=== PATIENT | male | born 1945 | race African-American/Black ===

== ENCOUNTER 2018-12-03 11:16 | Emergency (ER) | payer MEDICARE ==
[2018-12-03 12:19] LABS: Hemoglobin 8.2 g/dL (14.0-18.0); INR-International Normal Ratio 1.3; Mean Corpuscular Hemoglobin 35.3 pg (27.0-31.0); Mean Platelet Volume 13.7 fL (7.4-10.4); PTT 35.9 SEC (22.9-36.1); Platelet Count 20 thou/uL (130-400); Prothrombin Time 16.2 SEC (12.0-14.7); RBC Distribution Width 22.2 % (11.5-14.5); Red Blood Cell (RBC) Count 2.33 mill/uL (4.70-6.10); White Blood Cell (WBC) Count 23.3 thou/uL (4.8-10.8)
[2018-12-03 12:33] LABS: Anisocytosis MODERATE=16-30 cells (100X) (0-5/hpf); Band 2 % (5-11); Blast 65 % (0-0); Lymphocytes 15 % (21-51); MDiff Complete? YES; Macrocytosis SLIGHT = 6-15 cells (100X) (0-5/hpf); Metamyelocyte 1 % (0-0); Myelocyte 1 % (0-0); Neutrophil 16 % (42-75); Platelet Morphology Comment Appears Decreased; Poikilocytosis SLIGHT = 6-15 cells (100X) (0-5/hpf); Polychromasia SLIGHT = 2-3 cells (100X) (0-2/hpf); Schistocytes SLIGHT = 2-5 cells (100X) (0-1/hpf); Spherocytes SLIGHT = 1-5 cells (100X) (None Seen); Target Cells SLIGHT = 2-5 cells (100X) (0-1/hpf); Tear Drops SLIGHT = 2-5 cells (100X) (0-1/hpf)
[2018-12-03 12:34] LABS: ALT (SGPT) 10 U/L (8-55); AST (SGOT) 25 U/L (5-34); Albumin 4.2 g/dL (3.4-4.8); Alkaline Phosphatase 51 U/L (40-150); Anion Gap 12 mmol/L (10-20); BUN (Urea Nitrogen) 14 mg/dL (8.4-25.7); Bilirubin, Total 1.1 mg/dL (0.2-1.2); Calc. Creatinine Clearance 0 mL/min (70-130); Carbon Dioxide 23 mmol/L (23-31); Chloride 107 mmol/L (98-107); Estimated GFR-MDRD Greater than 90; Globulin 2.7 g/dL (2.4-3.5); Glucose 94 mg/dL (83-110); Potassium 3.8 mmol/L (3.5-5.1); Protein, Total 6.9 g/dL (5.8-8.1); Sodium 138 mmol/L (136-145)
== END 2018-12-03 17:58 | disposition short-term general hospital (02) ==
LOC: ERS 11:16
DX: C95.00 Acute leukemia of unspecified cell type not having achieved remission (principal); I10 Essential (primary) hypertension; Z79.899 Other long term (current) drug therapy
CPT/HCPCS: 36415; 80053; 85025; 85610; 85730; 99284

== ENCOUNTER 2019-01-05 11:51 | Day surgery (SDC) | payer MEDICARE ==
[2019-01-05] MEDS ORDERED: diphenhydrAMINE 25 MG CAP PO SCH (12:15)
[2019-01-05] MEDS ORDERED: Acetaminophen 500 MG TAB PO SCH (12:15)
[2019-01-05 17:00] VITALS: BP 98/54; TEMP 98.5
[2019-01-05 17:17] LABS: Hemoglobin 7.6 g/dL (14.0-18.0); Platelet Count 41 thou/uL (130-400)
== END 2019-01-05 17:02 | disposition home or self-care (01) ==
LOC: ONC/OP 11:51
PROVIDERS: ATTEND Internal Medicine Hematology & Oncology
PROC: 30233R1 Transfusion of Nonautologous Platelets into Peripheral Vein, Percutaneous Approach (ICD-10-PCS; principal; 2019-01-05)
PROC: 30233N1 Transfusion of Nonautologous Red Blood Cells into Peripheral Vein, Percutaneous Approach (ICD-10-PCS; 2019-01-05)
DX: D64.9 Anemia, unspecified (principal); D69.6 Thrombocytopenia, unspecified
CPT/HCPCS: 36430; 80053; 82248; 83615; 84100; 84550; 85014; 85018; 85049; 85384; 86850; 86900; 86901; P9016; P9035; Q0163

== ENCOUNTER 2019-01-07 11:32 | Day surgery (SDC) | payer MEDICARE ==
[2019-01-06 12:03] VITALS: BMI 22.9
[2019-01-07] MEDS ORDERED: Sodium Chloride 0.9% 10 ML ONE (12:08)
--- NOTE | 2019-01-07 12:38 | RAD ---
EXAM: Single view of the chest HISTORY: Status post central line placement COMPARISON: None FINDINGS: Single view of the chest shows a normal sized cardiomediastinal silhouette. A right upper extremity PICC line is seen with its tip in the superior vena cava. There is no evidence of consolidation, mass, or pleural effusion. The bones are unremarkable. IMPRESSION: No evidence of acute cardiopulmonary disease
[2019-01-07 12:39] LABS: Hemoglobin 8.6 g/dL (14.0-18.0); Mean Corpuscular HGB CONC 33.7 g/dL (32.0-36.0); Mean Corpuscular Hemoglobin 31.7 pg (27.0-31.0); Mean Corpuscular Volume 94.1 fL (78.0-98.0); RBC Distribution Width 20.1 % (11.5-14.5); Red Blood Cell (RBC) Count 2.72 mill/uL (4.70-6.10); White Blood Cell (WBC) Count 1.9 thou/uL (4.8-10.8)
[2019-01-07] MEDS ORDERED: Lidocaine 1% PF 5 ML VIAL ONE (12:53)
[2019-01-07] MEDS ORDERED: PHENYLEPHRINE-NS 100 MCG/ML 10 ML SYRINGE ONE (12:53)
[2019-01-07] MEDS ORDERED: ePHEDrine 50 MG/ML VIAL ONE (12:53)
[2019-01-07] MEDS ORDERED: PROPOFOL 200 MG/20 ML VIAL ONE (12:53)
[2019-01-07] MEDS ORDERED: Ondansetron PF 4 MG/2 ML Vial ONE (12:53)
[2019-01-07 12:56] LABS: #Lymphocytes 0.5 thou/uL (1.20-3.40); #Neutrophils 1.4 thou/uL (1.40-6.50); %Basophils 0.7 % (0.0-1.0); %Eosinophils 0.2 % (0.0-10.0); %Lymphocytes 23.8 % (21.0-51.0); %Monocytes 0.8 % (0.0-10.0); %Neutrophils 74.4 % (42.0-75.0); Anisocytosis SLIGHT = 6-15 cells (100X) (0-5/hpf); MDiff Complete? YES; Mean Platelet Volume 14.3 fL (7.4-10.4); Platelet Count 22 thou/uL (130-400); Platelet Morphology Comment Appears Decreased
[2019-01-07 13:05] LABS: Anion Gap 14 mmol/L (10-20); BUN (Urea Nitrogen) 18 mg/dL (8.4-25.7); Calc. Creatinine Clearance 77 mL/min (70-130); Calcium 8.6 mg/dL (7.8-10.44); Carbon Dioxide 24 mmol/L (23-31); Chloride 104 mmol/L (98-107); Estimated GFR-MDRD Greater than 90; Glucose 89 mg/dL (83-110); Sodium 138 mmol/L (136-145)
[2019-01-07] MEDS ORDERED: Fentanyl 100 MCG/2 ML VIAL ONE (13:40)
[2019-01-07] MEDS ORDERED: Ketorolac Tromethamine 30 MG/ML VIAL ONE (13:43)
[2019-01-07] MEDS ORDERED: Lidocaine 1% (PF) 30 ML VIAL ONE (14:58)
[2019-01-07] MEDS ORDERED: Bupivacaine/Epinephrine 0.25% 30 ML VIAL ONE (14:58)
--- NOTE | 2019-01-07 16:31 | RAD ---
EXAM: Single view of the chest HISTORY: Mediport placement COMPARISON: 01/07/2019 FINDINGS: Single view of the chest shows a normal sized cardiomediastinal silhouette. A left subclav reshma Mediport is seen with its tip in the superior vena cava. A PICC line is also seen. No pneumothorax is seen. There is no evidence of consolidation, mass, or pleural effusion. The bones ar e unremarkable. IMPRESSION: Status post Mediport placement without evidence of complication.
--- NOTE | 2019-01-09 21:11 | OP ---
DATE OF PROCEDURE: 01/07/2019 PREOPERATIVE DIAGNOSIS: Acute myeloid leukemia. POSTOPERATIVE DIAGNOSIS: Acute myeloid leukemia. OPERATION PERFORMED: Placement of left subclavian low-profile power compatible MediPort (attempted placement on the right, which was unsuccessful). ANESTHESIA: Total intravenous anesthesia with local using 0.25% Marcaine with epinephrine. INDICATIONS: The patient is a 73-year-old black male. He was recently diagnosed with AML. He has already undergone some chemotherapy and treatment of this. He presents today for MediPort placement for further chemotherapy. He has an indwelling right arm PICC line that is utilized for his IV access currently. When he presented, his platelet count was only 22,000. He was therefore transfused with a six pack of platelets as he was being taken back to the operating room. DESCRIPTION OF OPERATION: Informed consent was obtained. Patient was taken to the operating room, where total intravenous anesthesia obtained with patient in supine position. Bilateral chest was prepped with ChloraPrep and draped in a sterile fashion. Attention was turned first to the right chest. Local anesthetic was infiltrated and large gauge needle was advanced towards the clavicle. For anatomic reasons, I could not pass the needle between the clavicle and the first rib. I attempted this in multiple positions and never entered a vein. I could not find an appropriate anatomic access to the right subclavian vein. After attempting several times, I turned my attention to the left chest. On the initial pass, the needle was passed under the clavicle in the left subclavian vein. Guidewire was passed through the needle and fluoroscopically confirmed to enter the superior vena cava. Additional local anesthetic was infiltrated. An incision was created based on needle insertion site. Subcutaneous pocket was dissected extending inferiorly. Introducer dilator was passed over the wire. Wire was removed. Catheter was passed through the introducer which was then removed in the usual peel apart fashion. The catheter tip was positioned at the atrial caval junction using fluoroscopic guidance. The catheter was trimmed to appropriate length and secured to the locking hub of the MediPort. The port was then secured to the pectoral fascia with 2 interrupted sutures of 3-0 Prolene. The port was aspirated blood freely, was flushed with heparinized saline. X-ray showed that it was in good anatomic location. The wound was closed in layers with 3-0 and 4-0 Monocryl and Dermabond was placed externally. There were no complications. The patient did have a small hematoma on the right chest at the site of the initial placement attempt. Job ID: [id number]
--- NOTE | 2019-01-11 10:30 | EKG ---
Test Reason : PREOP Blood Pressure : / mmHG Vent. Rate : 088 BPM Atrial Rate : 088 BPM P-R Int : 130 ms QRS Dur : 082 ms QT Int : 336 ms P-R-T Axes : 052 011 020 degrees QTc Int : 406 ms Sinus rhythm with Premature supraventricular complexes ST abnormality, possible digitalis effect Abnormal ECG Confirmed by AMAN BRAGG MD ([id number]) on 01/11/2019 10:30:25 AM Referred By: ROBERTA Confirmed By:AMAN BRAGG MD
== END 2019-01-07 19:00 | disposition home or self-care (01) ==
LOC: SDC 11:32
PROVIDERS: ATTEND Specialist
PROC: 0JH63WZ Insertion of Totally Implantable Vascular Access Device into Chest Subcutaneous Tissue and Fascia, Percutaneous Approach (ICD-10-PCS; principal; 2019-01-07)
DX: C92.00 Acute myeloblastic leukemia, not having achieved remission (principal); I10 Essential (primary) hypertension; M19.90 Unspecified osteoarthritis, unspecified site; D68.9 Coagulation defect, unspecified; Z79.899 Other long term (current) drug therapy
CPT/HCPCS: 36430; 36561; 71045; 76000; 80048; 85025; 86850; 86900; 86901; 93005; C1788; P9035; 93010; J0131; J0690; J1642; J1885; J2001; J2405; J2704; J3010; J3490

== ENCOUNTER 2019-01-10 13:43 | Emergency (ER) | payer MEDICARE ==
[2019-01-10 14:54] LABS: Hemoglobin 6.6 g/dL (14.0-18.0); Mean Corpuscular HGB CONC 34.1 g/dL (32.0-36.0); Mean Corpuscular Hemoglobin 32.8 pg (27.0-31.0); Mean Corpuscular Volume 96.1 fL (78.0-98.0); Mean Platelet Volume 13.6 fL (7.4-10.4); Platelet Count 13 thou/uL (130-400); RBC Distribution Width 20.5 % (11.5-14.5); Red Blood Cell (RBC) Count 2.01 mill/uL (4.70-6.10); White Blood Cell (WBC) Count 1.1 thou/uL (4.8-10.8)
[2019-01-10 15:12] LABS: ALT (SGPT) 15 U/L (8-55); AST (SGOT) 9 U/L (5-34); Albumin 3.4 g/dL (3.4-4.8); Alkaline Phosphatase 52 U/L (40-110); Anion Gap 9 mmol/L (10-20); BUN (Urea Nitrogen) 16 mg/dL (8.4-25.7); Bilirubin, Total 0.6 mg/dL (0.2-1.2); Calc. Creatinine Clearance 0 mL/min (70-130); Carbon Dioxide 22 mmol/L (23-31); Chloride 110 mmol/L (98-107); Estimated GFR-MDRD Greater than 90; Globulin 2.6 g/dL (2.4-3.5); Glucose 184 mg/dL (83-110); Potassium 4.1 mmol/L (3.5-5.1); Sodium 137 mmol/L (136-145)
[2019-01-10 15:15] LABS: Band 7 % (5-11); Lymphocytes 10 % (21-51); MDiff Complete? YES; Neutrophil 82 % (42-75); Ovalocytes SLIGHT = 2-5 cells (100X) (0-1/hpf); Platelet Morphology Comment Appears Decreased; Polychromasia SLIGHT = 2-3 cells (100X) (0-2/hpf); Reactive Lymphocytes 1 % (0-10); Schistocytes SLIGHT = 2-5 cells (100X) (0-1/hpf); Target Cells SLIGHT = 2-5 cells (100X) (0-1/hpf); Tear Drops SLIGHT = 2-5 cells (100X) (0-1/hpf)
== END 2019-01-10 18:45 | disposition home or self-care (01) ==
LOC: ERS 13:43
DX: D64.9 Anemia, unspecified (principal); I10 Essential (primary) hypertension; Z79.899 Other long term (current) drug therapy
CPT/HCPCS: 36430; 80053 ×2; 82248; 83615; 84100; 84550; 85025; 86850; 86900; 86901; 86920; P9016; P9035; 36415; 99284

== ENCOUNTER 2019-01-19 14:12 | Inpatient (IN) | payer MEDICARE ==
--- NOTE | 2019-01-19 14:44 | RAD ---
Exam: Chest one view HISTORY:Cough. Fever. Cancer patient. Low platelets Comparison: 01/07/2019 FINDINGS: Cardiac silhouette:Upper normal cardiac silhouette Lines and tubes: Stable left-sided Port-A-Cath Aorta: Unremarkable Pulmonary vessels: Normal Costophrenic angles: Clear LUNGS: Stable aeration of the lung parenchyma. Increased lucency in the left upper lobe is unchanged. Pneumothorax: None Osseous abnormalities: None IMPRESSION: No significant interval change.
[2019-01-19 14:45] LABS: Hemoglobin 7.8 g/dL (14.0-18.0); Mean Corpuscular HGB CONC 33.9 g/dL (32.0-36.0); Mean Corpuscular Hemoglobin 32.1 pg (27.0-31.0); Mean Corpuscular Volume 94.7 fL (78.0-98.0); Mean Platelet Volume 10.3 fL (7.4-10.4); Platelet Count 33 thou/uL (130-400); RBC Distribution Width 19.6 % (11.5-14.5); Red Blood Cell (RBC) Count 2.43 mill/uL (4.70-6.10); White Blood Cell (WBC) Count 1.8 thou/uL (4.8-10.8)
[2019-01-19 14:57] LABS: ALT (SGPT) 14 U/L (8-55); AST (SGOT) 13 U/L (5-34); Albumin 3.8 g/dL (3.4-4.8); Alkaline Phosphatase 50 U/L (40-110); Anion Gap 14 mmol/L (10-20); BUN (Urea Nitrogen) 16 mg/dL (8.4-25.7); Bilirubin, Total 1.4 mg/dL (0.2-1.2); Calc. Creatinine Clearance 0 mL/min (70-130); Carbon Dioxide 22 mmol/L (23-31); Chloride 105 mmol/L (98-107); Estimated GFR-MDRD Greater than 90; Globulin 2.4 g/dL (2.4-3.5); Glucose 117 mg/dL (83-110); Potassium 3.6 mmol/L (3.5-5.1); Protein, Total 6.2 g/dL (5.8-8.1); Sodium 137 mmol/L (136-145)
[2019-01-19 15:29] LABS: Band 18 % (5-11); Lymphocytes 28 % (21-51); MDiff Complete? YES; Metamyelocyte 1 % (0-0); Monocytes 1 % (0-10); Myelocyte 1 % (0-0); Neutrophil 50 % (42-75); Platelet Morphology Comment Appears Decreased; Polychromasia SLIGHT = 2-3 cells (100X) (0-2/hpf); Reactive Lymphocytes 1 % (0-10); Tear Drops SLIGHT = 2-5 cells (100X) (0-1/hpf)
[2019-01-19 15:30] LABS: Bacteria/HPF 4+ HPF (None Seen); Bilirubin Negative (Negative); Blood, Urine 2+ (Negative); Clarity Turbid (Clear); Glucose, Urine (Dipstick) Normal (Negative); Leukocyte 25 Leu/uL (Negative); Nitrite Negative (Negative); Protein, Urine (Dipstick) 30 mg/dL (Neg-Trace); RBC/HPF Greater than 50 HPF (0-3); Squamous Epithelial None Seen HPF (0-3); Urobilinogen Normal mg/dL (Less than 2)
[2019-01-19] MEDS ORDERED: Piperacillin/Tazobactam 4.5 GM VIAL ONE (15:58)
[2019-01-19] MEDS ORDERED: Acetaminophen 500 MG TAB ONE (15:58)
[2019-01-19] MEDS ORDERED: Ondansetron ODT 4 MG TAB PO PRN (16:46)
[2019-01-19] MEDS ORDERED: Senokot S 8.6-50 MG TAB PO PRN (16:46)
[2019-01-19] MEDS ORDERED: Ondansetron PF 4 MG/2 ML Vial IVP PRN (16:46)
[2019-01-19] MEDS ORDERED: Ibuprofen 800 MG TAB ONE (17:19)
--- NOTE | 2019-01-19 17:35 | HP ---
CHIEF COMPLAINT: Generalized weakness. HISTORY OF PRESENT ILLNESS: This patient is a 73-year-old male, who has been generally healthy, whose only real medical history has been hypertension. However, in November, the patient was diagnosed with acute myelogenous leukemia and is being treated by Dr. Mckee. The patient had a port placed by Dr. Hickman and was following up with Dr. Hickman today. He was generally weaker than usual and trying to get to that appointment, he had to go to the Oncology Clinic apparently for some fluids and while there became profoundly weak and was noted to have a fever and subsequently brought here to the emergency department. Currently, the patient continues to feel generalized weakness, but he denies any other specific symptoms or complaints. REVIEW OF SYSTEMS: The patient apparently reported some cough, but presently does not report a significant cough. He denies headaches, sore throat, chest congestion, shortness of breath, chest pain, diarrhea, constipation, skin rashes or lesions or mouth symptoms. All other systems reviewed. All pertinent positives and negatives were noted in HPI if not listed here. PAST MEDICAL HISTORY: Notable for hypertension and AML. PAST SURGICAL HISTORY: Right cataractectomy and left chest port placement in the subclavian area. FAMILY HISTORY: Mother had some heart disease. Father's medical history is unknown. Has a brother with cancer and another brother with some heart disease. SOCIAL HISTORY: The patient is a nonsmoker, nondrinker, and nondrug user. He lives with his daughter. He is full code and she is his surrogate decision maker. ALLERGIES: NONE. CURRENT MEDICATIONS: 1. Diclofenac sodium 75 mg b.i.d. p.r.n. 2. Lisinopril 20 mg b.i.d. 3. Folic acid 1 mg daily. 4. Dexamethasone 4 mg daily. 5. Acyclovir 400 mg b.i.d. 6. Amlodipine 5 mg daily. 7. Lasix 20 mg daily. 8. Famotidine 20 mg daily. 9. Zofran p.r.n. 10. Compazine p.r.n. PHYSICAL EXAMINATION: VITAL SIGNS: Initially, BP 118/55, pulse 116, respirations 22, temperature 102.2, O2 saturations 98% on room air. Subsequently, BP is up to 146/69, pulse 101, respirations 16. GENERAL APPEARANCE: Age-appropriate male. He is awake and alert; however, he appears to be profoundly weak. He appears to barely be able to muster enough energy to barely shake his head when answering questions and occasionally answer or speak with a very hypophonic voice. HEENT: PERRL. No OP lesions. Cannot fully open his mouth at the moment. NECK: Supple and symmetric with no lymphadenopathy, JVD, or carotid bruits. HEART: Regular rate and rhythm with a 2/6 murmur heard best at the right upper sternal border. LUNGS: Clear to auscultation bilaterally with good chest wall expansion and air exchange. ABDOMEN: Soft, nontender, and nondistended. Positive bowel sounds. No masses. No organomegaly. EXTREMITIES: He has 1 to 2+ pitting edema to the mid calf bilaterally. He has some minimal ecchymoses here scattered in various places, nothing significant. PSYCH: Again very flat affect at the moment secondary to weakness. NEURO: Appears to be able to move his extremities and his cranial nerves normal other than the generalized weakness. IMAGING STUDIES: EKG shows sinus tachycardia at 117 beats per minute nothing specific or anything suggestive of ischemia. Chest x-ray is normal. LABORATORY DATA: White count is 1.8, hemoglobin 7.8, platelets 33, 50% neutrophils, 18% bands, 28% lymphocytes, 1% reactive lymphocytes, monocytes, metamyelocytes and myelocytes. There is polychromasia and teardrop cells. Chemistries normal except CO2 is 22, glucose 117, lactic acid 3, total bilirubin is 1.4. Urinalysis shows 2+ blood, greater than 50 red cells, 7 to 10 white cells, 1+ crystals and 4+ bacteria. Flu screen negative. IMPRESSION AND PLAN: 1. Febrile illness in a patient who is rapidly approaching neutropenia. He appears to be septic based on his fever and tachycardia. He is incapable of mounting a significant white count, although white count is technically low. There is no specific source of infection identified. He has received vancomycin and Zosyn in the emergency department. I will continue those along with his p.o. acyclovir. We will continue some fluids. Recheck his lactic acid level. 2. Acute myeloid leukemia, on chemotherapy. We will consult Oncology. 3. Hypertension. We will continue with his usual home medication regimen. Job ID: [id number]
[2019-01-19 17:36] LABS: Lactic Acid 1.6 mmol/L (0.5-2.2)
[2019-01-19] MEDS ORDERED: Piperacillin/Tazobactam 3.375 GM in Sodium Chloride 0.9% 100 ML IVPB SCH (18:00)
[2019-01-19] MEDS ORDERED: Vancomycin HCl 1 GM in Premix Bag 1 BAG IVPB SCH (21:00)
[2019-01-19] MEDS: Piperacillin/Tazobactam 3.375 GM in Sodium Chloride 0.9% 100 ML IVPB SCH (22:23)
[2019-01-19] MEDS: Lisinopril 20 MG TAB PO SCH (22:23)
[2019-01-19] MEDS: Famotidine 20 MG TAB PO SCH (22:24)
[2019-01-19] MEDS: Acyclovir 400 mg Tablet PO SCH (22:24)
[2019-01-20] MEDS: Piperacillin/Tazobactam 3.375 GM in Sodium Chloride 0.9% 100 ML IVPB SCH ×4 (03:33→21:17)
[2019-01-20] MEDS: Acetaminophen 325 MG TAB PO PRN ×4 (05:33→20:07)
[2019-01-20 05:38] LABS: Hemoglobin 7.2 g/dL (14.0-18.0); Mean Corpuscular HGB CONC 32.9 g/dL (32.0-36.0); Mean Corpuscular Hemoglobin 31.6 pg (27.0-31.0); Mean Corpuscular Volume 96.1 fL (78.0-98.0); Platelet Count 24 thou/uL (130-400); RBC Distribution Width 19.6 % (11.5-14.5); Red Blood Cell (RBC) Count 2.27 mill/uL (4.70-6.10); White Blood Cell (WBC) Count 1.2 thou/uL (4.8-10.8)
[2019-01-20 05:47] LABS: Band 8 % (5-11); Hypochromia SLIGHT = 6-15 cells (100X) (0-5/hpf); Lymphocytes 20 % (21-51); MDiff Complete? YES; Monocytes 4 % (0-10); Neutrophil 68 % (42-75); Platelet Morphology Comment Appears Decreased
[2019-01-20 05:58] LABS: ALT (SGPT) 15 U/L (8-55); AST (SGOT) 27 U/L (5-34); Albumin 3.3 g/dL (3.4-4.8); Alkaline Phosphatase 43 U/L (40-110); Anion Gap 14 mmol/L (10-20); BUN (Urea Nitrogen) 14 mg/dL (8.4-25.7); Bilirubin, Total 1.6 mg/dL (0.2-1.2); Calc. Creatinine Clearance 84 mL/min (70-130); Calcium 7.8 mg/dL (7.8-10.44); Carbon Dioxide 21 mmol/L (23-31); Chloride 109 mmol/L (98-107); Estimated GFR-MDRD Greater than 90; Globulin 2.3 g/dL (2.4-3.5); Glucose 80 mg/dL (83-110); Potassium 3.8 mmol/L (3.5-5.1); Protein, Total 5.6 g/dL (5.8-8.1); Sodium 140 mmol/L (136-145)
[2019-01-20] MEDS ORDERED: FLU VACC TS2019-20(65YR UP)/PF 180 MCG/0.5 ML SYRINGE IM ONE (09:00)
[2019-01-20] MEDS: Lisinopril 20 MG TAB PO SCH ×2 (09:00→20:07)
[2019-01-20] MEDS: Acyclovir 400 mg Tablet PO SCH ×2 (09:01→20:08)
[2019-01-20] MEDS: Famotidine 20 MG TAB PO SCH ×2 (09:17→20:07)
--- NOTE | 2019-01-20 09:27 | PDOC.HOSPP ---
- Subjective Encounter Date: 01/20/19 Encounter Time: 09:25 Subjective: Feels a little better than last night. No specific complaints. - Objective Vital Signs & Weight: Vital Signs (12 hours) Temp Pulse Resp BP BP BP Pulse Ox 01/20/19 09:00 117/65 01/20/19 07:59 99.6 F 87 16 117/65 99 01/20/19 04:00 100.1 F H 91 18 119/68 97 01/20/19 00:00 98.8 F 82 18 118/67 98 01/19/19 22:23 111/63 99 Weight Weight 151 lb 9.6 oz I&O: 01/19/19 01/20/19 01/21/19 06:59 06:59 06:59 Intake Total 500 Balance 500 Result Diagrams: 01/20/19 05:23 01/20/19 05:23 Hospitalist ROS - Medication Medications: Active Medications Generic Name Dose Route Start Last Admin Trade Name Freq PRN Reason Stop Dose Admin Acetaminophen 650 mg 01/19/19 16:46 01/20/19 05:33 Tylenol PO 650 mg Q4H PRN Administration Headache/Fever/Mild Pain (1-3) Acyclovir 400 mg 01/19/19 21:00 01/20/19 09:01 Zovirax PO 400 mg BID CHRISTIANO Administration Famotidine 20 mg 01/19/19 21:00 01/20/19 09:17 Pepcid PO Not Given BID CHRISTIANO Piperacillin Sod/Tazobactam 100 mls @ 200 mls/hr 01/19/19 22:00 01/20/19 09: 02 Sod 3.375 gm/ Sodium Chloride IVPB 100 mls 0400,1000,1600,2200 CHRISTIANO Administration Lisinopril 20 mg 01/19/19 21:00 01/20/19 09:00 Zestril PO 20 mg BID CHRISTIANO Administration - Exam General Appearance: NAD, awake alert Eye: PERRL, anicteric sclera Heart: RRR, no gallops, no rubs, II/IV Respiratory: CTAB, no wheezes, no rales, no ronchi, normal chest expansion, no tachypnea, normal percussion Gastrointestinal: soft, non-tender, non-distended, normal bowel sounds, no palpable masses, no hepatomegaly, no splenomegaly, no bruit Skin: normal turgor Neurological: cranial nerve grossly intact, normal sensation to touch, no weakness, no focal deficits, no new deficit Musculoskeletal: generalized weakness Psychiatric: flat affect Hosp A/P (1) Neutropenic sepsis Code(s): A41.9 - SEPSIS, UNSPECIFIED ORGANISM; D70.9 - NEUTROPENIA, UNSPECIFIED Status: Acute (2) UTI (urinary tract infection) Status: Acute (3) AML (acute myeloblastic leukemia) Code(s): C92.00 - ACUTE MYELOBLASTIC LEUKEMIA, NOT HAVING ACHIEVED REMISSION Status: Acute (4) HTN (hypertension) Code(s): I10 - ESSENTIAL (PRIMARY) HYPERTENSION Status: Acute (5) Pancytopenia Code(s): D61.818 - OTHER PANCYTOPENIA Status: Acute - Plan Doing a little better. Continue Vanc and Zosyn. Follow counts. Oncology following. UCx grown GNR. Possible source. Echo for previously undiagnosed murmur in the setting of fever. Suspect it may be a flow murmur from the anemia.
[2019-01-20] MEDS: Sodium Chloride 0.9% 1,000 ML IV SCH (15:29)
[2019-01-20] MEDS ORDERED: Vancomycin HCl 1.25 GM in Sodium Chloride 0.9% 250 ML 250 ML IVPB SCH (16:00)
--- NOTE | 2019-01-20 16:59 | CON ---
DATE OF CONSULTATION: REASON FOR CONSULTATION: AML. HISTORY OF PRESENT ILLNESS: A 73-year-old male with AML, currently on chemotherapy, presenting to the hospital with fatigue, generalized weakness, and fever. The patient was seen in followup by Dr. Hickman and had complained of weakness, so was sent over to Cancer Clinic for evaluation. Upon arrival to Cancer Clinic, he was noted to be febrile with a temperature of 100 and received 1 L of IV fluids. After IV fluids, he felt even worse and his CBC showed a white blood cell count of 1.6 and neutrophil count of 1.1, so he was sent over to the ER for evaluation. The patient denied any other specific symptoms or complaints. His urinalysis and urine culture showed a UTI, and he continues to be febrile. He has been started on antibiotics with vancomycin and Zosyn and is also on acyclovir. REVIEW OF SYSTEMS: Ten-point review of systems negative except as per HPI. PAST MEDICAL HISTORY: AML and hypertension. PAST SURGICAL HISTORY: MediPort and cataract surgery. FAMILY HISTORY: Colon and lung cancer in his brother, blood clot in his sister. SOCIAL HISTORY: Nonsmoker and nondrinker. Lives with his daughter. ALLERGIES: NONE. CURRENT MEDICATIONS: Reviewed. PHYSICAL EXAMINATION: VITAL SIGNS: Temperature 102.2, pulse 89, respirations 16, saturating 98% on room air with a blood pressure 117/69. GENERAL APPEARANCE: The patient is lying down in bed, in no acute distress. Appears weak. HEENT: Normocephalic and atraumatic. NECK: Supple. CARDIAC: S1 and S2. Regular rate and rhythm with a 2/6 systolic ejection murmur. LUNGS: Clear to auscultation. ABDOMEN: Soft, nondistended, and nontender. There is no suprapubic tenderness. EXTREMITIES: Show pitting edema. PSYCHIATRIC: Flat affect. NEUROLOGIC: Cranial nerves 2 through 12 are grossly intact. He moves all extremities. LABORATORY DATA: White blood cells 1.2, hemoglobin 7.2, platelets 24, neutrophils 912. Sodium 140, potassium 3.8, BUN 14, creatinine 0.75, glucose 80. Total bilirubin 1.6, AST 27, ALT 15, alkaline phosphatase 43, and albumin 3.3. Urinalysis shows 7 to 10 white blood cells, 4+ bacteria, and urine culture shows gram-negative rods greater than 100,000 CFUs. Blood cultures are negative to date. IMAGING DATA: Chest x-ray is normal. ASSESSMENT AND PLAN: A 73-year-old male with acute myelogenous leukemia, presenting with febrile neutropenia and found to have urinary tract infection. The patient is currently on vancomycin and Zosyn along with acyclovir and is still spiking fevers. Blood cultures are negative to date, and we will follow these up. Recommend continue IV fluids and antibiotics at this time. If his absolute neutrophil count drops below 500, we would recommend adding antifungal therapy with voriconazole. We would also hold venetoclax at this time due to neutropenia and infection. We transfuse packed red blood cells for a hemoglobin less than 7 and transfuse platelets if less than 20 given ongoing fevers, however, could be less than 10 if he becomes afebrile. We will follow along with you. Job ID: [id number]
[2019-01-21] MEDS: Acetaminophen 325 MG TAB PO PRN ×4 (02:22→20:20)
[2019-01-21] MEDS: Piperacillin/Tazobactam 3.375 GM in Sodium Chloride 0.9% 100 ML IVPB SCH ×4 (03:30→21:51)
[2019-01-21] MEDS: Sodium Chloride 0.9% 1,000 ML IV SCH ×2 (06:24→15:25)
[2019-01-21 06:50] LABS: Hemoglobin 6.5 g/dL (14.0-18.0); Mean Corpuscular HGB CONC 32.8 g/dL (32.0-36.0); Mean Corpuscular Hemoglobin 31.7 pg (27.0-31.0); Mean Corpuscular Volume 96.4 fL (78.0-98.0); Mean Platelet Volume 11.9 fL (7.4-10.4); Platelet Count 13 thou/uL (130-400); RBC Distribution Width 19.9 % (11.5-14.5); Red Blood Cell (RBC) Count 2.05 mill/uL (4.70-6.10); White Blood Cell (WBC) Count 0.6 thou/uL (4.8-10.8)
[2019-01-21 06:55] LABS: Band 8 % (5-11); Lymphocytes 64 % (21-51); MDiff Complete? YES; Neutrophil 28 % (42-75); Platelet Morphology Comment Appears Decreased
[2019-01-21] MEDS: Voriconazole 50 MG TAB PO SCH ×2 (08:49→20:19)
[2019-01-21] MEDS: Lisinopril 20 MG TAB PO SCH ×2 (08:49→20:20)
[2019-01-21] MEDS: Acyclovir 400 mg Tablet PO SCH ×2 (08:50→20:19)
[2019-01-21] MEDS: Famotidine 20 MG TAB PO SCH ×2 (08:50→20:20)
--- NOTE | 2019-01-21 10:10 | PDOC.HOSPP ---
- Subjective Encounter Date: 01/21/19 Encounter Time: 10:09 Subjective: Doing a little better. Has cough productive of clear sputum. - Objective Vital Signs & Weight: Vital Signs (12 hours) Temp Pulse Resp BP BP BP Pulse Ox 01/21/19 08:49 119/65 01/21/19 07:40 100.8 F H 88 16 136/75 95 01/21/19 03:34 100.7 F H 99 16 121/74 97 01/21/19 00:00 98.7 F 89 18 115/68 98 Weight Admit Weight 151 lb 9.6 oz Weight 151 lb 9.6 oz I&O: 01/20/19 01/21/19 01/22/19 06:59 06:59 06:59 Intake Total 500 1025 Balance 500 1025 Result Diagrams: 01/21/19 05:58 01/20/19 05:23 Hospitalist ROS - Medication Medications: Active Medications Generic Name Dose Route Start Last Admin Trade Name Freq PRN Reason Stop Dose Admin Acetaminophen 650 mg 01/19/19 16:46 01/21/19 08:49 Tylenol PO 650 mg Q4H PRN Administration Headache/Fever/Mild Pain (1-3) Acyclovir 400 mg 01/19/19 21:00 01/21/19 08:50 Zovirax PO 400 mg BID CHRISTIANO Administration Famotidine 20 mg 01/19/19 21:00 01/21/19 08:50 Pepcid PO Not Given BID CHRISTIANO Vancomycin HCl 1.25 gm/ Sodium 250 mls @ 166.667 mls/hr 01/20/19 16:00 15:33 Chloride IVPB 250 mls 1600 CHRISTIANO Administration Piperacillin Sod/Tazobactam 100 mls @ 200 mls/hr 01/19/19 22:00 01/21/19 09: 21 Sod 3.375 gm/ Sodium Chloride IVPB 100 mls 0400,1000,1600,2200 CHRISTIANO Administration Sodium Chloride 1,000 mls @ 75 mls/hr 01/20/19 15:15 01/21/19 06:24 Normal Saline 0.9% IV Not Given .[id number] CHRISTIANO Lisinopril 20 mg 01/19/19 21:00 01/21/19 08:49 Zestril PO 20 mg BID CHRISTIANO Administration Voriconazole 50 mg 01/21/19 09:00 01/21/19 08:49 Vfend PO 50 mg Q12HR CHRISTIANO Administration - Exam General Appearance: NAD, awake alert Heart: RRR, no gallops, no rubs, II/IV Respiratory: CTAB, no wheezes, no rales, no ronchi, normal chest expansion, no tachypnea, normal percussion Gastrointestinal: soft, non-tender, non-distended Extremities: no edema Skin: normal turgor Musculoskeletal: generalized weakness Psychiatric: normal behavior, flat affect Hosp A/P (1) Neutropenic sepsis Code(s): A41.9 - SEPSIS, UNSPECIFIED ORGANISM; D70.9 - NEUTROPENIA, UNSPECIFIED Status: Acute (2) UTI (urinary tract infection) Status: Acute (3) AML (acute myeloblastic leukemia) Code(s): C92.00 - ACUTE MYELOBLASTIC LEUKEMIA, NOT HAVING ACHIEVED REMISSION Status: Acute (4) HTN (hypertension) Code(s): I10 - ESSENTIAL (PRIMARY) HYPERTENSION Status: Acute (5) Pancytopenia Code(s): D61.818 - OTHER PANCYTOPENIA Status: Acute (6) Cough Code(s): R05 - COUGH Status: Acute - Plan Doing a little better. Continue Vanc and Zosyn. Po Acyclovir and Voriconazole. Follow counts. Oncology following. UCx grown Klebsiella. Possible source. Echo with mod AR, TR. Suspect it may be a flow murmur from the anemia. Transfuse RBC, Platelets. 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
[2019-01-21] MEDS ORDERED: Acetaminophen 325 MG TAB PO SCH (11:00)
--- NOTE | 2019-01-21 13:04 | PDOC.MOPN ---
Interval History: Eating lunch, denies complaints. - Vital Signs Vital Signs: Vital Signs (12 hours) Temp Pulse Resp BP BP Pulse Ox 01/21/19 11:39 100.3 F H 96 16 117/75 96 01/21/19 11:15 100.8 F H 01/21/19 10:50 102.4 F H 01/21/19 08:49 119/65 01/21/19 07:40 100.8 F H 88 16 136/75 95 01/21/19 03:34 100.7 F H 99 16 121/74 97 Weight Admit Weight 151 lb 9.6 oz Weight 151 lb 9.6 oz - Physical Exam General: Alert, Oriented x3, No acute distress HEENT: Atraumatic, PERRLA, EOMI, Mucous membr. moist/pink Lungs: Clear to auscultation, Normal air movement Cardiovascular: Regular rate, Normal S1, Normal S2, No murmurs, Gallops, Rubs Abdomen: Normal bowel sounds, Soft, No tenderness, No hepatospenomegaly, No masses Extremities: No clubbing, No cyanosis, No edema, Normal pulses, No tenderness/ swelling Neurological: Normal speech Psych/Mental Status: Mental status NL, Mood NL - Labs Result Diagrams: 01/21/19 05:58 01/20/19 05:23 Lab results: Laboratory Results - last 24 hr 01/21/19 08:18: Blood Type O POSITIVE, Antibody Screen NEGATIVE, Crossmatch See Detail 01/21/19 05:58: WBC 0.6 L*, RBC 2.05 L, Hgb 6.5 L, Hct 19.8 L, MCV 96.4, MCH 31.7 H, MCHC 32.8, RDW 19.9 H, Plt Count 13 L*, MPV 11.9 H, Neutrophils % ( Manual) 28 L, Band Neuts % (Manual) 8, Lymphocytes % (Manual) 64 H, Plt Morphology Comment Appears Decreased L Status: lab reviewed by me A/P - Problem (1) AML (acute myeloblastic leukemia) Current Visit: Yes Code(s): C92.00 - ACUTE MYELOBLASTIC LEUKEMIA, NOT HAVING ACHIEVED REMISSION Status: Acute (2) Neutropenic sepsis Current Visit: Yes Code(s): A41.9 - SEPSIS, UNSPECIFIED ORGANISM; D70.9 - NEUTROPENIA, UNSPECIFIED Status: Acute (3) Pancytopenia Current Visit: Yes Code(s): D61.818 - OTHER PANCYTOPENIA Status: Acute - Plan Plan: Continue abx, antiviral, antifungal IVF Transfuse PRBC and platelets today neutropenic precautions CBC daily.
[2019-01-21] MEDS: Vancomycin HCl 1.25 GM in Sodium Chloride 0.9% 250 ML 250 ML IVPB SCH (17:29)
[2019-01-22] MEDS: Acetaminophen 325 MG TAB PO PRN ×4 (00:28→17:09)
[2019-01-22] MEDS: Piperacillin/Tazobactam 3.375 GM in Sodium Chloride 0.9% 100 ML IVPB SCH ×4 (04:38→21:00)
[2019-01-22] MEDS: Vancomycin HCl 1.25 GM in Sodium Chloride 0.9% 250 ML 250 ML IVPB SCH ×2 (04:41→17:06)
[2019-01-22 05:15] LABS: Platelet Count 20 thou/uL (130-400); White Blood Cell (WBC) Count 0.3 thou/uL (4.8-10.8)
[2019-01-22 06:11] LABS: Anisocytosis SLIGHT = 6-15 cells (100X) (0-5/hpf); Burr Cells SLIGHT = 2-5 cells (100X) (0-1/hpf); MDiff Complete? YES; Mean Corpuscular HGB CONC 34.4 g/dL (32.0-36.0); Mean Corpuscular Hemoglobin 32.4 pg (27.0-31.0); Platelet Morphology Comment Appears Decreased; RBC Distribution Width 18.7 % (11.5-14.5); Red Blood Cell (RBC) Count 2.15 mill/uL (4.70-6.10)
[2019-01-22] MEDS: Sodium Chloride 0.9% 1,000 ML IV SCH (06:37)
[2019-01-22] MEDS: Voriconazole 50 MG TAB PO SCH ×2 (08:49→22:50)
[2019-01-22] MEDS: Famotidine 20 MG TAB PO SCH ×2 (08:49→20:59)
[2019-01-22] MEDS: Lisinopril 20 MG TAB PO SCH ×2 (08:49→20:59)
[2019-01-22] MEDS: Acyclovir 400 mg Tablet PO SCH ×2 (08:49→20:59)
--- NOTE | 2019-01-22 10:00 | PDOC.MOPN ---
Interval History: Pt feeling better today. He c/o mild SOB. Eating more. Still spiking fevers, but fever curve improving. - Vital Signs Vital Signs: Vital Signs (12 hours) Temp Pulse Resp BP BP Pulse Ox 01/22/19 07:37 100.4 F H 95 16 134/73 95 01/22/19 04:00 98.8 F 88 20 132/73 97 01/21/19 23:45 101.6 F H 105 H 20 123/70 94 L Weight Admit Weight 151 lb 9.6 oz Weight 151 lb 9.6 oz - Physical Exam General: Alert, Oriented x3, Cooperative HEENT: Atraumatic Lungs: Clear to auscultation, Normal air movement Cardiovascular: Regular rate, Normal S1, Normal S2, Other (3/6 systolic murmur) Abdomen: Soft, No tenderness Neurological: Cranial nerves 3-12 NL Psych/Mental Status: Other (flat affect) - Labs Result Diagrams: 01/22/19 04:30 01/20/19 05:23 Lab results: Laboratory Results - last 24 hr 01/22/19 04:30: WBC 0.3 L*, RBC 2.15 L, Hgb 7.0 L, Hct 20.2 L, MCV 94.0, MCH 32.4 H, MCHC 34.4, RDW 18.7 H, Plt Count 20 L*, MPV 11.0 H, Neutrophils % ( Manual) Not Reportable, Plt Morphology Comment Appears Decreased L, Anisocytosis SLIGHT = 6-15 cells, Mariam Cells SLIGHT = 2-5 cells 01/21/19 15:09: Vancomycin Trough 4.0 01/21/19 08:18: Blood Type O POSITIVE, Antibody Screen NEGATIVE, Crossmatch See Detail A/P - Problem (1) AML (acute myeloblastic leukemia) Current Visit: Yes Code(s): C92.00 - ACUTE MYELOBLASTIC LEUKEMIA, NOT HAVING ACHIEVED REMISSION Status: Acute (2) Pancytopenia Current Visit: Yes Code(s): D61.818 - OTHER PANCYTOPENIA Status: Acute (3) UTI (urinary tract infection) Current Visit: Yes Status: Acute - Plan Plan: cont antibiotics, antifungal, antivirals await count recovery - no neupogen at this time given AML Transfuse for platelets < 10 or Hb < 7.0: transfuse 1 unit PRBC today Hold venetoclax PT consult
--- NOTE | 2019-01-22 19:10 | PDOC.HOSPP ---
- Subjective Encounter Date: 01/22/19 Encounter Time: 18:20 Subjective: f/u for neutropenic fever, sepsis and UTI with Klebsiella spp on Zosyn/ Vancomycin. Continues to have fever spikes. More alert per daughter this pm. - Objective Vital Signs & Weight: Vital Signs (12 hours) Temp Pulse Pulse Resp BP BP BP 01/22/19 19:02 99.1 F 100 20 142/76 H 01/22/19 17:07 100.9 F H 01/22/19 15:48 102.5 F H 101 H 18 127/65 01/22/19 15:20 101.2 F H 99 16 137/71 01/22/19 13:15 97.9 F 101 H 16 125/71 01/22/19 13:00 101.8 F H 98 14 136/71 01/22/19 11:55 102.8 F H 101 H 18 151/72 H 01/22/19 08:50 01/22/19 07:37 100.4 F H 95 16 134/73 Pulse Ox 01/22/19 19:02 97 01/22/19 17:07 01/22/19 15:48 99 01/22/19 15:20 97 01/22/19 13:15 95 01/22/19 13:00 94 L 01/22/19 11:55 95 01/22/19 08:50 95 01/22/19 07:37 95 Weight Admit Weight 151 lb 9.6 oz Weight 151 lb 9.6 oz I&O: 01/21/19 01/22/19 01/23/19 06:59 06:59 06:59 Intake Total 1025 4100 2130 Output Total 5 Balance 1025 4095 2130 Result Diagrams: 01/22/19 04:30 01/20/19 05:23 Additional Labs: Microbiology 01/19/19 15:24 Nasal swab Influenza Types A,B Direct EIA - Final 01/19/19 14:54 Urine Straight Catheter Urine Culture - Final Klebsiella pneumoniae ssp pneu 01/20/19 11:51 Venous blood - Right Hand Blood Culture - Preliminary NO GROWTH AT 48 HOURS 01/20/19 11:45 Venous blood - Left Arm Blood Culture - Preliminary NO GROWTH AT 48 HOURS 01/19/19 14:29 Venous blood - Right Arm Blood Culture - Preliminary NO GROWTH AT 48 HOURS 01/19/19 14:29 [place] Vena Cava Blood Culture - Preliminary NO GROWTH AT 48 HOURS Laboratory Tests 01/19/19 01/20/19 01/21/19 14:29 05:23 05:58 WBC 1.8 L 1.2 L 0.6 L* Hgb 7.8 L 7.2 L 6.5 L Plt Count 33 L 24 L* 13 L* Band Neuts % (Manual) 18 H 8 8 Radiology Reviewed by me: Yes (Echo - EF 50%, diast dysfxn, mod TR, mod AR) Hospitalist ROS - Medication Medications: Active Medications Generic Name Dose Route Start Last Admin Trade Name Freq PRN Reason Stop Dose Admin Acetaminophen 650 mg 01/19/19 16:46 01/22/19 17:09 Tylenol PO 650 mg Q4H PRN Administration Headache/Fever/Mild Pain (1-3) Acyclovir 400 mg 01/19/19 21:00 01/22/19 08:49 Zovirax PO 400 mg BID CHRISTIANO Administration Famotidine 20 mg 01/19/19 21:00 01/22/19 08:49 Pepcid PO Not Given BID CHRISTIANO Piperacillin Sod/Tazobactam 100 mls @ 200 mls/hr 01/19/19 22:00 01/22/19 15: 28 Sod 3.375 gm/ Sodium Chloride IVPB 100 mls 0400,1000,1600,2200 CHRISTIANO Administration Sodium Chloride 1,000 mls @ 75 mls/hr 01/20/19 15:15 01/22/19 06:37 Normal Saline 0.9% IV Not Given .[id number] CHRISTIANO Vancomycin HCl 1.25 gm/ Sodium 250 mls @ 166.667 mls/hr 01/21/19 16:00 17:06 Chloride IVPB 250 mls 0400,1600 CHRISTIANO Administration Lisinopril 20 mg 01/19/19 21:00 01/22/19 08:49 Zestril PO 20 mg BID CHRISTIANO Administration Voriconazole 50 mg 01/21/19 09:00 01/22/19 08:49 Vfend PO 50 mg Q12HR CHRISTIANO Administration - Exam General Appearance: awake alert, ill appearing Eye: PERRL, anicteric sclera ENT: normocephalic atraumatic, no oropharyngeal lesions Neck: supple, symmetric, no JVD, no thyromegaly Heart: murmur present, III/IV Heart - other findings: tachycardic Respiratory: CTAB, no wheezes, no rales, no ronchi Gastrointestinal: soft, non-tender, non-distended, normal bowel sounds Extremities - other findings: warm, clammy extremities Skin: normal turgor, no lesions Neurological: cranial nerve grossly intact, no new deficit Musculoskeletal: generalized weakness Psychiatric: flat affect, somnolent Hosp A/P (1) Neutropenic sepsis Code(s): A41.9 - SEPSIS, UNSPECIFIED ORGANISM; D70.9 - NEUTROPENIA, UNSPECIFIED Status: Acute Plan: Continue Vancomycin/Zosyn and add Cefepime given persistent fever, blood cx negative to date (2) Pancytopenia Code(s): D61.818 - OTHER PANCYTOPENIA Status: Acute Plan: Secondary to chemotherapy, continue serial monitoring, appreciate Oncology assistance (3) AML (acute myeloblastic leukemia) Code(s): C92.00 - ACUTE MYELOBLASTIC LEUKEMIA, NOT HAVING ACHIEVED REMISSION Status: Acute Plan: Receiving chemotherapy prior to admit with current chemo on hold due sepsis (4) UTI (urinary tract infection) Status: Acute Plan: Klebsiella spp on Ucx, continue Zosyn, add Cefepime - Plan plan discussed w/ family, continue antibiotics, PT/OT, social sciences instructor, out of bed/ambulate, DVT proph w/SCDs Continue supportive mgmt Continue Vanc/Zosyn Add Cefepime IV OOB with PT Continue antifungals/antivirals Continue IVF's AM lab: CBC CM for SNF options
[2019-01-22] MEDS: Cefepime 2 GM in Sodium Chloride 0.9% 100 ML IVPB SCH (21:00)
[2019-01-23] MEDS: Acetaminophen 325 MG TAB PO PRN ×5 (01:22→21:00)
[2019-01-23 03:38] LABS: Vancomycin, Trough 10.8 ug/mL
[2019-01-23] MEDS: Piperacillin/Tazobactam 3.375 GM in Sodium Chloride 0.9% 100 ML IVPB SCH ×4 (05:31→21:01)
[2019-01-23] MEDS: Sodium Chloride 0.9% 1,000 ML IV SCH ×2 (05:31→08:12)
[2019-01-23] MEDS: Vancomycin HCl 1.25 GM in Sodium Chloride 0.9% 250 ML 250 ML IVPB SCH (05:31)
[2019-01-23] MEDS: Cefepime 2 GM in Sodium Chloride 0.9% 100 ML IVPB SCH ×2 (08:12→20:59)
[2019-01-23] MEDS: Acyclovir 400 mg Tablet PO SCH ×2 (08:12→21:00)
[2019-01-23] MEDS: Lisinopril 20 MG TAB PO SCH ×2 (08:12→21:00)
[2019-01-23] MEDS: Famotidine 20 MG TAB PO SCH ×2 (08:12→21:00)
[2019-01-23 08:58] LABS: Hemoglobin 7.3 g/dL (14.0-18.0); Mean Corpuscular HGB CONC 33.3 g/dL (32.0-36.0); Mean Corpuscular Hemoglobin 31.5 pg (27.0-31.0); Mean Corpuscular Volume 94.7 fL (78.0-98.0); Mean Platelet Volume 14.8 fL (7.4-10.4); Platelet Count 7 thou/uL (130-400); RBC Distribution Width 17.5 % (11.5-14.5); Red Blood Cell (RBC) Count 2.32 mill/uL (4.70-6.10); White Blood Cell (WBC) Count 0.3 thou/uL (4.8-10.8)
[2019-01-23] MEDS: Voriconazole 50 MG TAB PO SCH ×2 (09:01→21:00)
--- NOTE | 2019-01-23 11:01 | PDOC.MOPN ---
Interval History: Pt feeling about the same. Still c/o mild SOB and cough. Still spiking fevers on broad spec antibiotics that cover his Klebsiella, and on antifungal and antiviral. - Vital Signs Vital Signs: Vital Signs (12 hours) Temp Pulse Pulse Resp BP BP BP 01/23/19 10:38 102.1 F H 106 H 16 152/81 H 01/23/19 07:31 101.6 F H 98 20 155/82 H 01/23/19 04:00 99.4 F 95 20 146/76 H 01/23/19 00:00 101.4 F H 99 20 161/82 H Pulse Ox 01/23/19 10:38 96 01/23/19 07:31 96 01/23/19 04:00 96 01/23/19 00:00 96 Weight Admit Weight 151 lb 9.6 oz Weight 151 lb 9.6 oz - Physical Exam General: Alert, Cooperative HEENT: Atraumatic Lungs: Clear to auscultation Cardiovascular: Regular rate Abdomen: Soft, No tenderness Neurological: Cranial nerves 3-12 NL Psych/Mental Status: Other (flat affect) - Labs Result Diagrams: 01/23/19 06:15 01/20/19 05:23 Lab results: Laboratory Results - last 24 hr 01/23/19 06:15: WBC 0.3 L*, RBC 2.32 L, Hgb 7.3 L, Hct 22.0 L, MCV 94.7, MCH 31.5 H, MCHC 33.3, RDW 17.5 H, Plt Count 7 L*, MPV 14.8 H, Neutrophils % (Manual ) Not Reportable 01/23/19 02:50: Vancomycin Trough 10.8 01/21/19 08:18: Blood Type O POSITIVE, Antibody Screen NEGATIVE, Crossmatch See Detail A/P - Problem (1) AML (acute myeloblastic leukemia) Current Visit: Yes Code(s): C92.00 - ACUTE MYELOBLASTIC LEUKEMIA, NOT HAVING ACHIEVED REMISSION Status: Acute (2) Pancytopenia Current Visit: Yes Code(s): D61.818 - OTHER PANCYTOPENIA Status: Acute (3) UTI (urinary tract infection) Current Visit: Yes Status: Acute - Plan Plan: cont abx, antifungals, antiviral transfuse 2 units platelets today check Fungitell and fungal antibodies due to ongoing fever
[2019-01-23] MEDS: Vancomycin HCl 1 GM in Premix Bag 1 BAG IVPB SCH ×2 (13:41→20:59)
[2019-01-23] MEDS ORDERED: Sodium Chloride 0.9% 1,000 ML IV SCH (16:15)
[2019-01-24] MEDS: Piperacillin/Tazobactam 3.375 GM in Sodium Chloride 0.9% 100 ML IVPB SCH (04:13)
[2019-01-24] MEDS: Vancomycin HCl 1 GM in Premix Bag 1 BAG IVPB SCH ×3 (04:14→20:49)
[2019-01-24] MEDS: Acetaminophen 325 MG TAB PO PRN ×4 (04:15→23:56)
[2019-01-24 06:54] LABS: ALT (SGPT) 49 U/L (8-55); AST (SGOT) 46 U/L (5-34); Albumin 2.9 g/dL (3.4-4.8); Alkaline Phosphatase 62 U/L (40-110); Anion Gap 10 mmol/L (10-20); BUN (Urea Nitrogen) 11 mg/dL (8.4-25.7); Calc. Creatinine Clearance 86 mL/min (70-130); Calcium 7.6 mg/dL (7.8-10.44); Carbon Dioxide 21 mmol/L (23-31); Chloride 107 mmol/L (98-107); Estimated GFR-MDRD Greater than 90; Globulin 2.5 g/dL (2.4-3.5); Glucose 111 mg/dL (83-110); Magnesium 1.9 mg/dL (1.6-2.6); Potassium 3.2 mmol/L (3.5-5.1); Protein, Total 5.4 g/dL (5.8-8.1); Sodium 135 mmol/L (136-145)
[2019-01-24 07:14] LABS: Hemoglobin 6.2 g/dL (14.0-18.0); Mean Corpuscular HGB CONC 34.1 g/dL (32.0-36.0); Mean Corpuscular Hemoglobin 31.7 pg (27.0-31.0); Mean Corpuscular Volume 93.1 fL (78.0-98.0); Mean Platelet Volume 10.3 fL (7.4-10.4); Platelet Count 28 thou/uL (130-400); RBC Distribution Width 17.7 % (11.5-14.5); Red Blood Cell (RBC) Count 1.95 mill/uL (4.70-6.10); White Blood Cell (WBC) Count 0.2 thou/uL (4.8-10.8)
[2019-01-24 07:15] LABS: Anisocytosis MODERATE=16-30 cells (100X) (0-5/hpf); MDiff Complete? YES; Platelet Morphology Comment Appears Decreased
--- NOTE | 2019-01-24 08:30 | PDOC.HOSPP ---
- Subjective Encounter Date: 01/23/19 Encounter Time: 12:00 Subjective: Patient seen and examined for Neutropenic fever. Feels gen weak. No CP or SOB. No new complaints. No overnight events - Objective Vital Signs & Weight: Vital Signs (12 hours) Temp Pulse Resp BP BP Pulse Ox 01/24/19 08:05 99.7 F H 86 20 123/66 94 L 01/24/19 04:00 101.9 F H 104 H 20 144/81 H 95 01/23/19 23:56 98.9 F 102 H 20 159/88 H 93 L Weight Admit Weight 151 lb 9.6 oz Weight 151 lb 9.6 oz I&O: 01/23/19 01/24/19 01/25/19 06:59 06:59 06:59 Intake Total 3750 3995 Balance 3750 3995 Result Diagrams: 01/24/19 06:24 01/24/19 06:24 Hospitalist ROS - Review of Systems Respiratory: denies: cough, dry, shortness of breath, hemoptysis, SOB with excertion, pleuritic pain, sputum, wheezing, other Cardiovascular: denies: chest pain, palpitations, orthopnea, paroxysmal noc. dyspnea, edema, light headedness, other Gastrointestinal: denies: nausea, vomiting, abdominal pain, diarrhea, constipation, melena, hematochezia, other - Medication Medications: Active Medications Generic Name Dose Route Start Last Admin Trade Name Freq PRN Reason Stop Dose Admin Acetaminophen 650 mg 01/19/19 16:46 01/24/19 04:15 Tylenol PO 650 mg Q4H PRN Administration Headache/Fever/Mild Pain (1-3) Acyclovir 400 mg 01/19/19 21:00 01/23/19 21:00 Zovirax PO 400 mg BID CHRISTIANO Administration Famotidine 20 mg 01/19/19 21:00 01/23/19 21:00 Pepcid PO Not Given BID CHRISTIANO Cefepime HCl 2 gm/ Sodium 100 mls @ 200 mls/hr 01/22/19 21:00 01/23/19 20:59 Chloride IVPB 100 mls Q12HR CHRISTIANO Administration Vancomycin HCl 1 gm/ Device 200 mls @ 200 mls/hr 01/23/19 12:00 01/24/19 04: 14 IVPB 200 mls 0400,1200,2000 CHRISTIANO Administration Sodium Chloride 1,000 mls @ 50 mls/hr 01/23/19 16:15 01/23/19 16:09 Normal Saline 0.9% IV Not Given .Q20H CHRISTIANO Lisinopril 20 mg 01/19/19 21:00 01/23/19 21:00 Zestril PO 20 mg BID CHRISTIANO Administration Voriconazole 50 mg 01/21/19 09:00 01/23/19 21:00 Vfend PO 50 mg Q12HR CHRISTIANO Administration - Exam General Appearance: ill appearing Neck: supple, no JVD Heart: RRR, no gallops Respiratory: CTAB, no rales Gastrointestinal: soft, non-tender, normal bowel sounds Extremities: no edema Hosp A/P - Plan DVT proph w/SCDs Severe Sepsis/Neutropenic fever UTI due to Klebsiella Pancytopenia due to Chemo Lactic acidosis AML on chemo HTN Physical deconditioning PLAN: Transfuse Platelets Cont Van/Cefepime DC Zosyn Antipyretics PRN AM labs d/w Dr Mckee ID consult in AM
[2019-01-24] MEDS: Cefepime 2 GM in Sodium Chloride 0.9% 100 ML IVPB SCH (09:15)
[2019-01-24] MEDS: Lisinopril 20 MG TAB PO SCH ×2 (09:16→22:10)
[2019-01-24] MEDS: Acyclovir 400 mg Tablet PO SCH ×3 (09:16→22:10)
[2019-01-24] MEDS: Famotidine 20 MG TAB PO SCH ×2 (09:17→22:11)
[2019-01-24] MEDS ORDERED: Potassium Chloride 10 MEQ TAB PO SCH (12:15)
[2019-01-24] MEDS: NS 0.9% w/ 40 MEQ KCL 1,000 ML IV SCH (12:31)
[2019-01-24] MEDS: Voriconazole 50 MG TAB PO SCH (12:32)
--- NOTE | 2019-01-24 15:06 | PDOC.MOPN ---
Interval History: Patient denies any complaints. - Vital Signs Vital Signs: Vital Signs (12 hours) Temp Pulse Resp BP BP BP Pulse Ox 01/24/19 13:35 103.1 F H 109 H 20 163/81 H 94 L 01/24/19 09:16 123/66 01/24/19 08:05 99.7 F H 86 20 123/66 94 L 01/24/19 08:00 94 L 01/24/19 04:00 101.9 F H 104 H 20 144/81 H 95 Weight Admit Weight 151 lb 9.6 oz Weight 151 lb 9.6 oz - Physical Exam General: Alert, Oriented x3, No acute distress HEENT: Atraumatic, PERRLA, EOMI, Mucous membr. moist/pink Lungs: Clear to auscultation, Normal air movement Cardiovascular: Regular rate, Normal S1, Normal S2, No murmurs, Gallops, Rubs Abdomen: Normal bowel sounds, Soft, No tenderness, No hepatospenomegaly, No masses Extremities: No clubbing, No cyanosis, No edema, Normal pulses, No tenderness/ swelling Skin: No rashes, No breakdown, No significant lesion Neurological: Normal gait, Normal speech, Strength at 5/5 X4 ext, Normal tone, Sensation intact, Cranial nerves 3-12 NL, Reflexes 2+ Psych/Mental Status: Mental status NL, Mood NL - Labs Result Diagrams: 01/24/19 06:24 01/24/19 06:24 Lab results: Laboratory Results - last 24 hr 01/24/19 06:24: WBC 0.2 L*, RBC 1.95 L, Hgb 6.2 L, Hct 18.2 L, MCV 93.1, MCH 31.7 H, MCHC 34.1, RDW 17.7 H, Plt Count 28 L*, MPV 10.3, Neutrophils % (Manual ) Not Reportable, Plt Morphology Comment Appears Decreased L, Anisocytosis MODERATE=16-30 cells H 01/24/19 06:24: Sodium 135 L, Potassium 3.2 L, Chloride 107, Carbon Dioxide 21 L , Anion Gap 10, BUN 11, Creatinine 0.73, Estimated GFR (MDRD) Greater than 90, Glucose 111 H, Calcium 7.6 L, Magnesium 1.9, Total Bilirubin 1.0, AST 46 H, ALT 49, Alkaline Phosphatase 62, Serum Total Protein 5.4 L, Albumin 2.9 L, Globulin 2.5, Albumin/Globulin Ratio 1.2 Status: lab reviewed by me A/P - Problem (1) AML (acute myeloblastic leukemia) Current Visit: Yes Code(s): C92.00 - ACUTE MYELOBLASTIC LEUKEMIA, NOT HAVING ACHIEVED REMISSION Status: Acute (2) Neutropenic sepsis Current Visit: Yes Code(s): A41.9 - SEPSIS, UNSPECIFIED ORGANISM; D70.9 - NEUTROPENIA, UNSPECIFIED Status: Acute (3) Pancytopenia Current Visit: Yes Code(s): D61.818 - OTHER PANCYTOPENIA Status: Acute - Plan Plan: Transfuse 2 units PRBC's today Daily CBC Neutropenic precautions.
[2019-01-24] MEDS: Potassium Chloride 10 MEQ TAB PO SCH (17:57)
--- NOTE | 2019-01-24 18:02 | CON ---
DATE OF CONSULTATION: 01/24/2019 REASON FOR CONSULTATION: Neutropenic fever. HISTORY OF PRESENT ILLNESS: A 73-year-old gentleman, who has a history of hypertension, who was recently diagnosed with AML, the subtype is not available in the record, but he has been started on venetoclax and has developed neutropenic fever. Venetoclax is a programmed cell inhibitor blocking agent, which has been recently approved for management of AML and the patients are not eligible for the usual cytotoxic chemotherapy, probably that is the reason why he is on the drug. He developed general malaise, weakness, fever, and neutropenia, and he is admitted for management. He has been here in the hospital now for about 5 days and continues to have fever. We were asked to evaluate the patient. He is awake. He does establish eye contact, but he is weak and has a hard time in speaking. He does understand my questions. He does follow simple commands, but he is unable to answer most questions, probably from weakness. It was hard to obtain a review of systems, but in general, he denied pain. He does not have a Rivas catheter. He is not short of breath. Does not appear to be having diarrhea either. PAST MEDICAL HISTORY: Hypertension and recently diagnosed AML. PAST SURGICAL HISTORY: Recently placed MediPort in the left subclavian position and cataract operations. FAMILY HISTORY: Lung cancer and DVT in a sister. SOCIAL HISTORY: Never smoker. Had been living with daughter. ALLERGIES: NONE. CURRENT MEDICATIONS: 1. Tylenol. 2. Zovirax. 3. Cefepime 2 g q.12. 4. Pepcid. 5. Zestril. 6. Zofran. 7. Vancomycin. 8. He is also on voriconazole oral for the past 3 days or so. PHYSICAL EXAMINATION: VITAL SIGNS: He continues to have temperature elevation since admission up to 103 recently, blood pressure 160/81, pulse 109, respirations 20, and O2 saturation 94. GENERAL: Appears acutely ill, but does not appear in distress at this moment. SKIN: Shows an area of bruising in the right subclavian location. He does not have a Rivas catheter. There is an access port in the left subclavian location. No lymphadenopathy. HEENT: Ocular movements are conjugate. Oral cavity with numerous [place] teeth in fairly decent shape. No thrush. No other lesions. NECK: Supple. No jugular venous distention or carotid bruits. LUNGS: Symmetric clear breath sounds. HEART: S1 and S2. Regular rate. ABDOMEN: Soft, not distended or tender. No ascites. No bladder distention. EXTREMITIES: No joint inflammatory activity. He has a hard time moving extremities and his plantar responses are indifferent. Pulses are 1+ in dorsalis pedis. NEUROLOGIC: He establishes eye contact intermittently, will follow some simple commands with difficulty, unable to speak very well, probably from his acute illness. LABORATORY DATA: Sodium is 135, creatinine 0.73, magnesium 1.9, AST 46, ALT 49, bilirubin is down to 1.0, and albumin 2.9. Urinalysis with 7 to 10 wbc's. Vancomycin trough was 10.8. Microbiology with Klebsiella pneumoniae in one set of urine culture sample. Blood cultures x4 samples, no growth. Influenza A and B were negative. ASSESSMENT: 1. Hypertension. 2. Acute myelogenous leukemia on venetoclax. 3. Neutropenic fever, which has not responded to current therapy. DISCUSSION: Patients with AML frequently have neutropenic fever associated with treatment and sometimes fever can occur secondary to the disease itself. He is not eligible for the typical cytotoxic chemotherapy and is receiving the recently approved venetoclax, which is a drug that blocks the antiapoptotic B-cell lymphoma protein leading to programmed cell of the malignant cells. He has developed a common complication of the drug and had not yet responded to treatment thus far. I do not have any focal area of infection to blame this current event except for the urinary culture results, which are not necessarily causing the syndrome. A multiplicity of pathogens can be associated with infections in this situation and about 70% to 75% cases of fever in this cases is due to infection. Fungal pathogens are a major concern as in the usual bacterial pathogens as well. We will switch the patient to meropenem from cefepime. Continue vancomycin and increase dose of voriconazole to 4 mg/kg q.12 hours or transition to micafungin, probably we will transition the patient to micafungin. Job ID: [id number] [facility]
[2019-01-24] MEDS: Micafungin 100 MG in Sodium Chloride 0.9% 100 ML IVPB SCH (18:32)
--- NOTE | 2019-01-24 18:46 | PDOC.HOSPP ---
- Subjective Encounter Date: 01/24/19 Encounter Time: 13:00 Subjective: Patient seen and examined for Sepsis/Neutropenic fever. Feels gen weak. No cough /SOB/fever. No new complaints. No overnight events - Objective Vital Signs & Weight: Vital Signs (12 hours) Temp Pulse Resp BP BP Pulse Ox 01/24/19 16:00 98.8 F 01/24/19 13:35 103.1 F H 109 H 20 163/81 H 94 L 01/24/19 09:16 123/66 01/24/19 08:05 99.7 F H 86 20 123/66 94 L 01/24/19 08:00 94 L Weight Admit Weight 151 lb 9.6 oz Weight 151 lb 9.6 oz I&O: 01/23/19 01/24/19 01/25/19 06:59 06:59 06:59 Intake Total 3750 3995 300 Balance 3750 3995 300 Result Diagrams: 01/24/19 06:24 01/24/19 06:24 Hospitalist ROS - Review of Systems Respiratory: denies: cough, dry, shortness of breath, hemoptysis, SOB with excertion, pleuritic pain, sputum, wheezing, other Cardiovascular: denies: chest pain, palpitations, orthopnea, paroxysmal noc. dyspnea, edema, light headedness, other - Medication Medications: Active Medications Generic Name Dose Route Start Last Admin Trade Name Freq PRN Reason Stop Dose Admin Acetaminophen 650 mg 01/19/19 16:46 01/24/19 17:57 Tylenol PO 650 mg Q4H PRN Administration Headache/Fever/Mild Pain (1-3) Acyclovir 400 mg 01/19/19 21:00 01/24/19 09:16 Zovirax PO 400 mg BID CHRISTIANO Administration Famotidine 20 mg 01/19/19 21:00 01/24/19 09:17 Pepcid PO Not Given BID CHRISTIANO Vancomycin HCl 1 gm/ Device 200 mls @ 200 mls/hr 01/23/19 12:00 01/24/19 12: 31 IVPB 200 mls 0400,1200,2000 CHRISTIANO Administration Potassium Chloride/Sodium Chloride 1,000 mls @ 50 mls/hr 01/24/19 12:15 01/24 12:31 Ns 0.9% W/ 40 Meq Kcl IV 1,000 mls .Q20H CHRISTIANO Administration Micafungin Sodium 100 mg/ 100 mls @ 100 mls/hr 01/24/19 17:00 01/24/19 18:32 Sodium Chloride IVPB 100 mls 1700 CHRISTIANO Administration Lisinopril 20 mg 01/19/19 21:00 01/24/19 09:16 Zestril PO 20 mg BID CHRISTIANO Administration Potassium Chloride 10 meq 01/24/19 17:00 01/24/19 17:57 Klor-Con 10 PO 10 meq BID-WM CHRISTIANO Administration - Exam General Appearance: NAD, ill appearing Heart: RRR, no gallops Respiratory: CTAB, no rales Gastrointestinal: soft, non-distended Extremities: no cyanosis Hosp A/P - Plan DVT proph w/SCDs Severe Sepsis/Neutropenic fever ?source UTI due to Klebsiella Pancytopenia due to Chemo Lactic acidosis Hypokalemia AML on chemo HTN Physical deconditioning PLAN: Transfuse PRBC Cont Atbx - Van/Cefepime Cont other meds AM labs Await ID input Portable CXR in AM Replace Potassium
[2019-01-24] MEDS ORDERED: MEROPENEM 1 GM/50 ML 1 GM in Premix Bag 1 BAG IVPB SCH (22:00)
[2019-01-24] MEDS: Meropenem 1 GM in Sodium Chloride 0.9% 100 ML IVPB SCH (22:14)
[2019-01-25] MEDS: Vancomycin HCl 1 GM in Premix Bag 1 BAG IVPB SCH ×3 (04:04→20:12)
[2019-01-25] MEDS ORDERED: Meropenem 1 GM in Sodium Chloride 0.9% 100 ML IVPB SCH (06:00)
[2019-01-25] MEDS ORDERED: MEROPENEM 1 GM/50 ML 1 GM in Premix Bag 1 BAG IVPB SCH (06:00)
[2019-01-25] MEDS: Meropenem 1 GM in Sodium Chloride 0.9% 100 ML IVPB SCH (06:56)
[2019-01-25] MEDS: MEROPENEM 1 GM/50 ML 1 GM in Premix Bag 1 BAG IVPB SCH ×3 (07:27→23:48)
[2019-01-25 07:29] LABS: Phosphorus 2.4 mg/dL (2.3-4.7)
[2019-01-25 07:31] LABS: Anion Gap 12 mmol/L (10-20); BUN (Urea Nitrogen) 10 mg/dL (8.4-25.7); Calc. Creatinine Clearance 93 mL/min (70-130); Calcium 8.1 mg/dL (7.8-10.44); Carbon Dioxide 21 mmol/L (23-31); Chloride 107 mmol/L (98-107); Estimated GFR-MDRD Greater than 90; Glucose 106 mg/dL (83-110); Potassium 3.8 mmol/L (3.5-5.1); Sodium 136 mmol/L (136-145)
[2019-01-25 07:43] LABS: Hemoglobin 8.6 g/dL (14.0-18.0); Mean Corpuscular HGB CONC 34.5 g/dL (32.0-36.0); Mean Corpuscular Hemoglobin 31.3 pg (27.0-31.0); Mean Corpuscular Volume 90.9 fL (78.0-98.0); Mean Platelet Volume 14.3 fL (7.4-10.4); Platelet Count 11 thou/uL (130-400); RBC Distribution Width 16.5 % (11.5-14.5); Red Blood Cell (RBC) Count 2.75 mill/uL (4.70-6.10); White Blood Cell (WBC) Count 0.1 thou/uL (4.8-10.8)
--- NOTE | 2019-01-25 07:57 | RAD ---
EXAM: Single view of the chest HISTORY: Shortness of breath and neutropenia with fever COMPARISON: 01/19/2019 FINDINGS: Single view of the chest shows a normal sized cardiomediastinal silhouette. The Mediport i s unchanged in position. There is consolidation involving the majority of the right lung and an area of opacity involving the inferior aspect of the left thorax. The bones are unremarkable. IMPRESSION: Multifocal infiltrates.
[2019-01-25] MEDS: Lisinopril 20 MG TAB PO SCH ×2 (08:06→21:00)
[2019-01-25] MEDS: Folic Acid 1 MG TAB PO SCH (08:06)
[2019-01-25] MEDS: Potassium Chloride 10 MEQ TAB PO SCH ×2 (08:07→16:56)
[2019-01-25] MEDS: Acyclovir 400 mg Tablet PO SCH (08:08)
[2019-01-25] MEDS: NS 0.9% w/ 40 MEQ KCL 1,000 ML IV SCH (08:13)
[2019-01-25] MEDS: Famotidine 20 MG TAB PO SCH ×2 (10:03→20:28)
[2019-01-25] MEDS ORDERED: Furosemide 20 MG/2 ML VIAL SLOW IVP SCH (10:30)
[2019-01-25 11:46] LABS: Vancomycin, Trough 17.6 ug/mL
--- NOTE | 2019-01-25 14:00 | CT ---
Exam: HEAD CT WITHOUT CONTRAST: HISTORY: Left hemiplegia. COMPARISON: None. FINDINGS: Hemorrhage: No intraparenchymal hemorrhage or extra-axial hematoma. Brain parenchyma: There appears to be an intra-axial mass in the right frontal lobe. There is associa ernestina vasogenic edema of the right frontal lobe as well as the corpus callosum. There is1.7 mm of right to left anterior subfalcine herniation. Ventricular system: Mass effect upon the frontal horn of the left and right ventricle Calvarium: Intact. Sinuses and mastoid air cells: Adequate aeration. 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 Associated vasogenic edema, mass effect and right to left subfalcine herniation. Better interrogation with brain MRI and neurosurgical consultation is recommended. Results of study conveyed to Dr. Rm 01/25/2019 at 2:00 PM Code CR Transcribed Date/Time: 01/25/2019 2:06 PM
--- NOTE | 2019-01-25 14:18 | PRG ---
DATE OF SERVICE: 01/25/2019 SUBJECTIVE: Mr. Crooks showed worsening tachypnea since this morning with O2 sats dropping a little bit. The patient had a chest x-ray, which showed multifocal infiltrates with excellent consolidation involving majority of the right lung as well. This is a marked deterioration compared with the appearance on admission. The patient is somewhat obtunded. He establishes eye contact briefly. Tachypneic at rest. OBJECTIVE: VITAL SIGNS: Continues to have temperature elevation up to 102 to 104. LUNGS: With breath sounds. Chest, symmetric, but diminished at the bases. HEART: S1 and S2 regular rate. ABDOMEN: Soft, not distended. Does not communicate Urology as he seems to be fatigued and I could not get him to move his extremities. LABORATORY DATA: White cell count is 0.1, hemoglobin 8.6 with 11,000 platelets. Creatinine 0.68. Cultures are thus far negative except for urine culture from 01/19. He is currently on meropenem, micafungin, and vancomycin. ASSESSMENT: Acute myelogenous leukemia with now evidence of diffuse pneumonitis. The patient has been transferred to the ICU, and Dr. Rm is consulted, and the patient is probably going to require intubation. Overall prognosis is poor and survival is unlikely in this case. I believe Palliative Care has been consulted. Continue current regimen. Job ID: [id number]
[2019-01-25] MEDS ORDERED: Acetaminophen 1,000 MG in Premix Bag 1 BAG IVPB PRN (15:29)
--- NOTE | 2019-01-25 15:40 | PDOC.MOPN ---
Interval History: Patient had left sided weakness, CT done. - Vital Signs Vital Signs: Vital Signs (12 hours) Temp Pulse Resp BP BP Pulse Ox 01/25/19 14:23 92 27 H 100 01/25/19 14:00 102.3 F H 01/25/19 12:35 102.2 F H 100 24 H 160/81 H 100 01/25/19 11:05 96 22 H 95 01/25/19 10:02 28 H 01/25/19 08:06 151/81 H 01/25/19 03:49 98.6 F 96 20 160/93 H 95 Weight Admit Weight 151 lb 9.6 oz Weight 151 lb 9.6 oz Most Recent Monitor Data Heart Rate from ECG 98 NIBP 167/103 NIBP BP-Mean 124 Respiration from ECG 28 SpO2 100 - Physical Exam General: Alert, No acute distress Lungs: Clear to auscultation Cardiovascular: Regular rate Abdomen: Normal bowel sounds Neurological: Other - Labs Result Diagrams: 01/25/19 06:40 01/25/19 06:40 Lab results: Laboratory Results - last 24 hr 01/25/19 11:15: Vancomycin Trough 17.6 01/25/19 06:40: B-Natriuretic Peptide 173.7 H 01/25/19 06:40: Phosphorus 2.4 01/25/19 06:40: Sodium 136, Potassium 3.8, Chloride 107, Carbon Dioxide 21 L, Anion Gap 12, BUN 10, Creatinine 0.68 L, Estimated GFR (MDRD) Greater than 90, Glucose 106, Calcium 8.1 01/25/19 06:40: WBC 0.1 L*, RBC 2.75 L, Hgb 8.6 L, Hct 25.0 L, MCV 90.9, MCH 31.3 H, MCHC 34.5, RDW 16.5 H, Plt Count 11 L*, MPV 14.3 H, Neutrophils % ( Manual) Not Reportable 01/24/19 15:43: Blood Type O POSITIVE, Antibody Screen NEGATIVE, Crossmatch See Detail 01/23/19 11:51: Fungus Special Info <31 Status: lab reviewed by me A/P - Problem (1) AML (acute myeloblastic leukemia) Current Visit: Yes Code(s): C92.00 - ACUTE MYELOBLASTIC LEUKEMIA, NOT HAVING ACHIEVED REMISSION Status: Acute (2) Neutropenic sepsis Current Visit: Yes Code(s): A41.9 - SEPSIS, UNSPECIFIED ORGANISM; D70.9 - NEUTROPENIA, UNSPECIFIED Status: Acute (3) Pancytopenia Current Visit: Yes Code(s): D61.818 - OTHER PANCYTOPENIA Status: Acute - Plan Plan: Patient has history of menngioma will mass effect. Has been on steroids since November. Saw Neurosurgery in [place]. Notes now on chart. Will resume steroids as he has not been taking it this admission. Continue monitoring of CBC Recommend DNAR. Discussed with Dr. Mckee, Dr. Rm, and daughter.
[2019-01-25] MEDS: Dexamethasone 4 mg/ml Vial SLOW IVP SCH (16:31)
[2019-01-25] MEDS: Dextrose 5 % And 0.9 % NaCl 1,000 ML IV SCH (16:34)
[2019-01-25] MEDS: Acetaminophen 650 MG Suppository PR PRN (16:34)
[2019-01-25] MEDS: Micafungin 100 MG in Sodium Chloride 0.9% 100 ML IVPB SCH (16:50)
--- NOTE | 2019-01-25 19:51 | CON ---
DATE OF CONSULTATION: 01/25/2019 HISTORY OF PRESENT ILLNESS: Mr. Crooks is a 73-year-old male, who I was consulted to see today. He has past medical history for acute leukemia (myelogenous). History is obtained from records and through the nurse at the bedside. Apparently, he was admitted with fever. I was consulted because of tachypnea presumably. I was notified by my special education secretary that I had a consult, so I did not get to him until around the lunch hour. I found him to be nonverbal, unable to give a history, and left hemiplegic. He was tachypneic. He was not diaphoretic. He would make eye contact. He would follow commands on his right side. PAST MEDICAL HISTORY: Remarkable for [employer] and cataract surgery. FAMILY HISTORY: Positive for cancer. SOCIAL HISTORY: He is nonsmoker and nondrinker. ALLERGIES: HE HAS NO DRUG ALLERGIES. MEDICATIONS: Have been reviewed. REVIEW OF SYSTEMS: Not obtainable. PHYSICAL EXAMINATION: VITAL SIGNS: Temperature is a 102.2, heart rate was 100, respiratory rate was in the mid 20s to low 30s, oximetry is 100%, blood pressure 160/81. HEENT: He would not make eye contract. His extraocular movements appeared full. Sclerae are anicteric. NECK: Without lymphadenopathy. He is hemiplegic on the left. LUNGS: Remarkable for mild rhonchi bilaterally. HEART: Regular rhythm. S1 and S2 are normal. I did not hear murmur. ABDOMEN: Soft and nontender without guarding or masses. EXTREMITIES: Without clubbing, cyanosis, or edema. IMAGING STUDIES: Chest radiograph shows diffuse alveolar infiltrate involving the right lung and patchy alveolar infiltrates involving the lower left lung. IMPRESSION: Pneumonia in an immunocompromised host. I recommended a transfer to the Critical Care unit for intubation, bronchoscopy with lavage. I recommended a stat head CT without contrast, given his hemiplegia. I found no documentation of any central nervous system defects, quickly reviewing the records that are available. He was admitted on January 19. I reviewed the CAT scans since he arrived in the Critical Care Unit. 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 I reviewed this with the radiologist. White count today is 100, hemoglobin 8.6, platelets 11,000. Electrolytes were essentially unremarkable today. Impression; 1. Pneumonia in immunocompromised host. 2. Large extra-axial brain tumor. I contacted the daughter to discuss her understanding of the situation and care issues. She explained to me that he had had a large meningioma diagnosed with Neurosurgery at [facility] in [place]. They had given him steroids and his neurological status had improved. I have explained that he probably has an insurmountable combination of problems. He needs life support/mechanical ventilation for the pneumonia he has developed. He needs a bronchoscopy with lavage to see if we could obtain a pathogen in this immunocompromised host and he will obviously need a Neurosurgical evaluation of his meningioma. I am not sure he could survive all of these issues, especially given the severity of his leukemic situation at this point in time and his pancytopenia. Late this afternoon, the daughter arrived from [place] and met with Palliative Care and they made a decision to proceed forward with comfort care. I would support this decision sadly for him, but I do think it is the appropriate decision. Critical care time including initial evaluation, subsequent evaluations in the ICU, consultations with family, consultations with the Oncology Service, total of 90 minutes. Job ID: [id number] MTDD
--- NOTE | 2019-01-25 21:34 | PDOC.HOSPP ---
- Subjective Encounter Date: 01/25/19 Encounter Time: 10:30 Subjective: Patient seen and examined for Sepsis. Somnolent. No new complaints. No overnight events - Objective Vital Signs & Weight: Vital Signs (12 hours) Temp Pulse Resp BP Pulse Ox 01/25/19 19:38 98.8 F 100 18 154/82 H 93 L 01/25/19 18:45 88 22 H 100 01/25/19 15:28 100 01/25/19 14:23 92 27 H 100 01/25/19 14:00 102.3 F H 01/25/19 12:35 102.2 F H 100 24 H 160/81 H 100 01/25/19 11:05 96 22 H 95 01/25/19 10:02 28 H Weight Admit Weight 151 lb 9.6 oz Weight 151 lb 9.6 oz Most Recent Monitor Data Heart Rate from ECG 93 NIBP 167/103 NIBP BP-Mean 124 Respiration from ECG 29 SpO2 100 I&O: 01/24/19 01/25/19 01/26/19 06:59 06:59 06:59 Intake Total 3995 1250 1880 Output Total 400 Balance 3995 1250 1480 Result Diagrams: 01/25/19 06:40 01/25/19 06:40 Radiology Reviewed by me: Yes (CXR - new infiltrates - multifocal) Hospitalist ROS - Review of Systems ROS unobtainable: due to mental status - Medication Medications: Active Medications Generic Name Dose Route Start Last Admin Trade Name Freq PRN Reason Stop Dose Admin Acetaminophen 650 mg 01/19/19 16:46 01/24/19 23:56 Tylenol PO 650 mg Q4H PRN Administration Headache/Fever/Mild Pain (1-3) Acetaminophen 650 mg 01/25/19 15:29 01/25/19 16:34 Tylenol [place] 650 mg Q4H PRN Administration Headache/Fever or Pain Acyclovir 400 mg 01/19/19 21:00 01/25/19 08:08 Zovirax PO 400 mg BID CHRISTIANO Administration Albuterol/Ipratropium 3 ml 01/25/19 10:30 01/25/19 18:45 Duoneb NEB 3 ml [id number] CHRISTIANO Administration Dexamethasone 4 mg 01/25/19 18:00 01/25/19 16:31 Decadron SLOW IVP 4 mg Q6HR CHRISTIANO Administration Famotidine 20 mg 01/19/19 21:00 01/25/19 20:28 Pepcid PO Not Given BID CHRISTIANO Folic Acid 1 mg 01/25/19 09:00 01/25/19 08:06 Folvite PO 1 mg DAILY CHRISTIANO Administration Vancomycin HCl 1 gm/ Device 200 mls @ 200 mls/hr 01/23/19 12:00 01/25/19 20: 12 IVPB 200 mls 0400,1200,2000 CHRISTIANO Administration Micafungin Sodium 100 mg/ 100 mls @ 100 mls/hr 01/24/19 17:00 01/25/19 16:50 Sodium Chloride IVPB 100 mls 1700 CHRISTIANO Administration Meropenem 1 gm/ Device 50 mls @ 400 mls/hr 01/25/19 06:00 01/25/19 15:18 IVPB 50 mls Q8HR CHRISTIANO Administration Dextrose/Sodium Chloride 1,000 mls @ 30 mls/hr 01/25/19 16:30 01/25/19 16:34 D5 0.9% Ns IV 1,000 mls .Q24H CHRISTIANO Administration Lisinopril 20 mg 01/19/19 21:00 01/25/19 08:06 Zestril PO 20 mg BID CHRISTIANO Administration Potassium Chloride 10 meq 01/24/19 17:00 01/25/19 16:56 Klor-Con 10 PO Not Given BID-WM CHRISTIANO - Exam General Appearance: ill appearing (shallow resp) Heart: RRR, no gallops Respiratory: rales, rhonchi Gastrointestinal: soft, non-tender, normal bowel sounds Extremities: no cyanosis Psychiatric: somnolent Hosp A/P - Plan plan discussed w/ family, PT/OT, DVT proph w/SCDs Severe Sepsis/Neutropenic fever due to multifocal pneumonia ?fungal UTI due to Klebsiella Pancytopenia due to Chemo Lactic acidosis Hypokalemia AML on chemo HTN Physical deconditioning PLAN: Transfuse 2 units Platelets - I d/w Dr Mckee Cont Van/Cefepime/Micafungin Consult Dr Rm Cont other meds AM labs
[2019-01-26] MEDS: Dexamethasone 4 mg/ml Vial SLOW IVP SCH ×4 (01:35→17:49)
[2019-01-26] MEDS: Vancomycin HCl 1 GM in Premix Bag 1 BAG IVPB SCH ×3 (03:51→19:32)
[2019-01-26 04:58] LABS: Hemoglobin 7.6 g/dL (14.0-18.0); Mean Corpuscular HGB CONC 33.6 g/dL (32.0-36.0); Mean Corpuscular Hemoglobin 30.7 pg (27.0-31.0); Mean Corpuscular Volume 91.3 fL (78.0-98.0); Mean Platelet Volume 15.7 fL (7.4-10.4); Platelet Count 4 thou/uL (130-400); RBC Distribution Width 16.3 % (11.5-14.5); Red Blood Cell (RBC) Count 2.46 mill/uL (4.70-6.10); White Blood Cell (WBC) Count 0.2 thou/uL (4.8-10.8)
[2019-01-26 05:11] LABS: Anisocytosis MODERATE=16-30 cells (100X) (0-5/hpf); MDiff Complete? YES; Platelet Morphology Comment Appears Decreased
[2019-01-26] MEDS: MEROPENEM 1 GM/50 ML 1 GM in Premix Bag 1 BAG IVPB SCH ×3 (06:14→21:47)
[2019-01-26] MEDS: Acyclovir 400 mg Tablet PO SCH ×2 (08:55→21:45)
[2019-01-26] MEDS: Famotidine 20 MG TAB PO SCH ×2 (08:56→21:45)
[2019-01-26] MEDS: Folic Acid 1 MG TAB PO SCH (08:56)
[2019-01-26] MEDS: Lisinopril 20 MG TAB PO SCH ×2 (08:56→21:46)
--- NOTE | 2019-01-26 09:00 | RAD ---
FRONTAL VIEW CHEST: Date: 01/26/19 Comparison with previous day. CLINICAL INDICATION: Respiratory distress. FINDINGS: Diffuse opacification of the lungs bilaterally with relative sparing at the left upper lung zone alfa ins, and there is mild pleural based density at the inferior right chest. Chest is otherwise similar. IMPRESSION: Persistent diffuse opacification of the lungs bilaterally with relative sparing at the left upper marely g zone. Continue follow-up is recommended. POS: C
[2019-01-26] MEDS: Potassium Chloride 10 MEQ TAB PO SCH ×2 (09:03→16:48)
[2019-01-26] MEDS: Dextrose 5 % And 0.9 % NaCl 1,000 ML IV SCH (16:43)
[2019-01-26] MEDS: Micafungin 100 MG in Sodium Chloride 0.9% 100 ML IVPB SCH (16:44)
--- NOTE | 2019-01-26 19:18 | PDOC.HOSPP ---
- Subjective Encounter Date: 01/26/19 Encounter Time: 14:00 Subjective: Patient seen and examined for Sepsis. Mentation improving. Appetite better. No new complaints. No overnight events - Objective Vital Signs & Weight: Vital Signs (12 hours) Temp Pulse Pulse Resp BP BP BP 01/26/19 15:00 97.9 F 96 16 138/75 01/26/19 14:43 80 16 01/26/19 12:09 98.3 F 105 H 18 152/79 H 01/26/19 11:29 82 16 01/26/19 11:26 97.5 F L 80 18 135/77 01/26/19 11:10 97.5 F L 82 18 140/77 01/26/19 10:57 97.4 F L 87 18 153/84 H 01/26/19 10:13 97.4 F L 81 18 150/82 H 01/26/19 09:58 97.8 F 80 18 149/80 H 01/26/19 08:56 136/76 01/26/19 08:00 Pulse Ox 01/26/19 15:00 96 01/26/19 14:43 01/26/19 12:09 95 01/26/19 11:29 01/26/19 11:26 99 01/26/19 11:10 97 01/26/19 10:57 100 01/26/19 10:13 100 01/26/19 09:58 100 01/26/19 08:56 01/26/19 08:00 97 Weight Admit Weight 151 lb 9.6 oz Weight 151 lb 9.6 oz Most Recent Monitor Data Heart Rate from ECG 93 NIBP 167/103 NIBP BP-Mean 124 Respiration from ECG 29 SpO2 100 I&O: 01/25/19 01/26/19 01/27/19 06:59 06:59 06:59 Intake Total 1250 1880 1280 Output Total 400 650 Balance 1250 1480 630 Result Diagrams: 01/26/19 03:55 01/25/19 06:40 Radiology Reviewed by me: Yes (CXR - same) Hospitalist ROS - Review of Systems Respiratory: denies: cough, dry, shortness of breath, hemoptysis, SOB with excertion, pleuritic pain, sputum, wheezing, other Cardiovascular: denies: chest pain, palpitations, orthopnea, paroxysmal noc. dyspnea, edema, light headedness, other - Medication Medications: Active Medications Generic Name Dose Route Start Last Admin Trade Name Freq PRN Reason Stop Dose Admin Acetaminophen 650 mg 01/19/19 16:46 01/24/19 23:56 Tylenol PO 650 mg Q4H PRN Administration Headache/Fever/Mild Pain (1-3) Acetaminophen 650 mg 01/25/19 15:29 01/25/19 16:34 Tylenol [place] 650 mg Q4H PRN Administration Headache/Fever or Pain Acyclovir 400 mg 01/19/19 21:00 01/26/19 08:55 Zovirax PO 400 mg BID CHRISTIANO Administration Albuterol/Ipratropium 3 ml 01/25/19 10:30 01/26/19 14:43 Duoneb NEB 3 ml [id number] CHRISTIANO Administration Dexamethasone 4 mg 01/25/19 18:00 01/26/19 17:49 Decadron SLOW IVP 4 mg Q6HR CHRISTIANO Administration Famotidine 20 mg 01/19/19 21:00 01/26/19 08:56 Pepcid PO Not Given BID CHRISTIANO Folic Acid 1 mg 01/25/19 09:00 01/26/19 08:56 Folvite PO 1 mg DAILY CHRISTIANO Administration Vancomycin HCl 1 gm/ Device 200 mls @ 200 mls/hr 01/23/19 12:00 01/26/19 12: 10 IVPB 200 mls 0400,1200,2000 CHRISTIANO Administration Micafungin Sodium 100 mg/ 100 mls @ 100 mls/hr 01/24/19 17:00 01/26/19 16:44 Sodium Chloride IVPB 100 mls 1700 CHRISTIANO Administration Meropenem 1 gm/ Device 50 mls @ 400 mls/hr 01/25/19 06:00 01/26/19 14:31 IVPB 50 mls Q8HR CHRISTIANO Administration Dextrose/Sodium Chloride 1,000 mls @ 30 mls/hr 01/25/19 16:30 01/26/19 16:43 D5 0.9% Ns IV 1,000 mls .Q24H CHRISTIANO Administration Lisinopril 20 mg 01/19/19 21:00 01/26/19 08:56 Zestril PO 20 mg BID CHRISTIANO Administration Sodium Chloride 10 ml 01/23/19 09:31 01/26/19 06:12 Flush - Normal Saline IVF 10 ml PRN PRN Administration Saline Flush - Exam General Appearance: NAD Neck: supple, no JVD Heart: RRR, no gallops Respiratory: no wheezes, rales, rhonchi Gastrointestinal: soft, non-distended, normal bowel sounds Extremities: no cyanosis Hosp A/P - Plan plan discussed w/ family, PT/OT, DVT proph w/SCDs, GI proph Consults: Palliative Care Severe Sepsis/Neutropenic fever due to multifocal pneumonia ?fungal UTI due to Klebsiella Pancytopenia due to Chemo Lactic acidosis Hypokalemia AML on chemo HTN Meniogioma with vasogenic edema - on IV Decadron Physical deconditioning PLAN: Extensive discussion with family in presence of Dr Mckee and Palliative care team - Patient requested to continue medical mngt. Agrees with DNR Transfuse 2 units Platelets Cont Van/Cefepime/Micafungin - I confirmed with Dr Colón Cont other meds AM labs
[2019-01-27] MEDS: Dexamethasone 4 mg/ml Vial SLOW IVP SCH ×2 (00:05→05:25)
[2019-01-27] MEDS: Vancomycin HCl 1 GM in Premix Bag 1 BAG IVPB SCH ×3 (03:48→20:27)
[2019-01-27] MEDS: MEROPENEM 1 GM/50 ML 1 GM in Premix Bag 1 BAG IVPB SCH ×3 (05:26→22:27)
[2019-01-27 06:26] LABS: Hemoglobin 7.2 g/dL (14.0-18.0); Mean Corpuscular Hemoglobin 31.3 pg (27.0-31.0); Mean Corpuscular Volume 92.1 fL (78.0-98.0); Mean Platelet Volume 9.4 fL (7.4-10.4); Platelet Count 41 thou/uL (130-400); RBC Distribution Width 15.9 % (11.5-14.5); Red Blood Cell (RBC) Count 2.31 mill/uL (4.70-6.10); White Blood Cell (WBC) Count 0.1 thou/uL (4.8-10.8)
[2019-01-27 06:31] LABS: Platelet Morphology Comment Appears Decreased
[2019-01-27 06:34] LABS: ALT (SGPT) 77 U/L (8-55); AST (SGOT) 43 U/L (5-34); Albumin 3.1 g/dL (3.4-4.8); Alkaline Phosphatase 80 U/L (40-110); Anion Gap 13 mmol/L (10-20); BUN (Urea Nitrogen) 14 mg/dL (8.4-25.7); Bilirubin, Total 0.4 mg/dL (0.2-1.2); Calc. Creatinine Clearance 94 mL/min (70-130); Calcium 8.2 mg/dL (7.8-10.44); Carbon Dioxide 22 mmol/L (23-31); Chloride 107 mmol/L (98-107); Estimated GFR-MDRD Greater than 90; Globulin 2.6 g/dL (2.4-3.5); Glucose 234 mg/dL (83-110); Potassium 3.8 mmol/L (3.5-5.1); Protein, Total 5.7 g/dL (5.8-8.1); Sodium 138 mmol/L (136-145)
--- NOTE | 2019-01-27 09:06 | PDOC.MOPN ---
Interval History: alert, answers questions slowly. Daughter at bedside. - Vital Signs Vital Signs: Vital Signs (12 hours) Temp Pulse Resp BP Pulse Ox 01/27/19 08:55 95 01/27/19 08:54 80 16 95 01/27/19 04:00 98.4 F 86 16 96 01/27/19 02:26 79 16 01/27/19 00:05 98.1 F 88 16 94 L 01/26/19 22:25 82 16 95 01/26/19 21:46 146/78 H Weight Admit Weight 151 lb 9.6 oz Weight 151 lb 9.6 oz Most Recent Monitor Data Heart Rate from ECG 93 NIBP 167/103 NIBP BP-Mean 124 Respiration from ECG 29 SpO2 100 - Physical Exam General: Alert, Cooperative HEENT: PERRLA Lungs: Other (crackles) Cardiovascular: Regular rate Abdomen: Normal bowel sounds Extremities: No clubbing, No cyanosis, No edema, Normal pulses, No tenderness/ swelling Skin: No rashes, No breakdown, No significant lesion Neurological: Other (weakness bilat, l>r) - Labs Result Diagrams: 01/27/19 05:25 01/27/19 05:25 Lab results: Laboratory Results - last 24 hr 01/27/19 05:25: Sodium 138, Potassium 3.8, Chloride 107, Carbon Dioxide 22 L, Anion Gap 13, BUN 14, Creatinine 0.67 L, Estimated GFR (MDRD) Greater than 90, Glucose 234 H, Calcium 8.2, Total Bilirubin 0.4, AST 43 H, ALT 77 H, Alkaline Phosphatase 80, Serum Total Protein 5.7 L, Albumin 3.1 L, Globulin 2.6, Albumin/ Globulin Ratio 1.2 01/27/19 05:25: WBC 0.1 L*, RBC 2.31 L, Hgb 7.2 L, Hct 21.3 L, MCV 92.1, MCH 31.3 H, MCHC 34.0, RDW 15.9 H, Plt Count 41 L, MPV 9.4, Neutrophils % (Manual) Not Reportable, Plt Morphology Comment Appears Decreased L 01/24/19 15:43: Blood Type O POSITIVE, Antibody Screen NEGATIVE, Crossmatch See Detail Status: lab reviewed by me A/P - Problem (1) AML (acute myeloblastic leukemia) Current Visit: Yes Code(s): C92.00 - ACUTE MYELOBLASTIC LEUKEMIA, NOT HAVING ACHIEVED REMISSION Status: Acute (2) Neutropenic sepsis Current Visit: Yes Code(s): A41.9 - SEPSIS, UNSPECIFIED ORGANISM; D70.9 - NEUTROPENIA, UNSPECIFIED Status: Acute (3) Pancytopenia Current Visit: Yes Code(s): D61.818 - OTHER PANCYTOPENIA Status: Acute - Plan Plan: mental status improved with steroids, reduce dose today continue neutropenic precautions no transfusion today, CBC daily continue abx, antifungal, antiviral supportive care.
[2019-01-27] MEDS: Folic Acid 1 MG TAB PO SCH (09:15)
[2019-01-27] MEDS: Famotidine 20 MG TAB PO SCH ×2 (09:15→20:42)
[2019-01-27] MEDS: Lisinopril 20 MG TAB PO SCH ×2 (09:15→20:47)
[2019-01-27] MEDS: Acyclovir 400 mg Tablet PO SCH ×2 (09:16→20:47)
[2019-01-27] MEDS: Dexamethasone 4 MG TAB PO SCH ×2 (14:06→22:27)
--- NOTE | 2019-01-27 16:04 | PRG ---
DATE OF SERVICE: 01/27/2019 SUBJECTIVE: Mr. Crooks has made a quite remarkable turnaround. He is wide awake. He is eating and is feeling better, not coughing much. No abdominal pain. No diarrhea. He is voiding in the diaper. OBJECTIVE: VITAL SIGNS: His temperature curve has normalized and he has been afebrile for the past 2 days. His blood pressure is 150/70, pulse 80, respirations 16, and O2 saturation 96% with 0.5 nasal cannula O2. GENERAL: Awake, alert, appears much better than when I last saw him. He is able to have very strong replies and follows commands and all that. HEENT: Ocular movements are conjugate. Pale conjunctivae. Oral cavity is normal. LUNGS: With faint crackles on the right side at the base. HEART: S1 and S2 regular rate. ABDOMEN: Soft, not distended or tender. No bladder distention. No joint inflammatory activity. EXTREMITIES: He is able to move all extremities. Trace edema in the lower extremities. Plantar responses are flexor. NEUROLOGIC: He is oriented and follows commands. LABORATORY DATA: White cell count is still low at 0.1, hemoglobin 7.2, platelets are up to 41,000. Creatinine 0.67. AST 43, ALT 77, alkaline phosphatase 80, albumin 3.1. Fungitell less than 31 and blood cultures are negative. He is currently on acyclovir, meropenem, micafungin, and vancomycin. The x-ray shows bilateral infiltrates. ASSESSMENT AND DISCUSSION: Acute myelogenous leukemia, on venetoclax with persistent neutropenia and fever, which now has improved. If neutropenia persists, though marked improvement in his overall status, though continue meropenem, micafungin, and vancomycin. Evidently, his prognosis at least in the medium term has improved with the resolution of neutropenia and the response to the chemotherapy still lacking at this point in time. Job ID: [id number]
[2019-01-27] MEDS: Micafungin 100 MG in Sodium Chloride 0.9% 100 ML IVPB SCH (17:25)
[2019-01-27 19:09] LABS: A. flavus Negative (Neg:<1:1); A. fumigatus Negative (Neg:<1:1); A. niger Negative (Neg:<1:1); Blastomyces AB Negative (Neg:<1:1)
[2019-01-27] MEDS: Dextrose 5 % And 0.9 % NaCl 1,000 ML IV SCH (20:26)
--- NOTE | 2019-01-27 20:41 | PDOC.HOSPP ---
- Subjective Encounter Date: 01/27/19 Encounter Time: 11:30 Subjective: Patient seen and examined for Sepsis. No fever or chills. Mentation improving. No new complaints. No overnight events - Objective Vital Signs & Weight: Vital Signs (12 hours) Temp Pulse Resp BP BP Pulse Ox 01/27/19 19:23 92 L 01/27/19 19:22 96 01/27/19 17:35 98.1 F 88 18 171/88 H 97 01/27/19 14:56 80 16 96 01/27/19 12:00 97.8 F 88 16 158/78 H 97 01/27/19 10:33 78 16 01/27/19 09:15 146/78 H 01/27/19 08:55 95 01/27/19 08:54 80 16 95 Weight Admit Weight 151 lb 9.6 oz Weight 159 lb 14.4 oz Most Recent Monitor Data Heart Rate from ECG 93 NIBP 167/103 NIBP BP-Mean 124 Respiration from ECG 29 SpO2 100 I&O: 01/26/19 01/27/19 01/28/19 06:59 06:59 06:59 Intake Total 1880 2330 830 Output Total 400 1050 650 Balance 1480 1280 180 Result Diagrams: 01/27/19 05:25 01/27/19 05:25 Hospitalist ROS - Review of Systems Respiratory: denies: cough, dry, shortness of breath, hemoptysis, SOB with excertion, pleuritic pain, sputum, wheezing, other Gastrointestinal: denies: nausea, vomiting, abdominal pain, diarrhea, constipation, melena, hematochezia, other - Medication Medications: Active Medications Generic Name Dose Route Start Last Admin Trade Name Freq PRN Reason Stop Dose Admin Acetaminophen 650 mg 01/19/19 16:46 01/24/19 23:56 Tylenol PO 650 mg Q4H PRN Administration Headache/Fever/Mild Pain (1-3) Acetaminophen 650 mg 01/25/19 15:29 01/25/19 16:34 Tylenol [place] 650 mg Q4H PRN Administration Headache/Fever or Pain Acyclovir 400 mg 01/19/19 21:00 01/27/19 09:16 Zovirax PO 400 mg BID CHRISTIANO Administration Albuterol/Ipratropium 3 ml 01/25/19 10:30 01/27/19 19:22 Duoneb NEB 3 ml [id number] CHRISTIANO Administration Dexamethasone 4 mg 01/27/19 14:00 01/27/19 14:06 Decadron PO 4 mg Q8HR CHRISTIANO Administration Famotidine 20 mg 01/19/19 21:00 01/27/19 09:15 Pepcid PO 20 mg BID CHRISTIANO Administration Folic Acid 1 mg 01/25/19 09:00 01/27/19 09:15 Folvite PO 1 mg DAILY CHRISTIANO Administration Vancomycin HCl 1 gm/ Device 200 mls @ 200 mls/hr 01/23/19 12:00 01/27/19 20: 27 IVPB 200 mls 0400,1200,2000 CHRISTIANO Administration Micafungin Sodium 100 mg/ 100 mls @ 100 mls/hr 01/24/19 17:00 01/27/19 17:25 Sodium Chloride IVPB 100 mls 1700 CHRISTIANO Administration Meropenem 1 gm/ Device 50 mls @ 400 mls/hr 01/25/19 06:00 01/27/19 14:10 IVPB 50 mls Q8HR CHRISTIANO Administration Dextrose/Sodium Chloride 1,000 mls @ 30 mls/hr 01/25/19 16:30 01/27/19 20:26 D5 0.9% Ns IV 1,000 mls .Q24H CHRISTIANO Administration Lisinopril 20 mg 01/19/19 21:00 01/27/19 09:15 Zestril PO 20 mg BID CHRISTIANO Administration Sodium Chloride 10 ml 01/23/19 09:31 01/27/19 05:25 Flush - Normal Saline IVF 10 ml PRN PRN Administration Saline Flush - Exam General Appearance: NAD Heart: RRR, no gallops Respiratory: CTAB, no wheezes, rales, rhonchi Gastrointestinal: soft, non-tender, non-distended Extremities: no clubbing Hosp A/P - Plan DVT proph w/SCDs Severe Sepsis/Neutropenic fever due to multifocal pneumonia ?gram negatives UTI due to Klebsiella Pancytopenia due to Chemo Lactic acidosis Hypokalemia AML on chemo HTN Meniogioma with vasogenic edema - on IV Decadron Physical deconditioning PLAN: Cont Van/Cefepime/Micafungin Monitor Vancomycin level CBC in AM Cont other meds SCDs for DVT prophylaxis
[2019-01-28] MEDS: Vancomycin HCl 1 GM in Premix Bag 1 BAG IVPB SCH ×2 (04:11→11:58)
[2019-01-28] MEDS: MEROPENEM 1 GM/50 ML 1 GM in Premix Bag 1 BAG IVPB SCH ×3 (06:06→21:57)
[2019-01-28] MEDS: Dexamethasone 4 MG TAB PO SCH ×3 (06:07→21:57)
[2019-01-28 06:20] LABS: Hemoglobin 7.1 g/dL (14.0-18.0); Mean Corpuscular Hemoglobin 31.3 pg (27.0-31.0); Mean Platelet Volume 10.3 fL (7.4-10.4); Platelet Count 28 thou/uL (130-400); RBC Distribution Width 15.8 % (11.5-14.5); Red Blood Cell (RBC) Count 2.27 mill/uL (4.70-6.10); White Blood Cell (WBC) Count 0.1 thou/uL (4.8-10.8)
[2019-01-28 07:24] LABS: MDiff Complete? YES; Platelet Morphology Comment Appears Decreased; Polychromasia SLIGHT = 2-3 cells (100X) (0-2/hpf); Schistocytes SLIGHT = 2-5 cells (100X) (0-1/hpf)
[2019-01-28] MEDS: Lisinopril 20 MG TAB PO SCH ×2 (08:05→20:12)
[2019-01-28] MEDS: Acyclovir 400 mg Tablet PO SCH ×2 (08:05→20:11)
[2019-01-28] MEDS: Famotidine 20 MG TAB PO SCH ×2 (08:05→20:12)
[2019-01-28] MEDS: Folic Acid 1 MG TAB PO SCH (08:05)
[2019-01-28] MEDS: Vancomycin HCl 750 MG in Sodium Chloride 0.9% 250 ML 250 ML IVPB SCH ×2 (12:26→20:12)
[2019-01-28] MEDS: Micafungin 100 MG in Sodium Chloride 0.9% 100 ML IVPB SCH (17:14)
--- NOTE | 2019-01-28 17:33 | PDOC.HOSPP ---
- Subjective Encounter Date: 01/28/19 Encounter Time: 07:15 Subjective: Patient seen and examined for Sepsis/Neutropenic fever. Feels better. No N/V/D. No new complaints. No overnight events - Objective Vital Signs & Weight: Vital Signs (12 hours) Temp Pulse Resp BP BP Pulse Ox 01/28/19 16:42 97.5 F L 74 18 177/86 H 96 01/28/19 14:03 79 18 98 01/28/19 12:00 97.6 F 84 18 165/84 H 95 01/28/19 09:52 76 16 97 01/28/19 08:05 170/79 H 01/28/19 07:46 67 16 96 01/28/19 07:33 99 01/28/19 07:28 97.9 F 70 18 170/90 H 99 Weight Admit Weight 151 lb 9.6 oz Weight 163 lb 12.8 oz Most Recent Monitor Data Heart Rate from ECG 93 NIBP 167/103 NIBP BP-Mean 124 Respiration from ECG 29 SpO2 100 I&O: 01/27/19 01/28/19 01/29/19 06:59 06:59 06:59 Intake Total 2330 930 Output Total 1050 650 Balance 1280 280 Result Diagrams: 01/28/19 06:00 01/27/19 05:25 Hospitalist ROS - Review of Systems Respiratory: denies: cough, dry, shortness of breath, hemoptysis, SOB with excertion, pleuritic pain, sputum, wheezing, other Cardiovascular: denies: chest pain, palpitations, orthopnea, paroxysmal noc. dyspnea, edema, light headedness, other - Medication Medications: Active Medications Generic Name Dose Route Start Last Admin Trade Name Freq PRN Reason Stop Dose Admin Acetaminophen 650 mg 01/19/19 16:46 01/24/19 23:56 Tylenol PO 650 mg Q4H PRN Administration Headache/Fever/Mild Pain (1-3) Acetaminophen 650 mg 01/25/19 15:29 01/25/19 16:34 Tylenol [place] 650 mg Q4H PRN Administration Headache/Fever or Pain Acyclovir 400 mg 01/19/19 21:00 01/28/19 08:05 Zovirax PO 400 mg BID CHRISTIANO Administration Albuterol/Ipratropium 3 ml 01/25/19 10:30 01/28/19 14:03 Duoneb NEB 3 ml [id number] CHRISTIANO Administration Dexamethasone 4 mg 01/27/19 14:00 01/28/19 13:52 Decadron PO 4 mg Q8HR CHRISTIANO Administration Famotidine 20 mg 01/19/19 21:00 01/28/19 08:05 Pepcid PO Not Given BID CHRISTIANO Folic Acid 1 mg 01/25/19 09:00 01/28/19 08:05 Folvite PO 1 mg DAILY CHRISTIANO Administration Micafungin Sodium 100 mg/ 100 mls @ 100 mls/hr 01/24/19 17:00 01/28/19 17:14 Sodium Chloride IVPB 100 mls 1700 CHRISTIANO Administration Meropenem 1 gm/ Device 50 mls @ 400 mls/hr 01/25/19 06:00 01/28/19 13:44 IVPB 50 mls Q8HR CHRISTIANO Administration Dextrose/Sodium Chloride 1,000 mls @ 30 mls/hr 01/25/19 16:30 01/27/19 20:26 D5 0.9% Ns IV 1,000 mls .Q24H CHRISTIANO Administration Vancomycin HCl 750 mg/ Sodium 250 mls @ 250 mls/hr 01/28/19 12:00 01/28/19 12 :26 Chloride IVPB 250 mls 0400,1200,2000 CHRISTIANO Administration Lisinopril 20 mg 01/19/19 21:00 01/28/19 08:05 Zestril PO 20 mg BID CHRISTIANO Administration Sodium Chloride 10 ml 01/23/19 09:31 01/27/19 22:27 Flush - Normal Saline IVF 10 ml PRN PRN Administration Saline Flush - Exam General Appearance: NAD Heart: RRR, no gallops Respiratory: no wheezes, rhonchi Gastrointestinal: soft, non-tender, non-distended Extremities: no cyanosis Hosp A/P - Plan DVT proph w/SCDs Severe Sepsis/Neutropenic fever due to multifocal pneumonia ?gram negatives UTI due to Klebsiella Pancytopenia due to Chemo Lactic acidosis Hypokalemia AML on chemo HTN Meniogioma with vasogenic edema Physical deconditioning PLAN: Cont Van/Cefepime/Micafungin Vancomycin level monitoring Cont Dexamethasone Cont other meds SCDs for DVT prophylaxis AM labs PT/OT
[2019-01-28] MEDS: Dextrose 5 % And 0.9 % NaCl 1,000 ML IV SCH (20:12)
[2019-01-29] MEDS: Vancomycin HCl 750 MG in Sodium Chloride 0.9% 250 ML 250 ML IVPB SCH ×3 (04:52→19:30)
[2019-01-29] MEDS: MEROPENEM 1 GM/50 ML 1 GM in Premix Bag 1 BAG IVPB SCH ×3 (06:13→21:40)
[2019-01-29] MEDS: Dexamethasone 4 MG TAB PO SCH ×3 (06:13→21:30)
[2019-01-29 06:39] LABS: Hemoglobin 7.2 g/dL (14.0-18.0); Mean Corpuscular HGB CONC 33.9 g/dL (32.0-36.0); Mean Corpuscular Hemoglobin 31.1 pg (27.0-31.0); Mean Corpuscular Volume 91.7 fL (78.0-98.0); Mean Platelet Volume 11.7 fL (7.4-10.4); Platelet Count 13 thou/uL (130-400); RBC Distribution Width 15.7 % (11.5-14.5); White Blood Cell (WBC) Count 0.1 thou/uL (4.8-10.8)
[2019-01-29 06:52] LABS: Hypochromia SLIGHT = 6-15 cells (100X) (0-5/hpf); MDiff Complete? YES; Platelet Morphology Comment Appears Decreased
[2019-01-29] MEDS: Lisinopril 20 MG TAB PO SCH ×2 (08:52→21:30)
[2019-01-29] MEDS: Folic Acid 1 MG TAB PO SCH (08:53)
[2019-01-29] MEDS: Acyclovir 400 mg Tablet PO SCH ×2 (08:53→21:30)
[2019-01-29] MEDS: Famotidine 20 MG TAB PO SCH ×2 (08:53→21:21)
[2019-01-29 11:14] LABS: Vancomycin, Trough 16.6 ug/mL
[2019-01-29] MEDS: Dextrose 5 % And 0.9 % NaCl 1,000 ML IV SCH (15:08)
[2019-01-29] MEDS: Micafungin 100 MG in Sodium Chloride 0.9% 100 ML IVPB SCH (18:14)
[2019-01-30] MEDS: Vancomycin HCl 750 MG in Sodium Chloride 0.9% 250 ML 250 ML IVPB SCH ×3 (03:48→19:30)
[2019-01-30] MEDS: MEROPENEM 1 GM/50 ML 1 GM in Premix Bag 1 BAG IVPB SCH ×3 (05:45→22:06)
[2019-01-30] MEDS: Dexamethasone 4 MG TAB PO SCH ×3 (06:34→21:05)
[2019-01-30 07:19] LABS: Hemoglobin 6.9 g/dL (14.0-18.0); Mean Corpuscular HGB CONC 33.7 g/dL (32.0-36.0); Mean Corpuscular Hemoglobin 31.2 pg (27.0-31.0); Mean Corpuscular Volume 92.7 fL (78.0-98.0); Platelet Count 6 thou/uL (130-400); RBC Distribution Width 15.1 % (11.5-14.5); Red Blood Cell (RBC) Count 2.22 mill/uL (4.70-6.10); White Blood Cell (WBC) Count 0.1 thou/uL (4.8-10.8)
[2019-01-30] MEDS: Famotidine 20 MG TAB PO SCH ×2 (08:35→22:13)
[2019-01-30] MEDS: Folic Acid 1 MG TAB PO SCH (08:35)
[2019-01-30] MEDS: Acyclovir 400 mg Tablet PO SCH ×2 (08:35→21:45)
[2019-01-30] MEDS: Lisinopril 20 MG TAB PO SCH ×2 (08:54→21:55)
--- NOTE | 2019-01-30 10:35 | PRG ---
DATE OF SERVICE: 01/30/2019 SUBJECTIVE: The patient is seen and examined at the bedside. He does not have much complaints to offer. His appetite is fair. The family member is present in the room during my visit. I believe this is the patient's daughter, who is informed about the current situation. OBJECTIVE: VITAL SIGNS: Blood pressure is 137/69, it was 180/91 in the morning; pulse is 69, respirations 16, O2 saturation is 97% on room air. His temperature is 98.1. HEENT: His sclerae are nonicteric. Conjunctivae are palish. Oral mucosa is moist. NECK: Supple. LUNGS: Bilateral rales present. Occasional wheezes. HEART: S1 and S2 normal. No S3. No S4. ABDOMEN: Soft and nontender. Bowel sounds present. EXTREMITIES: No clubbing, cyanosis, or edema. NEUROLOGIC: He follows my commands. He knows that he is in the hospital, but he does not know the time or date, although he knows what year we are in. There are no any motor deficits. LABORATORY DATA: Showed white count of 0.1, hemoglobin of 6.9, hematocrit 20.6, platelet count is 6000. IMPRESSION: 1. Sepsis and neutropenic fever due to multifocal pneumonia. 2. Klebsiella urinary tract infection. 3. Pancytopenia secondary to chemo. 4. Acute myelogenous leukemia. 5. Hypertension. 6. Meningioma with vasogenic edema. 7. Physical deconditioning. PLAN: We are going to transfuse him with 1 unit of platelets. We are going to continue current regimen with vancomycin, micafungin, meropenem, and acyclovir. We will continue PT and OT and continue serial labs. Job ID: [id number]
[2019-01-30 11:11] LABS: Vancomycin, Trough 16.5 ug/mL
--- NOTE | 2019-01-30 16:15 | EKG ---
Test Reason : ROUTINE Blood Pressure : / mmHG Vent. Rate : 088 BPM Atrial Rate : 088 BPM P-R Int : 128 ms QRS Dur : 084 ms QT Int : 370 ms P-R-T Axes : 045 010 001 degrees QTc Int : 447 ms Sinus rhythm with Premature atrial complexes Possible Left atrial enlargement Borderline ECG When compared with ECG of 19-JAN-2019 14:24, (Unconfirmed) Premature atrial complexes are now Present ST no longer depressed in Lateral leads Confirmed by DR. Desmond MISTRY ([id number]) on 01/30/2019 4:15:27 PM Referred By: PANCHITO CARRINGTON Confirmed By:DR. Desmond MISTRY
[2019-01-30] MEDS: Micafungin 100 MG in Sodium Chloride 0.9% 100 ML IVPB SCH (17:30)
[2019-01-30] MEDS: Dextrose 5 % And 0.9 % NaCl 1,000 ML IV SCH (22:13)
[2019-01-31] MEDS: Vancomycin HCl 750 MG in Sodium Chloride 0.9% 250 ML 250 ML IVPB SCH ×3 (03:30→20:16)
[2019-01-31] MEDS: MEROPENEM 1 GM/50 ML 1 GM in Premix Bag 1 BAG IVPB SCH ×3 (06:38→22:56)
[2019-01-31 07:07] LABS: Mean Corpuscular HGB CONC 34.3 g/dL (32.0-36.0); Mean Corpuscular Hemoglobin 30.8 pg (27.0-31.0); Mean Corpuscular Volume 89.9 fL (78.0-98.0); Mean Platelet Volume 11.7 fL (7.4-10.4); Platelet Count 21 thou/uL (130-400); RBC Distribution Width 15.1 % (11.5-14.5); Red Blood Cell (RBC) Count 2.59 mill/uL (4.70-6.10); White Blood Cell (WBC) Count 0.1 thou/uL (4.8-10.8)
[2019-01-31 08:13] LABS: Bite Cells SLIGHT = 2-5 cells (100X) (0-1/hpf); MDiff Complete? YES; Ovalocytes SLIGHT = 2-5 cells (100X) (0-1/hpf); Platelet Morphology Comment Appears Decreased; Polychromasia SLIGHT = 2-3 cells (100X) (0-2/hpf); Tear Drops SLIGHT = 2-5 cells (100X) (0-1/hpf)
--- NOTE | 2019-01-31 08:20 | PRG ---
DATE OF SERVICE: 01/29/2019 SUBJECTIVE: The patient is seen and examined at the bedside. He is sitting in the bed and his family member, I believe the lady is the patient's sister is in the room. Apparently, she helped him with the meal and he ate quite a bit. He had a PT session today and he was able to sit in the chair for more than 2 hours. OBJECTIVE: VITAL SIGNS: Blood pressure is 168/84, pulse is 84, temperature is 97.7, respiratory rate is 18, and O2 saturation 97%. HEENT: His head is atraumatic and normocephalic. Sclerae are nonicteric. Oral mucosa is moist. LUNGS: Bilateral rales and few wheezes present. HEART: S1 and S2, somewhat distant. No S3. No S4. ABDOMEN: Soft and nontender. EXTREMITIES: No clubbing, cyanosis, or edema. NEUROLOGIC: He follows my commands. He moves his all 4 extremities. There is no any motor deficits. LABORATORY DATA: Labs showed white count of 0.1, hemoglobin of 7.2, hematocrit 21.1, and platelet count is 13,000. Vancomycin trough is 6.6. Microbiology, blood cultures x2 no growth. IMPRESSION: 1. Severe sepsis/neutropenic fever due to multifocal pneumonia. 2. Urinary tract infection due to Klebsiella. 3. Pancytopenia due to chemo. 4. 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 5. Hypertension. 6. Meningioma with vasogenic edema, improved on steroids. 7. Physical deconditioning. PLAN: Plan is to continue his regimen with vancomycin, cefepime, and micafungin. Continue dexamethasone. Continue PT and OT. We will get morning labs and we are pleased with physical improvement of this patient. Job ID: [id number]
[2019-01-31] MEDS: Acyclovir 400 mg Tablet PO SCH ×2 (08:48→20:17)
[2019-01-31] MEDS: Dexamethasone 4 MG TAB PO SCH ×2 (08:48→20:17)
[2019-01-31] MEDS: Famotidine 20 MG TAB PO SCH ×2 (08:49→20:17)
[2019-01-31] MEDS: Lisinopril 20 MG TAB PO SCH ×2 (08:49→20:17)
[2019-01-31] MEDS: Folic Acid 1 MG TAB PO SCH (08:49)
--- NOTE | 2019-01-31 12:46 | PDOC.MOPN ---
Interval History: Pt has no complaints. Minimal verbalizing. - Vital Signs Vital Signs: Vital Signs (12 hours) Temp Pulse Resp BP BP Pulse Ox 01/31/19 11:59 98.2 F 86 16 161/83 H 95 01/31/19 11:15 90 16 95 01/31/19 08:49 159/82 H 01/31/19 08:00 99.0 F 83 16 159/82 H 95 01/31/19 06:29 86 16 96 01/31/19 03:45 97.8 F 86 18 142/72 H 96 01/31/19 02:46 81 12 96 Weight Admit Weight 151 lb 9.6 oz Weight 166 lb 6.4 oz Most Recent Monitor Data Heart Rate from ECG 93 NIBP 167/103 NIBP BP-Mean 124 Respiration from ECG 29 SpO2 100 - Physical Exam General: Alert, Cooperative HEENT: Atraumatic Lungs: Normal air movement Cardiovascular: Regular rate Neurological: Cranial nerves 3-12 NL Psych/Mental Status: Other (flat affect) - Labs Result Diagrams: 01/31/19 06:50 01/27/19 05:25 Lab results: Laboratory Results - last 24 hr 01/31/19 06:50: WBC 0.1 L*, RBC 2.59 L, Hgb 8.0 L, Hct 23.3 L, MCV 89.9, MCH 30.8, MCHC 34.3, RDW 15.1 H, Plt Count 21 L*, MPV 11.7 H, Neutrophils % (Manual ) Not Reportable, Neutrophils # Not Reportable, Lymphocytes # Not Reportable, Plt Morphology Comment Appears Decreased L, Polychromasia SLIGHT = 2-3 cells, Tear Drop Cells SLIGHT = 2-5 cells, Ovalocytes SLIGHT = 2-5 cells, Bite Cells SLIGHT = 2-5 cells A/P - Problem (1) AML (acute myeloblastic leukemia) Current Visit: Yes Code(s): C92.00 - ACUTE MYELOBLASTIC LEUKEMIA, NOT HAVING ACHIEVED REMISSION Status: Acute (2) Pancytopenia Current Visit: Yes Code(s): D61.818 - OTHER PANCYTOPENIA Status: Acute (3) UTI (urinary tract infection) Current Visit: Yes Status: Acute - Plan Plan: cont abx as per Dr. Colón monitor CBC, prn transfusions for Hb < 7 or Plts < 10 continue PT: consider discharge to rehab if patient stops requiring transfusions
[2019-01-31] MEDS: Micafungin 100 MG in Sodium Chloride 0.9% 100 ML IVPB SCH (16:41)
[2019-01-31] MEDS: Dextrose 5 % And 0.9 % NaCl 1,000 ML IV SCH (16:41)
--- NOTE | 2019-01-31 17:59 | PRG ---
DATE OF SERVICE: 01/31/2019 SUBJECTIVE: The patient seen at bedside, follows oral command by saying yes and no. Denies any complaints. Not in any distress. As per nursing staff, the patient is being sleepy and weak from last 2 days. Needs help with feeding and needs help with changing position. OBJECTIVE: VITAL SIGNS: Temperature 98.6, pulse 82, respirations 16, oxygen saturation 97%, and blood pressure 153/80. GENERAL: The patient lying in bed, comfortably in no distress. HEENT: Conjunctivae normal. Oral mucosa moist. NECK: Supple. No JVD. No lymphadenopathy. CHEST: Normal vesicular breathing. HEART: Sound normal. ABDOMEN: Soft. Negative edema of feet. LABORATORY DATA: CBC unremarkable except white blood cells 0.1, platelets 21, and hemoglobin 8.0. IMPRESSION: 1. Sepsis with neutropenic fever due to multifocal pneumonia and possible Klebsiella urinary tract infection. Continue antibiotics per Dr. Colón. 2. Pancytopenia secondary to possible chemotherapy. Continue monitoring labs. Hematology and Oncology on board. 3. Acute myelogenous leukemia. Followup Oncology recommendation. 4. Hypertension. Continue monitoring blood pressure. 5. History of meningioma with vasogenic edema. Family opted to continue conservative management. The patient is a known case of meningioma in the past. Neurosurgery evaluation appreciated. 6. Physical deconditioning. Continue physical therapy. 7. Deep venous thrombosis and gastrointestinal prophylaxis. PLAN: Discussed with the nursing staff at bedside. Job ID: [id number]
[2019-02-01] MEDS: MEROPENEM 1 GM/50 ML 1 GM in Premix Bag 1 BAG IVPB SCH ×3 (05:50→22:40)
[2019-02-01] MEDS: Vancomycin HCl 750 MG in Sodium Chloride 0.9% 250 ML 250 ML IVPB SCH ×3 (05:50→20:39)
[2019-02-01 06:13] LABS: Hemoglobin 6.8 g/dL (14.0-18.0); Mean Corpuscular HGB CONC 33.8 g/dL (32.0-36.0); Mean Corpuscular Hemoglobin 30.5 pg (27.0-31.0); Mean Corpuscular Volume 90.2 fL (78.0-98.0); Mean Platelet Volume 14.7 fL (7.4-10.4); Platelet Count 11 thou/uL (130-400); Red Blood Cell (RBC) Count 2.23 mill/uL (4.70-6.10); White Blood Cell (WBC) Count 0.1 thou/uL (4.8-10.8)
[2019-02-01 06:30] LABS: Anion Gap 10 mmol/L (10-20); BUN (Urea Nitrogen) 18 mg/dL (8.4-25.7); Calc. Creatinine Clearance 108 mL/min (70-130); Calcium 8.2 mg/dL (7.8-10.44); Carbon Dioxide 25 mmol/L (23-31); Chloride 106 mmol/L (98-107); Estimated GFR-MDRD Greater than 90; Glucose 142 mg/dL (83-110); Potassium 4.2 mmol/L (3.5-5.1); Sodium 137 mmol/L (136-145)
[2019-02-01 06:34] LABS: MDiff Complete? YES; Ovalocytes SLIGHT = 2-5 cells (100X) (0-1/hpf); Platelet Morphology Comment Appears Decreased
[2019-02-01] MEDS: Famotidine 20 MG TAB PO SCH ×2 (08:48→20:40)
[2019-02-01] MEDS: Acyclovir 400 mg Tablet PO SCH ×2 (08:48→20:40)
[2019-02-01] MEDS: Folic Acid 1 MG TAB PO SCH (08:48)
[2019-02-01] MEDS: Dexamethasone 4 MG TAB PO SCH ×2 (08:48→20:40)
[2019-02-01] MEDS: Lisinopril 20 MG TAB PO SCH ×2 (11:57→20:40)
[2019-02-01] MEDS ORDERED: Lidocaine 1% w/Epinephrine 1:100K 20 ML VIAL ONE (13:09)
--- NOTE | 2019-02-01 14:28 | PRG ---
DATE OF SERVICE: 02/01/2019 SUBJECTIVE: The patient is seen at bedside, having lunch. Family member also in the room. The patient is sitting in chair, overall feels better. Denies any fever, shortness of breath, chest pain. OBJECTIVE: VITAL SIGNS: Temperature 99.5, pulse 100, respirations 18, oxygen saturation 94% on room air, blood pressure 134/82. GENERAL: The patient is lying in bed comfortably, not in distress. HEENT: Conjunctivae normal. Oral mucosa moist. NECK: Supple. No JVD. No lymphadenopathy. CHEST: Normal vesicular breathing. HEART: Sounds normal. ABDOMEN: Soft. Negative edema of feet. LABORATORY DATA: White blood cell 0.1, hemoglobin 6.8, platelets 11. BMP unremarkable. IMPRESSION: 1. Sepsis with neutropenic fever due to multifocal pneumonia and Klebsiella pneumoniae urinary tract infection. Continue antibiotics; meropenem, micafungin, vancomycin, and acyclovir as per Dr. Colón. 2. Pancytopenia secondary to possible chemotherapy-induced. Continue steroids. Hematology/Oncology on board. Platelet 11. Followup Oncology if the patient need any platelet transfusion. Hemoglobin 6.8, white blood cells 0.1. 3. Hypertension. Continue monitoring blood pressure. 4. History of meningioma with vasogenic edema. Family opted to continue conservative management. The patient has a history of meningioma in the past and Neurosurgery surgery evaluation appreciated. Recommended no further intervention. 5. Physical deconditioning. Continue PT evaluation. 6. DVT/GI prophylaxis. PLAN: Discussed with daughter on phone, updated the patient's labs. Job ID: [id number]
--- NOTE | 2019-02-01 14:57 | PDOC.MOPN ---
Interval History: Patient sitting in chair, denies complaints. No bleeding. - Vital Signs Vital Signs: Vital Signs (12 hours) Temp Pulse Pulse Pulse Resp BP BP 02/01/19 11:57 134/82 02/01/19 11:31 99.5 F 101 H 16 02/01/19 11:21 93 16 02/01/19 08:50 83 113 H 142/82 H 02/01/19 07:59 89 14 02/01/19 07:17 98.7 F 84 16 BP BP Pulse Ox 02/01/19 11:57 02/01/19 11:31 134/76 94 L 02/01/19 11:21 96 02/01/19 08:50 133/75 02/01/19 07:59 97 02/01/19 07:17 142/82 H 95 Weight Admit Weight 151 lb 9.6 oz Weight 166 lb 6.4 oz Most Recent Monitor Data Heart Rate from ECG 93 NIBP 167/103 NIBP BP-Mean 124 Respiration from ECG 29 SpO2 100 - Physical Exam General: Alert HEENT: Atraumatic Lungs: Other (wheezing) Cardiovascular: Regular rate Abdomen: Normal bowel sounds Skin: No rashes, No breakdown, No significant lesion Neurological: Normal speech - Labs Result Diagrams: 02/01/19 05:53 02/01/19 03:30 Lab results: Laboratory Results - last 24 hr 02/01/19 05:53: WBC 0.1 L*, RBC 2.23 L, Hgb 6.8 L, Hct 20.1 L, MCV 90.2, MCH 30.5, MCHC 33.8, RDW 15.0 H, Plt Count 11 L*, MPV 14.7 H, Neutrophils % (Manual ) Not Reportable, Neutrophils # Not Reportable, Lymphocytes # Not Reportable, Plt Morphology Comment Appears Decreased L, Ovalocytes SLIGHT = 2-5 cells 02/01/19 03:30: Sodium 137, Potassium 4.2, Chloride 106, Carbon Dioxide 25, Anion Gap 10, BUN 18, Creatinine 0.64 L, Estimated GFR (MDRD) Greater than 90, Glucose 142 H, Calcium 8.2 Status: lab reviewed by me A/P - Problem (1) AML (acute myeloblastic leukemia) Current Visit: Yes Code(s): C92.00 - ACUTE MYELOBLASTIC LEUKEMIA, NOT HAVING ACHIEVED REMISSION Status: Acute (2) Neutropenic sepsis Current Visit: Yes Code(s): A41.9 - SEPSIS, UNSPECIFIED ORGANISM; D70.9 - NEUTROPENIA, UNSPECIFIED Status: Acute (3) Pancytopenia Current Visit: Yes Code(s): D61.818 - OTHER PANCYTOPENIA Status: Acute - Plan Plan: Continue Supportive care daily CBC, transfuse prn.
[2019-02-01 16:09] VITALS: BMI 25.2
--- NOTE | 2019-02-01 16:57 | RAD ---
Chest one view HISTORY: Pneumonia. Follow-up. COMPARISON: 01/26/2019. FINDINGS: Cardiac silhouette is magnified by projection. Pulmonary vasculature improved. Mediastinum is midline with a left subclavian Mediport. Infiltrate within the left lower lobe and throughout the right lung is much less pronounced than on t he prior exam. Mild residual scarring and atelectasis. No evidence of pneumothorax. IMPRESSION: Near complete resolution of bilateral multifocal infiltrate. No new abnormalities are kevyn dent.
[2019-02-01] MEDS: Dextrose 5 % And 0.9 % NaCl 1,000 ML IV SCH (17:07)
[2019-02-01] MEDS: Micafungin 100 MG in Sodium Chloride 0.9% 100 ML IVPB SCH (17:08)
[2019-02-02 04:24] LABS: Hemoglobin 6.6 g/dL (14.0-18.0); Mean Corpuscular HGB CONC 34.2 g/dL (32.0-36.0); Mean Corpuscular Hemoglobin 30.9 pg (27.0-31.0); Mean Corpuscular Volume 90.3 fL (78.0-98.0); Platelet Count 6 thou/uL (130-400); RBC Distribution Width 14.8 % (11.5-14.5); Red Blood Cell (RBC) Count 2.14 mill/uL (4.70-6.10); White Blood Cell (WBC) Count 0.1 thou/uL (4.8-10.8)
[2019-02-02] MEDS: Vancomycin HCl 750 MG in Sodium Chloride 0.9% 250 ML 250 ML IVPB SCH ×3 (04:32→20:22)
[2019-02-02 04:37] LABS: Anion Gap 13 mmol/L (10-20); BUN (Urea Nitrogen) 18 mg/dL (8.4-25.7); Calc. Creatinine Clearance 108 mL/min (70-130); Calcium 8.2 mg/dL (7.8-10.44); Carbon Dioxide 22 mmol/L (23-31); Chloride 106 mmol/L (98-107); Estimated GFR-MDRD Greater than 90; Glucose 132 mg/dL (83-110); Potassium 4.1 mmol/L (3.5-5.1); Sodium 137 mmol/L (136-145)
[2019-02-02 04:51] LABS: Hypochromia SLIGHT = 6-15 cells (100X) (0-5/hpf); MDiff Complete? YES; Platelet Morphology Comment Appears Decreased
[2019-02-02] MEDS: MEROPENEM 1 GM/50 ML 1 GM in Premix Bag 1 BAG IVPB SCH ×3 (06:30→22:13)
--- NOTE | 2019-02-02 07:42 | PDOC.HOSPP ---
- Subjective Encounter Date: 02/02/19 Encounter Time: 07:40 Subjective: Chief complaint: Weakness Patient in bed, sleeping but rousable. Denies chest pain or shortness of breath. Chart reviewed, all problems new to me. - Objective Vital Signs & Weight: Vital Signs (12 hours) Temp Pulse Resp BP BP Pulse Ox 02/02/19 07:04 80 16 94 L 02/02/19 04:00 99.2 F 84 16 153/74 H 95 02/02/19 02:14 80 14 02/01/19 23:14 99.4 F 89 16 138/74 96 02/01/19 22:21 84 16 02/01/19 20:40 151/80 H 02/01/19 19:59 98 02/01/19 19:49 99.3 F 91 18 151/80 H 96 02/01/19 19:42 88 16 97 Weight Admit Weight 151 lb 9.6 oz Weight 166 lb 6.4 oz Most Recent Monitor Data Heart Rate from ECG 93 NIBP 167/103 NIBP BP-Mean 124 Respiration from ECG 29 SpO2 100 I&O: 02/01/19 02/02/19 02/03/19 06:59 06:59 06:59 Intake Total 840 700 Output Total 150 650 Balance 690 50 Result Diagrams: 02/02/19 03:57 02/02/19 03:57 Hospitalist ROS - Medication Medications: Active Medications Generic Name Dose Route Start Last Admin Trade Name Freq PRN Reason Stop Dose Admin Acetaminophen 650 mg 01/19/19 16:46 01/24/19 23:56 Tylenol PO 650 mg Q4H PRN Administration Headache/Fever/Mild Pain (1-3) Acetaminophen 650 mg 01/25/19 15:29 01/25/19 16:34 Tylenol MI 650 mg Q4H PRN Administration Headache/Fever or Pain Acyclovir 400 mg 01/19/19 21:00 02/01/19 20:40 Zovirax PO 400 mg BID CHRISTIANO Administration Albuterol/Ipratropium 3 ml 01/25/19 10:30 02/02/19 07:04 Duoneb NEB 3 ml [id number] CHRISTIANO Administration Dexamethasone 4 mg 01/30/19 09:00 02/01/19 20:40 Decadron PO 4 mg BID CHRISTIANO Administration Famotidine 20 mg 01/19/19 21:00 02/01/19 20:40 Pepcid PO 20 mg BID CHRISTIANO Administration Folic Acid 1 mg 01/25/19 09:00 02/01/19 08:48 Folvite PO 1 mg DAILY CHRISTIANO Administration Micafungin Sodium 100 mg/ 100 mls @ 100 mls/hr 01/24/19 17:00 02/01/19 17:08 Sodium Chloride IVPB 100 mls 1700 CHRISTIANO Administration Meropenem 1 gm/ Device 50 mls @ 400 mls/hr 01/25/19 06:00 02/02/19 06:30 IVPB 50 mls Q8HR CHRISTIANO Administration Dextrose/Sodium Chloride 1,000 mls @ 30 mls/hr 01/25/19 16:30 02/01/19 17:07 D5 0.9% Ns IV 1,000 mls .Q24H CHRISTIANO Administration Vancomycin HCl 750 mg/ Sodium 250 mls @ 250 mls/hr 01/28/19 12:00 02/02/19 04 :32 Chloride IVPB 250 mls 0400,1200,2000 CHRISTIANO Administration Lisinopril 20 mg 01/19/19 21:00 02/01/19 20:40 Zestril PO 20 mg BID CHRISTIANO Administration Sodium Chloride 10 ml 01/23/19 09:31 02/01/19 08:49 Flush - Normal Saline IVF 10 ml PRN PRN Administration Saline Flush - Exam General Appearance: NAD, awake alert Eye: PERRL, anicteric sclera ENT: normocephalic atraumatic Neck: supple, no JVD Heart: RRR, no murmur, no gallops, no rubs Heart - other findings: Chest wall - port in place, no erythema or edema Respiratory: CTAB, no wheezes, no rales, no ronchi Gastrointestinal: soft, non-tender, non-distended, normal bowel sounds Extremities: no cyanosis, no clubbing, no edema Skin: no lesions, no rashes Neurological: cranial nerve grossly intact, no focal deficits Neurological - other findings: globally weak, no focal deficits Musculoskeletal: generalized weakness Psychiatric: normal affect, A&O x 3 Hosp A/P - Plan 73 year old male being treated for: # sepsis and neutropenic fever secondary to multifocal pneumonia and klebsiella UTI - continue meropenem, micafungin, vancomycin, acyclovir - appreciate oncology assistance - blood cultures from 01/20/19 negative x 2 # pancytopenia - likely secondary to chemotherapy, trend CBC daily, hematology/ oncology following along with us, defer needs for platelet or blood transfusion to oncology, will likely need blood and platelets in near future given current counts - on steroids ordered by oncology # HTN - monitor BP, PRNs ordered for high BPs # history of meningioma with vasogenic edema - continue conservative management , appreciate neurosurgical evaluation, no intervention currently indicated # debility - PT, OT, case management consults # DVT/GI prophylaxis Patient and all problems new to me. PT recommends rehab as of yesterday, case management consult placed. SNF probably more appropriate given medical needs.
--- NOTE | 2019-02-02 07:56 | PRG ---
DATE OF SERVICE: 02/01/2019 SUBJECTIVE: He was able to sit up for 3 hours today. It looks like he got tired from that, but he is awake, alert, follows commands. His voice is a little low today. He denies any pain. No diarrhea. He is voiding with a Wick device. OBJECTIVE: VITAL SIGNS: T-max 99.5, blood pressure 130/70, pulse 101, respirations 16, and O2 saturation 94% to 98%. HEENT: Oral cavity is moist with no lesions. NECK: Supple. LUNGS: Symmetric. Clear breath sounds. HEART: S1 and S2, regular rate. ABDOMEN: Soft. Not distended. MUSCULOSKELETAL: No joint inflammatory activity. LABORATORY DATA: White cell count still at 0.1, platelets are low at 21, and hemoglobin is at 6.8. Creatinine 0.64. ASSESSMENT AND DISCUSSION: Acute myelogenous leukemia, having received Venetoclax with persistent neutropenia and fever. Fever has resolved now or improved at least for the time being. He had diffuse bilateral pneumonitis and we will follow up the chest x-ray to see where it stands, unless obviously there is improvement in the neutrophil count and he will have a poor prognosis, there is a consideration for rehab discharge if he stops requiring transfusions. In a multicenter randomized study controlled patients that continue receiving empiric antimicrobial therapy until the absolute neutrophil count was greater than 0.5, did not have better outcome than the ones where the empiric antimicrobials were discontinued once patient clinically improved and no fever for 72 hours. For example, one could discontinue antimicrobials tomorrow if he is still afebrile. Job ID: [id number] [facility]
[2019-02-02] MEDS: Acyclovir 400 mg Tablet PO SCH ×2 (09:13→20:22)
[2019-02-02] MEDS: Famotidine 20 MG TAB PO SCH ×2 (09:14→20:22)
[2019-02-02] MEDS: Lisinopril 20 MG TAB PO SCH ×2 (09:14→20:22)
[2019-02-02] MEDS: Folic Acid 1 MG TAB PO SCH (09:14)
[2019-02-02] MEDS: Dexamethasone 4 MG TAB PO SCH ×2 (09:14→20:22)
[2019-02-02] MEDS ORDERED: hydrALAZINE 20 MG/ML VIAL SLOW IVP PRN (09:28)
[2019-02-02] MEDS ORDERED: cloNIDine 0.1 MG TAB PO PRN (09:28)
--- NOTE | 2019-02-02 11:46 | PDOC.MOPN ---
Interval History: Alert, smiling. - Vital Signs Vital Signs: Vital Signs (12 hours) Temp Pulse Pulse Pulse Resp BP BP 02/02/19 11:26 81 20 02/02/19 09:48 98.4 F 90 16 02/02/19 09:40 96 16 02/02/19 09:27 96 134/70 02/02/19 09:14 151/80 H 02/02/19 08:00 02/02/19 07:04 80 16 02/02/19 04:00 99.2 F 84 16 02/02/19 02:14 80 14 BP BP Pulse Ox 02/02/19 11:26 96 02/02/19 09:48 134/71 97 02/02/19 09:40 134/70 97 02/02/19 09:27 02/02/19 09:14 02/02/19 08:00 97 02/02/19 07:04 94 L 02/02/19 04:00 153/74 H 95 02/02/19 02:14 Weight Admit Weight 151 lb 9.6 oz Weight 166 lb 6.4 oz Most Recent Monitor Data Heart Rate from ECG 93 NIBP 167/103 NIBP BP-Mean 124 Respiration from ECG 29 SpO2 100 - Physical Exam General: Alert, Oriented x3, No acute distress HEENT: Atraumatic, PERRLA, EOMI, Mucous membr. moist/pink Lungs: Clear to auscultation, Normal air movement Cardiovascular: Regular rate, Normal S1, Normal S2, No murmurs, Gallops, Rubs Abdomen: Normal bowel sounds, Soft, No tenderness, No hepatospenomegaly, No masses Extremities: No clubbing, No cyanosis, No edema, Normal pulses, No tenderness/ swelling Skin: No rashes, No breakdown, No significant lesion Neurological: Normal gait, Normal speech, Strength at 5/5 X4 ext, Normal tone, Sensation intact, Cranial nerves 3-12 NL, Reflexes 2+ Psych/Mental Status: Mental status NL, Mood NL - Labs Result Diagrams: 02/02/19 03:57 02/02/19 03:57 Lab results: Laboratory Results - last 24 hr 02/02/19 03:57: Sodium 137, Potassium 4.1, Chloride 106, Carbon Dioxide 22 L, Anion Gap 13, BUN 18, Creatinine 0.64 L, Estimated GFR (MDRD) Greater than 90, Glucose 132 H, Calcium 8.2 02/02/19 03:57: WBC 0.1 L*, RBC 2.14 L, Hgb 6.6 L, Hct 19.3 L, MCV 90.3, MCH 30.9, MCHC 34.2, RDW 14.8 H, Plt Count 6 L*, MPV 15.0 H, Neutrophils % (Manual) Not Reportable, Neutrophils # Not Reportable, Lymphocytes # Not Reportable, Hypochromia SLIGHT = 6-15 cells, Plt Morphology Comment Appears Decreased L 01/30/19 10:37: Blood Type O POSITIVE, Antibody Screen NEGATIVE, Crossmatch See Detail Status: lab reviewed by me A/P - Problem (1) AML (acute myeloblastic leukemia) Current Visit: Yes Code(s): C92.00 - ACUTE MYELOBLASTIC LEUKEMIA, NOT HAVING ACHIEVED REMISSION Status: Acute (2) Neutropenic sepsis Current Visit: Yes Code(s): A41.9 - SEPSIS, UNSPECIFIED ORGANISM; D70.9 - NEUTROPENIA, UNSPECIFIED Status: Acute (3) Pancytopenia Current Visit: Yes Code(s): D61.818 - OTHER PANCYTOPENIA Status: Acute - Plan Plan: Transfuse PRBC and platelets today CBC daily Neutropenic precautions Refer to [facility]
[2019-02-02 15:02] LABS: Vancomycin, Trough 12.4 ug/mL
[2019-02-02] MEDS: Micafungin 100 MG in Sodium Chloride 0.9% 100 ML IVPB SCH (17:39)
[2019-02-02] MEDS: Dextrose 5 % And 0.9 % NaCl 1,000 ML IV SCH (17:41)
[2019-02-03] MEDS: Vancomycin HCl 750 MG in Sodium Chloride 0.9% 250 ML 250 ML IVPB SCH ×3 (04:34→19:40)
[2019-02-03 05:06] LABS: White Blood Cell (WBC) Count 0.1 thou/uL (4.8-10.8)
[2019-02-03 05:07] LABS: Platelet Count 26 thou/uL (130-400)
[2019-02-03 05:18] LABS: Anion Gap 7 mmol/L (10-20); BUN (Urea Nitrogen) 19 mg/dL (8.4-25.7); Calc. Creatinine Clearance 106 mL/min (70-130); Calcium 8.2 mg/dL (7.8-10.44); Carbon Dioxide 26 mmol/L (23-31); Chloride 106 mmol/L (98-107); Estimated GFR-MDRD Greater than 90; Glucose 145 mg/dL (83-110); Potassium 4.2 mmol/L (3.5-5.1); Sodium 135 mmol/L (136-145)
[2019-02-03 05:31] LABS: Hemoglobin 8.2 g/dL (14.0-18.0); Mean Corpuscular HGB CONC 35.1 g/dL (32.0-36.0); Mean Corpuscular Hemoglobin 31.1 pg (27.0-31.0); Mean Corpuscular Volume 88.8 fL (78.0-98.0); Platelet Morphology Comment Appears Decreased; RBC Distribution Width 13.9 % (11.5-14.5); RBC Morphology Normal; Red Blood Cell (RBC) Count 2.65 mill/uL (4.70-6.10)
[2019-02-03] MEDS: MEROPENEM 1 GM/50 ML 1 GM in Premix Bag 1 BAG IVPB SCH ×3 (06:45→21:10)
--- NOTE | 2019-02-03 09:10 | PDOC.MOPN ---
Interval History: alert, follows commands. nods to questions - Vital Signs Vital Signs: Vital Signs (12 hours) Temp Pulse Resp BP Pulse Ox 02/03/19 08:00 97.7 F 77 16 158/77 H 95 02/03/19 06:58 75 18 95 02/03/19 04:38 98.5 F 76 14 164/79 H 96 02/03/19 01:39 76 16 94 L 02/03/19 00:51 98.7 F 82 14 176/89 H 95 02/02/19 22:05 88 16 92 L Weight Admit Weight 151 lb 9.6 oz Weight 166 lb 6.4 oz Most Recent Monitor Data Heart Rate from ECG 93 NIBP 167/103 NIBP BP-Mean 124 Respiration from ECG 29 SpO2 100 - Physical Exam General: Alert HEENT: Atraumatic, PERRLA, EOMI, Mucous membr. moist/pink Lungs: Clear to auscultation, Normal air movement Cardiovascular: Regular rate, Normal S1, Normal S2, No murmurs, Gallops, Rubs Abdomen: Normal bowel sounds, Soft, No tenderness, No hepatospenomegaly, No masses Extremities: No clubbing, No cyanosis, No edema, Normal pulses, No tenderness/ swelling Skin: No rashes, No breakdown, No significant lesion Neurological: Other - Labs Result Diagrams: 02/03/19 04:49 02/03/19 04:49 Lab results: Laboratory Results - last 24 hr 02/03/19 04:49: Sodium 135 L, Potassium 4.2, Chloride 106, Carbon Dioxide 26, Anion Gap 7 L, BUN 19, Creatinine 0.65 L, Estimated GFR (MDRD) Greater than 90 , Glucose 145 H, Calcium 8.2 02/03/19 04:49: WBC 0.1 L*, RBC 2.65 L, Hgb 8.2 L, Hct 23.5 L, MCV 88.8, MCH 31.1 H, MCHC 35.1, RDW 13.9, Plt Count 26 L*, MPV 10.0, Neutrophils % (Manual) Not Reportable, Neutrophils # Not Reportable, Lymphocytes # Not Reportable, Plt Morphology Comment Appears Decreased L, RBC Morph Comment Normal 02/02/19 14:14: Vancomycin Trough 12.4 01/30/19 10:37: Blood Type O POSITIVE, Antibody Screen NEGATIVE, Crossmatch See Detail Status: lab reviewed by me A/P - Problem (1) AML (acute myeloblastic leukemia) Current Visit: Yes Code(s): C92.00 - ACUTE MYELOBLASTIC LEUKEMIA, NOT HAVING ACHIEVED REMISSION Status: Acute (2) Neutropenic sepsis Current Visit: Yes Code(s): A41.9 - SEPSIS, UNSPECIFIED ORGANISM; D70.9 - NEUTROPENIA, UNSPECIFIED Status: Acute (3) Pancytopenia Current Visit: Yes Code(s): D61.818 - OTHER PANCYTOPENIA Status: Acute - Plan Plan: no transfusion today. daily CBC PT and OOB daily
[2019-02-03] MEDS: Acyclovir 400 mg Tablet PO SCH ×2 (09:19→21:12)
[2019-02-03] MEDS: Dexamethasone 4 MG TAB PO SCH ×2 (09:19→21:12)
[2019-02-03] MEDS: Folic Acid 1 MG TAB PO SCH (09:19)
[2019-02-03] MEDS: Lisinopril 20 MG TAB PO SCH ×2 (09:19→21:12)
[2019-02-03] MEDS: Famotidine 20 MG TAB PO SCH ×2 (09:21→21:11)
[2019-02-03] MEDS: Micafungin 100 MG in Sodium Chloride 0.9% 100 ML IVPB SCH (17:11)
[2019-02-03] MEDS: Dextrose 5 % And 0.9 % NaCl 1,000 ML IV SCH (17:12)
--- NOTE | 2019-02-03 18:29 | PDOC.HOSPP ---
- Subjective Encounter Date: 02/03/19 Encounter Time: 10:00 Subjective: CC: weakness Subjective Patient in chair, walked somewhat with therapy, still weak and requiring assistance to transfer, no shortness of breath or chest pain, no events per nursing. - Objective Vital Signs & Weight: Vital Signs (12 hours) Temp Pulse Pulse Resp BP BP BP 02/03/19 16:00 98.2 F 80 18 150/83 H 02/03/19 15:30 87 16 02/03/19 13:20 97.8 F 82 20 02/03/19 10:47 80 14 02/03/19 09:19 151/80 H 02/03/19 08:45 100 150/75 H 02/03/19 08:00 97.7 F 77 16 158/77 H 02/03/19 06:58 75 18 BP Pulse Ox Pulse Ox 02/03/19 16:00 99 02/03/19 15:30 97 02/03/19 13:20 131/62 98 02/03/19 10:47 97 02/03/19 09:19 02/03/19 08:45 95 02/03/19 08:00 95 02/03/19 06:58 95 Weight Admit Weight 151 lb 9.6 oz Weight 166 lb 6.4 oz Most Recent Monitor Data Heart Rate from ECG 93 NIBP 167/103 NIBP BP-Mean 124 Respiration from ECG 29 SpO2 100 I&O: 02/02/19 02/03/19 02/04/19 06:59 06:59 06:59 Intake Total 700 3260 500 Output Total 650 3400 553 Balance 50 -140 -53 Result Diagrams: 02/03/19 04:49 02/03/19 04:49 Hospitalist ROS - Medication Medications: Active Medications Generic Name Dose Route Start Last Admin Trade Name Freq PRN Reason Stop Dose Admin Acetaminophen 650 mg 01/19/19 16:46 01/24/19 23:56 Tylenol PO 650 mg Q4H PRN Administration Headache/Fever/Mild Pain (1-3) Acetaminophen 650 mg 01/25/19 15:29 01/25/19 16:34 Tylenol ND 650 mg Q4H PRN Administration Headache/Fever or Pain Acyclovir 400 mg 01/19/19 21:00 02/03/19 09:19 Zovirax PO 400 mg BID CHRISTIANO Administration Albuterol/Ipratropium 3 ml 01/25/19 10:30 02/03/19 15:30 Duoneb NEB 3 ml [id number] CHRISTIANO Administration Dexamethasone 4 mg 01/30/19 09:00 02/03/19 09:19 Decadron PO 4 mg BID CHRISTIANO Administration Famotidine 20 mg 01/19/19 21:00 02/03/19 09:21 Pepcid PO Not Given BID CHRISTIANO Folic Acid 1 mg 01/25/19 09:00 02/03/19 09:19 Folvite PO 1 mg DAILY CHRISTIANO Administration Micafungin Sodium 100 mg/ 100 mls @ 100 mls/hr 01/24/19 17:00 02/03/19 17:11 Sodium Chloride IVPB 100 mls 1700 CHRISTIANO Administration Meropenem 1 gm/ Device 50 mls @ 400 mls/hr 01/25/19 06:00 02/03/19 14:59 IVPB 50 mls Q8HR CHRISTIANO Administration Dextrose/Sodium Chloride 1,000 mls @ 30 mls/hr 01/25/19 16:30 02/03/19 17:12 D5 0.9% Ns IV 1,000 mls .Q24H CHRISTIANO Administration Vancomycin HCl 750 mg/ Sodium 250 mls @ 250 mls/hr 01/28/19 12:00 02/03/19 12 :50 Chloride IVPB 250 mls 0400,1200,2000 CHRISTIANO Administration Lisinopril 20 mg 01/19/19 21:00 02/03/19 09:19 Zestril PO 20 mg BID CHRISTIANO Administration Pantoprazole Sodium 40 mg 02/03/19 09:00 02/03/19 09:30 Protonix PO 40 mg DAILY CHRISTIANO Administration Sodium Chloride 10 ml 01/23/19 09:31 02/03/19 09:20 Flush - Normal Saline IVF 10 ml PRN PRN Administration Saline Flush - Exam General Appearance: NAD, awake alert Eye: PERRL, anicteric sclera ENT: normocephalic atraumatic, moist mucosa Neck: supple, symmetric, no JVD Heart: RRR, no murmur, no gallops, no rubs Respiratory: CTAB, no wheezes, no rales, no ronchi Gastrointestinal: soft, non-tender, non-distended, normal bowel sounds Extremities: no cyanosis, no clubbing, no edema Skin: no lesions, no rashes Neurological: cranial nerve grossly intact, normal sensation to touch, no weakness, no focal deficits Musculoskeletal - other findings: globally weak, no focal deficits observed Psychiatric: normal affect, normal behavior Psychiatric - other findings: not talkative Hosp A/P - Plan 73 year old male being treated for: # sepsis and neutropenic fever secondary to multifocal pneumonia and klebsiella UTI - continue meropenem, micafungin, vancomycin, acyclovir - appreciate oncology assistance - blood cultures from 01/20/19 negative x 2 # pancytopenia - likely secondary to chemotherapy, trend CBC daily, hematology/ oncology following along with us, defer needs for platelet or blood transfusion to oncology, will likely need blood and platelets in near future given current counts - on steroids ordered by oncology # HTN - monitor BP, PRNs ordered for high BPs # history of meningioma with vasogenic edema - continue conservative management , appreciate neurosurgical evaluation, no intervention currently indicated # debility - PT, OT, case management consults # DVT/GI prophylaxis Appreciate case management with SNF preparation, not yet ready for discharge, needs to see upswing in counts and clearance from oncology and infectious disease, still on very strong broad spectrum abx with viral and fungal coverage
[2019-02-04] MEDS: Vancomycin HCl 750 MG in Sodium Chloride 0.9% 250 ML 250 ML IVPB SCH ×3 (04:46→20:31)
[2019-02-04 05:26] LABS: Anion Gap 9 mmol/L (10-20); BUN (Urea Nitrogen) 17 mg/dL (8.4-25.7); Calc. Creatinine Clearance 121 mL/min (70-130); Calcium 8.3 mg/dL (7.8-10.44); Carbon Dioxide 24 mmol/L (23-31); Chloride 106 mmol/L (98-107); Estimated GFR-MDRD Greater than 90; Glucose 141 mg/dL (83-110); Potassium 4.2 mmol/L (3.5-5.1); Sodium 135 mmol/L (136-145)
[2019-02-04 05:41] LABS: Mean Corpuscular HGB CONC 34.7 g/dL (32.0-36.0); Mean Corpuscular Hemoglobin 30.9 pg (27.0-31.0); Mean Corpuscular Volume 89.1 fL (78.0-98.0); Platelet Count 15 thou/uL (130-400); RBC Distribution Width 13.8 % (11.5-14.5); Red Blood Cell (RBC) Count 2.59 mill/uL (4.70-6.10); White Blood Cell (WBC) Count 0.1 thou/uL (4.8-10.8)
[2019-02-04 05:42] LABS: Platelet Morphology Comment Appears Decreased
[2019-02-04] MEDS: MEROPENEM 1 GM/50 ML 1 GM in Premix Bag 1 BAG IVPB SCH ×2 (05:59→14:30)
[2019-02-04] MEDS: Lisinopril 20 MG TAB PO SCH ×2 (09:27→20:47)
[2019-02-04] MEDS: Famotidine 20 MG TAB PO SCH ×2 (09:28→20:47)
[2019-02-04] MEDS: Acyclovir 400 mg Tablet PO SCH ×2 (09:33→20:47)
[2019-02-04] MEDS: Dexamethasone 4 MG TAB PO SCH ×2 (09:33→20:48)
[2019-02-04] MEDS: Folic Acid 1 MG TAB PO SCH (09:40)
[2019-02-04 11:41] LABS: Vancomycin, Trough 15.6 ug/mL
--- NOTE | 2019-02-04 14:30 | PDOC.MOPN ---
Interval History: sitting in chair. no complaints. - Vital Signs Vital Signs: Vital Signs (12 hours) Temp Pulse Resp BP BP BP Pulse Ox 02/04/19 12:00 98.2 F 82 16 135/87 97 02/04/19 09:27 158/86 H 02/04/19 08:00 98.2 F 75 18 156/86 H 98 02/04/19 04:00 98.1 F 79 18 128/64 97 02/04/19 03:48 95 Weight Admit Weight 151 lb 9.6 oz Weight 166 lb 6.4 oz Most Recent Monitor Data Heart Rate from ECG 93 NIBP 167/103 NIBP BP-Mean 124 Respiration from ECG 29 SpO2 100 - Physical Exam General: Alert Lungs: Other (wheeze) Cardiovascular: Regular rate Abdomen: Normal bowel sounds Extremities: No clubbing, No cyanosis, No edema, Normal pulses, No tenderness/ swelling Skin: No rashes, No breakdown, No significant lesion - Labs Result Diagrams: 02/04/19 04:51 02/04/19 04:51 Lab results: Laboratory Results - last 24 hr 02/04/19 11:01: Vancomycin Trough 15.6 02/04/19 04:51: WBC 0.1 L*, RBC 2.59 L, Hgb 8.0 L, Hct 23.1 L, MCV 89.1, MCH 30.9, MCHC 34.7, RDW 13.8, Plt Count 15 L*, MPV 12.0 H, Neutrophils % (Manual) Not Reportable, Plt Morphology Comment Appears Decreased L 02/04/19 04:51: Sodium 135 L, Potassium 4.2, Chloride 106, Carbon Dioxide 24, Anion Gap 9 L, BUN 17, Creatinine 0.57 L, Estimated GFR (MDRD) Greater than 90 , Glucose 141 H, Calcium 8.3 A/P - Problem (1) AML (acute myeloblastic leukemia) Current Visit: Yes Code(s): C92.00 - ACUTE MYELOBLASTIC LEUKEMIA, NOT HAVING ACHIEVED REMISSION Status: Acute (2) Neutropenic sepsis Current Visit: Yes Code(s): A41.9 - SEPSIS, UNSPECIFIED ORGANISM; D70.9 - NEUTROPENIA, UNSPECIFIED Status: Acute (3) Pancytopenia Current Visit: Yes Code(s): D61.818 - OTHER PANCYTOPENIA Status: Acute - Plan Plan: continue supportive care no transfusion today, likely tomorrow daily CBC
[2019-02-04] MEDS: Dextrose 5 % And 0.9 % NaCl 1,000 ML IV SCH (16:26)
[2019-02-04] MEDS: Micafungin 100 MG in Sodium Chloride 0.9% 100 ML IVPB SCH (16:26)
--- NOTE | 2019-02-04 17:43 | PDOC.HOSPP ---
- Subjective Encounter Date: 02/04/19 Encounter Time: 17:48 Subjective: Chief complaint: weakness Subjective: patient in bed, family at bedside, interactive and pleasant but poor short term memory. No chest pain or shortness of breath. Requiring multiple people to assist with transfer. - Objective Vital Signs & Weight: Vital Signs (12 hours) Temp Pulse Resp BP BP BP Pulse Ox 02/04/19 12:00 98.2 F 82 16 135/87 97 02/04/19 09:27 158/86 H 02/04/19 08:00 98.2 F 75 18 156/86 H 98 Weight Admit Weight 151 lb 9.6 oz Weight 166 lb 6.4 oz Most Recent Monitor Data Heart Rate from ECG 93 NIBP 167/103 NIBP BP-Mean 124 Respiration from ECG 29 SpO2 100 I&O: 02/03/19 02/04/19 02/05/19 06:59 06:59 06:59 Intake Total 3260 1520 Output Total 3400 2203 Balance -140 -683 Result Diagrams: 02/04/19 04:51 02/04/19 04:51 Hospitalist ROS - Medication Medications: Active Medications Generic Name Dose Route Start Last Admin Trade Name Freq PRN Reason Stop Dose Admin Acetaminophen 650 mg 01/19/19 16:46 01/24/19 23:56 Tylenol PO 650 mg Q4H PRN Administration Headache/Fever/Mild Pain (1-3) Acetaminophen 650 mg 01/25/19 15:29 01/25/19 16:34 Tylenol DE 650 mg Q4H PRN Administration Headache/Fever or Pain Acyclovir 400 mg 01/19/19 21:00 02/04/19 09:33 Zovirax PO 400 mg BID CHRISTIANO Administration Dexamethasone 4 mg 01/30/19 09:00 02/04/19 09:33 Decadron PO 4 mg BID CHRISTIANO Administration Famotidine 20 mg 01/19/19 21:00 02/04/19 09:28 Pepcid PO 20 mg BID CHRISTIANO Administration Folic Acid 1 mg 01/25/19 09:00 02/04/19 09:40 Folvite PO 1 mg DAILY CHRISTIANO Administration Micafungin Sodium 100 mg/ 100 mls @ 100 mls/hr 01/24/19 17:00 02/04/19 16:26 Sodium Chloride IVPB 100 mls 1700 CHRISTIANO Administration Dextrose/Sodium Chloride 1,000 mls @ 30 mls/hr 01/25/19 16:30 02/04/19 16:26 D5 0.9% Ns IV 1,000 mls .Q24H CHRISTIANO Administration Vancomycin HCl 750 mg/ Sodium 250 mls @ 250 mls/hr 01/28/19 12:00 02/04/19 12 :08 Chloride IVPB 250 mls 0400,1200,2000 CHRISTIANO Administration Lisinopril 20 mg 01/19/19 21:00 02/04/19 09:27 Zestril PO 20 mg BID CHRISTIANO Administration Pantoprazole Sodium 40 mg 02/03/19 09:00 02/04/19 09:28 Protonix PO 40 mg DAILY CHRISTIANO Administration Sodium Chloride 10 ml 01/23/19 09:31 02/03/19 09:20 Flush - Normal Saline IVF 10 ml PRN PRN Administration Saline Flush - Exam General Appearance: NAD, awake alert Eye: PERRL, anicteric sclera ENT: normocephalic atraumatic, moist mucosa Neck: supple, symmetric, no JVD Heart: RRR, no murmur, no gallops, no rubs Respiratory: CTAB, no wheezes, no rales, no ronchi Gastrointestinal: soft, non-tender, non-distended, normal bowel sounds Extremities: no cyanosis, no clubbing, no edema Skin: normal turgor, no lesions, no rashes Neurological: cranial nerve grossly intact, normal sensation to touch, no weakness, no focal deficits Musculoskeletal: normal tone, normal strength Psychiatric: normal affect, oriented to person Hosp A/P - Plan 73 year old male being treated for: # sepsis and neutropenic fever secondary to multifocal pneumonia and klebsiella UTI - continue meropenem, micafungin, vancomycin, acyclovir - appreciate oncology assistance - blood cultures from 01/20/19 negative x 2 # pancytopenia - likely secondary to chemotherapy, trend CBC daily, hematology/ oncology following along with us, defer needs for platelet or blood transfusion to oncology, will likely need blood and platelets in near future given current counts - on steroids per oncology # HTN - monitor BP, PRNs ordered for high BPs # history of meningioma with vasogenic edema - continue conservative management , appreciate neurosurgical evaluation, no intervention currently indicated # debility - PT, OT, case management consults # DVT/GI prophylaxis Appreciate case management with SNF preparation, not yet ready for discharge, needs to see upswing in counts and clearance from oncology and infectious disease, still on very strong broad spectrum abx with viral and fungal coverage
[2019-02-05] MEDS: Vancomycin HCl 750 MG in Sodium Chloride 0.9% 250 ML 250 ML IVPB SCH ×3 (04:10→20:30)
[2019-02-05 04:40] LABS: Hemoglobin 7.8 g/dL (14.0-18.0); Mean Corpuscular HGB CONC 35.3 g/dL (32.0-36.0); Mean Corpuscular Hemoglobin 31.5 pg (27.0-31.0); Mean Corpuscular Volume 89.2 fL (78.0-98.0); Mean Platelet Volume 12.7 fL (7.4-10.4); Platelet Count 9 thou/uL (130-400); RBC Distribution Width 13.7 % (11.5-14.5); Red Blood Cell (RBC) Count 2.47 mill/uL (4.70-6.10); White Blood Cell (WBC) Count 0.1 thou/uL (4.8-10.8)
[2019-02-05 04:52] LABS: Anion Gap 10 mmol/L (10-20); BUN (Urea Nitrogen) 18 mg/dL (8.4-25.7); Calc. Creatinine Clearance 117 mL/min (70-130); Calcium 8.3 mg/dL (7.8-10.44); Carbon Dioxide 24 mmol/L (23-31); Chloride 106 mmol/L (98-107); Estimated GFR-MDRD Greater than 90; Glucose 160 mg/dL (83-110); Potassium 4.3 mmol/L (3.5-5.1); Sodium 136 mmol/L (136-145)
[2019-02-05 05:38] LABS: Platelet Morphology Comment Appears Decreased
[2019-02-05] MEDS: Folic Acid 1 MG TAB PO SCH (08:20)
[2019-02-05] MEDS: Famotidine 20 MG TAB PO SCH ×2 (08:20→20:31)
[2019-02-05] MEDS: Dexamethasone 4 MG TAB PO SCH ×2 (08:20→20:31)
[2019-02-05] MEDS: Acyclovir 400 mg Tablet PO SCH ×2 (08:20→20:31)
[2019-02-05] MEDS: Lisinopril 20 MG TAB PO SCH ×2 (08:21→20:31)
--- NOTE | 2019-02-05 08:56 | PDOC.MOPN ---
Interval History: in bed eating, no new complaints, no fevers and no bleeding - Vital Signs Vital Signs: Vital Signs (12 hours) Temp Pulse Resp BP BP Pulse Ox 02/05/19 08:21 153/85 H 02/05/19 08:00 98.5 F 77 16 153/85 H 97 Weight Admit Weight 151 lb 9.6 oz Weight 166 lb 6.4 oz Most Recent Monitor Data Heart Rate from ECG 93 NIBP 167/103 NIBP BP-Mean 124 Respiration from ECG 29 SpO2 100 - Physical Exam General: Alert HEENT: Atraumatic Lungs: Clear to auscultation Cardiovascular: Regular rate Abdomen: Normal bowel sounds, Soft Extremities: No clubbing Skin: No rashes Neurological: Normal speech - Labs Result Diagrams: 02/05/19 04:11 02/05/19 04:11 Lab results: Laboratory Results - last 24 hr 02/05/19 04:11: WBC 0.1 L*, RBC 2.47 L, Hgb 7.8 L, Hct 22.0 L, MCV 89.2, MCH 31.5 H, MCHC 35.3, RDW 13.7, Plt Count 9 L*, MPV 12.7 H, Neutrophils % (Manual) Not Reportable, Neutrophils # Not Reportable, Lymphocytes # Not Reportable, Plt Morphology Comment Appears Decreased L 02/05/19 04:11: Sodium 136, Potassium 4.3, Chloride 106, Carbon Dioxide 24, Anion Gap 10, BUN 18, Creatinine 0.59 L, Estimated GFR (MDRD) Greater than 90, Glucose 160 H, Calcium 8.3 02/04/19 11:01: Vancomycin Trough 15.6 A/P - Problem (1) Muscular deconditioning Current Visit: Yes Code(s): R29.898 - [facility] SYMPTOMS AND SIGNS INVOLVING THE MUSCULOSKELETAL SYSTEM Status: Acute (2) AML (acute myeloblastic leukemia) Current Visit: Yes Code(s): C92.00 - ACUTE MYELOBLASTIC LEUKEMIA, NOT HAVING ACHIEVED REMISSION Status: Acute (3) Neutropenic sepsis Current Visit: Yes Code(s): A41.9 - SEPSIS, UNSPECIFIED ORGANISM; D70.9 - NEUTROPENIA, UNSPECIFIED Status: Acute (4) Pancytopenia Current Visit: Yes Code(s): D61.818 - OTHER PANCYTOPENIA Status: Acute - Plan Plan: 1. transfuse platelets today 2. continue supportive care and abx 3. possibly to swing bed next week, his pcp is Dr. Jeter, he could possibly transfer to [place] 4. daily cbc
[2019-02-05] MEDS: Micafungin 100 MG in Sodium Chloride 0.9% 100 ML IVPB SCH (17:24)
[2019-02-05] MEDS: Dextrose 5 % And 0.9 % NaCl 1,000 ML IV SCH (17:25)
--- NOTE | 2019-02-05 21:14 | PDOC.HOSPP ---
- Subjective Encounter Date: 02/05/19 Encounter Time: 21:12 Subjective: CC: weakness subjective: in bed, denies chest pain/shortness of breath, no chills, requiring assistance to transfer - Objective Vital Signs & Weight: Vital Signs (12 hours) Temp Pulse Pulse Resp BP BP Pulse Ox 02/05/19 18:57 98.9 F 82 12 150/76 H 96 02/05/19 17:19 98.3 F 77 18 149/77 H 98 02/05/19 16:04 97.6 F 77 18 143/82 H 98 Weight Admit Weight 151 lb 9.6 oz Weight 166 lb 6.4 oz Most Recent Monitor Data Heart Rate from ECG 93 NIBP 167/103 NIBP BP-Mean 124 Respiration from ECG 29 SpO2 100 I&O: 02/04/19 02/05/19 02/06/19 06:59 06:59 06:59 Intake Total 1520 1540 1620 Output Total 2203 800 Balance -748 907 7457 Result Diagrams: 02/05/19 04:11 02/05/19 04:11 Hospitalist ROS - Medication Medications: Active Medications Generic Name Dose Route Start Last Admin Trade Name Freq PRN Reason Stop Dose Admin Acetaminophen 650 mg 01/19/19 16:46 01/24/19 23:56 Tylenol PO 650 mg Q4H PRN Administration Headache/Fever/Mild Pain (1-3) Acetaminophen 650 mg 01/25/19 15:29 01/25/19 16:34 Tylenol DE 650 mg Q4H PRN Administration Headache/Fever or Pain Acyclovir 400 mg 01/19/19 21:00 02/05/19 20:31 Zovirax PO 400 mg BID CHRISTIANO Administration Dexamethasone 4 mg 01/30/19 09:00 02/05/19 20:31 Decadron PO 4 mg BID CHRISTIANO Administration Famotidine 20 mg 01/19/19 21:00 02/05/19 20:31 Pepcid PO Not Given BID CHRISTIANO Folic Acid 1 mg 01/25/19 09:00 02/05/19 08:20 Folvite PO 1 mg DAILY CHRISTIANO Administration Micafungin Sodium 100 mg/ 100 mls @ 100 mls/hr 01/24/19 17:00 02/05/19 17:24 Sodium Chloride IVPB 100 mls 1700 CHRISTIANO Administration Dextrose/Sodium Chloride 1,000 mls @ 30 mls/hr 01/25/19 16:30 02/05/19 17:25 D5 0.9% Ns IV 1,000 mls .Q24H CHRISTIANO Administration Vancomycin HCl 750 mg/ Sodium 250 mls @ 250 mls/hr 01/28/19 12:00 02/05/19 20 :30 Chloride IVPB 250 mls 0400,1200,2000 CHRISTIANO Administration Lisinopril 20 mg 01/19/19 21:00 02/05/19 20:31 Zestril PO 20 mg BID CHRISTIANO Administration Pantoprazole Sodium 40 mg 02/03/19 09:00 02/05/19 08:22 Protonix PO 40 mg DAILY CHRISTIANO Administration Sodium Chloride 10 ml 01/23/19 09:31 02/05/19 20:32 Flush - Normal Saline IVF 10 ml PRN PRN Administration Saline Flush - Exam General Appearance: NAD, awake alert Eye: PERRL, anicteric sclera ENT: normocephalic atraumatic, moist mucosa Neck: supple, no JVD Heart: RRR, no murmur, no gallops, no rubs Respiratory: CTAB, no wheezes, no rales, no ronchi Gastrointestinal: soft, non-tender, non-distended, normal bowel sounds Extremities: no cyanosis, no clubbing, no edema Skin: no lesions, no rashes Neurological: cranial nerve grossly intact, normal sensation to touch, no weakness, no focal deficits Musculoskeletal: normal tone, normal strength, no muscle wasting Psychiatric: normal affect, normal behavior Hosp A/P - Plan 73 year old male being treated for: # sepsis and neutropenic fever secondary to multifocal pneumonia and klebsiella UTI - continue meropenem, micafungin, vancomycin, acyclovir - appreciate oncology assistance - blood cultures from 01/20/19 negative x 2 # pancytopenia - likely secondary to chemotherapy, trend CBC daily, hematology/ oncology following along with us, defer needs for platelet or blood transfusion to oncology, will likely need blood and platelets in near future given current counts - on steroids per oncology # HTN - monitor BP, PRNs ordered for high BPs # history of meningioma with vasogenic edema - continue conservative management , appreciate neurosurgical evaluation, no intervention currently indicated # debility - PT, OT, case management consults # DVT/GI prophylaxis Appreciate case management with SNF preparation, not yet ready for discharge, needs to see upswing in counts and clearance from oncology and infectious disease, still on very strong broad spectrum abx with viral and fungal coverage
[2019-02-06] MEDS: Vancomycin HCl 750 MG in Sodium Chloride 0.9% 250 ML 250 ML IVPB SCH ×3 (03:58→19:27)
[2019-02-06 05:05] LABS: White Blood Cell (WBC) Count 0.1 thou/uL (4.8-10.8)
[2019-02-06 05:08] LABS: Hemoglobin 7.2 g/dL (14.0-18.0); Mean Corpuscular HGB CONC 34.6 g/dL (32.0-36.0); Mean Corpuscular Hemoglobin 31.1 pg (27.0-31.0); Mean Corpuscular Volume 89.7 fL (78.0-98.0); Mean Platelet Volume 8.3 fL (7.4-10.4); Platelet Count 54 thou/uL (130-400); RBC Distribution Width 13.4 % (11.5-14.5); Red Blood Cell (RBC) Count 2.33 mill/uL (4.70-6.10)
[2019-02-06] MEDS: Folic Acid 1 MG TAB PO SCH (08:26)
[2019-02-06] MEDS: Lisinopril 20 MG TAB PO SCH ×2 (08:27→19:27)
[2019-02-06] MEDS: Acyclovir 400 mg Tablet PO SCH ×2 (08:27→19:27)
[2019-02-06] MEDS: Famotidine 20 MG TAB PO SCH ×2 (08:27→19:27)
[2019-02-06] MEDS: Dexamethasone 4 MG TAB PO SCH ×2 (08:27→19:27)
--- NOTE | 2019-02-06 16:37 | PDOC.HOSPP ---
- Subjective Subjective: Seen and examined. Sitting up in the chair eating lunch. Breathing well on room air. Denies pain. Family at bedside, all questions answered in detail. Patient may benefit from swing bed placement while blood counts remain neutropenic. - Objective Vital Signs & Weight: Vital Signs (12 hours) Temp Pulse Resp BP Pulse Ox 02/06/19 08:00 95 02/06/19 07:02 99.0 F 78 12 154/77 H 95 Weight Admit Weight 151 lb 9.6 oz Weight 166 lb 6.4 oz Most Recent Monitor Data Heart Rate from ECG 93 NIBP 167/103 NIBP BP-Mean 124 Respiration from ECG 29 SpO2 100 I&O: 02/05/19 02/06/19 02/07/19 06:59 06:59 06:59 Intake Total 1540 2620 Output Total 800 Balance 740 2620 Result Diagrams: 02/06/19 04:10 02/05/19 04:11 Radiology Reviewed by me: Yes Hospitalist ROS - Review of Systems All other systems reviewed; all pertinent +/- noted in HPI/Subj - Medication Medications: Active Medications Generic Name Dose Route Start Last Admin Trade Name Freq PRN Reason Stop Dose Admin Acetaminophen 650 mg 01/19/19 16:46 01/24/19 23:56 Tylenol PO 650 mg Q4H PRN Administration Headache/Fever/Mild Pain (1-3) Acetaminophen 650 mg 01/25/19 15:29 01/25/19 16:34 Tylenol [place] 650 mg Q4H PRN Administration Headache/Fever or Pain Acyclovir 400 mg 01/19/19 21:00 02/06/19 08:27 Zovirax PO 400 mg BID CHRISTIANO Administration Dexamethasone 4 mg 01/30/19 09:00 02/06/19 08:27 Decadron PO 4 mg BID CHRISTIANO Administration Famotidine 20 mg 01/19/19 21:00 02/06/19 08:27 Pepcid PO 20 mg BID CHRISTIANO Administration Folic Acid 1 mg 01/25/19 09:00 02/06/19 08:26 Folvite PO 1 mg DAILY CHRISTIANO Administration Micafungin Sodium 100 mg/ 100 mls @ 100 mls/hr 01/24/19 17:00 02/05/19 17:24 Sodium Chloride IVPB 100 mls 1700 CHRISTIANO Administration Dextrose/Sodium Chloride 1,000 mls @ 30 mls/hr 01/25/19 16:30 02/05/19 17:25 D5 0.9% Ns IV 1,000 mls .Q24H CHRISTIANO Administration Vancomycin HCl 750 mg/ Sodium 250 mls @ 250 mls/hr 01/28/19 12:00 02/06/19 12 :50 Chloride IVPB 250 mls 0400,1200,2000 CHRISTIANO Administration Lisinopril 20 mg 01/19/19 21:00 02/06/19 08:27 Zestril PO 20 mg BID CHRISTIANO Administration Pantoprazole Sodium 40 mg 02/03/19 09:00 02/06/19 08:27 Protonix PO 40 mg DAILY CHRISTIANO Administration Sodium Chloride 10 ml 01/23/19 09:31 02/05/19 20:32 Flush - Normal Saline IVF 10 ml PRN PRN Administration Saline Flush - Exam General Appearance: NAD, awake alert Eye: PERRL, anicteric sclera ENT: normocephalic atraumatic, moist mucosa Neck: supple, symmetric, no lymphadenopathy Heart: no murmur, no gallops, no rubs Respiratory: CTAB, no wheezes, no rales, no ronchi, normal chest expansion Gastrointestinal: soft, non-tender, no guarding, no rigidity Extremities: no edema Skin: no lesions, no rashes Neurological: cranial nerve grossly intact, no focal deficits Musculoskeletal: generalized weakness Psychiatric: normal affect, normal behavior Hosp A/P (1) AML (acute myeloblastic leukemia) Code(s): C92.00 - ACUTE MYELOBLASTIC LEUKEMIA, NOT HAVING ACHIEVED REMISSION Status: Acute (2) Cough Code(s): R05 - COUGH Status: Acute (3) HTN (hypertension) Code(s): I10 - ESSENTIAL (PRIMARY) HYPERTENSION Status: Acute (4) Muscular deconditioning Code(s): R29.898 - OTH SYMPTOMS AND SIGNS INVOLVING THE MUSCULOSKELETAL SYSTEM Status: Acute (5) Neutropenic sepsis Code(s): A41.9 - SEPSIS, UNSPECIFIED ORGANISM; D70.9 - NEUTROPENIA, UNSPECIFIED Status: Acute (6) Pancytopenia Code(s): D61.818 - OTHER PANCYTOPENIA Status: Acute (7) UTI (urinary tract infection) Status: Acute - Plan Plan: oncology unit oncology consultation, recommendations appreciated infectious disease consultation, recommendations appreciated IV antibiotics/antifungals per infectious disease culture and sensitivity noted patient remains neutropenic, neutropenic precautions in place continue home medications as able blood pressure control blood sugar control DVT prophylaxis
[2019-02-06] MEDS: Micafungin 100 MG in Sodium Chloride 0.9% 100 ML IVPB SCH (17:42)
[2019-02-06] MEDS: Dextrose 5 % And 0.9 % NaCl 1,000 ML IV SCH (17:44)
[2019-02-07] MEDS: Vancomycin HCl 750 MG in Sodium Chloride 0.9% 250 ML 250 ML IVPB SCH ×3 (04:34→20:21)
[2019-02-07 05:00] LABS: White Blood Cell (WBC) Count 0.1 thou/uL (4.8-10.8)
[2019-02-07 05:37] LABS: Hemoglobin 7.1 g/dL (14.0-18.0); Mean Corpuscular HGB CONC 35.2 g/dL (32.0-36.0); Mean Corpuscular Volume 88.1 fL (78.0-98.0); Mean Platelet Volume 8.7 fL (7.4-10.4); Platelet Count 35 thou/uL (130-400); Platelet Morphology Comment Appears Decreased; RBC Distribution Width 13.4 % (11.5-14.5); Red Blood Cell (RBC) Count 2.29 mill/uL (4.70-6.10)
[2019-02-07] MEDS: Lisinopril 20 MG TAB PO SCH ×2 (10:36→20:21)
[2019-02-07] MEDS: Famotidine 20 MG TAB PO SCH ×2 (10:37→20:21)
[2019-02-07] MEDS: Folic Acid 1 MG TAB PO SCH (10:37)
[2019-02-07] MEDS: Dexamethasone 4 MG TAB PO SCH ×2 (10:38→20:21)
[2019-02-07] MEDS: Acyclovir 400 mg Tablet PO SCH ×2 (10:44→20:21)
[2019-02-07 11:49] LABS: Vancomycin, Trough 17.4 ug/mL
[2019-02-07] MEDS: Acetaminophen 325 MG TAB PO PRN ×2 (13:15→22:59)
--- NOTE | 2019-02-07 14:17 | PDOC.MOPN ---
Interval History: sleeping today, new fever. - Vital Signs Vital Signs: Vital Signs (12 hours) Temp Pulse Resp BP Pulse Ox 02/07/19 12:00 100.4 F H 165/82 H 02/07/19 08:00 98.5 F 92 18 168/82 H 94 L Weight Admit Weight 151 lb 9.6 oz Weight 166 lb 6.4 oz Most Recent Monitor Data Heart Rate from ECG 93 NIBP 167/103 NIBP BP-Mean 124 Respiration from ECG 29 SpO2 100 - Physical Exam General: No acute distress HEENT: Mucous membr. moist/pink Lungs: Clear to auscultation Cardiovascular: Regular rate Abdomen: Normal bowel sounds Extremities: No clubbing, No cyanosis, No edema, Normal pulses, No tenderness/ swelling Skin: No rashes, No breakdown, No significant lesion Neurological: Other Psych/Mental Status: Other (sleepy) - Labs Result Diagrams: 02/07/19 04:45 02/05/19 04:11 Lab results: Laboratory Results - last 24 hr 02/07/19 10:46: Vancomycin Trough 17.4 02/07/19 04:45: WBC 0.1 L*, RBC 2.29 L, Hgb 7.1 L, Hct 20.2 L, MCV 88.1, MCH 31.0, MCHC 35.2, RDW 13.4, Plt Count 35 L, MPV 8.7, Neutrophils % (Manual) Not Reportable, Neutrophils # Not Reportable, Lymphocytes # Not Reportable, Plt Morphology Comment Appears Decreased L Status: lab reviewed by me A/P - Problem (1) AML (acute myeloblastic leukemia) Current Visit: Yes Code(s): C92.00 - ACUTE MYELOBLASTIC LEUKEMIA, NOT HAVING ACHIEVED REMISSION Status: Acute (2) Neutropenic sepsis Current Visit: Yes Code(s): A41.9 - SEPSIS, UNSPECIFIED ORGANISM; D70.9 - NEUTROPENIA, UNSPECIFIED Status: Acute (3) Pancytopenia Current Visit: Yes Code(s): D61.818 - OTHER PANCYTOPENIA Status: Acute - Plan Plan: tylenol pr continue abx no transfusion today but likely tomorrow follow CBC SNU once afebrile.
--- NOTE | 2019-02-07 16:49 | PDOC.HOSPP ---
- Subjective Encounter Date: 02/07/19 Encounter Time: 16:40 Subjective: f/u for neutropenic sepsis on Vanc/Micafungin/Acyclovir with febrile episode today. - Objective Vital Signs & Weight: Vital Signs (12 hours) Temp Pulse Resp BP BP Pulse Ox 02/07/19 15:29 100.7 F H 88 22 H 117/56 L 94 L 02/07/19 14:15 103.2 F H 94 16 120/84 94 L 02/07/19 12:00 100.4 F H 165/82 H 02/07/19 08:00 98.5 F 92 18 168/82 H 94 L Weight Admit Weight 151 lb 9.6 oz Weight 166 lb 6.4 oz Most Recent Monitor Data Heart Rate from ECG 93 NIBP 167/103 NIBP BP-Mean 124 Respiration from ECG 29 SpO2 100 I&O: 02/06/19 02/07/19 02/08/19 06:59 06:59 06:59 Intake Total 2620 1000 Balance 2620 1000 Result Diagrams: 02/07/19 04:45 02/05/19 04:11 Hospitalist ROS - Medication Medications: Active Medications Generic Name Dose Route Start Last Admin Trade Name Freq PRN Reason Stop Dose Admin Acetaminophen 650 mg 01/19/19 16:46 02/07/19 13:15 Tylenol PO 650 mg Q4H PRN Administration Headache/Fever/Mild Pain (1-3) Acetaminophen 650 mg 01/25/19 15:29 01/25/19 16:34 Tylenol SD 650 mg Q4H PRN Administration Headache/Fever or Pain Acyclovir 400 mg 01/19/19 21:00 02/07/19 10:44 Zovirax PO 400 mg BID CHRISTIANO Administration Dexamethasone 4 mg 01/30/19 09:00 02/07/19 10:38 Decadron PO 4 mg BID CHRISTIANO Administration Famotidine 20 mg 01/19/19 21:00 02/07/19 10:37 Pepcid PO 20 mg BID CHRISTIANO Administration Folic Acid 1 mg 01/25/19 09:00 02/07/19 10:37 Folvite PO 1 mg DAILY CHRISTIANO Administration Micafungin Sodium 100 mg/ 100 mls @ 100 mls/hr 01/24/19 17:00 02/06/19 17:42 Sodium Chloride IVPB 100 mls 1700 CHRISTIANO Administration Dextrose/Sodium Chloride 1,000 mls @ 30 mls/hr 01/25/19 16:30 02/06/19 17:44 D5 0.9% Ns IV 1,000 mls .Q24H CHRISTIANO Administration Vancomycin HCl 750 mg/ Sodium 250 mls @ 250 mls/hr 01/28/19 12:00 02/07/19 12 :30 Chloride IVPB 02/14/19 12:01 250 mls 0400,1200,2000 CHRISTIANO Administration Lisinopril 20 mg 01/19/19 21:00 02/07/19 10:36 Zestril PO 20 mg BID CHRISTIANO Administration Pantoprazole Sodium 40 mg 02/03/19 09:00 02/07/19 10:37 Protonix PO 40 mg DAILY CHRISTIANO Administration Senna/Docusate Sodium 2 tab 01/19/19 16:46 02/07/19 10:37 Senokot S PO 2 tab BIDPRN PRN Administration Constipation Sodium Chloride 10 ml 01/23/19 09:31 02/05/19 20:32 Flush - Normal Saline IVF 10 ml PRN PRN Administration Saline Flush - Exam General Appearance: ill appearing General - other findings: lethargic Eye: PERRL, anicteric sclera ENT: normocephalic atraumatic, no oropharyngeal lesions Neck: supple, symmetric, no JVD, no thyromegaly Heart: RRR, no gallops, no rubs Respiratory: CTAB, no wheezes, no rales, no ronchi Gastrointestinal: soft, non-tender, non-distended, normal bowel sounds Extremities: no cyanosis, no clubbing Skin: normal turgor, no lesions Neurological: cranial nerve grossly intact, no new deficit Psychiatric: somnolent, lethargic Hosp A/P (1) Neutropenic sepsis Code(s): A41.9 - SEPSIS, UNSPECIFIED ORGANISM; D70.9 - NEUTROPENIA, UNSPECIFIED Status: Acute Plan: Persistent, Add Cefepime 2gm IV BID, continue Vancomycin/Micafungin/Zovirax (2) Pancytopenia Code(s): D61.818 - OTHER PANCYTOPENIA Status: Acute Plan: Persistent, continue Dexamethasone, transfuse PRBC's/platelets (3) AML (acute myeloblastic leukemia) Code(s): C92.00 - ACUTE MYELOBLASTIC LEUKEMIA, NOT HAVING ACHIEVED REMISSION Status: Acute Plan: Medical oncology following (4) UTI (urinary tract infection) Status: Acute Plan: Klebsiella spp, consider re-culture given fever spikes - Plan continue antibiotics, PT/OT, adoption social worker, out of bed/ambulate Continue supportive mgmt Continue Vanc/Micafungin/Zovirax Add Cefepime IV OOB with PT Continue antifungals/antivirals Continue IVF's AM lab: [facility] when stabilizing
[2019-02-07] MEDS ORDERED: Cefepime 2 GM in Sodium Chloride 0.9% 100 ML IVPB SCH (17:00)
[2019-02-07] MEDS: Micafungin 100 MG in Sodium Chloride 0.9% 100 ML IVPB SCH (17:24)
[2019-02-07] MEDS: Dextrose 5 % And 0.9 % NaCl 1,000 ML IV SCH (17:27)
[2019-02-07] MEDS: Cefepime 2 GM in Sodium Chloride 0.9% 100 ML IVPB SCH (17:54)
[2019-02-08] MEDS: Vancomycin HCl 750 MG in Sodium Chloride 0.9% 250 ML 250 ML IVPB SCH (04:06)
[2019-02-08] MEDS: Acetaminophen 325 MG TAB PO PRN (04:07)
[2019-02-08 05:10] LABS: Hemoglobin 6.9 g/dL (14.0-18.0); Mean Corpuscular HGB CONC 34.4 g/dL (32.0-36.0); Mean Corpuscular Hemoglobin 30.5 pg (27.0-31.0); Mean Corpuscular Volume 88.5 fL (78.0-98.0); Mean Platelet Volume 10.3 fL (7.4-10.4); Platelet Count 18 thou/uL (130-400); Platelet Morphology Comment Appears Decreased; RBC Distribution Width 13.5 % (11.5-14.5); Red Blood Cell (RBC) Count 2.25 mill/uL (4.70-6.10); White Blood Cell (WBC) Count 0.1 thou/uL (4.8-10.8)
[2019-02-08] MEDS: Cefepime 2 GM in Sodium Chloride 0.9% 100 ML IVPB SCH ×2 (06:12→17:36)
[2019-02-08] MEDS: Lisinopril 20 MG TAB PO SCH ×2 (09:38→19:49)
[2019-02-08] MEDS: Acyclovir 400 mg Tablet PO SCH ×2 (09:38→19:49)
[2019-02-08] MEDS: Famotidine 20 MG TAB PO SCH ×2 (09:39→19:49)
[2019-02-08] MEDS: Folic Acid 1 MG TAB PO SCH (09:39)
[2019-02-08] MEDS: Dexamethasone 4 MG TAB PO SCH (09:39)
[2019-02-08 11:39] LABS: Vancomycin, Trough 14.1 ug/mL
[2019-02-08] MEDS: Vancomycin HCl 1 GM in Premix Bag 1 BAG IVPB SCH ×2 (12:03→19:48)
--- NOTE | 2019-02-08 14:08 | PDOC.MOPN ---
Interval History: continued fever. - Vital Signs Vital Signs: Vital Signs (12 hours) Temp Pulse Resp BP BP Pulse Ox 02/08/19 12:17 97.9 F 02/08/19 09:38 110/55 L 02/08/19 08:14 97.8 F 83 16 110/55 L 97 02/08/19 08:00 97 02/08/19 04:00 99.8 F H Weight Admit Weight 151 lb 9.6 oz Weight 166 lb 6.4 oz Most Recent Monitor Data Heart Rate from ECG 93 NIBP 167/103 NIBP BP-Mean 124 Respiration from ECG 29 SpO2 100 - Physical Exam General: No acute distress HEENT: Atraumatic, PERRLA, EOMI, Mucous membr. moist/pink Lungs: Clear to auscultation, Normal air movement Cardiovascular: Regular rate, Normal S1, Normal S2, No murmurs, Gallops, Rubs Abdomen: Normal bowel sounds, Soft, No tenderness, No hepatospenomegaly, No masses Extremities: No clubbing, No cyanosis, No edema, Normal pulses, No tenderness/ swelling Skin: No rashes, No breakdown, No significant lesion Neurological: Other - Labs Result Diagrams: 02/08/19 04:11 02/05/19 04:11 Lab results: Laboratory Results - last 24 hr 02/08/19 11:15: Vancomycin Trough 14.1 02/08/19 04:11: WBC 0.1 L*, RBC 2.25 L, Hgb 6.9 L, Hct 19.9 L, MCV 88.5, MCH 30.5, MCHC 34.4, RDW 13.5, Plt Count 18 L*, MPV 10.3, Neutrophils % (Manual) Not Reportable, Plt Morphology Comment Appears Decreased L Status: lab reviewed by me A/P - Problem (1) AML (acute myeloblastic leukemia) Current Visit: Yes Code(s): C92.00 - ACUTE MYELOBLASTIC LEUKEMIA, NOT HAVING ACHIEVED REMISSION Status: Acute (2) Neutropenic sepsis Current Visit: Yes Code(s): A41.9 - SEPSIS, UNSPECIFIED ORGANISM; D70.9 - NEUTROPENIA, UNSPECIFIED Status: Acute (3) Pancytopenia Current Visit: Yes Code(s): D61.818 - OTHER PANCYTOPENIA Status: Acute - Plan Plan: ABX for fever. continue steroids for meningioma and AMS transfuse tomorrow. CBC daily.
--- NOTE | 2019-02-08 15:47 | PDOC.HOSPP ---
- Subjective Subjective: Seen and examined. Patient states that he is feeling somewhat better than yesterday. No fevers this a.m. Was having high fevers of 102.2 yesterday. Blood counts remain low, oncology/hematology on the case. Patient's breathing has been improving and is breathing comfortably on room air. Family at bedside, all questions answered in detail. Patient and family are happy with plan of care. He is interested in going to [facility] bed, when afebrile and cleared by hematology/oncology. - Objective Vital Signs & Weight: Vital Signs (12 hours) Temp Pulse Resp BP BP Pulse Ox 02/08/19 12:17 97.9 F 02/08/19 09:38 110/55 L 02/08/19 08:14 97.8 F 83 16 110/55 L 97 02/08/19 08:00 97 02/08/19 04:00 99.8 F H Weight Admit Weight 151 lb 9.6 oz Weight 166 lb 6.4 oz Most Recent Monitor Data Heart Rate from ECG 93 NIBP 167/103 NIBP BP-Mean 124 Respiration from ECG 29 SpO2 100 I&O: 02/07/19 02/08/19 02/09/19 06:59 06:59 06:59 Intake Total 1000 1800 360 Balance 1000 1800 360 Result Diagrams: 02/08/19 04:11 02/05/19 04:11 Radiology Reviewed by me: Yes Hospitalist ROS - Review of Systems All other systems reviewed; all pertinent +/- noted in HPI/Subj - Medication Medications: Active Medications Generic Name Dose Route Start Last Admin Trade Name Freq PRN Reason Stop Dose Admin Acetaminophen 650 mg 01/19/19 16:46 02/08/19 04:07 Tylenol PO 650 mg Q4H PRN Administration Headache/Fever/Mild Pain (1-3) Acetaminophen 650 mg 01/25/19 15:29 01/25/19 16:34 Tylenol [place] 650 mg Q4H PRN Administration Headache/Fever or Pain Acyclovir 400 mg 01/19/19 21:00 02/08/19 09:38 Zovirax PO 400 mg BID CHRISTIANO Administration Famotidine 20 mg 01/19/19 21:00 02/08/19 09:39 Pepcid PO 20 mg BID CHRISTIANO Administration Folic Acid 1 mg 01/25/19 09:00 02/08/19 09:39 Folvite PO 1 mg DAILY CHRISTIANO Administration Micafungin Sodium 100 mg/ 100 mls @ 100 mls/hr 01/24/19 17:00 02/07/19 17:24 Sodium Chloride IVPB 100 mls 1700 CHRISTIANO Administration Dextrose/Sodium Chloride 1,000 mls @ 30 mls/hr 01/25/19 16:30 02/07/19 17:27 D5 0.9% Ns IV 1,000 mls .Q24H CHRISTIANO Administration Cefepime HCl 2 gm/ Sodium 100 mls @ 200 mls/hr 02/07/19 18:00 02/08/19 06:12 Chloride IVPB 100 mls 0600,1800 CHRISTIANO Administration Vancomycin HCl 1 gm/ Device 200 mls @ 200 mls/hr 02/08/19 12:00 02/08/19 12: 03 IVPB 02/14/19 12:01 200 mls 0400,1200,2000 CHRISTIANO Administration Lisinopril 20 mg 01/19/19 21:00 02/08/19 09:38 Zestril PO 20 mg BID CHRISTIANO Administration Pantoprazole Sodium 40 mg 02/03/19 09:00 02/08/19 09:39 Protonix PO 40 mg DAILY CHRISTIANO Administration Senna/Docusate Sodium 2 tab 01/19/19 16:46 02/07/19 10:37 Senokot S PO 2 tab BIDPRN PRN Administration Constipation Sodium Chloride 10 ml 01/23/19 09:31 02/05/19 20:32 Flush - Normal Saline IVF 10 ml PRN PRN Administration Saline Flush - Exam General Appearance: NAD, awake alert Eye: anicteric sclera ENT: normocephalic atraumatic, moist mucosa Neck: supple, symmetric, no lymphadenopathy Heart: no murmur, no gallops, no rubs Respiratory: CTAB, no wheezes, no rales, no ronchi Gastrointestinal: soft, non-tender, non-distended, no guarding, no rigidity Extremities: no edema Skin: no lesions, no rashes Neurological: cranial nerve grossly intact, normal sensation to touch, no focal deficits Musculoskeletal: generalized weakness Psychiatric: normal behavior, A&O x 3 Hosp A/P (1) AML (acute myeloblastic leukemia) Code(s): C92.00 - ACUTE MYELOBLASTIC LEUKEMIA, NOT HAVING ACHIEVED REMISSION Status: Acute (2) Cough Code(s): R05 - COUGH Status: Acute (3) HTN (hypertension) Code(s): I10 - ESSENTIAL (PRIMARY) HYPERTENSION Status: Acute (4) Muscular deconditioning Code(s): R29.898 - OTH SYMPTOMS AND SIGNS INVOLVING THE MUSCULOSKELETAL SYSTEM Status: Acute (5) Neutropenic sepsis Code(s): A41.9 - SEPSIS, UNSPECIFIED ORGANISM; D70.9 - NEUTROPENIA, UNSPECIFIED Status: Acute (6) Pancytopenia Code(s): D61.818 - OTHER PANCYTOPENIA Status: Acute (7) UTI (urinary tract infection) Status: Acute - Plan Plan: oncology unit oncology consultation, recommendations appreciated infectious disease consultation, recommendations appreciated IV antibiotics/antifungals per infectious disease culture and sensitivity noted patient remains neutropenic, neutropenic precautions in place Symptomatic therapy for fever continue home medications as able blood pressure control blood sugar control DVT prophylaxis Disposition: D/c to [facility] in [place] when afebrile and ok with Hematology/ oncology
[2019-02-08] MEDS: Dextrose 5 % And 0.9 % NaCl 1,000 ML IV SCH ×2 (16:30→18:53)
[2019-02-08] MEDS: Micafungin 100 MG in Sodium Chloride 0.9% 100 ML IVPB SCH (17:36)
[2019-02-09] MEDS: Vancomycin HCl 1 GM in Premix Bag 1 BAG IVPB SCH ×3 (04:19→20:12)
[2019-02-09] MEDS: Cefepime 2 GM in Sodium Chloride 0.9% 100 ML IVPB SCH ×2 (06:11→21:48)
[2019-02-09] MEDS: Lisinopril 20 MG TAB PO SCH ×2 (09:33→20:10)
[2019-02-09] MEDS: Acyclovir 400 mg Tablet PO SCH ×2 (09:33→20:10)
[2019-02-09] MEDS: Folic Acid 1 MG TAB PO SCH (09:34)
[2019-02-09] MEDS: Dexamethasone 4 MG TAB PO SCH (09:37)
[2019-02-09] MEDS: Famotidine 20 MG TAB PO SCH ×2 (09:37→18:43)
[2019-02-09] MEDS: Activase 2 MG VIAL CATH SCH (09:38)
[2019-02-09 10:37] LABS: Hemoglobin 7.9 g/dL (14.0-18.0); Mean Corpuscular HGB CONC 34.5 g/dL (32.0-36.0); Mean Corpuscular Hemoglobin 30.9 pg (27.0-31.0); Mean Corpuscular Volume 89.6 fL (78.0-98.0); Mean Platelet Volume 11.1 fL (7.4-10.4); Platelet Count 10 thou/uL (130-400); RBC Distribution Width 13.4 % (11.5-14.5); Red Blood Cell (RBC) Count 2.54 mill/uL (4.70-6.10)
[2019-02-09 10:51] LABS: Vancomycin, Trough 23.9 ug/mL
[2019-02-09 11:00] LABS: Manual Diff?? NO
[2019-02-09 11:01] LABS: White Blood Cell (WBC) Count 0.1 thou/uL (4.8-10.8)
--- NOTE | 2019-02-09 11:10 | PDOC.MOPN ---
Interval History: no change - Vital Signs Vital Signs: Vital Signs (12 hours) Temp Pulse Resp BP BP Pulse Ox 02/09/19 10:38 99.1 F 114 H 16 169/83 H 93 L 02/09/19 08:00 99.1 F 114 H 16 169/83 H 93 L Weight Admit Weight 151 lb 9.6 oz Weight 166 lb 6.4 oz Most Recent Monitor Data Heart Rate from ECG 93 NIBP 167/103 NIBP BP-Mean 124 Respiration from ECG 29 SpO2 100 - Physical Exam General: Alert HEENT: Atraumatic Lungs: Clear to auscultation Cardiovascular: Regular rate Abdomen: Normal bowel sounds Extremities: No clubbing, No cyanosis, No edema, Normal pulses, No tenderness/ swelling Skin: No rashes, No breakdown, No significant lesion Neurological: Other - Labs Result Diagrams: 02/09/19 10:03 02/05/19 04:11 Lab results: Laboratory Results - last 24 hr 02/09/19 10:03: Vancomycin Trough 23.9 02/09/19 10:03: WBC 0.1 L*, RBC 2.54 L, Hgb 7.9 L, Hct 22.8 L, MCV 89.6, MCH 30.9, MCHC 34.5, RDW 13.4, Plt Count 10 L*, MPV 11.1 H, Neutrophils % (Manual) Not Reportable, Neutrophils # Not Reportable, Lymphocytes # Not Reportable 02/08/19 11:15: Vancomycin Trough 14.1 Status: lab reviewed by me A/P - Problem (1) AML (acute myeloblastic leukemia) Current Visit: Yes Code(s): C92.00 - ACUTE MYELOBLASTIC LEUKEMIA, NOT HAVING ACHIEVED REMISSION Status: Acute (2) Neutropenic sepsis Current Visit: Yes Code(s): A41.9 - SEPSIS, UNSPECIFIED ORGANISM; D70.9 - NEUTROPENIA, UNSPECIFIED Status: Acute (3) Pancytopenia Current Visit: Yes Code(s): D61.818 - OTHER PANCYTOPENIA Status: Acute - Plan Plan: Supportive care. HGB improved without transfusion. Platelets 10K. No bleeding. Recheck tomorrow and transfuse prn.
[2019-02-09 12:02] LABS: Anion Gap 11 mmol/L (10-20); BUN (Urea Nitrogen) 12 mg/dL (8.4-25.7); Calc. Creatinine Clearance 110 mL/min (70-130); Calcium 8.1 mg/dL (7.8-10.44); Carbon Dioxide 22 mmol/L (23-31); Chloride 104 mmol/L (98-107); Estimated GFR-MDRD Greater than 90; Glucose 114 mg/dL (83-110); Potassium 3.8 mmol/L (3.5-5.1); Sodium 133 mmol/L (136-145)
[2019-02-09] MEDS: Dextrose 5 % And 0.9 % NaCl 1,000 ML IV SCH (13:11)
--- NOTE | 2019-02-09 15:36 | PDOC.HOSPP ---
- Subjective Subjective: Seen and examined. Patient seems clinically depressed. Will not his had to questions though not making words. Flat affect. Denies pain. Breathing well on room air, though he is starting to get a little bit of a cough today. Patient continues to have fevers. Low platelets, ordering transfusion. - Objective Vital Signs & Weight: Vital Signs (12 hours) Temp Pulse Pulse Resp BP BP BP 02/09/19 15:15 98.5 F 96 16 131/68 02/09/19 14:28 96 19 02/09/19 12:05 99.7 F H 110 H 18 135/62 02/09/19 11:35 108 H 20 02/09/19 11:14 102.7 F H 110 H 20 158/77 H 02/09/19 10:38 99.1 F 114 H 16 169/83 H 02/09/19 08:00 99.1 F 114 H 16 169/83 H Pulse Ox 02/09/19 15:15 95 02/09/19 14:28 02/09/19 12:05 95 02/09/19 11:35 02/09/19 11:14 96 02/09/19 10:38 93 L 02/09/19 08:00 93 L Weight Admit Weight 151 lb 9.6 oz Weight 166 lb 6.4 oz Most Recent Monitor Data Heart Rate from ECG 93 NIBP 167/103 NIBP BP-Mean 124 Respiration from ECG 29 SpO2 100 I&O: 02/08/19 02/09/19 02/10/19 06:59 06:59 06:59 Intake Total 1800 360 180 Balance 1800 360 180 Result Diagrams: 02/09/19 10:03 02/09/19 10:45 Hospitalist ROS - Review of Systems All other systems reviewed; all pertinent +/- noted in HPI/Subj - Medication Medications: Active Medications Generic Name Dose Route Start Last Admin Trade Name Freq PRN Reason Stop Dose Admin Acetaminophen 650 mg 01/19/19 16:46 02/08/19 04:07 Tylenol PO 650 mg Q4H PRN Administration Headache/Fever/Mild Pain (1-3) Acetaminophen 650 mg 01/25/19 15:29 01/25/19 16:34 Tylenol [place] 650 mg Q4H PRN Administration Headache/Fever or Pain Acyclovir 400 mg 01/19/19 21:00 02/09/19 09:33 Zovirax PO 400 mg BID CHRISTIANO Administration Albuterol/Ipratropium 3 ml 02/09/19 11:00 02/09/19 14:28 Duoneb NEB 3 ml [id number] CHRISTIANO Administration Alteplase, Recombinant 2 mg 02/09/19 07:45 02/09/19 09:38 Cathflo CATH 2 mg WILLCALL CHRISTIANO Administration Dexamethasone 4 mg 02/09/19 08:00 02/09/19 09:37 Decadron PO 4 mg QAM-WM CHRISTIANO Administration Famotidine 20 mg 01/19/19 21:00 02/09/19 09:37 Pepcid PO Not Given BID CHRISTIANO Folic Acid 1 mg 01/25/19 09:00 02/09/19 09:34 Folvite PO 1 mg DAILY CHRISTIANO Administration Micafungin Sodium 100 mg/ 100 mls @ 100 mls/hr 01/24/19 17:00 02/08/19 17:36 Sodium Chloride IVPB 100 mls 1700 CHRISTIANO Administration Cefepime HCl 2 gm/ Sodium 100 mls @ 200 mls/hr 02/07/19 18:00 02/09/19 06:11 Chloride IVPB 100 mls 0600,1800 CHRISTIANO Administration Vancomycin HCl 1 gm/ Device 200 mls @ 200 mls/hr 02/08/19 12:00 02/09/19 13: 07 IVPB 02/14/19 12:01 200 mls 0400,1200,2000 CHRISTIANO Administration Dextrose/Sodium Chloride 1,000 mls @ 50 mls/hr 02/09/19 10:53 02/09/19 13:11 D5 0.9% Ns IV 1,000 mls .Q20H CHRISTIANO Administration Lisinopril 20 mg 01/19/19 21:00 02/09/19 09:33 Zestril PO 20 mg BID CHRISTIANO Administration Pantoprazole Sodium 40 mg 02/03/19 09:00 02/09/19 09:33 Protonix PO 40 mg DAILY CHRISTIANO Administration Senna/Docusate Sodium 2 tab 01/19/19 16:46 02/07/19 10:37 Senokot S PO 2 tab BIDPRN PRN Administration Constipation Sodium Chloride 10 ml 01/23/19 09:31 02/05/19 20:32 Flush - Normal Saline IVF 10 ml PRN PRN Administration Saline Flush - Exam General Appearance: NAD, awake alert Eye: PERRL ENT: normocephalic atraumatic, moist mucosa Neck: supple, symmetric, no lymphadenopathy Heart: RRR, no murmur, no gallops Respiratory: CTAB, no rales, no ronchi, wheezes (very faint wheezing) Gastrointestinal: soft, non-tender, no guarding, no rigidity Extremities: no edema Skin: no lesions, no rashes Neurological: cranial nerve grossly intact, normal sensation to touch, no focal deficits Musculoskeletal: generalized weakness Psychiatric: flat affect Hosp A/P (1) AML (acute myeloblastic leukemia) Code(s): C92.00 - ACUTE MYELOBLASTIC LEUKEMIA, NOT HAVING ACHIEVED REMISSION Status: Acute (2) Cough Code(s): R05 - COUGH Status: Acute (3) HTN (hypertension) Code(s): I10 - ESSENTIAL (PRIMARY) HYPERTENSION Status: Acute (4) Muscular deconditioning Code(s): R29.898 - OTH SYMPTOMS AND SIGNS INVOLVING THE MUSCULOSKELETAL SYSTEM Status: Acute (5) Neutropenic sepsis Code(s): A41.9 - SEPSIS, UNSPECIFIED ORGANISM; D70.9 - NEUTROPENIA, UNSPECIFIED Status: Acute (6) Pancytopenia Code(s): D61.818 - OTHER PANCYTOPENIA Status: Acute (7) UTI (urinary tract infection) Status: Acute - Plan Plan: oncology unit oncology consultation, recommendations appreciated infectious disease consultation, recommendations appreciated IV antibiotics/antifungals per infectious disease culture and sensitivity noted patient remains neutropenic, neutropenic precautions in place Symptomatic therapy for fever Transfuse PRBC and platelets per Hem/ onc No signs of bleeding Duo neb scheduled and PRN Add Zoloft for depressed mood continue home medications as able blood pressure control blood sugar control DVT prophylaxis Disposition: D/c to Swing bed in [place] when afebrile and ok with Hematology/ oncology
[2019-02-09] MEDS: Micafungin 100 MG in Sodium Chloride 0.9% 100 ML IVPB SCH (21:51)
[2019-02-10] MEDS: Vancomycin HCl 1 GM in Premix Bag 1 BAG IVPB SCH ×3 (05:01→20:06)
[2019-02-10] MEDS: Cefepime 2 GM in Sodium Chloride 0.9% 100 ML IVPB SCH ×2 (05:03→17:53)
[2019-02-10 07:06] LABS: White Blood Cell (WBC) Count 0.2 thou/uL (4.8-10.8)
[2019-02-10] MEDS: Dexamethasone 4 MG TAB PO SCH (08:15)
[2019-02-10] MEDS: Famotidine 20 MG TAB PO SCH ×2 (08:15→20:10)
[2019-02-10] MEDS: Folic Acid 1 MG TAB PO SCH (08:15)
[2019-02-10] MEDS: Lisinopril 20 MG TAB PO SCH ×2 (08:15→20:10)
[2019-02-10] MEDS: Acyclovir 400 mg Tablet PO SCH ×2 (08:15→20:15)
[2019-02-10 08:34] LABS: Hemoglobin 6.5 g/dL (14.0-18.0); Mean Corpuscular HGB CONC 35.2 g/dL (32.0-36.0); Mean Corpuscular Hemoglobin 31.2 pg (27.0-31.0); Mean Corpuscular Volume 88.7 fL (78.0-98.0); Mean Platelet Volume 7.8 fL (7.4-10.4); Platelet Count 65 thou/uL (130-400); Platelet Morphology Comment Appears Decreased; RBC Distribution Width 13.6 % (11.5-14.5); Red Blood Cell (RBC) Count 2.07 mill/uL (4.70-6.10)
--- NOTE | 2019-02-10 09:55 | RAD ---
Chest AP view INDICATION: Cough COMPARISON: February 01, 2019 FINDINGS: Lungs:Worsening bibasilar interstitial and airspace opacities. Cardiac silhouette:Stable mild cardiomegaly and left chest wall port Pulmonary vasculature:Normal Pleural spaces:No pleural effusion or pneumothorax is demonstrated. Upper abdomen:No abnormality seen. Osseous structures: No acute osseous abnormality. Additional findings:None. IMPRESSION: 1. Worsening bibasilar airspace opacities suspicious for worsening pneumonia. 2. Stable mild cardiomegaly
--- NOTE | 2019-02-10 10:50 | PDOC.MOPN ---
Interval History: Pt feeling ok, ate all his breakfast. No complaints, nods and shakes his head but doesn't speak. - Vital Signs Vital Signs: Vital Signs (12 hours) Temp Pulse Resp BP Pulse Ox 02/10/19 08:00 99.2 F 109 H 18 156/81 H 93 L 02/10/19 06:05 80 20 Weight Admit Weight 151 lb 9.6 oz Weight 166 lb 6.4 oz Most Recent Monitor Data Heart Rate from ECG 93 NIBP 167/103 NIBP BP-Mean 124 Respiration from ECG 29 SpO2 100 - Physical Exam General: Alert, Cooperative HEENT: Atraumatic, EOMI Lungs: Normal air movement Cardiovascular: Regular rate Psych/Mental Status: Other (flat affect) - Labs Result Diagrams: 02/10/19 06:30 02/09/19 10:45 Lab results: Laboratory Results - last 24 hr 02/10/19 06:30: WBC 0.2 L*, RBC 2.07 L, Hgb 6.5 L, Hct 18.3 L, MCV 88.7, MCH 31.2 H, MCHC 35.2, RDW 13.6, Plt Count 65 L, MPV 7.8, Neutrophils % (Manual) Not Reportable, Neutrophils # Not Reportable, Lymphocytes # Not Reportable, Plt Morphology Comment Appears Decreased L 02/09/19 11:11: Blood Type O POSITIVE, Antibody Screen NEGATIVE, Crossmatch See Detail 02/09/19 10:45: Sodium 133 L, Potassium 3.8, Chloride 104, Carbon Dioxide 22 L, Anion Gap 11, BUN 12, Creatinine 0.63 L, Estimated GFR (MDRD) Greater than 90, Glucose 114 H, Calcium 8.1 02/09/19 10:03: Vancomycin Trough 23.9 02/09/19 10:03: WBC 0.1 L*, Neutrophils % (Manual) Not Reportable, Neutrophils # Not Reportable, Lymphocytes # Not Reportable A/P - Problem (1) AML (acute myeloblastic leukemia) Current Visit: Yes Code(s): C92.00 - ACUTE MYELOBLASTIC LEUKEMIA, NOT HAVING ACHIEVED REMISSION Status: Acute (2) Pancytopenia Current Visit: Yes Code(s): D61.818 - OTHER PANCYTOPENIA Status: Acute (3) UTI (urinary tract infection) Current Visit: Yes Status: Acute - Plan Plan: transfuse 1 unit PRBC today cont antibiotics, antiviral, antifungal until afebrile and ANC 1.0 cont PT ok to transfer to swing bed once afebrile x 48 hrs
--- NOTE | 2019-02-10 12:55 | PDOC.HOSPP ---
- Subjective Subjective: Seen and examined. Patient back to himself with daughter at bedside the same. Nodding had appropriately to questions. Patient had coughing yesterday that has improved. Chest x-ray demonstrating worsening infiltrates, this is likely lagging behind the clinical picture of improvement in his pulmonary symptoms over the past several days. Patient has a week cough and not bringing up much sputum. Will add Mucinex to aid in cough and expectoration. - Objective Vital Signs & Weight: Vital Signs (12 hours) Temp Pulse Resp BP Pulse Ox 02/10/19 11:39 98.5 F 102 H 18 128/69 93 L 02/10/19 11:08 80 16 02/10/19 08:00 99.2 F 109 H 18 156/81 H 93 L 02/10/19 06:05 80 20 Weight Admit Weight 151 lb 9.6 oz Weight 166 lb 6.4 oz Most Recent Monitor Data Heart Rate from ECG 93 NIBP 167/103 NIBP BP-Mean 124 Respiration from ECG 29 SpO2 100 I&O: 02/09/19 02/10/19 02/11/19 06:59 06:59 06:59 Intake Total 360 1850 Balance 360 1850 Result Diagrams: 02/10/19 06:30 02/09/19 10:45 Radiology Reviewed by me: Yes Hospitalist ROS - Review of Systems All other systems reviewed; all pertinent +/- noted in HPI/Subj - Medication Medications: Active Medications Generic Name Dose Route Start Last Admin Trade Name Freq PRN Reason Stop Dose Admin Acetaminophen 650 mg 01/19/19 16:46 02/08/19 04:07 Tylenol PO 650 mg Q4H PRN Administration Headache/Fever/Mild Pain (1-3) Acetaminophen 650 mg 01/25/19 15:29 01/25/19 16:34 Tylenol RI 650 mg Q4H PRN Administration Headache/Fever or Pain Acyclovir 400 mg 01/19/19 21:00 02/10/19 08:15 Zovirax PO 400 mg BID CHRISTIANO Administration Albuterol/Ipratropium 3 ml 02/09/19 11:00 02/10/19 11:08 Duoneb NEB 3 ml [id number] CHRISTIANO Administration Alteplase, Recombinant 2 mg 02/09/19 07:45 02/09/19 09:38 Cathflo CATH 2 mg WILLCALL CHRISTIANO Administration Dexamethasone 4 mg 02/09/19 08:00 02/10/19 08:15 Decadron PO 4 mg QAM-WM CHRISTIANO Administration Famotidine 20 mg 01/19/19 21:00 02/10/19 08:15 Pepcid PO 20 mg BID CHRISTIANO Administration Folic Acid 1 mg 01/25/19 09:00 02/10/19 08:15 Folvite PO 1 mg DAILY CHRISTIANO Administration Micafungin Sodium 100 mg/ 100 mls @ 100 mls/hr 01/24/19 17:00 02/09/19 21:51 Sodium Chloride IVPB 100 mls 1700 CHRISTIANO Administration Cefepime HCl 2 gm/ Sodium 100 mls @ 200 mls/hr 02/07/19 18:00 02/10/19 05:03 Chloride IVPB 100 mls 0600,1800 CHRISTIANO Administration Vancomycin HCl 1 gm/ Device 200 mls @ 200 mls/hr 02/08/19 12:00 02/10/19 11: 37 IVPB 02/14/19 12:01 200 mls 0400,1200,2000 CHRISTIANO Administration Dextrose/Sodium Chloride 1,000 mls @ 50 mls/hr 02/09/19 10:53 02/09/19 13:11 D5 0.9% Ns IV 1,000 mls .Q20H CHRISTIANO Administration Lisinopril 20 mg 01/19/19 21:00 02/10/19 08:15 Zestril PO 20 mg BID CHRISTIANO Administration Ondansetron HCl 4 mg 01/19/19 16:46 02/09/19 20:12 Zofran IVP 4 mg Q6H PRN Administration Nausea/Vomiting Pantoprazole Sodium 40 mg 02/03/19 09:00 02/10/19 08:15 Protonix PO 40 mg DAILY CHRISTIANO Administration Senna/Docusate Sodium 2 tab 01/19/19 16:46 02/07/19 10:37 Senokot S PO 2 tab BIDPRN PRN Administration Constipation Sertraline HCl 25 mg 02/10/19 09:00 02/10/19 08:15 Zoloft PO 25 mg DAILY CHRISTIANO Administration Sodium Chloride 10 ml 01/23/19 09:31 02/05/19 20:32 Flush - Normal Saline IVF 10 ml PRN PRN Administration Saline Flush - Exam General Appearance: NAD, awake alert Eye: PERRL, anicteric sclera ENT: normocephalic atraumatic, moist mucosa Neck: supple, symmetric, no lymphadenopathy Heart: RRR, no murmur, no gallops, no rubs Respiratory: no rales, no ronchi, normal chest expansion, wheezes (Faint wheezing improved) Gastrointestinal: soft, non-tender, non-distended, normal bowel sounds, no guarding, no rigidity Extremities: no edema Skin: no lesions, no rashes Neurological: cranial nerve grossly intact, normal sensation to touch, no new deficit Musculoskeletal: generalized weakness Psychiatric: normal behavior, flat affect Hosp A/P (1) AML (acute myeloblastic leukemia) Code(s): C92.00 - ACUTE MYELOBLASTIC LEUKEMIA, NOT HAVING ACHIEVED REMISSION Status: Acute (2) Cough Code(s): R05 - COUGH Status: Acute (3) HTN (hypertension) Code(s): I10 - ESSENTIAL (PRIMARY) HYPERTENSION Status: Acute (4) Muscular deconditioning Code(s): R29.898 - OTH SYMPTOMS AND SIGNS INVOLVING THE MUSCULOSKELETAL SYSTEM Status: Acute (5) Neutropenic sepsis Code(s): A41.9 - SEPSIS, UNSPECIFIED ORGANISM; D70.9 - NEUTROPENIA, UNSPECIFIED Status: Acute (6) Pancytopenia Code(s): D61.818 - OTHER PANCYTOPENIA Status: Acute (7) UTI (urinary tract infection) Status: Acute - Plan Plan: oncology unit oncology consultation, recommendations appreciated infectious disease consultation, recommendations appreciated Plan for transfer to Swing bed once afebrile for 48 hours CXR with worsening infiltrates, likely lagging behind his clinical improvement Weak cough, not bringing up much sputum - add Mucinex 1200mg BID for 3 days to loosen secretions IV antibiotics/antifungals/ antivirals per infectious disease culture and sensitivity noted patient remains neutropenic, neutropenic precautions in place Symptomatic therapy for fever Transfuse PRBC and platelets per Hem/ onc No signs of bleeding Duo neb scheduled and PRN Zoloft for depressed mood continue home medications as able blood pressure control blood sugar control DVT prophylaxis Disposition: D/c to Swing bed in [place] when afebrile and ok with Hematology/ oncology
[2019-02-10] MEDS: Micafungin 100 MG in Sodium Chloride 0.9% 100 ML IVPB SCH (16:30)
[2019-02-10] MEDS: Dextrose 5 % And 0.9 % NaCl 1,000 ML IV SCH (16:31)
--- NOTE | 2019-02-10 16:46 | PRG ---
DATE OF SERVICE: 02/10/2019 SUBJECTIVE: Mr. Crooks is feeling better, oriented. Some cough, which has improved. He had recrudescence of fever. The antimicrobials were restarted. Now, he has defervesced again. OBJECTIVE: VITAL SIGNS: With temperature 99.2, now 98.4; pulse 102; respirations 18; O2 saturation 94%; BP 130/80. GENERAL: He is awake and oriented. LUNGS: Symmetric breath sounds. Faint wheezing. No crackles. ABDOMEN: Soft. Not distended or tender. LABORATORY DATA: White cell count is up to 0.2, platelets are up 65. Chemistry was not remarkable. Microbiology with no new findings. Chest x-ray from February 10, with bibasilar airspace opacities. ASSESSMENT AND DISCUSSION: Acute myelogenous leukemia, status post venetoclax with persistent neutropenia. Temperature had resolved, and then he had recrudescence. He has bilateral pneumonia, and now with resumption of antimicrobial therapy, temperature curve has improved again. Again, the prognosis will depend on the reversal of the neutropenia. Finally, we have some increase in the neutrophil count, still too soon to call it an improvement that will persist. Looks like he is going to have to continue on antimicrobial therapy for a longer period than the usual. He also will need to continue antifungals. I think in this case, we will have to be a bit more strict with the improvement in the neutrophil count before we discontinue antimicrobials. Job ID: [id number]
[2019-02-10] MEDS: guaiFENesin ER 600 MG TAB PO SCH (20:10)
[2019-02-11] MEDS: Vancomycin HCl 1 GM in Premix Bag 1 BAG IVPB SCH ×2 (04:54→12:02)
[2019-02-11] MEDS: Dextrose 5 % And 0.9 % NaCl 1,000 ML IV SCH (05:10)
[2019-02-11 05:32] LABS: Hemoglobin 6.7 g/dL (14.0-18.0); Mean Corpuscular HGB CONC 34.2 g/dL (32.0-36.0); Mean Corpuscular Hemoglobin 30.3 pg (27.0-31.0); Mean Corpuscular Volume 88.5 fL (78.0-98.0); Mean Platelet Volume 7.9 fL (7.4-10.4); Platelet Count 40 thou/uL (130-400); RBC Distribution Width 13.1 % (11.5-14.5); Red Blood Cell (RBC) Count 2.22 mill/uL (4.70-6.10); White Blood Cell (WBC) Count 0.2 thou/uL (4.8-10.8)
[2019-02-11 05:53] LABS: Hypochromia SLIGHT = 6-15 cells (100X) (0-5/hpf); MDiff Complete? YES; Platelet Morphology Comment Appears Decreased
[2019-02-11] MEDS: Cefepime 2 GM in Sodium Chloride 0.9% 100 ML IVPB SCH ×2 (06:31→19:11)
[2019-02-11] MEDS: Acyclovir 400 mg Tablet PO SCH ×2 (08:35→20:04)
[2019-02-11] MEDS: Lisinopril 20 MG TAB PO SCH ×2 (08:35→20:04)
[2019-02-11] MEDS: Dexamethasone 4 MG TAB PO SCH (08:35)
[2019-02-11] MEDS: guaiFENesin ER 600 MG TAB PO SCH ×2 (08:38→20:04)
[2019-02-11] MEDS: Famotidine 20 MG TAB PO SCH ×2 (08:38→19:52)
[2019-02-11] MEDS: Folic Acid 1 MG TAB PO SCH (08:38)
--- NOTE | 2019-02-11 11:49 | PDOC.HOSPP ---
- Subjective Subjective: Patient's daughter states that this tremor is worsened and she is attributing this to starting of Zoloft. I will discontinue Zoloft to see if tremor does improve. Labs noted. Transfuse per hematology/oncology as needed. - Objective Vital Signs & Weight: Vital Signs (12 hours) Temp Pulse Resp BP BP BP Pulse Ox 02/11/19 11:36 99.2 F 92 16 136/65 95 02/11/19 11:05 88 18 97 02/11/19 08:35 136/68 02/11/19 08:00 98.4 F 100 16 136/68 96 02/11/19 07:31 87 20 98 Weight Admit Weight 151 lb 9.6 oz Weight 166 lb 6.4 oz Most Recent Monitor Data Heart Rate from ECG 93 NIBP 167/103 NIBP BP-Mean 124 Respiration from ECG 29 SpO2 100 I&O: 02/10/19 02/11/19 02/12/19 06:59 06:59 06:59 Intake Total 1850 3290 Balance 1850 3290 Result Diagrams: 02/11/19 05:07 02/09/19 10:45 Radiology Reviewed by me: Yes Hospitalist ROS - Review of Systems All other systems reviewed; all pertinent +/- noted in HPI/Subj - Medication Medications: Active Medications Generic Name Dose Route Start Last Admin Trade Name Freq PRN Reason Stop Dose Admin Acetaminophen 650 mg 01/19/19 16:46 02/08/19 04:07 Tylenol PO 650 mg Q4H PRN Administration Headache/Fever/Mild Pain (1-3) Acetaminophen 650 mg 01/25/19 15:29 01/25/19 16:34 Tylenol [place] 650 mg Q4H PRN Administration Headache/Fever or Pain Acyclovir 400 mg 01/19/19 21:00 02/11/19 08:35 Zovirax PO 400 mg BID CHRISTIANO Administration Albuterol/Ipratropium 3 ml 02/09/19 11:00 02/11/19 11:05 Duoneb NEB 3 ml [id number] CHRISTIANO Administration Alteplase, Recombinant 2 mg 02/09/19 07:45 02/09/19 09:38 Cathflo CATH 2 mg WILLCALL CHRISTIANO Administration Dexamethasone 4 mg 02/09/19 08:00 02/11/19 08:35 Decadron PO 4 mg QAM-WM CHRISTIANO Administration Famotidine 20 mg 01/19/19 21:00 02/11/19 08:38 Pepcid PO 20 mg BID CHRISTIANO Administration Folic Acid 1 mg 01/25/19 09:00 02/11/19 08:38 Folvite PO 1 mg DAILY CHRISTIANO Administration Guaifenesin 1,200 mg 02/10/19 21:00 02/11/19 08:38 Mucinex PO 02/13/19 21:01 1,200 mg Q12HR CHRISTIANO Administration Micafungin Sodium 100 mg/ 100 mls @ 100 mls/hr 01/24/19 17:00 02/10/19 16:30 Sodium Chloride IVPB 100 mls 1700 CHRISTIANO Administration Cefepime HCl 2 gm/ Sodium 100 mls @ 200 mls/hr 02/07/19 18:00 02/11/19 06:31 Chloride IVPB 100 mls 0600,1800 CHRISTIANO Administration Vancomycin HCl 1 gm/ Device 200 mls @ 200 mls/hr 02/08/19 12:00 02/11/19 04: 54 IVPB 02/14/19 12:01 200 mls 0400,1200,2000 CHRISTIANO Administration Lisinopril 20 mg 01/19/19 21:00 02/11/19 08:35 Zestril PO 20 mg BID CHRISTIANO Administration Ondansetron HCl 4 mg 01/19/19 16:46 02/09/19 20:12 Zofran IVP 4 mg Q6H PRN Administration Nausea/Vomiting Pantoprazole Sodium 40 mg 02/03/19 09:00 02/11/19 08:38 Protonix PO 40 mg DAILY CHRISTIANO Administration Senna/Docusate Sodium 2 tab 01/19/19 16:46 02/07/19 10:37 Senokot S PO 2 tab BIDPRN PRN Administration Constipation Sodium Chloride 10 ml 01/23/19 09:31 02/05/19 20:32 Flush - Normal Saline IVF 10 ml PRN PRN Administration Saline Flush - Exam General Appearance: NAD, awake alert Eye: PERRL ENT: normocephalic atraumatic, moist mucosa Neck: supple, symmetric, no lymphadenopathy Heart: no murmur, no gallops, no rubs Respiratory: CTAB, no wheezes, no rales, no tachypnea Gastrointestinal: soft, non-tender, non-distended, no guarding, no rigidity Extremities: no edema Skin: no lesions, no rashes Neurological: cranial nerve grossly intact, no weakness Musculoskeletal: generalized weakness Psychiatric: oriented to person, oriented to place Hosp A/P (1) AML (acute myeloblastic leukemia) Code(s): C92.00 - ACUTE MYELOBLASTIC LEUKEMIA, NOT HAVING ACHIEVED REMISSION Status: Acute (2) Cough Code(s): R05 - COUGH Status: Acute (3) HTN (hypertension) Code(s): I10 - ESSENTIAL (PRIMARY) HYPERTENSION Status: Acute (4) Muscular deconditioning Code(s): R29.898 - OTH SYMPTOMS AND SIGNS INVOLVING THE MUSCULOSKELETAL SYSTEM Status: Acute (5) Neutropenic sepsis Code(s): A41.9 - SEPSIS, UNSPECIFIED ORGANISM; D70.9 - NEUTROPENIA, UNSPECIFIED Status: Acute (6) Pancytopenia Code(s): D61.818 - OTHER PANCYTOPENIA Status: Acute (7) UTI (urinary tract infection) Status: Acute - Plan Plan: oncology unit oncology consultation, recommendations appreciated infectious disease consultation, recommendations appreciated Plan for transfer to Swing bed once afebrile for 48 hours and cleared by Hem/ onc CXR with worsening infiltrates, likely lagging behind his clinical improvement Weak cough, not bringing up much sputum - add Mucinex 1200mg BID for 3 days to loosen secretions IV antibiotics/antifungals/ antivirals per infectious disease culture and sensitivity noted patient remains neutropenic, neutropenic precautions in place Symptomatic therapy for fever Transfuse PRBC and platelets per Hem/ onc No signs of bleeding Duo neb scheduled and PRN D/c Zoloft, family concerned this may worsen his baseline tremor continue home medications as able blood pressure control blood sugar control DVT prophylaxis Disposition: D/c to Swing bed in [place] when afebrile and ok with Hematology/ oncology
[2019-02-11 11:53] LABS: Vancomycin, Trough 23.6 ug/mL
[2019-02-11] MEDS: Vancomycin HCl 750 MG in Sodium Chloride 0.9% 250 ML 250 ML IVPB SCH ×2 (12:33→20:32)
--- NOTE | 2019-02-11 14:31 | PDOC.MOPN ---
Interval History: Pt feeling ok today, sitting up in a chair, with good oral intake. Afebrile. - Vital Signs Vital Signs: Vital Signs (12 hours) Temp Pulse Resp BP BP BP Pulse Ox 02/11/19 11:36 99.2 F 92 16 136/65 95 02/11/19 11:05 88 18 97 02/11/19 08:35 136/68 02/11/19 08:00 98.4 F 100 16 136/68 96 02/11/19 07:31 87 20 98 Weight Admit Weight 151 lb 9.6 oz Weight 166 lb 6.4 oz Most Recent Monitor Data Heart Rate from ECG 93 NIBP 167/103 NIBP BP-Mean 124 Respiration from ECG 29 SpO2 100 - Physical Exam General: Alert, Cooperative HEENT: Atraumatic Lungs: Normal air movement Cardiovascular: Regular rate Extremities: No edema Psych/Mental Status: Other (flat affect) - Labs Result Diagrams: 02/11/19 05:07 02/09/19 10:45 Lab results: Laboratory Results - last 24 hr 02/11/19 11:24: Vancomycin Trough 23.6 02/11/19 05:07: WBC 0.2 L*, RBC 2.22 L, Hgb 6.7 L, Hct 19.6 L, MCV 88.5, MCH 30.3, MCHC 34.2, RDW 13.1, Plt Count 40 L, MPV 7.9, Neutrophils % (Manual) Not Reportable, Neutrophils # Not Reportable, Lymphocytes # Not Reportable, Hypochromia SLIGHT = 6-15 cells, Plt Morphology Comment Appears Decreased L 02/09/19 11:11: Blood Type O POSITIVE, Antibody Screen NEGATIVE, Crossmatch See Detail A/P - Problem (1) AML (acute myeloblastic leukemia) Current Visit: Yes Code(s): C92.00 - ACUTE MYELOBLASTIC LEUKEMIA, NOT HAVING ACHIEVED REMISSION Status: Acute (2) Pancytopenia Current Visit: Yes Code(s): D61.818 - OTHER PANCYTOPENIA Status: Acute (3) UTI (urinary tract infection) Current Visit: Yes Status: Acute - Plan Plan: transfuse 1 unit PRBC today: goal Hb > 7.0 cont antibiotics, antiviral, antifungal until afebrile and ANC 1.0 cont PT ok to transfer to swing bed Thursday if still afebrile: last fever 02/09/2019
[2019-02-11] MEDS: Micafungin 100 MG in Sodium Chloride 0.9% 100 ML IVPB SCH (18:12)
[2019-02-12] MEDS: Vancomycin HCl 750 MG in Sodium Chloride 0.9% 250 ML 250 ML IVPB SCH ×3 (03:45→19:59)
[2019-02-12] MEDS: Cefepime 2 GM in Sodium Chloride 0.9% 100 ML IVPB SCH ×2 (05:23→17:52)
[2019-02-12] MEDS: Famotidine 20 MG TAB PO SCH ×2 (08:21→20:28)
[2019-02-12] MEDS: Acyclovir 400 mg Tablet PO SCH ×2 (08:22→20:27)
[2019-02-12] MEDS: guaiFENesin ER 600 MG TAB PO SCH ×2 (08:23→20:27)
[2019-02-12] MEDS: Dexamethasone 4 MG TAB PO SCH (08:24)
[2019-02-12] MEDS: Folic Acid 1 MG TAB PO SCH (08:24)
[2019-02-12 08:44] LABS: Mean Corpuscular HGB CONC 34.7 g/dL (32.0-36.0); Mean Corpuscular Hemoglobin 30.6 pg (27.0-31.0); Mean Corpuscular Volume 88.4 fL (78.0-98.0); Mean Platelet Volume 9.5 fL (7.4-10.4); Platelet Count 27 thou/uL (130-400); Red Blood Cell (RBC) Count 2.61 mill/uL (4.70-6.10); White Blood Cell (WBC) Count 0.1 thou/uL (4.8-10.8)
[2019-02-12] MEDS: Lisinopril 20 MG TAB PO SCH ×2 (09:47→20:28)
--- NOTE | 2019-02-12 11:04 | PDOC.HOSPP ---
- Subjective Subjective: Seen and examined. Patient doing well this a.m. Breathing well on room air. Eating his breakfast with daughter at bedside. Patient still with mild coughing though he is not bringing up any significant mucus or phlegm. Planning for swing bed on Thursday a.m. if can remain afebrile and continue to improve. Still with tremor off Zoloft. - Objective Vital Signs & Weight: Vital Signs (12 hours) Temp Pulse Resp BP BP BP Pulse Ox 02/12/19 09:47 154/78 H 02/12/19 08:00 99.0 F 92 16 148/72 H 93 L 02/12/19 07:56 88 16 02/12/19 00:00 98.2 F 96 12 158/84 H 93 L Weight Admit Weight 151 lb 9.6 oz Weight 166 lb 6.4 oz Most Recent Monitor Data Heart Rate from ECG 93 NIBP 167/103 NIBP BP-Mean 124 Respiration from ECG 29 SpO2 100 I&O: 02/11/19 02/12/19 02/13/19 06:59 06:59 06:59 Intake Total 3290 1580 Balance 3290 1580 Result Diagrams: 02/12/19 08:25 02/09/19 10:45 Radiology Reviewed by me: Yes Hospitalist ROS - Review of Systems All other systems reviewed; all pertinent +/- noted in HPI/Subj - Medication Medications: Active Medications Generic Name Dose Route Start Last Admin Trade Name Freq PRN Reason Stop Dose Admin Acetaminophen 650 mg 01/19/19 16:46 02/08/19 04:07 Tylenol PO 650 mg Q4H PRN Administration Headache/Fever/Mild Pain (1-3) Acetaminophen 650 mg 01/25/19 15:29 01/25/19 16:34 Tylenol [place] 650 mg Q4H PRN Administration Headache/Fever or Pain Acyclovir 400 mg 01/19/19 21:00 02/12/19 08:22 Zovirax PO 400 mg BID CHRISTIANO Administration Albuterol/Ipratropium 3 ml 02/09/19 11:00 02/12/19 07:56 Duoneb NEB 3 ml [id number] CHRISTIANO Administration Alteplase, Recombinant 2 mg 02/09/19 07:45 02/09/19 09:38 Cathflo CATH 2 mg WILLCALL CHRISTIANO Administration Dexamethasone 4 mg 02/09/19 08:00 02/12/19 08:24 Decadron PO 4 mg QAM-WM CHRISTIANO Administration Famotidine 20 mg 01/19/19 21:00 02/12/19 08:21 Pepcid PO Not Given BID CHRISTIANO Folic Acid 1 mg 01/25/19 09:00 02/12/19 08:24 Folvite PO 1 mg DAILY CHRISTIANO Administration Guaifenesin 1,200 mg 02/10/19 21:00 02/12/19 08:23 Mucinex PO 02/13/19 21:01 1,200 mg Q12HR CHRISTIANO Administration Micafungin Sodium 100 mg/ 100 mls @ 100 mls/hr 01/24/19 17:00 02/11/19 18:12 Sodium Chloride IVPB 100 mls 1700 CHRISTIANO Administration Cefepime HCl 2 gm/ Sodium 100 mls @ 200 mls/hr 02/07/19 18:00 02/12/19 05:23 Chloride IVPB 100 mls 0600,1800 CHRISTIANO Administration Vancomycin HCl 750 mg/ Sodium 250 mls @ 250 mls/hr 02/11/19 12:00 02/12/19 03 :45 Chloride IVPB 02/14/19 12:01 250 mls 0400,1200,2000 CHRISTIANO Administration Lisinopril 20 mg 01/19/19 21:00 02/12/19 09:47 Zestril PO 20 mg BID CHRISTIANO Administration Ondansetron HCl 4 mg 01/19/19 16:46 02/09/19 20:12 Zofran IVP 4 mg Q6H PRN Administration Nausea/Vomiting Pantoprazole Sodium 40 mg 02/03/19 09:00 02/12/19 08:21 Protonix PO 40 mg DAILY CHRISTIANO Administration Senna/Docusate Sodium 2 tab 01/19/19 16:46 02/07/19 10:37 Senokot S PO 2 tab BIDPRN PRN Administration Constipation Sodium Chloride 10 ml 01/23/19 09:31 02/12/19 03:45 Flush - Normal Saline IVF 10 ml PRN PRN Administration Saline Flush - Exam General Appearance: NAD, awake alert Eye: PERRL ENT: normocephalic atraumatic, moist mucosa Neck: supple, symmetric, no lymphadenopathy Heart: no murmur, no gallops, no rubs, normal peripheral pulses Respiratory: no rales, no ronchi, normal chest expansion, wheezes (faint scattered) Gastrointestinal: soft, non-tender, no hepatomegaly, no guarding, no rigidity Extremities: no edema Skin: no lesions, no rashes Neurological: cranial nerve grossly intact, no focal deficits Musculoskeletal: generalized weakness Psychiatric: oriented to person, oriented to place, flat affect Hosp A/P (1) AML (acute myeloblastic leukemia) Code(s): C92.00 - ACUTE MYELOBLASTIC LEUKEMIA, NOT HAVING ACHIEVED REMISSION Status: Acute (2) Cough Code(s): R05 - COUGH Status: Acute (3) HTN (hypertension) Code(s): I10 - ESSENTIAL (PRIMARY) HYPERTENSION Status: Acute (4) Muscular deconditioning Code(s): R29.898 - OTH SYMPTOMS AND SIGNS INVOLVING THE MUSCULOSKELETAL SYSTEM Status: Acute (5) Neutropenic sepsis Code(s): A41.9 - SEPSIS, UNSPECIFIED ORGANISM; D70.9 - NEUTROPENIA, UNSPECIFIED Status: Acute (6) Pancytopenia Code(s): D61.818 - OTHER PANCYTOPENIA Status: Acute (7) UTI (urinary tract infection) Status: Acute - Plan Plan: oncology unit oncology consultation, recommendations appreciated infectious disease consultation, recommendations appreciated Plan for transfer to Swing bed once afebrile for 48 hours and cleared by Hem/ onc - Plan for Thursday CXR with worsening infiltrates, likely lagging behind his clinical improvement Weak cough IV antibiotics/antifungals/ antivirals per infectious disease culture and sensitivity noted patient remains neutropenic, neutropenic precautions in place Symptomatic therapy for fever Transfuse PRBC and platelets per Hem/ onc No signs of bleeding Duo neb scheduled and PRN D/c Zoloft, family concerned this may worsen his baseline tremor continue home medications as able blood pressure control blood sugar control DVT prophylaxis Disposition: D/c to Swing bed in [place] when afebrile and ok with Hematology/ oncology - Plan for Thursday
[2019-02-12] MEDS: Acetaminophen 325 MG TAB PO PRN (16:17)
[2019-02-12] MEDS: Micafungin 100 MG in Sodium Chloride 0.9% 100 ML IVPB SCH (16:46)
--- NOTE | 2019-02-12 19:49 | EKG ---
Test Reason : Blood Pressure : / mmHG Vent. Rate : 117 BPM Atrial Rate : 117 BPM P-R Int : 122 ms QRS Dur : 082 ms QT Int : 310 ms P-R-T Axes : 042 013 027 degrees QTc Int : 432 ms Sinus tachycardia Nonspecific ST abnormality Abnormal ECG Confirmed by JACKIE LING D.O. ([id number]), editor in chief PHILIPP DEE ([id number] on 02/12/2019 7:48:21 PM Referred By: RL Confirmed By:JACKIE LING D.O.
[2019-02-13] MEDS: Acetaminophen 325 MG TAB PO PRN (04:23)
[2019-02-13] MEDS: Vancomycin HCl 750 MG in Sodium Chloride 0.9% 250 ML 250 ML IVPB SCH ×3 (04:26→20:41)
[2019-02-13 04:56] LABS: Mean Corpuscular HGB CONC 34.6 g/dL (32.0-36.0); Mean Corpuscular Hemoglobin 30.5 pg (27.0-31.0); Mean Corpuscular Volume 88.1 fL (78.0-98.0); Mean Platelet Volume 11.2 fL (7.4-10.4); Platelet Count 14 thou/uL (130-400); RBC Distribution Width 12.9 % (11.5-14.5); Red Blood Cell (RBC) Count 2.63 mill/uL (4.70-6.10); White Blood Cell (WBC) Count 0.1 thou/uL (4.8-10.8)
[2019-02-13 05:30] LABS: Elliptocytes SLIGHT = 2-5 cells (100X) (0-1/hpf); MDiff Complete? YES; Platelet Morphology Comment Appears Decreased
[2019-02-13] MEDS: Cefepime 2 GM in Sodium Chloride 0.9% 100 ML IVPB SCH ×2 (05:41→17:37)
[2019-02-13] MEDS: Acyclovir 400 mg Tablet PO SCH ×2 (09:35→20:42)
[2019-02-13] MEDS: Dexamethasone 4 MG TAB PO SCH (09:35)
[2019-02-13] MEDS: guaiFENesin ER 600 MG TAB PO SCH ×2 (09:35→20:42)
[2019-02-13] MEDS: Lisinopril 20 MG TAB PO SCH ×2 (09:35→20:43)
[2019-02-13] MEDS: Famotidine 20 MG TAB PO SCH ×2 (09:36→20:43)
[2019-02-13] MEDS: Folic Acid 1 MG TAB PO SCH (09:40)
--- NOTE | 2019-02-13 11:21 | PDOC.MOPN ---
Interval History: No complaints today, though minimally verbal. Daughter says he is eating well. - Vital Signs Vital Signs: Vital Signs (12 hours) Temp Pulse Resp BP Pulse Ox 02/13/19 08:20 88 20 02/13/19 07:53 98.6 F 90 18 159/82 H 97 02/13/19 04:00 99.2 F 02/12/19 23:40 98.1 F Weight Admit Weight 151 lb 9.6 oz Weight 166 lb 6.4 oz Most Recent Monitor Data Heart Rate from ECG 93 NIBP 167/103 NIBP BP-Mean 124 Respiration from ECG 29 SpO2 100 - Physical Exam General: Alert, Cooperative HEENT: Atraumatic Lungs: Normal air movement Cardiovascular: Regular rate Psych/Mental Status: Other (flat affect) - Labs Result Diagrams: 02/13/19 04:30 02/09/19 10:45 Lab results: Laboratory Results - last 24 hr 02/13/19 04:30: WBC 0.1 L*, RBC 2.63 L, Hgb 8.0 L, Hct 23.2 L, MCV 88.1, MCH 30.5, MCHC 34.6, RDW 12.9, Plt Count 14 L*, MPV 11.2 H, Neutrophils % (Manual) Not Reportable, Neutrophils # Not Reportable, Lymphocytes # Not Reportable, Plt Morphology Comment Appears Decreased L, Elliptocytes SLIGHT = 2-5 cells A/P - Problem (1) AML (acute myeloblastic leukemia) Current Visit: Yes Code(s): C92.00 - ACUTE MYELOBLASTIC LEUKEMIA, NOT HAVING ACHIEVED REMISSION Status: Acute (2) Pancytopenia Current Visit: Yes Code(s): D61.818 - OTHER PANCYTOPENIA Status: Acute (3) UTI (urinary tract infection) Current Visit: Yes Status: Acute - Plan Plan: No transfusion today: goal Hb 7.0, plts 10 No fever in 4 days: ok to dc to swing bed tomorrow if still afebrile cont abx
--- NOTE | 2019-02-13 11:36 | PDOC.HOSPP ---
- Subjective Subjective: Seen and examined. Clinically stable. Remaining afebrile. WBC count remains very low. Hemoglobin stable. Platelets down trending. Discuss possibility of swing bed tomorrow a.m. if continues to be afebrile and okay with oncology. Patient eating his breakfast well. All questions answered in detail. Patient and family are happy with plan of care. - Objective Vital Signs & Weight: Vital Signs (12 hours) Temp Pulse Resp BP Pulse Ox 02/13/19 08:20 88 20 02/13/19 07:53 98.6 F 90 18 159/82 H 97 02/13/19 04:00 99.2 F 02/12/19 23:40 98.1 F Weight Admit Weight 151 lb 9.6 oz Weight 166 lb 6.4 oz Most Recent Monitor Data Heart Rate from ECG 93 NIBP 167/103 NIBP BP-Mean 124 Respiration from ECG 29 SpO2 100 I&O: 02/12/19 02/13/19 02/14/19 06:59 06:59 06:59 Intake Total 1580 1920 630 Balance 1580 1920 630 Result Diagrams: 02/13/19 04:30 02/09/19 10:45 Radiology Reviewed by me: Yes Hospitalist ROS - Review of Systems All other systems reviewed; all pertinent +/- noted in HPI/Subj - Medication Medications: Active Medications Generic Name Dose Route Start Last Admin Trade Name Freq PRN Reason Stop Dose Admin Acetaminophen 650 mg 01/19/19 16:46 02/13/19 04:23 Tylenol PO 650 mg Q4H PRN Administration Headache/Fever/Mild Pain (1-3) Acetaminophen 650 mg 01/25/19 15:29 01/25/19 16:34 Tylenol [place] 650 mg Q4H PRN Administration Headache/Fever or Pain Acyclovir 400 mg 01/19/19 21:00 02/13/19 09:35 Zovirax PO 400 mg BID CHRISTIANO Administration Albuterol/Ipratropium 3 ml 02/09/19 11:00 02/13/19 08:20 Duoneb NEB 3 ml [id number] CHRISTIANO Administration Alteplase, Recombinant 2 mg 02/09/19 07:45 02/09/19 09:38 Cathflo CATH 2 mg WILLCALL CHRISTIANO Administration Dexamethasone 4 mg 02/09/19 08:00 02/13/19 09:35 Decadron PO 4 mg QAM-WM CHRISTIANO Administration Famotidine 20 mg 01/19/19 21:00 02/13/19 09:36 Pepcid PO 20 mg BID CHRISTIANO Administration Folic Acid 1 mg 01/25/19 09:00 02/13/19 09:40 Folvite PO 1 mg DAILY CHRISTIANO Administration Guaifenesin 1,200 mg 02/10/19 21:00 02/13/19 09:35 Mucinex PO 02/13/19 21:01 1,200 mg Q12HR CHRISTIANO Administration Micafungin Sodium 100 mg/ 100 mls @ 100 mls/hr 01/24/19 17:00 02/12/19 16:46 Sodium Chloride IVPB 100 mls 1700 CHRISTIANO Administration Cefepime HCl 2 gm/ Sodium 100 mls @ 200 mls/hr 02/07/19 18:00 02/13/19 05:41 Chloride IVPB 100 mls 0600,1800 CHRISTIANO Administration Vancomycin HCl 750 mg/ Sodium 250 mls @ 250 mls/hr 02/11/19 12:00 02/13/19 04 :26 Chloride IVPB 02/14/19 12:01 250 mls 0400,1200,2000 CHRISTIANO Administration Lisinopril 20 mg 01/19/19 21:00 02/13/19 09:35 Zestril PO 20 mg BID CHRISTIANO Administration Ondansetron HCl 4 mg 01/19/19 16:46 02/09/19 20:12 Zofran IVP 4 mg Q6H PRN Administration Nausea/Vomiting Pantoprazole Sodium 40 mg 02/03/19 09:00 02/13/19 09:40 Protonix PO 40 mg DAILY CHRISTIANO Administration Senna/Docusate Sodium 2 tab 01/19/19 16:46 02/07/19 10:37 Senokot S PO 2 tab BIDPRN PRN Administration Constipation Sodium Chloride 10 ml 01/23/19 09:31 02/12/19 03:45 Flush - Normal Saline IVF 10 ml PRN PRN Administration Saline Flush - Exam General Appearance: NAD, awake alert Eye: PERRL ENT: normocephalic atraumatic, moist mucosa Neck: symmetric, no lymphadenopathy Heart: RRR, no murmur, no gallops Respiratory: CTAB, no wheezes, no rales, no ronchi Gastrointestinal: soft, non-tender, no guarding, no rigidity Extremities: no edema Skin: no lesions, no rashes Neurological: cranial nerve grossly intact, no focal deficits Musculoskeletal: generalized weakness, diffuse muscle atrophy Psychiatric: normal affect, oriented to person, oriented to place Hosp A/P (1) AML (acute myeloblastic leukemia) Code(s): C92.00 - ACUTE MYELOBLASTIC LEUKEMIA, NOT HAVING ACHIEVED REMISSION Status: Acute (2) Cough Code(s): R05 - COUGH Status: Acute (3) HTN (hypertension) Code(s): I10 - ESSENTIAL (PRIMARY) HYPERTENSION Status: Acute (4) Muscular deconditioning Code(s): R29.898 - OTH SYMPTOMS AND SIGNS INVOLVING THE MUSCULOSKELETAL SYSTEM Status: Acute (5) Neutropenic sepsis Code(s): A41.9 - SEPSIS, UNSPECIFIED ORGANISM; D70.9 - NEUTROPENIA, UNSPECIFIED Status: Acute (6) Pancytopenia Code(s): D61.818 - OTHER PANCYTOPENIA Status: Acute (7) UTI (urinary tract infection) Status: Acute - Plan Plan: oncology unit oncology consultation, recommendations appreciated infectious disease consultation, recommendations appreciated Plan for transfer to Swing bed tomorrow if remains afebrile and cleared by Hem/ onc - Plan for Thursday CXR with worsening infiltrates, likely lagging behind his clinical improvement Weak cough IV antibiotics/antifungals/ antivirals per infectious disease culture and sensitivity noted patient remains neutropenic, neutropenic precautions in place Symptomatic therapy for fever Transfuse PRBC and platelets per Hem/ onc No signs of bleeding Duo neb scheduled and PRN continue home medications as able blood pressure control blood sugar control DVT prophylaxis Disposition: D/c to Swing bed in [place] when afebrile and ok with Hematology/ oncology - Plan for Thursday
[2019-02-13 11:59] LABS: Vancomycin, Trough 17.9 ug/mL
[2019-02-13] MEDS: Acetaminophen 650 MG Suppository PR PRN (12:11)
[2019-02-13] MEDS ORDERED: Iopamidol-370 76% 500 ML 1 ML ONE (13:30)
--- NOTE | 2019-02-13 14:00 | PRG ---
DATE OF SERVICE: 02/13/2019 SUBJECTIVE: The patient had been afebrile until this morning when he had a temperature of 102. Right now, he is again not very willing to talk. He shakes his head yes or no and that is about the extent of the communication that we can entertain with him. Does not seem to be having any pain right now. OBJECTIVE: VITAL SIGNS: His T-max was 102.3 just recently, pulse 109, respirations 18, O2 saturation 95 on room air. GENERAL: He appears chronically ill. HEENT: Ocular movements conjugate, did not allow examination of his oral cavity. NECK: Appears supple. LUNGS: With coarse inspiratory crackles in the right and left side. HEART: S1 and S2, regular rate. ABDOMEN: Soft. Not distended. MUSCULOSKELETAL: No joint inflammatory activity. He is able to move extremities, although he is diffusely weak. LABORATORY DATA: White cell count is 0.1, hemoglobin 8.0, platelets 27,000. Creatinine 0.59. Urinalysis with greater than 50 rbc's, 7 to 10 wbc's. The only positive culture is from January 19 with Klebsiella pneumoniae. Most recent blood cultures were done on January 20. The last chest x-ray is from February 10 with diffuse bibasilar airspace opacities. ASSESSMENT: Persistence of fever, worsening lung findings. We will go ahead and order a CT of chest to evaluate for possible Aspergillus infection or other complication. Repeat blood cultures. Continue antimicrobial therapy. Job ID: [id number]
--- NOTE | 2019-02-13 15:57 | CT ---
CT CHEST WITH IV CONTRAST: INDICATION: Fever, pneumonia. FINDINGS: There is cardiomegaly with vascular congestion. Perihilar airspace opacity which has ground-glass de nsity with areas of confluent opacity. Findings are consistent with perihilar edema. There is confl uent opacity in the right lung base which may represent focal area of infiltrate or atelectasis super imposed on the edema. Streaky atelectasis in the left lung base. There are focal areas of opacity scattered throughout both lungs which exhibit micronodular and retic ulonodular pattern. These foci are seen in the left apical region as well as right upper lobe. Nonspecific mediastinal lymph nodes without adenopathy. Images through the upper abdomen are unremarkable. IMPRESSION: Cardiomegaly with vascular congestion. Perihilar ground-glass opacities suggest edema. There are ot her patchy areas of parenchymal opacity bilaterally suggesting superimposed inflammatory infiltrates. POS: OFF
[2019-02-13] MEDS: Micafungin 100 MG in Sodium Chloride 0.9% 100 ML IVPB SCH (17:26)
[2019-02-14] MEDS: Vancomycin HCl 750 MG in Sodium Chloride 0.9% 250 ML 250 ML IVPB SCH ×2 (04:03→12:47)
[2019-02-14] MEDS: Cefepime 2 GM in Sodium Chloride 0.9% 100 ML IVPB SCH ×2 (05:17→17:30)
[2019-02-14 06:24] LABS: Hemoglobin 7.9 g/dL (14.0-18.0); Mean Corpuscular HGB CONC 34.6 g/dL (32.0-36.0); Mean Corpuscular Hemoglobin 30.5 pg (27.0-31.0); Mean Corpuscular Volume 88.3 fL (78.0-98.0); Mean Platelet Volume 11.5 fL (7.4-10.4); Platelet Count 6 thou/uL (130-400); RBC Distribution Width 12.7 % (11.5-14.5); Red Blood Cell (RBC) Count 2.58 mill/uL (4.70-6.10); White Blood Cell (WBC) Count 0.1 thou/uL (4.8-10.8)
[2019-02-14 06:38] LABS: Platelet Morphology Comment Appears Decreased; RBC Morphology Normal
[2019-02-14] MEDS: Acetaminophen 325 MG TAB PO PRN ×2 (09:46→21:07)
[2019-02-14] MEDS: Lisinopril 20 MG TAB PO SCH ×2 (09:47→21:07)
[2019-02-14] MEDS: Famotidine 20 MG TAB PO SCH ×2 (09:47→19:30)
[2019-02-14] MEDS: Folic Acid 1 MG TAB PO SCH (09:48)
[2019-02-14] MEDS: Dexamethasone 4 MG TAB PO SCH (09:48)
[2019-02-14] MEDS: Acyclovir 400 mg Tablet PO SCH ×2 (09:48→21:07)
--- NOTE | 2019-02-14 09:55 | PDOC.HOSPP ---
- Subjective Encounter Date: 02/14/19 Encounter Time: 09:53 Subjective: Not talking much. Says he doesn't really want to because he is just tired. Indicates he is breathing comfortably. - Objective Vital Signs & Weight: Vital Signs (12 hours) Temp Pulse Resp BP BP Pulse Ox 02/14/19 09:47 151/87 H 02/14/19 09:37 98 16 95 02/14/19 08:00 101.7 F H 94 16 157/81 H 96 02/14/19 03:52 98.3 F 02/13/19 23:25 98.8 F Weight Admit Weight 151 lb 9.6 oz Weight 166 lb 6.4 oz Most Recent Monitor Data Heart Rate from ECG 93 NIBP 167/103 NIBP BP-Mean 124 Respiration from ECG 29 SpO2 100 I&O: 02/13/19 02/14/19 02/15/19 06:59 06:59 06:59 Intake Total 1920 630 Balance 1920 630 Result Diagrams: 02/14/19 06:07 02/09/19 10:45 Hospitalist ROS - Medication Medications: Active Medications Generic Name Dose Route Start Last Admin Trade Name Freq PRN Reason Stop Dose Admin Acetaminophen 650 mg 01/19/19 16:46 02/14/19 09:46 Tylenol PO 650 mg Q4H PRN Administration Headache/Fever/Mild Pain (1-3) Acetaminophen 650 mg 01/25/19 15:29 02/13/19 12:11 Tylenol [place] 650 mg Q4H PRN Administration Headache/Fever or Pain Acyclovir 400 mg 01/19/19 21:00 02/14/19 09:48 Zovirax PO 400 mg BID CHRISTIANO Administration Albuterol/Ipratropium 3 ml 02/09/19 11:00 02/14/19 09:37 Duoneb NEB 3 ml [id number] CHRISTIANO Administration Alteplase, Recombinant 2 mg 02/09/19 07:45 02/09/19 09:38 Cathflo CATH 2 mg WILLCALL CHRISTIANO Administration Dexamethasone 4 mg 02/09/19 08:00 02/14/19 09:48 Decadron PO 4 mg QAM-WM CHRISTIANO Administration Famotidine 20 mg 01/19/19 21:00 02/14/19 09:47 Pepcid PO 20 mg BID CHRISTIANO Administration Folic Acid 1 mg 01/25/19 09:00 02/14/19 09:48 Folvite PO 1 mg DAILY CHRISTIANO Administration Micafungin Sodium 100 mg/ 100 mls @ 100 mls/hr 01/24/19 17:00 02/13/19 17:26 Sodium Chloride IVPB 100 mls 1700 CHRISTIANO Administration Cefepime HCl 2 gm/ Sodium 100 mls @ 200 mls/hr 02/07/19 18:00 02/14/19 05:17 Chloride IVPB 100 mls 0600,1800 CHRISTIANO Administration Vancomycin HCl 750 mg/ Sodium 250 mls @ 250 mls/hr 02/11/19 12:00 02/14/19 04 :03 Chloride IVPB 02/14/19 12:01 250 mls 0400,1200,2000 CHRISTIANO Administration Lisinopril 20 mg 01/19/19 21:00 02/14/19 09:47 Zestril PO 20 mg BID CHRISTIANO Administration Ondansetron HCl 4 mg 01/19/19 16:46 02/09/19 20:12 Zofran IVP 4 mg Q6H PRN Administration Nausea/Vomiting Pantoprazole Sodium 40 mg 02/03/19 09:00 02/14/19 09:47 Protonix PO 40 mg DAILY CHRISTIANO Administration Senna/Docusate Sodium 2 tab 01/19/19 16:46 02/07/19 10:37 Senokot S PO 2 tab BIDPRN PRN Administration Constipation Sodium Chloride 10 ml 01/23/19 09:31 02/12/19 03:45 Flush - Normal Saline IVF 10 ml PRN PRN Administration Saline Flush - Exam General Appearance: NAD, awake alert General - other findings: non-verbal. Heart: RRR, no gallops, no rubs, II/IV Respiratory - other findings: Mod[place], fine rales. Gastrointestinal: soft, non-tender, non-distended, normal bowel sounds, no palpable masses, no hepatomegaly, no splenomegaly, no bruit Extremities: no cyanosis, no clubbing, no edema Skin: normal turgor, no lesions, no rashes Musculoskeletal: diffuse muscle atrophy Psychiatric: flat affect Hosp A/P (1) Neutropenic sepsis Code(s): A41.9 - SEPSIS, UNSPECIFIED ORGANISM; D70.9 - NEUTROPENIA, UNSPECIFIED Status: Acute (2) UTI (urinary tract infection) Status: Acute (3) AML (acute myeloblastic leukemia) Code(s): C92.00 - ACUTE MYELOBLASTIC LEUKEMIA, NOT HAVING ACHIEVED REMISSION Status: Acute (4) HTN (hypertension) Code(s): I10 - ESSENTIAL (PRIMARY) HYPERTENSION Status: Acute (5) Pancytopenia Code(s): D61.818 - OTHER PANCYTOPENIA Status: Acute (6) Cough Code(s): R05 - COUGH Status: Acute (7) Pneumonitis Code(s): J18.9 - PNEUMONIA, UNSPECIFIED ORGANISM Status: Acute (8) Muscular deconditioning Code(s): R29.898 - OT SYMPTOMS AND SIGNS INVOLVING THE MUSCULOSKELETAL SYSTEM Status: Acute (9) Diastolic dysfunction Code(s): I51.89 - OTHER ILL-DEFINED HEART DISEASES Status: Acute - Plan Persistent fever. ID following. Continue Vanc, cefepime, acyclovir and mycafungin. Repeat blood cultures pending. Oncology following. Persistent severe leukopenia, thrombocytopenia. Transfuse platelets. Chest CT with possible pulm edema and other patchy infiltrates. Breathing comfortably. Has some diastolic dysfunction and could have a little edema, but no indication for diuresis now. Metastatic disease of the brain.
[2019-02-14 11:25] LABS: Vancomycin, Trough 16.9 ug/mL
[2019-02-14] MEDS: Acetaminophen 650 MG Suppository PR PRN (12:04)
--- NOTE | 2019-02-14 14:25 | PDOC.MOPN ---
Interval History: no complaints. - Vital Signs Vital Signs: Vital Signs (12 hours) Temp Pulse Pulse Resp BP BP BP 02/14/19 12:30 98.8 F 104 H 16 155/75 H 02/14/19 12:14 99.3 F 101 H 18 154/84 H 02/14/19 11:58 100.8 F H 109 H 16 150/73 H 02/14/19 09:47 151/87 H 02/14/19 09:37 98 16 02/14/19 08:00 101.7 F H 94 16 157/81 H 02/14/19 03:52 98.3 F Pulse Ox 02/14/19 12:30 02/14/19 12:14 02/14/19 11:58 02/14/19 09:47 02/14/19 09:37 95 02/14/19 08:00 96 02/14/19 03:52 Weight Admit Weight 151 lb 9.6 oz Weight 166 lb 6.4 oz Most Recent Monitor Data Heart Rate from ECG 93 NIBP 167/103 NIBP BP-Mean 124 Respiration from ECG 29 SpO2 100 - Physical Exam General: Alert, No acute distress HEENT: Atraumatic, PERRLA, EOMI, Mucous membr. moist/pink Lungs: Clear to auscultation, Normal air movement Cardiovascular: Regular rate, Normal S1, Normal S2, No murmurs, Gallops, Rubs Abdomen: Normal bowel sounds, Soft, No tenderness, No hepatospenomegaly, No masses Skin: No rashes, No breakdown, No significant lesion Neurological: Other - Labs Result Diagrams: 02/14/19 06:07 02/09/19 10:45 Lab results: Laboratory Results - last 24 hr 02/14/19 10:49: Vancomycin Trough 16.9 02/14/19 08:25: Blood Type O POSITIVE, Antibody Screen NEGATIVE 02/14/19 06:07: WBC 0.1 L*, RBC 2.58 L, Hgb 7.9 L, Hct 22.8 L, MCV 88.3, MCH 30.5, MCHC 34.6, RDW 12.7, Plt Count 6 L*, MPV 11.5 H, Neutrophils % (Manual) Not Reportable, Neutrophils # Not Reportable, Lymphocytes # Not Reportable, Plt Morphology Comment Appears Decreased L, RBC Morph Comment Normal Status: lab reviewed by me A/P - Problem (1) AML (acute myeloblastic leukemia) Current Visit: Yes Code(s): C92.00 - ACUTE MYELOBLASTIC LEUKEMIA, NOT HAVING ACHIEVED REMISSION Status: Acute (2) Neutropenic sepsis Current Visit: Yes Code(s): A41.9 - SEPSIS, UNSPECIFIED ORGANISM; D70.9 - NEUTROPENIA, UNSPECIFIED Status: Acute (3) Pancytopenia Current Visit: Yes Code(s): D61.818 - OTHER PANCYTOPENIA Status: Acute - Plan Plan: Febrile today, continue abx Platelet transfusion today. Swing bed when afebrile.
[2019-02-14] MEDS: Micafungin 100 MG in Sodium Chloride 0.9% 100 ML IVPB SCH (17:30)
[2019-02-15 04:38] LABS: Hemoglobin 7.6 g/dL (14.0-18.0); Mean Corpuscular Hemoglobin 30.8 pg (27.0-31.0); Mean Corpuscular Volume 88.1 fL (78.0-98.0); Platelet Count 31 thou/uL (130-400); RBC Distribution Width 12.7 % (11.5-14.5); Red Blood Cell (RBC) Count 2.48 mill/uL (4.70-6.10); White Blood Cell (WBC) Count 0.1 thou/uL (4.8-10.8)
[2019-02-15 04:54] LABS: Hypochromia SLIGHT = 6-15 cells (100X) (0-5/hpf); MDiff Complete? YES; Platelet Morphology Comment Appears Decreased
[2019-02-15] MEDS: Cefepime 2 GM in Sodium Chloride 0.9% 100 ML IVPB SCH ×2 (05:48→17:19)
[2019-02-15] MEDS: Acyclovir 400 mg Tablet PO SCH ×2 (09:13→20:25)
[2019-02-15] MEDS: Folic Acid 1 MG TAB PO SCH (09:13)
[2019-02-15] MEDS: Acetaminophen 325 MG TAB PO PRN ×2 (09:13→20:25)
[2019-02-15] MEDS: Dexamethasone 4 MG TAB PO SCH (09:13)
[2019-02-15] MEDS: Lisinopril 20 MG TAB PO SCH ×2 (09:14→20:25)
[2019-02-15] MEDS: Famotidine 20 MG TAB PO SCH ×2 (09:14→20:25)
--- NOTE | 2019-02-15 14:17 | PRG ---
DATE OF SERVICE: 02/15/2019 SUBJECTIVE: Mr. Crooks is more alert today. He was able to answer questions. He denies any headaches. No shortness of breath or abdominal pain. No chest pain. No cough. No diarrhea. He is voiding without difficulty. He is still having intermittent low-grade temperature elevation up to 101.7 yesterday and today 100.7. OBJECTIVE: GENERAL: The patient appears chronically ill, but in no acute distress. HEENT: Ocular movements are conjugate. Oral cavity normal. LUNGS: Symmetric air entry. I could not hear any crackles or wheezing. HEART: S1 and S2, regular rate. ABDOMEN: Soft. Not distended or tender. No ascites. No bladder distention. : Does not have Rivas catheter. He is voiding in the diaper. He still has severe neutropenia. LABORATORY DATA: His hemoglobin is 7.6, platelets are 31,000. Creatinine 0.59 and repeat blood cultures from 2 days ago are negative at 48 hours. He is currently on cefepime and micafungin. Repeat CT scan showed cardiomegaly, perihilar ground-glass opacities, suggesting edema, other patchy areas of parenchymal opacity bilaterally suggesting superimposed inflammatory infiltrates. No findings that would be suggestive of Aspergillus. ASSESSMENT AND DISCUSSION: Acute myelogenous leukemia. Initial response to broad-spectrum coverage, but now has had recrudescence of temperature elevation, persistence of areas of pneumonitis. We will submit a Karius test to evaluate for other pathogens that might not have been identified on cultures that might not be covered by the current regimen. Job ID: [id number]
--- NOTE | 2019-02-15 14:56 | PDOC.MOPN ---
Interval History: no changes. continues to have fever. - Vital Signs Vital Signs: Vital Signs (12 hours) Temp Pulse Resp BP BP BP Pulse Ox 02/15/19 11:54 100.4 F H 109 H 18 145/70 H 92 L 02/15/19 11:21 104 H 18 95 02/15/19 09:14 160/77 H 02/15/19 08:37 100.7 F H 112 H 18 160/77 H 18 L 02/15/19 08:10 82 14 97 02/15/19 08:00 95 Weight Admit Weight 151 lb 9.6 oz Weight 166 lb 6.4 oz Most Recent Monitor Data Heart Rate from ECG 93 NIBP 167/103 NIBP BP-Mean 124 Respiration from ECG 29 SpO2 100 - Physical Exam General: Alert HEENT: Atraumatic Lungs: Clear to auscultation Cardiovascular: Regular rate Abdomen: Normal bowel sounds Extremities: No clubbing, No cyanosis, No edema, Normal pulses, No tenderness/ swelling Skin: No rashes, No breakdown, No significant lesion Neurological: Normal gait, Normal speech, Strength at 5/5 X4 ext, Normal tone, Sensation intact, Cranial nerves 3-12 NL, Reflexes 2+ Psych/Mental Status: Mental status NL, Mood NL - Labs Result Diagrams: 02/15/19 04:20 02/09/19 10:45 Lab results: Laboratory Results - last 24 hr 02/15/19 04:20: WBC 0.1 L*, RBC 2.48 L, Hgb 7.6 L, Hct 21.8 L, MCV 88.1, MCH 30.8, MCHC 35.0, RDW 12.7, Plt Count 31 L, MPV 9.0, Neutrophils % (Manual) Not Reportable, Neutrophils # Not Reportable, Lymphocytes # Not Reportable, Hypochromia SLIGHT = 6-15 cells, Plt Morphology Comment Appears Decreased L Status: lab reviewed by me A/P - Problem (1) AML (acute myeloblastic leukemia) Current Visit: Yes Code(s): C92.00 - ACUTE MYELOBLASTIC LEUKEMIA, NOT HAVING ACHIEVED REMISSION Status: Acute (2) Neutropenic sepsis Current Visit: Yes Code(s): A41.9 - SEPSIS, UNSPECIFIED ORGANISM; D70.9 - NEUTROPENIA, UNSPECIFIED Status: Acute (3) Pancytopenia Current Visit: Yes Code(s): D61.818 - OTHER PANCYTOPENIA Status: Acute - Plan Plan: continue abx for fever swing bed once afebrile no transfusion today.
[2019-02-15] MEDS: Acetaminophen 650 MG Suppository PR PRN (15:16)
--- NOTE | 2019-02-15 16:21 | PDOC.HOSPP ---
- Subjective Subjective: Denies complaints. Feels comfortable. Niece in the room with him. - Objective Vital Signs & Weight: Vital Signs (12 hours) Temp Pulse Resp BP BP BP Pulse Ox 02/15/19 15:31 96 20 96 02/15/19 15:18 97.8 F 02/15/19 11:54 100.4 F H 109 H 18 145/70 H 92 L 02/15/19 11:21 104 H 18 95 02/15/19 09:14 160/77 H 02/15/19 08:37 100.7 F H 112 H 18 160/77 H 18 L 02/15/19 08:10 82 14 97 02/15/19 08:00 95 Weight Admit Weight 151 lb 9.6 oz Weight 166 lb 6.4 oz Most Recent Monitor Data Heart Rate from ECG 93 NIBP 167/103 NIBP BP-Mean 124 Respiration from ECG 29 SpO2 100 I&O: 02/14/19 02/15/19 02/16/19 06:59 06:59 06:59 Intake Total 630 0 Balance 630 0 Result Diagrams: 02/15/19 04:20 02/09/19 10:45 Hospitalist ROS - Medication Medications: Active Medications Generic Name Dose Route Start Last Admin Trade Name Freq PRN Reason Stop Dose Admin Acetaminophen 650 mg 01/19/19 16:46 02/15/19 09:13 Tylenol PO 650 mg Q4H PRN Administration Headache/Fever/Mild Pain (1-3) Acetaminophen 650 mg 01/25/19 15:29 02/15/19 15:16 Tylenol [place] 650 mg Q4H PRN Administration Headache/Fever or Pain Acyclovir 400 mg 01/19/19 21:00 02/15/19 09:13 Zovirax PO 400 mg BID CHRISTIANO Administration Albuterol/Ipratropium 3 ml 02/09/19 11:00 02/15/19 15:31 Duoneb NEB 3 ml [id number] CHRISTIANO Administration Alteplase, Recombinant 2 mg 02/09/19 07:45 02/09/19 09:38 Cathflo CATH 2 mg WILLCALL CHRISTIANO Administration Dexamethasone 4 mg 02/09/19 08:00 02/15/19 09:13 Decadron PO 4 mg QAM-WM CHRISTIANO Administration Famotidine 20 mg 01/19/19 21:00 02/15/19 09:14 Pepcid PO 20 mg BID CHRISTIANO Administration Folic Acid 1 mg 01/25/19 09:00 02/15/19 09:13 Folvite PO 1 mg DAILY CHRISTIANO Administration Micafungin Sodium 100 mg/ 100 mls @ 100 mls/hr 01/24/19 17:00 02/14/19 17:30 Sodium Chloride IVPB 100 mls 1700 CHRISTIANO Administration Cefepime HCl 2 gm/ Sodium 100 mls @ 200 mls/hr 02/07/19 18:00 02/15/19 05:48 Chloride IVPB 100 mls 0600,1800 CHRISTIANO Administration Lisinopril 20 mg 01/19/19 21:00 02/15/19 09:14 Zestril PO 20 mg BID CHRISTIANO Administration Ondansetron HCl 4 mg 01/19/19 16:46 02/09/19 20:12 Zofran IVP 4 mg Q6H PRN Administration Nausea/Vomiting Pantoprazole Sodium 40 mg 02/03/19 09:00 02/15/19 09:13 Protonix PO 40 mg DAILY CHRISTIANO Administration Senna/Docusate Sodium 2 tab 01/19/19 16:46 02/07/19 10:37 Senokot S PO 2 tab BIDPRN PRN Administration Constipation Sodium Chloride 10 ml 01/23/19 09:31 02/12/19 03:45 Flush - Normal Saline IVF 10 ml PRN PRN Administration Saline Flush - Exam General Appearance: NAD, awake alert Heart: RRR, no murmur, no gallops, no rubs, normal peripheral pulses Respiratory: CTAB, no wheezes, no rales, no ronchi, normal chest expansion, no tachypnea, normal percussion Gastrointestinal: soft, non-tender, non-distended, normal bowel sounds, no palpable masses, no hepatomegaly, no splenomegaly, no bruit Extremities: no cyanosis, no clubbing Neurological - other findings: LE atrophy with B foot drop. Musculoskeletal: generalized weakness Musculoskeletal - other findings: Hypophonic Psychiatric: flat affect Hosp A/P (1) Neutropenic sepsis Code(s): A41.9 - SEPSIS, UNSPECIFIED ORGANISM; D70.9 - NEUTROPENIA, UNSPECIFIED Status: Acute (2) UTI (urinary tract infection) Status: Acute (3) AML (acute myeloblastic leukemia) Code(s): C92.00 - ACUTE MYELOBLASTIC LEUKEMIA, NOT HAVING ACHIEVED REMISSION Status: Acute (4) HTN (hypertension) Code(s): I10 - ESSENTIAL (PRIMARY) HYPERTENSION Status: Acute (5) Pancytopenia Code(s): D61.818 - OTHER PANCYTOPENIA Status: Acute (6) Cough Code(s): R05 - COUGH Status: Acute (7) Pneumonitis Code(s): J18.9 - PNEUMONIA, UNSPECIFIED ORGANISM Status: Acute (8) Muscular deconditioning Code(s): R29.898 - OT SYMPTOMS AND SIGNS INVOLVING THE MUSCULOSKELETAL SYSTEM Status: Acute (9) Diastolic dysfunction Code(s): I51.89 - OTHER ILL-DEFINED HEART DISEASES Status: Acute - Plan Persistent fever. ID following. Continue Vanc, cefepime, acyclovir and mycafungin. Repeat blood cultures negative at 48 hours. Oncology following. Persistent severe leukopenia, thrombocytopenia. Chest CT with possible pulm edema and other patchy infiltrates. Breathing comfortably. Has some diastolic dysfunction and could have a little edema, but no indication for diuresis now. Metastatic disease of the brain. Explained the patient's situation with the patient's niece and his daughter who was on the phone.
[2019-02-15] MEDS: Micafungin 100 MG in Sodium Chloride 0.9% 100 ML IVPB SCH (16:32)
[2019-02-16] MEDS ORDERED: Acetaminophen 650 MG Suppository ONE (12:23)
[2019-02-16 13:00] LABS: Hemoglobin 8.6 g/dL (14.0-18.0); Mean Corpuscular HGB CONC 33.3 g/dL (32.0-36.0); Mean Corpuscular Hemoglobin 30.1 pg (27.0-31.0); Mean Corpuscular Volume 90.2 fL (78.0-98.0); Platelet Count 15 thou/uL (130-400); RBC Distribution Width 12.8 % (11.5-14.5); Red Blood Cell (RBC) Count 2.87 mill/uL (4.70-6.10); White Blood Cell (WBC) Count 0.1 thou/uL (4.8-10.8)
[2019-02-16 13:12] LABS: MDiff Complete? YES; Platelet Morphology Comment Appears Decreased; Polychromasia SLIGHT = 2-3 cells (100X) (0-2/hpf)
[2019-02-16] MEDS: Cefepime 2 GM in Sodium Chloride 0.9% 100 ML IVPB SCH ×2 (13:47→17:12)
[2019-02-16] MEDS: Lisinopril 20 MG TAB PO SCH ×2 (13:48→21:07)
[2019-02-16] MEDS: Famotidine 20 MG TAB PO SCH ×2 (13:48→20:06)
[2019-02-16] MEDS: Dexamethasone 4 MG TAB PO SCH (13:48)
[2019-02-16] MEDS: Folic Acid 1 MG TAB PO SCH (13:48)
[2019-02-16] MEDS: Acyclovir 400 mg Tablet PO SCH ×2 (13:48→21:07)
--- NOTE | 2019-02-16 14:02 | PDOC.HOSPP ---
- Subjective Encounter Date: 02/16/19 Encounter Time: 14:01 Subjective: Mr. Crooks was seen today in follow-up of Neutropenic feer. He does not have any complaints. - Objective Vital Signs & Weight: Vital Signs (12 hours) Temp Pulse Resp BP Pulse Ox 02/16/19 11:00 99.2 F 02/16/19 07:40 101.9 F H 101 H 20 143/75 H 92 L Weight Admit Weight 151 lb 9.6 oz Weight 166 lb 6.4 oz Most Recent Monitor Data Heart Rate from ECG 93 NIBP 167/103 NIBP BP-Mean 124 Respiration from ECG 29 SpO2 100 I&O: 02/15/19 02/16/19 02/17/19 06:59 06:59 06:59 Intake Total 0 Balance 0 Result Diagrams: 02/16/19 03:30 02/09/19 10:45 Hospitalist ROS - Medication Medications: Active Medications Generic Name Dose Route Start Last Admin Trade Name Freq PRN Reason Stop Dose Admin Acetaminophen 650 mg 01/19/19 16:46 02/15/19 20:25 Tylenol PO 650 mg Q4H PRN Administration Headache/Fever/Mild Pain (1-3) Acetaminophen 650 mg 01/25/19 15:29 02/15/19 15:16 Tylenol [place] 650 mg Q4H PRN Administration Headache/Fever or Pain Acyclovir 400 mg 01/19/19 21:00 02/16/19 13:48 Zovirax PO Not Given BID CHRISTIANO Albuterol/Ipratropium 3 ml 02/09/19 11:00 02/16/19 13:47 Duoneb NEB Not Given [id number] CHRISTIANO Alteplase, Recombinant 2 mg 02/09/19 07:45 02/09/19 09:38 Cathflo CATH 2 mg WILLCALL CHRISTIANO Administration Dexamethasone 4 mg 02/09/19 08:00 02/16/19 13:48 Decadron PO Not Given QAM-WM CHRISTIANO Famotidine 20 mg 01/19/19 21:00 02/16/19 13:48 Pepcid PO Not Given BID CHRISTIANO Folic Acid 1 mg 01/25/19 09:00 02/16/19 13:48 Folvite PO Not Given DAILY CHRISTIANO Micafungin Sodium 100 mg/ 100 mls @ 100 mls/hr 01/24/19 17:00 02/15/19 16:32 Sodium Chloride IVPB 100 mls 1700 CHRISTIANO Administration Cefepime HCl 2 gm/ Sodium 100 mls @ 200 mls/hr 02/07/19 18:00 02/16/19 13:47 Chloride IVPB Not Given 0600,1800 CHRISTIANO Lisinopril 20 mg 01/19/19 21:00 02/16/19 13:48 Zestril PO Not Given BID CHRISTIANO Ondansetron HCl 4 mg 01/19/19 16:46 02/09/19 20:12 Zofran IVP 4 mg Q6H PRN Administration Nausea/Vomiting Pantoprazole Sodium 40 mg 02/03/19 09:00 02/16/19 13:49 Protonix PO Not Given DAILY CHRISTIANO Senna/Docusate Sodium 2 tab 01/19/19 16:46 02/07/19 10:37 Senokot S PO 2 tab BIDPRN PRN Administration Constipation Sodium Chloride 10 ml 01/23/19 09:31 02/12/19 03:45 Flush - Normal Saline IVF 10 ml PRN PRN Administration Saline Flush - Exam Eye: PERRL, anicteric sclera ENT: no oropharyngeal lesions Heart: RRR, no murmur, no gallops, no rubs, normal peripheral pulses Respiratory: CTAB, no wheezes, no rales, no ronchi, normal chest expansion Gastrointestinal: soft, non-tender, non-distended, normal bowel sounds, no palpable masses, no hepatomegaly Extremities: no cyanosis, no edema Hosp A/P (1) Neutropenic fever Code(s): D70.9 - NEUTROPENIA, UNSPECIFIED; R50.81 - FEVER PRESENTING WITH CONDITIONS CLASSIFIED ELSEWHERE Status: Acute (2) AML (acute myeloblastic leukemia) Code(s): C92.00 - ACUTE MYELOBLASTIC LEUKEMIA, NOT HAVING ACHIEVED REMISSION Status: Chronic (3) Diastolic dysfunction Code(s): I51.89 - OTHER ILL-DEFINED HEART DISEASES Status: Chronic (4) HTN (hypertension) Code(s): I10 - ESSENTIAL (PRIMARY) HYPERTENSION Status: Chronic (5) Muscular deconditioning Code(s): R29.898 - OTH SYMPTOMS AND SIGNS INVOLVING THE MUSCULOSKELETAL SYSTEM Status: Chronic (6) Pancytopenia Code(s): D61.818 - OTHER PANCYTOPENIA Status: Acute - Plan * Neutropenic fever- he continue to be febrile. Culture results were reviewed.Urine culture was positive for Klebsiella * Continue broad spectrum antibiotics including Vancomycin, Cefepime, Micafungin , and Acyclovir * Pancytopenia- his platelet count is below 20K- will defer to Hematology with regards to transfusion * HTN- blood pressure is stable overall * Chronic diastolic heart failure- compensated
[2019-02-16] MEDS: Acetaminophen 650 MG Suppository PR PRN (17:19)
[2019-02-16] MEDS: Micafungin 100 MG in Sodium Chloride 0.9% 100 ML IVPB SCH (17:51)
[2019-02-17] MEDS: Acetaminophen 650 MG Suppository PR PRN ×2 (00:07→10:24)
[2019-02-17 04:22] LABS: Hemoglobin 7.8 g/dL (14.0-18.0); Mean Corpuscular HGB CONC 34.7 g/dL (32.0-36.0); Mean Corpuscular Volume 89.4 fL (78.0-98.0); Platelet Count 9 thou/uL (130-400); RBC Distribution Width 12.9 % (11.5-14.5); Red Blood Cell (RBC) Count 2.53 mill/uL (4.70-6.10); White Blood Cell (WBC) Count 0.2 thou/uL (4.8-10.8)
[2019-02-17 04:43] LABS: MDiff Complete? YES; Platelet Morphology Comment Appears Decreased; Polychromasia SLIGHT = 2-3 cells (100X) (0-2/hpf)
[2019-02-17] MEDS: Cefepime 2 GM in Sodium Chloride 0.9% 100 ML IVPB SCH ×2 (05:16→18:24)
[2019-02-17] MEDS: Acyclovir 400 mg Tablet PO SCH ×2 (08:55→20:28)
[2019-02-17] MEDS: Lisinopril 20 MG TAB PO SCH ×2 (08:56→20:28)
[2019-02-17] MEDS: Folic Acid 1 MG TAB PO SCH (08:56)
[2019-02-17] MEDS: Famotidine 20 MG TAB PO SCH ×2 (08:56→20:29)
[2019-02-17] MEDS: Dexamethasone 4 MG TAB PO SCH (08:56)
[2019-02-17 11:43] LABS: Ref Lab Test Ordered KARIUS; Reference Lab Name KARIUS
--- NOTE | 2019-02-17 11:55 | PDOC.MOPN ---
Interval History: no complaints. - Vital Signs Vital Signs: Vital Signs (12 hours) Temp Pulse Pulse Pulse Resp BP BP 02/17/19 11:09 100.4 F H 108 H 108 H 20 151/77 H 02/17/19 10:54 100.8 F H 114 H 20 143/73 H 02/17/19 10:25 100.1 F H 02/17/19 08:56 140/72 02/17/19 08:30 98.2 F 113 H 18 02/17/19 08:00 02/17/19 06:41 112 H 20 02/17/19 04:37 99.4 F 02/17/19 01:18 100.7 F H 02/17/19 00:23 101.5 F H BP Pulse Ox 02/17/19 11:09 02/17/19 10:54 02/17/19 10:25 02/17/19 08:56 02/17/19 08:30 140/72 90 L 02/17/19 08:00 92 L 02/17/19 06:41 94 L 02/17/19 04:37 02/17/19 01:18 02/17/19 00:23 Weight Admit Weight 151 lb 9.6 oz Weight 166 lb 6.4 oz Most Recent Monitor Data Heart Rate from ECG 93 NIBP 167/103 NIBP BP-Mean 124 Respiration from ECG 29 SpO2 100 - Physical Exam General: Alert HEENT: Atraumatic Lungs: Clear to auscultation Cardiovascular: Regular rate Abdomen: Normal bowel sounds Extremities: No clubbing, No cyanosis, No edema, Normal pulses, No tenderness/ swelling Skin: No rashes, No breakdown, No significant lesion Neurological: Other - Labs Result Diagrams: 02/17/19 04:05 02/09/19 10:45 Lab results: Laboratory Results - last 24 hr 02/17/19 04:05: WBC 0.2 L*, RBC 2.53 L, Hgb 7.8 L, Hct 22.6 L, MCV 89.4, MCH 31.0, MCHC 34.7, RDW 12.9, Plt Count 9 L*, MPV 12.0 H, Neutrophils % (Manual) Not Reportable, Neutrophils # Not Reportable, Lymphocytes # Not Reportable, Plt Morphology Comment Appears Decreased L, Polychromasia SLIGHT = 2-3 cells 02/16/19 03:30: WBC 0.1 L*, RBC 2.87 L, Hgb 8.6 L, Hct 25.9 L, MCV 90.2, MCH 30.1, MCHC 33.3, RDW 12.8, Plt Count 15 L*, MPV 11.0 H, Neutrophils % (Manual) Not Reportable, Neutrophils # Not Reportable, Lymphocytes # Not Reportable, Plt Morphology Comment Appears Decreased L, Polychromasia SLIGHT = 2-3 cells 02/15/19 14:09: Miscellaneous Test 02/14/19 08:25: Blood Type O POSITIVE, Antibody Screen NEGATIVE Status: lab reviewed by me A/P - Problem (1) AML (acute myeloblastic leukemia) Current Visit: Yes Code(s): C92.00 - ACUTE MYELOBLASTIC LEUKEMIA, NOT HAVING ACHIEVED REMISSION Status: Chronic (2) Neutropenic sepsis Current Visit: Yes Code(s): A41.9 - SEPSIS, UNSPECIFIED ORGANISM; D70.9 - NEUTROPENIA, UNSPECIFIED Status: Acute (3) Pancytopenia Current Visit: Yes Code(s): D61.818 - OTHER PANCYTOPENIA Status: Acute - Plan Plan: platelets today. Continued fever, on abx supportive care
--- NOTE | 2019-02-17 16:17 | PRG ---
DATE OF SERVICE: 02/17/2019 SUBJECTIVE: Mr. Crooks was up in the chair today, he took a bath and now he is kind of tired. He is awake, establishes eye contact, but has a hard time, where he is too tired to speak. He moves his head side to side. Denies headaches. No cough. No dyspnea or abdominal pain. Voiding in the diaper. OBJECTIVE: VITAL SIGNS: Still having low-grade temperature elevation up to 100.8. His BP is 150/83, O2 saturation 92. He is a little tachycardic. GENERAL: He is awake and alert. HEENT: Ocular movements conjugate. NECK: Supple. LUNGS: With symmetric air entry. A few crackles here and there. S1 and S2, regular rate. ABDOMEN: Soft. Not distended or tender. No ascites. No bladder distention. LABORATORY DATA: White cell count is at 0.2, platelets 9, hemoglobin 7.8. Creatinine is 0.59, sodium 136. The Karius test demonstrated 7200 copies of Pneumocystis DNA per microliter, which is highly significant. A little bit of Klebsiella as well, which is not surprising. ASSESSMENT AND DISCUSSION: AML. Initial response to broad-spectrum coverage for management of neutropenic fever, but recrudescence of low-grade temperature elevation, areas of pneumonitis which persisted now, Karius test demonstrating high levels of Pneumocystis DNA per microliter of plasma. We will go ahead and start him on Bactrim. Job ID: [id number]
--- NOTE | 2019-02-17 17:19 | PDOC.HOSPP ---
- Subjective Encounter Date: 02/17/19 Encounter Time: 17:17 Subjective: Mr. Crooks was seen today in follow-up of Neutropenic fever. He is a bit lethargic when I saw him today. No complaints voiced by staff. - Objective Vital Signs & Weight: Vital Signs (12 hours) Temp Pulse Pulse Pulse Resp BP BP 02/17/19 14:17 02/17/19 14:16 114 H 22 H 02/17/19 14:00 97.8 F 100 18 02/17/19 12:01 100.2 F H 104 H 20 02/17/19 11:40 100.2 F H 104 H 20 150/83 H 02/17/19 11:09 100.4 F H 108 H 108 H 20 151/77 H 02/17/19 10:54 100.8 F H 114 H 20 143/73 H 02/17/19 10:49 109 H 20 02/17/19 10:25 100.1 F H 02/17/19 08:56 140/72 02/17/19 08:30 98.2 F 113 H 18 02/17/19 08:00 02/17/19 06:41 112 H 20 BP Pulse Ox 02/17/19 14:17 92 L 02/17/19 14:16 92 L 02/17/19 14:00 117/64 95 02/17/19 12:01 150/83 H 93 L 02/17/19 11:40 93 L 02/17/19 11:09 02/17/19 10:54 02/17/19 10:49 94 L 02/17/19 10:25 02/17/19 08:56 02/17/19 08:30 140/72 90 L 02/17/19 08:00 92 L 02/17/19 06:41 94 L Weight Admit Weight 151 lb 9.6 oz Weight 166 lb 6.4 oz Most Recent Monitor Data Heart Rate from ECG 93 NIBP 167/103 NIBP BP-Mean 124 Respiration from ECG 29 SpO2 100 I&O: 02/16/19 02/17/19 02/18/19 06:59 06:59 06:59 Intake Total 0 Balance 0 Result Diagrams: 02/17/19 04:05 02/09/19 10:45 Hospitalist ROS - Medication Medications: Active Medications Generic Name Dose Route Start Last Admin Trade Name Freq PRN Reason Stop Dose Admin Acetaminophen 650 mg 01/19/19 16:46 02/15/19 20:25 Tylenol PO 650 mg Q4H PRN Administration Headache/Fever/Mild Pain (1-3) Acetaminophen 650 mg 01/25/19 15:29 02/17/19 10:24 Tylenol [place] 650 mg Q4H PRN Administration Headache/Fever or Pain Acyclovir 400 mg 01/19/19 21:00 02/17/19 08:55 Zovirax PO 400 mg BID CHRISTIANO Administration Albuterol/Ipratropium 3 ml 02/09/19 11:00 02/17/19 14:16 Duoneb NEB 3 ml [id number] CHRISTIANO Administration Alteplase, Recombinant 2 mg 02/09/19 07:45 02/09/19 09:38 Cathflo CATH 2 mg WILLCALL CHRISTIANO Administration Dexamethasone 4 mg 02/09/19 08:00 02/17/19 08:56 Decadron PO 4 mg QAM-WM CHRISTIANO Administration Famotidine 20 mg 01/19/19 21:00 02/17/19 08:56 Pepcid PO 20 mg BID CHRISTIANO Administration Folic Acid 1 mg 01/25/19 09:00 02/17/19 08:56 Folvite PO 1 mg DAILY CHRISTIANO Administration Micafungin Sodium 100 mg/ 100 mls @ 100 mls/hr 01/24/19 17:00 02/16/19 17:51 Sodium Chloride IVPB 100 mls 1700 CHRISTIANO Administration Cefepime HCl 2 gm/ Sodium 100 mls @ 200 mls/hr 02/07/19 18:00 02/17/19 05:16 Chloride IVPB 100 mls 0600,1800 CHRISTIANO Administration Lisinopril 20 mg 01/19/19 21:00 02/17/19 08:56 Zestril PO 20 mg BID CHRISTIANO Administration Ondansetron HCl 4 mg 01/19/19 16:46 02/09/19 20:12 Zofran IVP 4 mg Q6H PRN Administration Nausea/Vomiting Pantoprazole Sodium 40 mg 02/03/19 09:00 02/17/19 08:56 Protonix PO 40 mg DAILY CHRISTIANO Administration Senna/Docusate Sodium 2 tab 01/19/19 16:46 02/07/19 10:37 Senokot S PO 2 tab BIDPRN PRN Administration Constipation - Exam Eye: PERRL Heart: RRR, no murmur, no gallops, no rubs, normal peripheral pulses Respiratory: CTAB, rales (rales at the bases) Gastrointestinal: soft, non-tender, non-distended, normal bowel sounds Extremities: 1+ LE edema Hosp A/P (1) Neutropenic fever Code(s): D70.9 - NEUTROPENIA, UNSPECIFIED; R50.81 - FEVER PRESENTING WITH CONDITIONS CLASSIFIED ELSEWHERE Status: Acute (2) AML (acute myeloblastic leukemia) Code(s): C92.00 - ACUTE MYELOBLASTIC LEUKEMIA, NOT HAVING ACHIEVED REMISSION Status: Chronic (3) Diastolic dysfunction Code(s): I51.89 - OTHER ILL-DEFINED HEART DISEASES Status: Chronic (4) HTN (hypertension) Code(s): I10 - ESSENTIAL (PRIMARY) HYPERTENSION Status: Chronic (5) Muscular deconditioning Code(s): R29.898 - OTH SYMPTOMS AND SIGNS INVOLVING THE MUSCULOSKELETAL SYSTEM Status: Chronic (6) Pancytopenia Code(s): D61.818 - OTHER PANCYTOPENIA Status: Acute - Plan * Neutropenic fever- ID recommendations noted- The Karius test was suggestive of Pneumocystis . He has been transitioned to Bactrim DS * Pancytopenia- his platelet count is 9K this am- will transfuse * HTN- blood pressure is stable overall * Chronic diastolic heart failure- compensated
[2019-02-17] MEDS: Micafungin 100 MG in Sodium Chloride 0.9% 100 ML IVPB SCH (18:25)
[2019-02-17] MEDS: DEXTROSE 5% IVPB SCH (22:30)
[2019-02-17] MEDS: WATER IVPB SCH (22:30)
[2019-02-17] MEDS: TRIMETHOPRIM IVPB SCH (22:30)
[2019-02-17] MEDS: SULFAMETHOXAZOLE IVPB SCH (22:30)
[2019-02-18 04:27] LABS: White Blood Cell (WBC) Count 0.1 thou/uL (4.8-10.8)
[2019-02-18] MEDS: WATER IVPB SCH ×2 (04:36→18:23)
[2019-02-18] MEDS: DEXTROSE 5% IVPB SCH ×2 (04:36→18:23)
[2019-02-18] MEDS: TRIMETHOPRIM IVPB SCH ×2 (04:36→18:23)
[2019-02-18] MEDS: SULFAMETHOXAZOLE IVPB SCH ×2 (04:36→18:23)
[2019-02-18 04:51] LABS: Hemoglobin 6.7 g/dL (14.0-18.0); Mean Corpuscular Hemoglobin 30.4 pg (27.0-31.0); Mean Corpuscular Volume 89.5 fL (78.0-98.0); Mean Platelet Volume 8.1 fL (7.4-10.4); Platelet Count 30 thou/uL (130-400); Platelet Morphology Comment Appears Decreased; RBC Distribution Width 12.7 % (11.5-14.5); Red Blood Cell (RBC) Count 2.19 mill/uL (4.70-6.10)
[2019-02-18] MEDS: Acyclovir 400 mg Tablet PO SCH ×2 (10:33→19:36)
[2019-02-18] MEDS: predniSONE 20 MG TAB PO SCH (10:34)
[2019-02-18] MEDS: Dexamethasone 4 MG TAB PO SCH (10:34)
[2019-02-18] MEDS: Folic Acid 1 MG TAB PO SCH (10:34)
[2019-02-18] MEDS: Famotidine 20 MG TAB PO SCH ×2 (10:34→19:36)
[2019-02-18] MEDS: Lisinopril 20 MG TAB PO SCH ×2 (10:36→19:35)
--- NOTE | 2019-02-18 11:48 | PDOC.HOSPP ---
- Subjective Encounter Date: 02/18/19 Encounter Time: 09:30 Subjective: Expresses no complaint. - Objective Vital Signs & Weight: Vital Signs (12 hours) Temp Pulse Resp BP BP Pulse Ox 02/18/19 10:55 111 H 22 H 92 L 02/18/19 10:36 131/76 02/18/19 08:00 97.4 F L 102 H 18 137/84 94 L 02/18/19 07:34 102 H 20 92 L 02/18/19 04:20 97.2 F L 02/18/19 00:02 97.6 F Weight Admit Weight 151 lb 9.6 oz Weight 166 lb 6.4 oz Most Recent Monitor Data Heart Rate from ECG 93 NIBP 167/103 NIBP BP-Mean 124 Respiration from ECG 29 SpO2 100 I&O: 02/17/19 02/18/19 02/19/19 06:59 06:59 06:59 Intake Total 740 Balance 740 Result Diagrams: 02/18/19 03:40 02/09/19 10:45 Hospitalist ROS - Medication Medications: Active Medications Generic Name Dose Route Start Last Admin Trade Name Freq PRN Reason Stop Dose Admin Acetaminophen 650 mg 01/19/19 16:46 02/15/19 20:25 Tylenol PO 650 mg Q4H PRN Administration Headache/Fever/Mild Pain (1-3) Acetaminophen 650 mg 01/25/19 15:29 02/17/19 10:24 Tylenol [place] 650 mg Q4H PRN Administration Headache/Fever or Pain Acyclovir 400 mg 01/19/19 21:00 02/18/19 10:33 Zovirax PO 400 mg BID CHRISTIANO Administration Albuterol/Ipratropium 3 ml 02/09/19 11:00 02/18/19 10:55 Duoneb NEB 3 ml [id number] CHRISTIANO Administration Alteplase, Recombinant 2 mg 02/09/19 07:45 02/09/19 09:38 Cathflo CATH 2 mg WILLCALL CHRISTIANO Administration Dexamethasone 4 mg 02/09/19 08:00 02/18/19 10:34 Decadron PO 4 mg QAM-WM CHRISTIANO Administration Famotidine 20 mg 01/19/19 21:00 02/18/19 10:34 Pepcid PO 20 mg BID CHRISTIANO Administration Folic Acid 1 mg 01/25/19 09:00 02/18/19 10:34 Folvite PO 1 mg DAILY CHRISTIANO Administration Micafungin Sodium 100 mg/ 100 mls @ 100 mls/hr 01/24/19 17:00 02/17/19 18:25 Sodium Chloride IVPB 100 mls 1700 CHRISTIANO Administration Trimethoprim/Sulfamethoxazole 250 mls @ 250 mls/hr 02/18/19 10:00 02/18/19 10 :59 240 mg/ Dextrose/Water IVPB 250 mls 0400,1000,1600,2200 CHRISTIANO Administration Lisinopril 20 mg 01/19/19 21:00 02/18/19 10:36 Zestril PO 20 mg BID CHRISTIANO Administration Ondansetron HCl 4 mg 01/19/19 16:46 02/09/19 20:12 Zofran IVP 4 mg Q6H PRN Administration Nausea/Vomiting Pantoprazole Sodium 40 mg 02/03/19 09:00 02/18/19 10:34 Protonix PO 40 mg DAILY CHRISTIANO Administration Prednisone 40 mg 02/18/19 08:00 02/18/19 10:34 Prednisone PO 40 mg QAM-WM CHRISTIANO Administration Senna/Docusate Sodium 2 tab 01/19/19 16:46 02/07/19 10:37 Senokot S PO 2 tab BIDPRN PRN Administration Constipation - Exam General Appearance: NAD, ill appearing Neck: no JVD Heart: RRR Respiratory: CTAB Gastrointestinal: soft Extremities: no edema Psychiatric: normal affect Hosp A/P (1) Neutropenic fever Code(s): D70.9 - NEUTROPENIA, UNSPECIFIED; R50.81 - FEVER PRESENTING WITH CONDITIONS CLASSIFIED ELSEWHERE Status: Acute (2) Pancytopenia Code(s): D61.818 - OTHER PANCYTOPENIA Status: Acute (3) UTI (urinary tract infection) Status: Acute (4) AML (acute myeloblastic leukemia) Code(s): C92.00 - ACUTE MYELOBLASTIC LEUKEMIA, NOT HAVING ACHIEVED REMISSION Status: Chronic (5) Diastolic dysfunction Code(s): I51.89 - OTHER ILL-DEFINED HEART DISEASES Status: Chronic - Plan Continue broad spectrum antibiotics.. f/u with consultants..
[2019-02-18] MEDS: Acetaminophen 325 MG TAB PO PRN (13:36)
--- NOTE | 2019-02-18 13:36 | PDOC.MOPN ---
Interval History: afebrile. remains in bed. - Vital Signs Vital Signs: Vital Signs (12 hours) Temp Pulse Resp BP BP Pulse Ox 02/18/19 11:45 97.8 F 02/18/19 10:55 111 H 22 H 92 L 02/18/19 10:36 131/76 02/18/19 08:00 97.4 F L 102 H 18 137/84 94 L 02/18/19 07:34 102 H 20 92 L 02/18/19 04:20 97.2 F L Weight Admit Weight 151 lb 9.6 oz Weight 166 lb 6.4 oz Most Recent Monitor Data Heart Rate from ECG 93 NIBP 167/103 NIBP BP-Mean 124 Respiration from ECG 29 SpO2 100 - Physical Exam General: Alert HEENT: Atraumatic Lungs: Clear to auscultation Cardiovascular: Regular rate Abdomen: Normal bowel sounds Extremities: No clubbing Skin: No rashes Neurological: Other - Labs Result Diagrams: 02/18/19 03:40 02/09/19 10:45 Lab results: Laboratory Results - last 24 hr 02/18/19 03:40: WBC 0.1 L*, RBC 2.19 L, Hgb 6.7 L, Hct 19.6 L, MCV 89.5, MCH 30.4, MCHC 34.0, RDW 12.7, Plt Count 30 L, MPV 8.1, Neutrophils % (Manual) Not Reportable, Neutrophils # Not Reportable, Lymphocytes # Not Reportable, Plt Morphology Comment Appears Decreased L Status: lab reviewed by me A/P - Problem (1) AML (acute myeloblastic leukemia) Current Visit: Yes Code(s): C92.00 - ACUTE MYELOBLASTIC LEUKEMIA, NOT HAVING ACHIEVED REMISSION Status: Chronic (2) Neutropenic sepsis Current Visit: Yes Code(s): A41.9 - SEPSIS, UNSPECIFIED ORGANISM; D70.9 - NEUTROPENIA, UNSPECIFIED Status: Acute (3) Pancytopenia Current Visit: Yes Code(s): D61.818 - OTHER PANCYTOPENIA Status: Acute - Plan Plan: platelets given yesterday Transfuse 2 units PRBC today OOB to chair BID afebrile at this time. Swing bed on Thursday if remains afebrile.
[2019-02-18] MEDS: Micafungin 100 MG in Sodium Chloride 0.9% 100 ML IVPB SCH (19:35)
[2019-02-19] MEDS: Activase 2 MG VIAL CATH SCH (00:53)
[2019-02-19 05:10] LABS: Platelet Count 18 thou/uL (130-400); White Blood Cell (WBC) Count 0.1 thou/uL (4.8-10.8)
[2019-02-19 05:38] LABS: Hemoglobin 7.9 g/dL (14.0-18.0); Mean Corpuscular HGB CONC 34.4 g/dL (32.0-36.0); Mean Corpuscular Hemoglobin 30.3 pg (27.0-31.0); Mean Corpuscular Volume 88.1 fL (78.0-98.0); Mean Platelet Volume 9.8 fL (7.4-10.4); Platelet Morphology Comment Appears Decreased; RBC Distribution Width 12.4 % (11.5-14.5)
[2019-02-19] MEDS: Famotidine 20 MG TAB PO SCH ×2 (09:41→20:14)
[2019-02-19] MEDS: predniSONE 20 MG TAB PO SCH (09:41)
[2019-02-19] MEDS: Dexamethasone 4 MG TAB PO SCH (09:41)
[2019-02-19] MEDS: Lisinopril 20 MG TAB PO SCH ×2 (09:41→20:14)
[2019-02-19] MEDS: Folic Acid 1 MG TAB PO SCH (09:42)
[2019-02-19] MEDS: Acyclovir 400 mg Tablet PO SCH ×2 (09:42→20:14)
--- NOTE | 2019-02-19 10:53 | PDOC.HOSPP ---
- Subjective Encounter Date: 02/19/19 Encounter Time: 08:30 Subjective: No specific complaint.. - Objective Vital Signs & Weight: Vital Signs (12 hours) Temp Pulse Resp BP BP Pulse Ox 02/19/19 09:41 128/71 02/19/19 08:14 88 16 92 L 02/19/19 08:00 98.8 F 98 18 128/71 94 L 02/19/19 00:43 98.6 F 86 18 142/72 H 95 Weight Admit Weight 151 lb 9.6 oz Weight 166 lb 6.4 oz Most Recent Monitor Data Heart Rate from ECG 93 NIBP 167/103 NIBP BP-Mean 124 Respiration from ECG 29 SpO2 100 I&O: 02/18/19 02/19/19 02/20/19 06:59 06:59 06:59 Intake Total 740 2600 Balance 740 2600 Result Diagrams: 02/19/19 04:44 02/09/19 10:45 Hospitalist ROS - Medication Medications: Active Medications Generic Name Dose Route Start Last Admin Trade Name Freq PRN Reason Stop Dose Admin Acetaminophen 650 mg 01/19/19 16:46 02/18/19 13:36 Tylenol PO 650 mg Q4H PRN Administration Headache/Fever/Mild Pain (1-3) Acetaminophen 650 mg 01/25/19 15:29 02/17/19 10:24 Tylenol [place] 650 mg Q4H PRN Administration Headache/Fever or Pain Acyclovir 400 mg 01/19/19 21:00 02/19/19 09:42 Zovirax PO 400 mg BID CHRISTIANO Administration Albuterol/Ipratropium 3 ml 02/09/19 11:00 02/19/19 08:14 Duoneb NEB 3 ml [id number] CHRISTIANO Administration Alteplase, Recombinant 2 mg 02/09/19 07:45 02/19/19 00:53 Cathflo CATH 2 mg WILLCALL CHRISTIANO Administration Dexamethasone 4 mg 02/09/19 08:00 02/19/19 09:41 Decadron PO 4 mg QAM-WM CHRISTIANO Administration Famotidine 20 mg 01/19/19 21:00 02/19/19 09:41 Pepcid PO 20 mg BID CHRISTIANO Administration Folic Acid 1 mg 01/25/19 09:00 02/19/19 09:42 Folvite PO 1 mg DAILY CHRISTIANO Administration Micafungin Sodium 100 mg/ 100 mls @ 100 mls/hr 01/24/19 17:00 02/18/19 19:35 Sodium Chloride IVPB 100 mls 1700 CHRISTIANO Administration Trimethoprim/Sulfamethoxazole 250 mls @ 250 mls/hr 02/18/19 10:00 02/19/19 04 :35 240 mg/ Dextrose/Water IVPB 250 mls 0400,1000,1600,2200 CHRISTIANO Administration Lisinopril 20 mg 01/19/19 21:00 02/19/19 09:41 Zestril PO 20 mg BID CHRISTIANO Administration Ondansetron HCl 4 mg 01/19/19 16:46 02/09/19 20:12 Zofran IVP 4 mg Q6H PRN Administration Nausea/Vomiting Pantoprazole Sodium 40 mg 02/03/19 09:00 02/19/19 09:42 Protonix PO 40 mg DAILY CHRISTIANO Administration Prednisone 40 mg 02/18/19 08:00 02/19/19 09:41 Prednisone PO 40 mg QAM-WM CHRISTIANO Administration Senna/Docusate Sodium 2 tab 01/19/19 16:46 02/07/19 10:37 Senokot S PO 2 tab BIDPRN PRN Administration Constipation - Exam General Appearance: NAD, ill appearing Neck: no JVD Heart: RRR Respiratory: CTAB Gastrointestinal: soft Extremities: no edema Neurological: no weakness Hosp A/P (1) Neutropenic fever Code(s): D70.9 - NEUTROPENIA, UNSPECIFIED; R50.81 - FEVER PRESENTING WITH CONDITIONS CLASSIFIED ELSEWHERE Status: Acute (2) Pancytopenia Code(s): D61.818 - OTHER PANCYTOPENIA Status: Acute (3) UTI (urinary tract infection) Status: Acute (4) AML (acute myeloblastic leukemia) Code(s): C92.00 - ACUTE MYELOBLASTIC LEUKEMIA, NOT HAVING ACHIEVED REMISSION Status: Chronic (5) Diastolic dysfunction Code(s): I51.89 - OTHER ILL-DEFINED HEART DISEASES Status: Chronic - Plan Continue broad spectrum antibiotics.. Severe pancytopenia. Had RBC's transfusion yesterday. f/u with consultants..
[2019-02-19] MEDS: Micafungin 100 MG in Sodium Chloride 0.9% 100 ML IVPB SCH (18:14)
[2019-02-20 05:06] LABS: Hemoglobin 8.4 g/dL (14.0-18.0); Mean Corpuscular HGB CONC 34.3 g/dL (32.0-36.0); Mean Corpuscular Hemoglobin 30.2 pg (27.0-31.0); Mean Corpuscular Volume 88.1 fL (78.0-98.0); Mean Platelet Volume 10.7 fL (7.4-10.4); Platelet Count 10 thou/uL (130-400); RBC Distribution Width 12.4 % (11.5-14.5); Red Blood Cell (RBC) Count 2.78 mill/uL (4.70-6.10); White Blood Cell (WBC) Count 0.2 thou/uL (4.8-10.8)
[2019-02-20 05:41] LABS: Platelet Morphology Comment Appears Decreased
[2019-02-20] MEDS: Lisinopril 20 MG TAB PO SCH ×2 (08:20→21:13)
[2019-02-20] MEDS: Folic Acid 1 MG TAB PO SCH (08:20)
[2019-02-20] MEDS: predniSONE 20 MG TAB PO SCH (08:21)
[2019-02-20] MEDS: Dexamethasone 4 MG TAB PO SCH (08:21)
[2019-02-20] MEDS: Acyclovir 400 mg Tablet PO SCH ×2 (08:30→21:13)
[2019-02-20] MEDS: Famotidine 20 MG TAB PO SCH ×2 (08:47→21:13)
--- NOTE | 2019-02-20 09:18 | PDOC.HOSPP ---
- Subjective Encounter Date: 02/20/19 Encounter Time: 07:25 Subjective: Expresses no specific complaint.. - Objective Vital Signs & Weight: Vital Signs (12 hours) Temp Pulse Resp BP Pulse Ox 02/20/19 08:00 98.6 F 86 20 132/75 93 L 02/20/19 06:57 81 18 95 02/19/19 23:47 98.2 F Weight Admit Weight 151 lb 9.6 oz Weight 166 lb 6.4 oz Most Recent Monitor Data Heart Rate from ECG 93 NIBP 167/103 NIBP BP-Mean 124 Respiration from ECG 29 SpO2 100 I&O: 02/19/19 02/20/19 02/21/19 06:59 06:59 06:59 Intake Total 2600 1060 Balance 2600 1060 Result Diagrams: 02/20/19 04:27 02/09/19 10:45 Hospitalist ROS - Medication Medications: Active Medications Generic Name Dose Route Start Last Admin Trade Name Freq PRN Reason Stop Dose Admin Acetaminophen 650 mg 01/19/19 16:46 02/18/19 13:36 Tylenol PO 650 mg Q4H PRN Administration Headache/Fever/Mild Pain (1-3) Acetaminophen 650 mg 01/25/19 15:29 02/17/19 10:24 Tylenol [place] 650 mg Q4H PRN Administration Headache/Fever or Pain Acyclovir 400 mg 01/19/19 21:00 02/20/19 08:30 Zovirax PO Not Given BID CHRISTIANO Albuterol/Ipratropium 3 ml 02/09/19 11:00 02/20/19 06:57 Duoneb NEB 3 ml [id number] CHRISTIANO Administration Alteplase, Recombinant 2 mg 02/09/19 07:45 02/19/19 00:53 Cathflo CATH 2 mg WILLCALL CHRISTIANO Administration Dexamethasone 4 mg 02/09/19 08:00 02/20/19 08:21 Decadron PO 4 mg QAM-WM CHRISTIANO Administration Famotidine 20 mg 01/19/19 21:00 02/20/19 08:47 Pepcid PO Not Given BID CHRISTIANO Folic Acid 1 mg 01/25/19 09:00 02/20/19 08:20 Folvite PO 1 mg DAILY CHRISTIANO Administration Micafungin Sodium 100 mg/ 100 mls @ 100 mls/hr 01/24/19 17:00 02/19/19 18:14 Sodium Chloride IVPB 100 mls 1700 CHRISTIANO Administration Trimethoprim/Sulfamethoxazole 250 mls @ 250 mls/hr 02/18/19 10:00 02/20/19 04 :43 240 mg/ Dextrose/Water IVPB 250 mls 0400,1000,1600,2200 CHRISTIANO Administration Lisinopril 20 mg 01/19/19 21:00 02/20/19 08:20 Zestril PO 20 mg BID CHRISTIANO Administration Ondansetron HCl 4 mg 01/19/19 16:46 02/19/19 20:14 Zofran Odt PO 4 mg Q6H PRN Administration Nausea/Vomiting Ondansetron HCl 4 mg 01/19/19 16:46 02/09/19 20:12 Zofran IVP 4 mg Q6H PRN Administration Nausea/Vomiting Pantoprazole Sodium 40 mg 02/03/19 09:00 02/20/19 08:21 Protonix PO 40 mg DAILY CHRISTIANO Administration Prednisone 40 mg 02/18/19 08:00 02/20/19 08:21 Prednisone PO 40 mg QAM-WM CHRISTIANO Administration Senna/Docusate Sodium 2 tab 01/19/19 16:46 02/07/19 10:37 Senokot S PO 2 tab BIDPRN PRN Administration Constipation Sodium Chloride 10 ml 02/17/19 07:42 02/20/19 08:22 Flush - Normal Saline IVF 10 ml PRN PRN Administration Saline Flush - Exam General Appearance: NAD Neck: no JVD Heart: RRR Respiratory: CTAB Gastrointestinal: soft Extremities: no edema Psychiatric: normal affect, A&O x 3 Hosp A/P (1) Neutropenic fever Code(s): D70.9 - NEUTROPENIA, UNSPECIFIED; R50.81 - FEVER PRESENTING WITH CONDITIONS CLASSIFIED ELSEWHERE Status: Acute (2) Pancytopenia Code(s): D61.818 - OTHER PANCYTOPENIA Status: Acute (3) UTI (urinary tract infection) Status: Acute (4) AML (acute myeloblastic leukemia) Code(s): C92.00 - ACUTE MYELOBLASTIC LEUKEMIA, NOT HAVING ACHIEVED REMISSION Status: Chronic (5) Diastolic dysfunction Code(s): I51.89 - OTHER ILL-DEFINED HEART DISEASES Status: Chronic - Plan Continue antibiotics. .. Severe pancytopenia. PLT 10 For platelet trnsfusion... F/U with ID & Oncology.
--- NOTE | 2019-02-20 16:22 | PRG ---
DATE OF SERVICE: 02/20/2019 SUBJECTIVE: More alert. Denies any cough. No headaches. No shortness of breath. No abdominal pain. No diarrhea. OBJECTIVE: VITAL SIGNS: He has been afebrile for three days now. O2 saturations are 95 on room air. GENERAL: Appears in no distress. Awake, alert, and oriented. HEENT: Oral cavity normal. LUNGS: Symmetric clear breath sounds. HEART: S1 and S2. Regular rate. ABDOMEN: Soft, not distended. EXTREMITIES: Moves extremities equally, although he is diffusely weak. LABORATORY DATA: White cell count 0.2, hemoglobin 8.4, and platelets 10,000. Chemistry, creatinine 0.63. The Karius test positive for pneumocystis in high quantity. ASSESSMENT AND DISCUSSION: Acute myelogenous leukemia, status post venetoclax and persistent neutropenia. Fever with initial response to broad-spectrum coverage in recrudescence with persistence of pulmonary infiltrates and positive Pneumocystis next generation sequencing test results with improvement on Bactrim. He also had a few quantities of Klebsiella. At this point, we will switch him to oral Bactrim and start tapering prednisone down. Again, depending on the future course to be determined by the response to the treatment in terms of neutrophil increase in counts. Job ID: [id number]
[2019-02-20] MEDS: SMX/TMP 800-160mg/20 ML UDCUP PO SCH (21:14)
[2019-02-20] MEDS ORDERED: SMX/TMP 800-160mg/20 ML UDCUP PO SCH (22:00)
[2019-02-21 04:56] LABS: White Blood Cell (WBC) Count 0.1 thou/uL (4.8-10.8)
[2019-02-21] MEDS: SMX/TMP 800-160mg/20 ML UDCUP PO SCH ×3 (05:38→21:20)
[2019-02-21 06:20] LABS: Hemoglobin 8.4 g/dL (14.0-18.0); Mean Corpuscular HGB CONC 34.5 g/dL (32.0-36.0); Mean Corpuscular Hemoglobin 30.4 pg (27.0-31.0); Mean Corpuscular Volume 88.2 fL (78.0-98.0); Mean Platelet Volume 8.2 fL (7.4-10.4); Platelet Count 97 thou/uL (130-400); Platelet Morphology Comment Appears Decreased; RBC Distribution Width 12.5 % (11.5-14.5); Red Blood Cell (RBC) Count 2.75 mill/uL (4.70-6.10)
[2019-02-21] MEDS: Lisinopril 20 MG TAB PO SCH ×2 (08:57→21:20)
[2019-02-21] MEDS: Famotidine 20 MG TAB PO SCH ×2 (08:57→21:20)
[2019-02-21] MEDS: Folic Acid 1 MG TAB PO SCH (08:57)
[2019-02-21] MEDS: Dexamethasone 4 MG TAB PO SCH (08:58)
[2019-02-21] MEDS: Acyclovir 400 mg Tablet PO SCH ×2 (09:00→21:20)
[2019-02-21] MEDS: Acetaminophen 325 MG TAB PO PRN (11:20)
--- NOTE | 2019-02-21 13:01 | PDOC.MOPN ---
Interval History: intermittent fever, less talkative when febrile - Vital Signs Vital Signs: Vital Signs (12 hours) Temp Pulse Resp BP Pulse Ox 02/21/19 12:12 98.6 F 02/21/19 11:12 100.4 F H 02/21/19 10:10 100 12 02/21/19 09:00 155/82 H 02/21/19 07:30 99.5 F 107 H 20 142/80 H 93 L 02/21/19 06:15 96 16 02/21/19 05:35 98.8 F Weight Admit Weight 151 lb 9.6 oz Weight 166 lb 6.4 oz Most Recent Monitor Data Heart Rate from ECG 93 NIBP 167/103 NIBP BP-Mean 124 Respiration from ECG 29 SpO2 100 - Physical Exam General: Alert HEENT: Atraumatic Lungs: Clear to auscultation Cardiovascular: Regular rate Abdomen: Normal bowel sounds Extremities: No clubbing Neurological: Other (not speaking today, shakes head to questions) - Labs Result Diagrams: 02/21/19 04:33 02/09/19 10:45 Lab results: Laboratory Results - last 24 hr 02/21/19 04:33: WBC 0.1 L*, RBC 2.75 L, Hgb 8.4 L, Hct 24.3 L, MCV 88.2, MCH 30.4, MCHC 34.5, RDW 12.5, Plt Count 97 L, MPV 8.2, Neutrophils % (Manual) Not Reportable, Neutrophils # Not Reportable, Lymphocytes # Not Reportable, Plt Morphology Comment Appears Decreased L 02/18/19 14:06: Blood Type O POSITIVE, Antibody Screen NEGATIVE, Crossmatch See Detail Status: lab reviewed by me A/P - Problem (1) AML (acute myeloblastic leukemia) Current Visit: Yes Code(s): C92.00 - ACUTE MYELOBLASTIC LEUKEMIA, NOT HAVING ACHIEVED REMISSION Status: Chronic (2) Neutropenic sepsis Current Visit: Yes Code(s): A41.9 - SEPSIS, UNSPECIFIED ORGANISM; D70.9 - NEUTROPENIA, UNSPECIFIED Status: Acute (3) Pancytopenia Current Visit: Yes Code(s): D61.818 - OTHER PANCYTOPENIA Status: Acute - Plan Plan: Abx per ID Continue daily CBC and transfusion support. OOB with meals.
--- NOTE | 2019-02-21 14:54 | PDOC.HOSPP ---
- Subjective Encounter Date: 02/21/19 Encounter Time: 14:56 Subjective: Patient has no complaints, but states he doesn't feel good. He spiked fever today of 100.4. He is unable to vocalize his complaints Per nurse, he will say a word and will be delayed in his speech. Patient has a brain mass, apparently worked up in [facility] in [place], not candidate for radiation. Unable to get chemo due to neutropenia. - Objective Vital Signs & Weight: Vital Signs (12 hours) Temp Pulse Resp BP Pulse Ox 02/21/19 13:22 99.5 F 02/21/19 12:12 98.6 F 02/21/19 11:12 100.4 F H 02/21/19 10:10 100 12 02/21/19 09:00 155/82 H 02/21/19 07:30 99.5 F 107 H 20 142/80 H 93 L 02/21/19 06:15 96 16 02/21/19 05:35 98.8 F Weight Admit Weight 151 lb 9.6 oz Weight 166 lb 6.4 oz Most Recent Monitor Data Heart Rate from ECG 93 NIBP 167/103 NIBP BP-Mean 124 Respiration from ECG 29 SpO2 100 I&O: 02/20/19 02/21/19 02/22/19 06:59 06:59 06:59 Intake Total 1060 643 Balance 1060 643 Result Diagrams: 02/21/19 04:33 02/09/19 10:45 Hospitalist ROS - Review of Systems ROS unobtainable: due to mental status Constitutional: reports: fever - Medication Medications: Active Medications Generic Name Dose Route Start Last Admin Trade Name Angelq PRN Reason Stop Dose Admin Acetaminophen 650 mg 01/19/19 16:46 02/21/19 11:20 Tylenol PO 650 mg Q4H PRN Administration Headache/Fever/Mild Pain (1-3) Acetaminophen 650 mg 01/25/19 15:29 02/17/19 10:24 Tylenol [place] 650 mg Q4H PRN Administration Headache/Fever or Pain Acyclovir 400 mg 01/19/19 21:00 02/21/19 09:00 Zovirax PO 400 mg BID CHRISTIANO Administration Albuterol/Ipratropium 3 ml 02/09/19 11:00 02/21/19 10:10 Duoneb NEB 3 ml [id number] CHRISTIANO Administration Alteplase, Recombinant 2 mg 02/09/19 07:45 02/19/19 00:53 Cathflo CATH 2 mg WILLCALL CHRISTIANO Administration Dexamethasone 4 mg 02/09/19 08:00 02/21/19 08:58 Decadron PO 4 mg QAM-WM CHRISTIANO Administration Famotidine 20 mg 01/19/19 21:00 02/21/19 08:57 Pepcid PO 20 mg BID CHRISTIANO Administration Folic Acid 1 mg 01/25/19 09:00 02/21/19 08:57 Folvite PO 1 mg DAILY CHRISTIANO Administration Lisinopril 20 mg 01/19/19 21:00 02/21/19 08:57 Zestril PO 20 mg BID CHRISTIANO Administration Ondansetron HCl 4 mg 01/19/19 16:46 02/19/19 20:14 Zofran Odt PO 4 mg Q6H PRN Administration Nausea/Vomiting Ondansetron HCl 4 mg 01/19/19 16:46 02/09/19 20:12 Zofran IVP 4 mg Q6H PRN Administration Nausea/Vomiting Pantoprazole Sodium 40 mg 02/03/19 09:00 02/21/19 08:57 Protonix PO 40 mg DAILY CHRISTIANO Administration Senna/Docusate Sodium 2 tab 01/19/19 16:46 02/07/19 10:37 Senokot S PO 2 tab BIDPRN PRN Administration Constipation Sodium Chloride 10 ml 02/17/19 07:42 02/20/19 08:22 Flush - Normal Saline IVF 10 ml PRN PRN Administration Saline Flush Trimethoprim/Sulfamethoxazole 30 ml 02/20/19 22:00 02/21/19 13:35 Bactrim PO 30 ml Q8HR CHRISTIANO Administration - Exam General Appearance: NAD, awake alert Eye: PERRL, anicteric sclera ENT: normocephalic atraumatic, no oropharyngeal lesions Neck: supple, symmetric, no JVD, no thyromegaly Heart: RRR, no murmur, no gallops, no rubs Respiratory: CTAB, no wheezes, no rales, no ronchi Gastrointestinal: soft, non-tender, non-distended, normal bowel sounds Extremities: no cyanosis, no clubbing, no edema Skin: normal turgor, no lesions, no rashes Neurological: cranial nerve grossly intact Neurological - other findings: Unable to lift up right leg and left arm. He can dorsiflex Psychiatric - other findings: flat affect Hosp A/P - Plan Consults: Hospice Chest CT: cardiomegaly with vascular congestion. Perihilar ground-glass opacities consistent with edema. CT brain: intra-axial mass in the right frontal lobe. Vasogenic edema, mass effect and right to left subfalcine herniation. This is 73 year old male with AML presenting with neutropenic fever #Neutropenic fever secondary to chemotherapy from AML #Positive pneumocystis #Sepsis from Klebsiella UTI - temp 100.4, on bactrim, acyclovir, micafungin. F/u ID recs - CT chest showed cardiomegaly with vascular congestion. Will repeat chest X ray - blood cultures on 01/19, 01/20 and 02/13 have all been negative . Urine culture grew Klebsiella - will repeat blood culture, Urine culture, chest X ray #Brain mass with vasogenic edema - on steroids - worked up previously at [facility] - check MRi brain given neurologic deficits, rule out stroke #Thrombocytopenia - platelets 10 yesterday, improved to 97 with platelet transfusion - continue to monitor #Anemia - hemoglobin of 8.4, stable #Hypertension - continue lisinopril #Physical deconditioning - appreciate PT and OT Dispo: SNF when stable Code status: DNR
--- NOTE | 2019-02-21 15:48 | RAD ---
Exam: Chest one view HISTORY:Fever Comparison: 02/01/2019 FINDINGS: Cardiac silhouette:Upper normal cardiac silhouette Vascular access: Stable left-sided Mediport catheter Aorta: Unremarkable Pulmonary vessels: Normal Costophrenic angles: Clear LUNGS: Bilateral perihilar infiltrates. Stable emphysematous changes in the left upper lobe. Elevatio n the right hemidiaphragm. Pneumothorax: None Osseous abnormalities: None IMPRESSION: 1. Bilateral perihilar infiltrates. Correlate for edema or infiltration. Correlation made with chest CT 02/13/2019 does demonstrate these infiltrates. 2. Elevation right hemidiaphragm likely due to right lower lobe atelectasis. 3. Emphysema involving the left upper lobe
[2019-02-22] MEDS: Acetaminophen 650 MG Suppository PR PRN (03:36)
[2019-02-22] MEDS: SMX/TMP 800-160mg/20 ML UDCUP PO SCH ×3 (05:23→21:38)
[2019-02-22 05:57] LABS: White Blood Cell (WBC) Count 0.2 thou/uL (4.8-10.8)
[2019-02-22 06:12] LABS: Hemoglobin 9.6 g/dL (14.0-18.0); Mean Corpuscular HGB CONC 33.7 g/dL (32.0-36.0); Mean Corpuscular Hemoglobin 29.9 pg (27.0-31.0); Mean Corpuscular Volume 88.5 fL (78.0-98.0); Mean Platelet Volume 8.9 fL (7.4-10.4); Platelet Count 56 thou/uL (130-400); Platelet Morphology Comment Appears Decreased; RBC Distribution Width 12.6 % (11.5-14.5); Red Blood Cell (RBC) Count 3.22 mill/uL (4.70-6.10)
[2019-02-22 06:19] LABS: ALT (SGPT) 49 U/L (8-55); AST (SGOT) 17 U/L (5-34); Albumin 3.3 g/dL (3.4-4.8); Alkaline Phosphatase 116 U/L (40-110); Anion Gap 14 mmol/L (10-20); BUN (Urea Nitrogen) 14 mg/dL (8.4-25.7); Bilirubin, Total 1.1 mg/dL (0.2-1.2); Calc. Creatinine Clearance 100 mL/min (70-130); Calcium 8.9 mg/dL (7.8-10.44); Carbon Dioxide 23 mmol/L (23-31); Chloride 102 mmol/L (98-107); Estimated GFR-MDRD Greater than 90; Globulin 4.2 g/dL (2.4-3.5); Glucose 99 mg/dL (83-110); Protein, Total 7.5 g/dL (5.8-8.1); Sodium 135 mmol/L (136-145)
[2019-02-22] MEDS: Acyclovir 400 mg Tablet PO SCH ×2 (08:35→21:38)
[2019-02-22] MEDS: Folic Acid 1 MG TAB PO SCH (08:36)
[2019-02-22] MEDS: Lisinopril 20 MG TAB PO SCH ×2 (08:36→21:39)
[2019-02-22] MEDS: Dexamethasone 4 MG TAB PO SCH (08:36)
[2019-02-22] MEDS: Micafungin 100 MG in Sodium Chloride 0.9% 100 ML IVPB SCH (08:36)
[2019-02-22] MEDS: Famotidine 20 MG TAB PO SCH ×2 (08:36→21:38)
[2019-02-22] MEDS: Acetaminophen 325 MG TAB PO PRN (08:42)
--- NOTE | 2019-02-22 09:11 | PDOC.HOSPP ---
- Subjective Encounter Date: 02/22/19 Encounter Time: 09:09 non-verbal Subjective: The patient has no complaints. Doesn't speak much. No cough or shortness of breath. Had fever overnight to 102. Per nurse, heart rate went to 120 and was in afib, now 80 and irregular - Objective Vital Signs & Weight: Vital Signs (12 hours) Temp Pulse Resp BP BP Pulse Ox 02/22/19 09:05 84 02/22/19 08:36 100.2 F H 18 117/69 117/69 92 L 02/22/19 06:47 100 16 02/22/19 05:15 101.0 F H 02/22/19 03:30 102.2 F H 02/22/19 00:40 99.2 F 02/21/19 21:20 142/74 H Weight Admit Weight 151 lb 9.6 oz Weight 166 lb 6.4 oz Most Recent Monitor Data Heart Rate from ECG 93 NIBP 167/103 NIBP BP-Mean 124 Respiration from ECG 29 SpO2 100 I&O: 02/21/19 02/22/19 02/23/19 06:59 06:59 06:59 Intake Total 643 800 Balance 643 800 Result Diagrams: 02/22/19 05:36 02/22/19 05:36 Hospitalist ROS - Review of Systems ROS unobtainable: due to mental status Constitutional: reports: fever - Medication Medications: Active Medications Generic Name Dose Route Start Last Admin Trade Name Freq PRN Reason Stop Dose Admin Acetaminophen 650 mg 01/19/19 16:46 02/22/19 08:42 Tylenol PO 650 mg Q4H PRN Administration Headache/Fever/Mild Pain (1-3) Acetaminophen 650 mg 01/25/19 15:29 02/22/19 03:36 Tylenol [place] 650 mg Q4H PRN Administration Headache/Fever or Pain Acyclovir 400 mg 01/19/19 21:00 02/22/19 08:35 Zovirax PO 400 mg BID CHRISTIANO Administration Albuterol/Ipratropium 3 ml 02/09/19 11:00 02/22/19 06:47 Duoneb NEB 3 ml [id number] CHRISTIANO Administration Alteplase, Recombinant 2 mg 02/09/19 07:45 02/19/19 00:53 Cathflo CATH 2 mg WILLCALL CHRISTIANO Administration Dexamethasone 4 mg 02/09/19 08:00 02/22/19 08:36 Decadron PO 4 mg QAM-WM CHRISTIANO Administration Famotidine 20 mg 01/19/19 21:00 02/22/19 08:36 Pepcid PO 20 mg BID CHRISTIANO Administration Folic Acid 1 mg 01/25/19 09:00 02/22/19 08:36 Folvite PO 1 mg DAILY CHRISTIANO Administration Micafungin Sodium 100 mg/ 100 mls @ 100 mls/hr 02/22/19 08:00 02/22/19 08:36 Sodium Chloride IVPB 100 mls 0800 CHRISTIANO Administration Lisinopril 20 mg 01/19/19 21:00 02/22/19 08:36 Zestril PO 20 mg BID [facility] Administration Ondansetron HCl 4 mg 01/19/19 16:46 02/19/19 20:14 Zofran Odt PO 4 mg Q6H PRN Administration Nausea/Vomiting Ondansetron HCl 4 mg 01/19/19 16:46 02/09/19 20:12 Zofran IVP 4 mg Q6H PRN Administration Nausea/Vomiting Pantoprazole Sodium 40 mg 02/03/19 09:00 02/22/19 08:36 Protonix PO 40 mg DAILY CHRISTIANO Administration Senna/Docusate Sodium 2 tab 01/19/19 16:46 02/07/19 10:37 Senokot S PO 2 tab BIDPRN PRN Administration Constipation Sodium Chloride 10 ml 02/17/19 07:42 02/20/19 08:22 Flush - Normal Saline IVF 10 ml PRN PRN Administration Saline Flush Trimethoprim/Sulfamethoxazole 30 ml 02/20/19 22:00 02/22/19 05:23 Bactrim PO 30 ml Q8HR CHRISTIANO Administration - Exam General Appearance: NAD, awake alert Eye: PERRL, anicteric sclera ENT: normocephalic atraumatic, no oropharyngeal lesions Neck: supple, symmetric, no JVD, no thyromegaly Heart: RRR, no murmur, no gallops, no rubs Respiratory: CTAB, no wheezes, no rales, no ronchi Gastrointestinal: soft, non-tender, non-distended Extremities: no cyanosis, no clubbing, no edema Neurological - other findings: left arm and left leg weakness Psychiatric: flat affect Hosp A/P - Plan Chest CT: cardiomegaly with vascular congestion. Perihilar ground-glass opacities consistent with edema. CT brain: intra-axial mass in the right frontal lobe. Vasogenic edema, mass effect and right to left subfalcine herniation. Chest Xray 02/21: bilateral infiltrates This is 73 year old male with AML presenting with neutropenic fever #Neutropenic fever secondary to chemotherapy from AML #Positive pneumocystis #Sepsis from Klebsiella UTI vs pneumonia - temp 100.4, on bactrim, acyclovir, micafungin. Spiked fever overnight, chest X ray 02/21 shows bilateral infiltrates. Meropenem restarted per ID - blood cultures on 01/19, 01/20 and 02/13 have all been negative . Urine culture grew Klebsiella - repeat blood culture and urine culture from 02/21 pending #Brain mass with vasogenic edema - on steroids - worked up previously at [facility] -MRI brain ordered and pending #Thrombocytopenia - platelets 56 today, continue to monitor - got platelet transfusion on 02/20 #Anemia - hemoglobin of 8.4, stable - vitamin B12/folate normal - check iron panel in am #Hypertension - continue lisinopril #Physical deconditioning - appreciate PT and OT Dispo: SNF when stable Code status: DNR
--- NOTE | 2019-02-22 10:51 | PDOC.MOPN ---
Interval History: Pt does not voice concerns, very slowly nods if I ask if he feels ok. Spiked fever again overnight. - Vital Signs Vital Signs: Vital Signs (12 hours) Temp Pulse Resp BP BP Pulse Ox 02/22/19 09:05 84 02/22/19 08:36 100.2 F H 18 117/69 117/69 92 L 02/22/19 08:00 92 L 02/22/19 06:47 100 16 02/22/19 05:15 101.0 F H 02/22/19 03:30 102.2 F H 02/22/19 00:40 99.2 F Weight Admit Weight 151 lb 9.6 oz Weight 166 lb 6.4 oz Most Recent Monitor Data Heart Rate from ECG 93 NIBP 167/103 NIBP BP-Mean 124 Respiration from ECG 29 SpO2 100 - Physical Exam General: Alert, Cooperative HEENT: EOMI Lungs: Normal air movement Neurological: Cranial nerves 3-12 NL Psych/Mental Status: Other (flat affect) - Labs Result Diagrams: 02/22/19 05:36 02/22/19 05:36 Lab results: Laboratory Results - last 24 hr 02/22/19 06:47: Vitamin B12 406 02/22/19 06:47: Folate 14.70 02/22/19 05:36: Sodium 135 L, Potassium 4.0, Chloride 102, Carbon Dioxide 23, Anion Gap 14, BUN 14, Creatinine 0.69 L, Estimated GFR (MDRD) Greater than 90, Glucose 99, Calcium 8.9, Total Bilirubin 1.1, AST 17, ALT 49, Alkaline Phosphatase 116 H, Serum Total Protein 7.5, Albumin 3.3 L, Globulin 4.2 H, Albumin/Globulin Ratio 0.8 L 02/22/19 05:36: WBC 0.2 L*, RBC 3.22 L, Hgb 9.6 L, Hct 28.5 L, MCV 88.5, MCH 29.9, MCHC 33.7, RDW 12.6, Plt Count 56 L, MPV 8.9, Neutrophils % (Manual) Not Reportable, Neutrophils # Not Reportable, Lymphocytes # Not Reportable, Plt Morphology Comment Appears Decreased L A/P - Problem (1) AML (acute myeloblastic leukemia) Current Visit: Yes Code(s): C92.00 - ACUTE MYELOBLASTIC LEUKEMIA, NOT HAVING ACHIEVED REMISSION Status: Chronic (2) Pancytopenia Current Visit: Yes Code(s): D61.818 - OTHER PANCYTOPENIA Status: Acute (3) UTI (urinary tract infection) Current Visit: Yes Status: Acute - Plan Plan: restart Micafungin and Meropenem as per Dr. Colón continue Bactrim and steroids transfuse prn Hb < 7 or Plts < 10 If pts WBC improve hopefully he can clear his infections and be transferred to a swing bed or SNF
--- NOTE | 2019-02-22 13:14 | PRG ---
DATE OF SERVICE: 02/22/2019 SUBJECTIVE: Mr. Coroks started having fever again. Right now, he is awake. Apparently, he is going for an MRI. He denies headaches. No respiratory symptoms. No abdominal pain. He is voiding without difficulty. OBJECTIVE: VITAL SIGNS: T-max 102.2, actually at 3 o'clock in the morning. He is now 95.5, blood pressure 129/62, pulse 109, and respirations 18. GENERAL: Feels about the same, he is awake. He is kind of weak and has a hard time replying to questions, mostly says yes and no. HEENT: Ocular movements conjugate. Conjunctivae are pale. LUNGS: Symmetric air entry. No obvious crackles or wheezing. HEART: S1 and S2, regular rate. ABDOMEN: Soft, not distended or tender. No ascites. No bladder distention. No joint inflammatory activity. LABORATORY DATA: White cell count is 0.2, hemoglobin 9.6, platelets 56,000. Creatinine is at 0.69 and alkaline phosphatase 116. Transaminases and bilirubin normal. Albumin 3.3 and now have 2 sets of blood cultures with Enterococcus faecium obtained from the hand. There is a port blood culture from February 13, which was no growth. ASSESSMENT AND DISCUSSION: Acute myelogenous leukemia, status post venetoclax and persistent neutropenia. Frontal lobe mass with findings noted on CT/MRI, possibly a meningioma. Not candidate for intervention at this point. Fever with initial response of broad-spectrum coverage, then recrudescence with diffuse pulmonary infiltrates and positive Pneumocystis, next generation sequencing test result with improvement on Bactrim and now recrudescence of fever with Enterococcus faecium with the possibility of colonization of the port. We will add Zyvox, resume micafungin, and meropenem. Continue Bactrim. Unless there is improvement in his neutrophil count, I am afraid we are going to continue running from one infectious complication to another. Job ID: [id number] MTDD
[2019-02-22] MEDS: MEROPENEM 1 GM/50 ML 1 GM in Premix Bag 1 BAG IVPB SCH ×2 (13:29→21:40)
--- NOTE | 2019-02-22 13:29 | MRI ---
EXAM: MRI of the brain without and with contrast HISTORY: Right leg and left arm weakness COMPARISON: CT brain 01/25/2019 TECHNIQUE: Multiplanar multisequence MR images were obtained of the brain without and with IV contras t. FINDINGS: This exam is limited secondary to motion artifact. There is a large multilobulated enhancing mass in the right frontal lobe measuring 6.6 x 5.4 x 7.3 cm in size. This has surrounding vasogenic edema. This appears to have a dural tail. There are areas of decreased enhancement within the center of the mass. Susceptibility artifact is seen throughout th e mass consistent with foci of hemorrhage. There is mass effect from the mass with shift of the midline to the left of approximately 2.1 cm donnell g the anterior aspect of the brain. No restricted diffusion. No hydronephrosis. The expected flow voids are present. Corpus callosum, pituitary, and craniocervical junction are within normal limits. The calvarium and overlying soft tissues are unremarkable. The paranasal sinuses and mastoid air cells are well aerated. IMPRESSION: Large right frontal lobe mass. This is mass is so large it is difficult to tell whether its intra-axi al or extra-axial. This could represent a very large meningioma, but there are areas of signal loss which likely represent foci of hemorrhage within the mass which would be atypical for a meningioma.
[2019-02-22] MEDS: Linezolid 600 MG in Premix Bag 1 BAG IVPB SCH (13:51)
[2019-02-22] MEDS ORDERED: Meropenem 1 GM in Sodium Chloride 0.9% 100 ML IVPB SCH (14:00)
[2019-02-23] MEDS: Linezolid 600 MG in Premix Bag 1 BAG IVPB SCH ×2 (01:32→12:08)
[2019-02-23] MEDS: MEROPENEM 1 GM/50 ML 1 GM in Premix Bag 1 BAG IVPB SCH ×3 (05:56→22:35)
[2019-02-23 06:24] LABS: Hemoglobin 7.4 g/dL (14.0-18.0); Mean Corpuscular HGB CONC 34.2 g/dL (32.0-36.0); Mean Corpuscular Hemoglobin 30.9 pg (27.0-31.0); Mean Corpuscular Volume 90.3 fL (78.0-98.0); Mean Platelet Volume 9.5 fL (7.4-10.4); Platelet Count 26 thou/uL (130-400); RBC Distribution Width 12.2 % (11.5-14.5); Red Blood Cell (RBC) Count 2.39 mill/uL (4.70-6.10); White Blood Cell (WBC) Count 0.2 thou/uL (4.8-10.8)
[2019-02-23 06:44] LABS: Anion Gap 12 mmol/L (10-20); BUN (Urea Nitrogen) 19 mg/dL (8.4-25.7); Calc. Creatinine Clearance 100 mL/min (70-130); Calcium 8.7 mg/dL (7.8-10.44); Carbon Dioxide 22 mmol/L (23-31); Chloride 103 mmol/L (98-107); Estimated GFR-MDRD Greater than 90; Glucose 119 mg/dL (83-110); Iron 113 ug/dL (65-175); Iron Binding Capacity, Total 138 mcg/dL (261-462); Potassium 4.4 mmol/L (3.5-5.1); Sodium 133 mmol/L (136-145)
[2019-02-23] MEDS: SMX/TMP 800-160mg/20 ML UDCUP PO SCH ×3 (07:24→22:35)
[2019-02-23 07:54] LABS: MDiff Complete? YES; Ovalocytes SLIGHT = 2-5 cells (100X) (0-1/hpf); Platelet Morphology Comment Appears Decreased; Polychromasia SLIGHT = 2-3 cells (100X) (0-2/hpf)
[2019-02-23] MEDS: Lisinopril 20 MG TAB PO SCH ×2 (08:00→20:52)
[2019-02-23] MEDS: Famotidine 20 MG TAB PO SCH ×2 (08:00→20:51)
[2019-02-23] MEDS: Acyclovir 400 mg Tablet PO SCH ×2 (08:01→20:52)
[2019-02-23] MEDS: Dexamethasone 4 MG TAB PO SCH (08:01)
[2019-02-23] MEDS: Folic Acid 1 MG TAB PO SCH (08:01)
[2019-02-23] MEDS: Micafungin 100 MG in Sodium Chloride 0.9% 100 ML IVPB SCH (08:46)
--- NOTE | 2019-02-23 09:35 | PDOC.HOSPP ---
- Subjective Encounter Date: 02/23/19 Encounter Time: 09:32 Subjective: The patient is afebrile since yesterday. No complaints, no chest pain or cough. MRI brain showing meningioma which family is aware of . WBC still 0.2. Blood culture growing enterococcus since yesterday, awaiting speciation. - Objective Vital Signs & Weight: Vital Signs (12 hours) Temp Pulse Resp BP BP Pulse Ox 02/23/19 08:00 138/79 02/23/19 07:52 99.1 F 94 16 138/79 94 L 02/23/19 07:44 93 16 94 L 02/23/19 04:16 98.3 F 02/23/19 00:46 98.9 F 02/22/19 21:39 137/78 Weight Admit Weight 151 lb 9.6 oz Weight 166 lb 6.4 oz Most Recent Monitor Data Heart Rate from ECG 93 NIBP 167/103 NIBP BP-Mean 124 Respiration from ECG 29 SpO2 100 I&O: 02/22/19 02/23/19 02/24/19 06:59 06:59 06:59 Intake Total 800 1050 Balance 800 1050 Result Diagrams: 02/23/19 06:07 02/23/19 06:07 Hospitalist ROS - Review of Systems Constitutional: denies: fever - Medication Medications: Active Medications Generic Name Dose Route Start Last Admin Trade Name Freq PRN Reason Stop Dose Admin Acetaminophen 650 mg 01/19/19 16:46 02/22/19 08:42 Tylenol PO 650 mg Q4H PRN Administration Headache/Fever/Mild Pain (1-3) Acetaminophen 650 mg 01/25/19 15:29 02/22/19 03:36 Tylenol [place] 650 mg Q4H PRN Administration Headache/Fever or Pain Acyclovir 400 mg 01/19/19 21:00 02/23/19 08:01 Zovirax PO 400 mg BID CHRISTIANO Administration Albuterol/Ipratropium 3 ml 02/09/19 11:00 02/23/19 07:44 Duoneb NEB 3 ml [id number] CHRISTIANO Administration Alteplase, Recombinant 2 mg 02/09/19 07:45 02/19/19 00:53 Cathflo CATH 2 mg WILLCALL CHRISTIANO Administration Dexamethasone 4 mg 02/09/19 08:00 02/23/19 08:01 Decadron PO 4 mg QAM-WM CHRISTIANO Administration Famotidine 20 mg 01/19/19 21:00 02/23/19 08:00 Pepcid PO Not Given BID CHRISTIANO Folic Acid 1 mg 01/25/19 09:00 02/23/19 08:01 Folvite PO 1 mg DAILY CHRISTIANO Administration Micafungin Sodium 100 mg/ 100 mls @ 100 mls/hr 02/22/19 08:00 02/23/19 08:46 Sodium Chloride IVPB 100 mls 0800 CHRISTIANO Administration Meropenem 1 gm/ Device 50 mls @ 200 mls/hr 02/22/19 14:00 02/23/19 05:56 IVPB 50 mls Q8HR CHRISTIANO Administration Linezolid 600 mg/ Device 300 mls @ 150 mls/hr 02/22/19 13:00 02/23/19 01:32 IVPB 300 mls 0100,1300 CHRISTIANO Administration Lisinopril 20 mg 01/19/19 21:00 02/23/19 08:00 Zestril PO 20 mg BID CHRISTIANO Administration Ondansetron HCl 4 mg 01/19/19 16:46 02/19/19 20:14 Zofran Odt PO 4 mg Q6H PRN Administration Nausea/Vomiting Ondansetron HCl 4 mg 01/19/19 16:46 02/09/19 20:12 Zofran IVP 4 mg Q6H PRN Administration Nausea/Vomiting Pantoprazole Sodium 40 mg 02/03/19 09:00 02/23/19 08:00 Protonix PO 40 mg DAILY CHRISTIANO Administration Senna/Docusate Sodium 2 tab 01/19/19 16:46 02/07/19 10:37 Senokot S PO 2 tab BIDPRN PRN Administration Constipation Sodium Chloride 10 ml 02/17/19 07:42 02/20/19 08:22 Flush - Normal Saline IVF 10 ml PRN PRN Administration Saline Flush Trimethoprim/Sulfamethoxazole 30 ml 02/20/19 22:00 02/23/19 07:24 Bactrim PO 30 ml Q8HR CHRISTIANO Administration - Exam General Appearance: NAD, awake alert Eye: PERRL, anicteric sclera ENT: normocephalic atraumatic, no oropharyngeal lesions, dry oral mucosa Neck: supple, symmetric, no JVD, no thyromegaly Heart: RRR, no murmur, no gallops, no rubs Respiratory: CTAB, no wheezes, no rales, no ronchi Gastrointestinal: soft, non-tender, non-distended, normal bowel sounds Extremities: no cyanosis, no clubbing, no edema Skin: normal turgor, no lesions, no rashes Neurological: cranial nerve grossly intact Neurological - other findings: left upper arm and left leg weakness improved Musculoskeletal: normal tone, normal strength, no muscle wasting Psychiatric: normal affect, normal behavior, A&O x 3 Hosp A/P - Plan Chest CT: cardiomegaly with vascular congestion. Perihilar ground-glass opacities consistent with edema. CT brain: intra-axial mass in the right frontal lobe. Vasogenic edema, mass effect and right to left subfalcine herniation. Chest Xray 02/21: bilateral infiltrates MRI brain: large right frontal lobe mass. Possibly large meningioma This is 73 year old male with AML presenting with neutropenic fever #Neutropenic fever secondary to chemotherapy from AML #Positive pneumocystis #Sepsis from enterococcus bacteremia vs Klebsiella UTI vs pneumonia - patient spiked a fever to 102 yesterday, blood cultures growing enterococcus from 02/21. Urine culture grew Klebsiella. Blood cultures from 01/19, 01/20, 02/13 were negative. - currently restarted linezolid, meropenem, acyclovir and micafungin 02/22. Awaiting speciation - may need 2 weeks of IV antibiotics #Brain mass with vasogenic edema - on steroids - worked up previously at [facility] -MRI brain ordered and showed no stroke. Has large right frontal lobe mass. #Thrombocytopenia - platelets 56 today, continue to monitor - got platelet transfusion on 02/20 #Anemia of chronic disease - hemoglobin of 7.4, - vitamin B12/folate normal - iron panel consistent with anemia of chronic disease #Hypertension - continue lisinopril #Physical deconditioning - appreciate PT and OT Dispo: pending speciation of enterococcal bacteremia Code status: DNR
--- NOTE | 2019-02-23 11:34 | PDOC.MOPN ---
Interval History: about the same. - Vital Signs Vital Signs: Vital Signs (12 hours) Temp Pulse Resp BP BP Pulse Ox 02/23/19 10:58 118 H 18 94 L 02/23/19 08:00 138/79 94 L 02/23/19 07:52 99.1 F 94 16 138/79 94 L 02/23/19 07:44 93 16 94 L 02/23/19 04:16 98.3 F 02/23/19 00:46 98.9 F Weight Admit Weight 151 lb 9.6 oz Weight 166 lb 6.4 oz Most Recent Monitor Data Heart Rate from ECG 93 NIBP 167/103 NIBP BP-Mean 124 Respiration from ECG 29 SpO2 100 - Physical Exam General: Alert HEENT: Atraumatic Lungs: Clear to auscultation Cardiovascular: Regular rate Abdomen: Normal bowel sounds Extremities: No edema Skin: No rashes Neurological: Other - Labs Result Diagrams: 02/23/19 06:07 02/23/19 06:07 Lab results: Laboratory Results - last 24 hr 02/23/19 06:07: Ferritin 3805.64 H 02/23/19 06:07: Sodium 133 L, Potassium 4.4, Chloride 103, Carbon Dioxide 22 L, Anion Gap 12, BUN 19, Creatinine 0.69 L, Estimated GFR (MDRD) Greater than 90, Glucose 119 H, Calcium 8.7, Iron 113, TIBC 138 L, % Saturation 82 H 02/23/19 06:07: WBC 0.2 L*, RBC 2.39 L, Hgb 7.4 L, Hct 21.6 L, MCV 90.3, MCH 30.9, MCHC 34.2, RDW 12.2, Plt Count 26 L*, MPV 9.5, Neutrophils % (Manual) Not Reportable, Neutrophils # Not Reportable, Lymphocytes # Not Reportable, Plt Morphology Comment Appears Decreased L, Polychromasia SLIGHT = 2-3 cells, Ovalocytes SLIGHT = 2-5 cells Status: lab reviewed by me A/P - Problem (1) AML (acute myeloblastic leukemia) Current Visit: Yes Code(s): C92.00 - ACUTE MYELOBLASTIC LEUKEMIA, NOT HAVING ACHIEVED REMISSION Status: Chronic (2) Neutropenic sepsis Current Visit: Yes Code(s): A41.9 - SEPSIS, UNSPECIFIED ORGANISM; D70.9 - NEUTROPENIA, UNSPECIFIED Status: Acute (3) Pancytopenia Current Visit: Yes Code(s): D61.818 - OTHER PANCYTOPENIA Status: Acute - Plan Plan: continue Micafungin and Meropenem as per Dr. Colón continue Bactrim and steroids transfuse prn Hb < 7 or Plts < 10 If pts WBC improve hopefully he can clear his infections and be transferred to a swing bed or SNF
[2019-02-23] MEDS: Acetaminophen 325 MG TAB PO PRN (12:02)
--- NOTE | 2019-02-23 17:58 | PRG ---
DATE OF SERVICE: 02/23/2019 SUBJECTIVE: Mr. Crooks is awake. Appears quite alert. No sore throat. No dyspnea or cough. No chest pain. No abdominal pain. He is voiding without problems. OBJECTIVE: VITAL SIGNS: T-max was 102 yesterday at 3 p.m., seems to have defervesced since. Blood pressure 120/70, pulse 100, respiratory rate 16, and O2 saturation 94. GENERAL: Appears in no distress, establishes eye contact. HEENT: Ocular movements conjugate. Sclerae white. LUNGS: Symmetric air entry. No crackles or wheezing noted. HEART: S1 and S2, regular rate. ABDOMEN: Soft, not distended or tender. No bladder distention. Moves all extremities on command. LABORATORY DATA: White cell count is at 0.2 for the 2nd day, hemoglobin 7.4, and platelets 26,000. Sodium 133, creatinine 0.69, and ferritin 3800. The patient had an MRI of the brain to evaluate that lesion and showed that is likely meningioma in the right frontal lobe area, it is probably a chronic slow-growing tumor. ASSESSMENT AND DISCUSSION: Acute myelogenous leukemia with venetoclax and persistent neutropenia, frontal lobe mass, possible meningioma, fever with initial response of broad-spectrum coverage and then recrudescence with diffuse pulmonary infiltrates and positive Pneumocystis in next-generation sequencing test, which improved on Bactrim and now Enterococcus faecium bacteremia with possibility of colonization of the port. Currently, on Zyvox. Zyvox is associated with anemia and thrombocytopenia and may have to switch him to daptomycin to finish course of therapy, I am not planning to continue Zyvox for too many days. Again, I am waiting on improvement of his neutrophil count. Job ID: [id number] [facility]
[2019-02-24] MEDS: Linezolid 600 MG in Premix Bag 1 BAG IVPB SCH ×2 (00:40→13:39)
[2019-02-24] MEDS: MEROPENEM 1 GM/50 ML 1 GM in Premix Bag 1 BAG IVPB SCH (05:26)
[2019-02-24] MEDS: SMX/TMP 800-160mg/20 ML UDCUP PO SCH ×3 (05:26→21:26)
[2019-02-24 06:00] LABS: Hemoglobin 6.3 g/dL (14.0-18.0); Mean Corpuscular HGB CONC 33.7 g/dL (32.0-36.0); Mean Corpuscular Volume 89.2 fL (78.0-98.0); Mean Platelet Volume 12.2 fL (7.4-10.4); Platelet Count 10 thou/uL (130-400); Red Blood Cell (RBC) Count 2.11 mill/uL (4.70-6.10); White Blood Cell (WBC) Count 0.2 thou/uL (4.8-10.8)
[2019-02-24 06:11] LABS: ALT (SGPT) 45 U/L (8-55); AST (SGOT) 23 U/L (5-34); Alkaline Phosphatase 117 U/L (40-110); Anion Gap 13 mmol/L (10-20); BUN (Urea Nitrogen) 18 mg/dL (8.4-25.7); Bilirubin, Total 0.6 mg/dL (0.2-1.2); Calc. Creatinine Clearance 99 mL/min (70-130); Calcium 8.7 mg/dL (7.8-10.44); Carbon Dioxide 22 mmol/L (23-31); Chloride 101 mmol/L (98-107); Estimated GFR-MDRD Greater than 90; Globulin 4.1 g/dL (2.4-3.5); Glucose 95 mg/dL (83-110); Potassium 4.5 mmol/L (3.5-5.1); Protein, Total 7.1 g/dL (5.8-8.1); Sodium 131 mmol/L (136-145)
[2019-02-24 06:17] LABS: Platelet Morphology Comment Appears Decreased
[2019-02-24] MEDS: Dexamethasone 4 MG TAB PO SCH (08:38)
[2019-02-24] MEDS: Folic Acid 1 MG TAB PO SCH (08:38)
[2019-02-24] MEDS: Acyclovir 400 mg Tablet PO SCH ×2 (08:39→20:26)
[2019-02-24] MEDS: Micafungin 100 MG in Sodium Chloride 0.9% 100 ML IVPB SCH (08:40)
[2019-02-24] MEDS: Lisinopril 20 MG TAB PO SCH ×2 (08:42→20:22)
[2019-02-24] MEDS: Famotidine 20 MG TAB PO SCH ×2 (09:00→20:23)
--- NOTE | 2019-02-24 10:43 | PDOC.HOSPP ---
- Subjective Encounter Date: 02/24/19 Encounter Time: 10:42 Subjective: The patient has no complaints. No fevers, chills or cough. Relatively non- verbal Platelets 10 today, per oncology okay to transfuse Hb also 6.9 - Objective Vital Signs & Weight: Vital Signs (12 hours) Temp Pulse Resp BP BP BP Pulse Ox 02/24/19 08:42 130/79 02/24/19 08:00 99.1 F 88 18 133/76 123/77 95 02/24/19 04:30 98.8 F 02/24/19 00:06 98.9 F Weight Admit Weight 151 lb 9.6 oz Weight 166 lb 6.4 oz Most Recent Monitor Data Heart Rate from ECG 93 NIBP 167/103 NIBP BP-Mean 124 Respiration from ECG 29 SpO2 100 I&O: 02/23/19 02/24/19 02/25/19 06:59 06:59 06:59 Intake Total 1050 1100 Balance 1050 1100 Result Diagrams: 02/24/19 05:33 02/24/19 05:33 Hospitalist ROS - Medication Medications: Active Medications Generic Name Dose Route Start Last Admin Trade Name Freq PRN Reason Stop Dose Admin Acetaminophen 650 mg 01/19/19 16:46 02/23/19 12:02 Tylenol PO 650 mg Q4H PRN Administration Headache/Fever/Mild Pain (1-3) Acetaminophen 650 mg 01/25/19 15:29 02/22/19 03:36 Tylenol MS 650 mg Q4H PRN Administration Headache/Fever or Pain Acyclovir 400 mg 01/19/19 21:00 02/24/19 08:39 Zovirax PO 400 mg BID CHRISTIANO Administration Alteplase, Recombinant 2 mg 02/09/19 07:45 02/19/19 00:53 Cathflo CATH 2 mg WILLCALL CHRISTIANO Administration Dexamethasone 4 mg 02/09/19 08:00 02/24/19 08:38 Decadron PO 4 mg QAM-WM CHRISTIANO Administration Famotidine 20 mg 01/19/19 21:00 02/23/19 20:51 Pepcid PO Not Given BID CHRISTIANO Folic Acid 1 mg 01/25/19 09:00 02/24/19 08:38 Folvite PO 1 mg DAILY CHRISTIANO Administration Micafungin Sodium 100 mg/ 100 mls @ 100 mls/hr 02/22/19 08:00 02/24/19 08:40 Sodium Chloride IVPB 100 mls 0800 CHRISTIANO Administration Meropenem 1 gm/ Device 50 mls @ 200 mls/hr 02/22/19 14:00 02/24/19 05:26 IVPB 50 mls Q8HR CHRISTIANO Administration Linezolid 600 mg/ Device 300 mls @ 150 mls/hr 02/22/19 13:00 02/24/19 00:40 IVPB 300 mls 0100,1300 CHRISTIANO Administration Lisinopril 20 mg 01/19/19 21:00 02/24/19 08:42 Zestril PO 20 mg BID CHRISTIANO Administration Ondansetron HCl 4 mg 01/19/19 16:46 02/19/19 20:14 Zofran Odt PO 4 mg Q6H PRN Administration Nausea/Vomiting Ondansetron HCl 4 mg 01/19/19 16:46 02/09/19 20:12 Zofran IVP 4 mg Q6H PRN Administration Nausea/Vomiting Pantoprazole Sodium 40 mg 02/03/19 09:00 02/24/19 08:39 Protonix PO 40 mg DAILY CHRISTIANO Administration Senna/Docusate Sodium 2 tab 01/19/19 16:46 02/07/19 10:37 Senokot S PO 2 tab BIDPRN PRN Administration Constipation Sodium Chloride 10 ml 02/17/19 07:42 02/20/19 08:22 Flush - Normal Saline IVF 10 ml PRN PRN Administration Saline Flush Trimethoprim/Sulfamethoxazole 30 ml 02/20/19 22:00 02/24/19 05:26 Bactrim PO 30 ml Q8HR CHRISTIANO Administration - Exam General Appearance: NAD, awake alert Eye: PERRL, anicteric sclera ENT: normocephalic atraumatic, no oropharyngeal lesions Neck: supple, symmetric, no JVD, no thyromegaly Heart: RRR, no murmur, no gallops, no rubs Respiratory: CTAB, no wheezes, no rales, no ronchi Gastrointestinal: soft, non-tender, non-distended, normal bowel sounds Extremities: no cyanosis, no clubbing, no edema Skin: normal turgor, no lesions, no rashes Neurological: cranial nerve grossly intact, normal sensation to touch, no focal deficits, no new deficit Neurological - other findings: left sided weakness upper and lower extremity Musculoskeletal: normal tone, normal strength, no muscle wasting Psychiatric: normal affect, normal behavior, A&O x 3, oriented to person Hosp A/P - Plan Chest CT: cardiomegaly with vascular congestion. Perihilar ground-glass opacities consistent with edema. CT brain: intra-axial mass in the right frontal lobe. Vasogenic edema, mass effect and right to left subfalcine herniation. Chest Xray 02/21: bilateral infiltrates MRI brain: large right frontal lobe mass. Possibly large meningioma This is 73 year old male with AML presenting with neutropenic fever #Sepsis from VRE bacteremia vs Klebsiella UTI vs pneumonia #Neutropenic fever secondary to chemotherapy from AML #Positive pneumocystis - patient spiked a fever to 102, blood cultures growing enterococcus from 02/21. Urine culture grew Klebsiella. Blood cultures from 01/19, 01/20, 02/13 were negative. -on linezolid, meropenem, acyclovir and micafungin 02/22. Blood culture growing VRE. Will d/c meropenem per ID, continue bactrim for PCP - may need 2 weeks of IV antibiotics #Brain mass with vasogenic edema - on steroids - worked up previously at [facility] -MRI brain ordered and showed no stroke. Has large right frontal lobe mass. #Thrombocytopenia - platelets 10 today, will order one unit of platelet apheresis #Anemia of chronic disease - hemoglobin of 6.9, transfuse 2 units of blood - vitamin B12/folate normal - iron panel consistent with anemia of chronic disease #Hypertension - continue lisinopril #Physical deconditioning - appreciate PT and OT Dispo: pending speciation of enterococcal bacteremia Code status: DNR
--- NOTE | 2019-02-24 11:36 | PDOC.MOPN ---
Interval History: Sleepy today. Breathing unlabored. - Vital Signs Vital Signs: Vital Signs (12 hours) Temp Pulse Resp BP BP BP Pulse Ox 02/24/19 08:42 130/79 02/24/19 08:00 99.1 F 88 18 133/76 123/77 95 02/24/19 04:30 98.8 F 02/24/19 00:06 98.9 F Weight Admit Weight 151 lb 9.6 oz Weight 166 lb 6.4 oz Most Recent Monitor Data Heart Rate from ECG 93 NIBP 167/103 NIBP BP-Mean 124 Respiration from ECG 29 SpO2 100 - Physical Exam General: No acute distress HEENT: Atraumatic, PERRLA, EOMI, Mucous membr. moist/pink Lungs: Clear to auscultation, Normal air movement Cardiovascular: Regular rate, Normal S1, Normal S2, No murmurs, Gallops, Rubs Abdomen: Normal bowel sounds, Soft, No tenderness, No hepatospenomegaly, No masses Neurological: Other - Labs Result Diagrams: 02/24/19 05:33 02/24/19 05:33 Lab results: Laboratory Results - last 24 hr 02/24/19 05:33: Sodium 131 L, Potassium 4.5, Chloride 101, Carbon Dioxide 22 L, Anion Gap 13, BUN 18, Creatinine 0.70, Estimated GFR (MDRD) Greater than 90, Glucose 95, Calcium 8.7, Total Bilirubin 0.6, AST 23, ALT 45, Alkaline Phosphatase 117 H, Serum Total Protein 7.1, Albumin 3.0 L, Globulin 4.1 H, Albumin/Globulin Ratio 0.7 L 02/24/19 05:33: WBC 0.2 L*, RBC 2.11 L, Hgb 6.3 L, Hct 18.8 L, MCV 89.2, MCH 30.0, MCHC 33.7, RDW 12.0, Plt Count 10 L*, MPV 12.2 H, Neutrophils % (Manual) Not Reportable, Neutrophils # Not Reportable, Lymphocytes # Not Reportable, Plt Morphology Comment Appears Decreased L Status: lab reviewed by me A/P - Problem (1) AML (acute myeloblastic leukemia) Current Visit: Yes Code(s): C92.00 - ACUTE MYELOBLASTIC LEUKEMIA, NOT HAVING ACHIEVED REMISSION Status: Chronic (2) Neutropenic sepsis Current Visit: Yes Code(s): A41.9 - SEPSIS, UNSPECIFIED ORGANISM; D70.9 - NEUTROPENIA, UNSPECIFIED Status: Acute (3) Pancytopenia Current Visit: Yes Code(s): D61.818 - OTHER PANCYTOPENIA Status: Acute - Plan Plan: transfuse platelets and PRBC's today continue abx per Dr. Colón Daily CBC.
[2019-02-24] MEDS: Acetaminophen 325 MG TAB PO PRN (20:22)
[2019-02-25] MEDS: Linezolid 600 MG in Premix Bag 1 BAG IVPB SCH (01:04)
[2019-02-25] MEDS: SMX/TMP 800-160mg/20 ML UDCUP PO SCH (06:37)
[2019-02-25 06:59] LABS: Hemoglobin 10.8 g/dL (14.0-18.0); Mean Corpuscular HGB CONC 34.1 g/dL (32.0-36.0); Mean Corpuscular Hemoglobin 30.3 pg (27.0-31.0); Mean Corpuscular Volume 88.8 fL (78.0-98.0); Platelet Count 24 thou/uL (130-400); RBC Distribution Width 11.9 % (11.5-14.5); Red Blood Cell (RBC) Count 3.56 mill/uL (4.70-6.10); White Blood Cell (WBC) Count 0.1 thou/uL (4.8-10.8)
[2019-02-25 07:23] LABS: ALT (SGPT) 46 U/L (8-55); AST (SGOT) 19 U/L (5-34); Albumin 3.2 g/dL (3.4-4.8); Alkaline Phosphatase 128 U/L (40-110); Anion Gap 14 mmol/L (10-20); BUN (Urea Nitrogen) 16 mg/dL (8.4-25.7); Bilirubin, Total 1.3 mg/dL (0.2-1.2); Calc. Creatinine Clearance 108 mL/min (70-130); Calcium 9.1 mg/dL (7.8-10.44); Carbon Dioxide 21 mmol/L (23-31); Chloride 101 mmol/L (98-107); Estimated GFR-MDRD Greater than 90; Globulin 4.5 g/dL (2.4-3.5); Glucose 93 mg/dL (83-110); Potassium 4.5 mmol/L (3.5-5.1); Protein, Total 7.7 g/dL (5.8-8.1); Sodium 131 mmol/L (136-145)
[2019-02-25 07:26] LABS: MDiff Complete? YES; Platelet Morphology Comment Appears Decreased; Polychromasia SLIGHT = 2-3 cells (100X) (0-2/hpf); Rouleaux Formation SLIGHT = 1-5 cells (100X) (None Seen)
[2019-02-25] MEDS: Micafungin 100 MG in Sodium Chloride 0.9% 100 ML IVPB SCH (08:41)
[2019-02-25] MEDS: Acyclovir 400 mg Tablet PO SCH ×2 (08:42→21:21)
[2019-02-25] MEDS: Lisinopril 20 MG TAB PO SCH ×2 (08:42→21:22)
[2019-02-25] MEDS: Dexamethasone 4 MG TAB PO SCH (08:42)
[2019-02-25] MEDS: Famotidine 20 MG TAB PO SCH ×2 (08:42→21:22)
[2019-02-25] MEDS: Folic Acid 1 MG TAB PO SCH (08:42)
--- NOTE | 2019-02-25 10:32 | RAD ---
Exam: 2 views abdomen HISTORY: Abdominal pain. COMPARISON: none FINDINGS: Supine and left lateral decubitus view of the abdomen demonstrate a nonspecific bowel gas p attern. No suspicious densities in the abdomen or pelvis. No significant differential air-fluid levels. No pneumoperitoneum. IMPRESSION: Nonspecific bowel gas pattern.
[2019-02-25] MEDS: Acetaminophen 325 MG TAB PO PRN (10:45)
--- NOTE | 2019-02-25 11:22 | PDOC.HOSPP ---
- Subjective Encounter Date: 02/25/19 Encounter Time: 11:20 Subjective: The patient had some abdominal pain per relative in [place]. Patient denies any, he is more non-verbal. Not lifting up his extremities, unclear if its from worsening weakness, or lethargy . Patient not verbal Abdominal Xray negative - Objective Vital Signs & Weight: Vital Signs (12 hours) Temp Pulse Pulse Resp BP BP Pulse Ox 02/25/19 08:42 156/86 H 02/25/19 08:00 99.2 F 88 16 95 02/25/19 01:00 97.8 F 86 16 149/82 H Weight Admit Weight 151 lb 9.6 oz Weight 166 lb 6.4 oz Most Recent Monitor Data Heart Rate from ECG 93 NIBP 167/103 NIBP BP-Mean 124 Respiration from ECG 29 SpO2 100 I&O: 02/24/19 02/25/19 02/26/19 06:59 06:59 06:59 Intake Total 1100 700 240 Balance 1100 700 240 Result Diagrams: 02/25/19 06:48 02/25/19 06:48 Hospitalist ROS - Review of Systems Constitutional: denies: fever, chills Respiratory: denies: cough - Medication Medications: Active Medications Generic Name Dose Route Start Last Admin Trade Name Freq PRN Reason Stop Dose Admin Acetaminophen 650 mg 01/19/19 16:46 02/25/19 10:45 Tylenol PO 650 mg Q4H PRN Administration Headache/Fever/Mild Pain (1-3) Acetaminophen 650 mg 01/25/19 15:29 02/22/19 03:36 Tylenol ME 650 mg Q4H PRN Administration Headache/Fever or Pain Acyclovir 400 mg 01/19/19 21:00 02/25/19 08:42 Zovirax PO 400 mg BID CHRISTIANO Administration Alteplase, Recombinant 2 mg 02/09/19 07:45 02/19/19 00:53 Cathflo CATH 2 mg WILLCALL CHRISTIANO Administration Dexamethasone 4 mg 02/09/19 08:00 02/25/19 08:42 Decadron PO 4 mg QAM-WM CHRISTIANO Administration Famotidine 20 mg 01/19/19 21:00 02/25/19 08:42 Pepcid PO 20 mg BID CHRISTIANO Administration Folic Acid 1 mg 01/25/19 09:00 02/25/19 08:42 Folvite PO 1 mg DAILY CHRISTIANO Administration Micafungin Sodium 100 mg/ 100 mls @ 100 mls/hr 02/22/19 08:00 02/25/19 08:41 Sodium Chloride IVPB 100 mls 0800 CHRISTIANO Administration Linezolid 600 mg/ Device 300 mls @ 150 mls/hr 02/22/19 13:00 02/25/19 01:04 IVPB 300 mls 0100,1300 CHRISTIANO Administration Lisinopril 20 mg 01/19/19 21:00 02/25/19 08:42 Zestril PO 20 mg BID CHRISTIANO Administration Ondansetron HCl 4 mg 01/19/19 16:46 02/19/19 20:14 Zofran Odt PO 4 mg Q6H PRN Administration Nausea/Vomiting Ondansetron HCl 4 mg 01/19/19 16:46 02/09/19 20:12 Zofran IVP 4 mg Q6H PRN Administration Nausea/Vomiting Pantoprazole Sodium 40 mg 02/03/19 09:00 02/25/19 08:42 Protonix PO 40 mg DAILY CHRISTIANO Administration Senna/Docusate Sodium 2 tab 01/19/19 16:46 02/07/19 10:37 Senokot S PO 2 tab BIDPRN PRN Administration Constipation Sodium Chloride 10 ml 02/17/19 07:42 02/25/19 08:42 Flush - Normal Saline IVF 10 ml PRN PRN Administration Saline Flush - Exam General Appearance: NAD, awake alert Eye: PERRL, anicteric sclera ENT: normocephalic atraumatic, no oropharyngeal lesions Neck: supple, symmetric, no JVD, no thyromegaly Heart: RRR, no murmur, no gallops, no rubs Respiratory: CTAB, no wheezes Gastrointestinal: soft, non-tender, non-distended, normal bowel sounds Extremities: no cyanosis, no clubbing, no edema Skin: normal turgor, no lesions, no rashes Neurological: cranial nerve grossly intact, normal sensation to touch, no focal deficits, no new deficit Musculoskeletal: normal tone, normal strength, no muscle wasting Psychiatric: normal affect, flat affect Hosp A/P - Plan Chest CT: cardiomegaly with vascular congestion. Perihilar ground-glass opacities consistent with edema. CT brain: intra-axial mass in the right frontal lobe. Vasogenic edema, mass effect and right to left subfalcine herniation. Chest Xray 02/21: bilateral infiltrates MRI brain: large right frontal lobe mass. Possibly large meningioma This is 73 year old male with AML presenting with neutropenic fever #Sepsis from VRE bacteremia vs Klebsiella UTI vs pneumonia #Neutropenic fever secondary to chemotherapy from AML #Positive pneumocystis - patient spiked a fever to 102 on the , blood cultures growing enterococcus from 02/21. Urine culture grew Klebsiella. Blood cultures from 01/19 , 01/20, 02/13 were negative. - was restarted on linezolid and meropenem, but meropenem discontinued on . Due to thrombocytopenia that occurred on 02/24, will switch antibiotics to daptomycin 10 mg/kg, and rocephin 2 gram q12 hour per ID recommendations - WBC 0.1, per Dr. Mckee cannot give neulasta since it may cause AML clones to proliferate #Brain mass with vasogenic edema - on steroids - worked up previously at [facility] -MRI brain ordered and showed no stroke. Has large right frontal lobe mass. Will repeat CT head due to worsening weakness #Thrombocytopenia - platelets improved to 24, s/p platelet transfusion #Anemia of chronic disease from AML and chemotherapy - s/p 2 units PRBC on 02/24, hemoglobin 10 today - vitamin B12/folate normal - iron panel consistent with anemia of chronic disease #Hypertension - continue lisinopril #Physical deconditioning - appreciate PT and OT Dispo: pending improvement in white blood cell count Code status: DNR
--- NOTE | 2019-02-25 12:03 | CT ---
CT Brain WO Con HISTORY: Twisting weakness, brain mass COMPARISON: 01/25/2019 CORRELATION: MRI from previous day FINDINGS: The large extra-axial right anterior frontal mass is again seen with stable midline shift and surrounding vasogenic edema. No acute hemorrhage or infarction is seen. IMPRESSION: Large extra-axial right frontal mass with midline shift and adjacent edema likely represe nting an aggressive meningioma.
[2019-02-25] MEDS: cefTRIAXone\\ROCEPHIN 2 GM in Sodium Chloride 0.9% 100 ML IVPB SCH (14:12)
[2019-02-25] MEDS: Sulfameth/Trimethoprim DS 800-160mg TAB PO SCH ×2 (14:13→21:21)
--- NOTE | 2019-02-25 15:11 | PDOC.MOPN ---
Interval History: responds to questions. No pain at this time. - Vital Signs Vital Signs: Vital Signs (12 hours) Temp Pulse Resp BP BP Pulse Ox 02/25/19 12:30 99.9 F H 90 18 134/77 94 L 02/25/19 08:42 156/86 H 02/25/19 08:00 99.2 F 88 16 95 Weight Admit Weight 151 lb 9.6 oz Weight 166 lb 6.4 oz Most Recent Monitor Data Heart Rate from ECG 93 NIBP 167/103 NIBP BP-Mean 124 Respiration from ECG 29 SpO2 100 - Physical Exam General: Alert HEENT: Atraumatic, PERRLA, EOMI, Mucous membr. moist/pink Lungs: Clear to auscultation, Normal air movement Cardiovascular: Regular rate, Normal S1, Normal S2, No murmurs, Gallops, Rubs Abdomen: Normal bowel sounds, Soft, No tenderness, No hepatospenomegaly, No masses Extremities: No clubbing, No cyanosis, No edema, Normal pulses, No tenderness/ swelling Skin: No rashes, No breakdown, No significant lesion Neurological: Normal gait, Normal speech, Strength at 5/5 X4 ext, Normal tone, Sensation intact, Cranial nerves 3-12 NL, Reflexes 2+ - Labs Result Diagrams: 02/25/19 06:48 02/25/19 06:48 Lab results: Laboratory Results - last 24 hr 02/25/19 06:48: Sodium 131 L, Potassium 4.5, Chloride 101, Carbon Dioxide 21 L, Anion Gap 14, BUN 16, Creatinine 0.64 L, Estimated GFR (MDRD) Greater than 90, Glucose 93, Calcium 9.1, Total Bilirubin 1.3 H, AST 19, ALT 46, Alkaline Phosphatase 128 H, Serum Total Protein 7.7, Albumin 3.2 L, Globulin 4.5 H, Albumin/Globulin Ratio 0.7 L 02/25/19 06:48: WBC 0.1 L*, RBC 3.56 L, Hgb 10.8 L, Hct 31.6 L, MCV 88.8, MCH 30.3, MCHC 34.1, RDW 11.9, Plt Count 24 L*, MPV 9.0, Neutrophils % (Manual) Not Reportable, Neutrophils # Not Reportable, Lymphocytes # Not Reportable, Plt Morphology Comment Appears Decreased L, Polychromasia SLIGHT = 2-3 cells, Rouleaux SLIGHT = 1-5 cells 02/24/19 12:55: Blood Type O POSITIVE, Antibody Screen NEGATIVE, Crossmatch See Detail Status: lab reviewed by me A/P - Problem (1) AML (acute myeloblastic leukemia) Current Visit: Yes Code(s): C92.00 - ACUTE MYELOBLASTIC LEUKEMIA, NOT HAVING ACHIEVED REMISSION Status: Chronic (2) Neutropenic sepsis Current Visit: Yes Code(s): A41.9 - SEPSIS, UNSPECIFIED ORGANISM; D70.9 - NEUTROPENIA, UNSPECIFIED Status: Acute (3) Pancytopenia Current Visit: Yes Code(s): D61.818 - OTHER PANCYTOPENIA Status: Acute - Plan Plan: continue current treatment. No transfusion today Hopefully to swing bed next week.
[2019-02-26] MEDS: cefTRIAXone\\ROCEPHIN 2 GM in Sodium Chloride 0.9% 100 ML IVPB SCH ×2 (00:30→17:16)
[2019-02-26] MEDS: Sulfameth/Trimethoprim DS 800-160mg TAB PO SCH ×3 (05:43→20:31)
[2019-02-26 06:08] LABS: Hemoglobin 11.4 g/dL (14.0-18.0); Mean Corpuscular HGB CONC 34.7 g/dL (32.0-36.0); Mean Corpuscular Hemoglobin 30.8 pg (27.0-31.0); Mean Corpuscular Volume 88.9 fL (78.0-98.0); Mean Platelet Volume 10.8 fL (7.4-10.4); Platelet Count 10 thou/uL (130-400); RBC Distribution Width 12.2 % (11.5-14.5); White Blood Cell (WBC) Count 0.2 thou/uL (4.8-10.8)
[2019-02-26 06:24] LABS: Elliptocytes SLIGHT = 2-5 cells (100X) (0-1/hpf); Hypochromia SLIGHT = 6-15 cells (100X) (0-5/hpf); MDiff Complete? YES; Platelet Morphology Comment Appears Decreased
[2019-02-26 06:30] LABS: ALT (SGPT) 51 U/L (8-55); AST (SGOT) 21 U/L (5-34); Albumin 3.2 g/dL (3.4-4.8); Alkaline Phosphatase 141 U/L (40-110); Anion Gap 14 mmol/L (10-20); BUN (Urea Nitrogen) 17 mg/dL (8.4-25.7); Bilirubin, Total 0.7 mg/dL (0.2-1.2); Calc. Creatinine Clearance 106 mL/min (70-130); Calcium 8.9 mg/dL (7.8-10.44); Carbon Dioxide 20 mmol/L (23-31); Chloride 101 mmol/L (98-107); Estimated GFR-MDRD Greater than 90; Globulin 4.7 g/dL (2.4-3.5); Glucose 98 mg/dL (83-110); Potassium 4.2 mmol/L (3.5-5.1); Protein, Total 7.9 g/dL (5.8-8.1); Sodium 131 mmol/L (136-145)
[2019-02-26] MEDS: Micafungin 100 MG in Sodium Chloride 0.9% 100 ML IVPB SCH (08:16)
[2019-02-26] MEDS: Famotidine 20 MG TAB PO SCH ×2 (08:17→20:32)
[2019-02-26] MEDS: Acyclovir 400 mg Tablet PO SCH ×2 (08:17→20:31)
[2019-02-26] MEDS: Dexamethasone 4 MG TAB PO SCH (08:17)
[2019-02-26] MEDS: Folic Acid 1 MG TAB PO SCH (08:17)
[2019-02-26] MEDS: Lisinopril 20 MG TAB PO SCH ×2 (08:17→20:31)
[2019-02-26] MEDS: Acetaminophen 650 MG Suppository PR PRN (11:55)
--- NOTE | 2019-02-26 12:19 | PDOC.HOSPP ---
- Subjective Encounter Date: 02/26/19 Encounter Time: 12:16 Subjective: Mr. Crooks was seen today in follow-up of neutropenic fever. He is sitting up in bed. He appears very weak. He denies any complaints when asked, but when asked specifically about his abdomen, he admits to some discomfort. - Objective Vital Signs & Weight: Vital Signs (12 hours) Temp Pulse Resp BP BP Pulse Ox 02/26/19 12:06 98.3 F 103 H 128/77 02/26/19 09:00 98.5 F 119 H 16 153/84 H 92 L 02/26/19 08:17 144/76 H 02/26/19 00:18 99.4 F Weight Admit Weight 151 lb 9.6 oz Weight 166 lb 6.4 oz Most Recent Monitor Data Heart Rate from ECG 93 NIBP 167/103 NIBP BP-Mean 124 Respiration from ECG 29 SpO2 100 I&O: 02/25/19 02/26/19 02/27/19 06:59 06:59 06:59 Intake Total 700 1040 Balance 700 1040 Result Diagrams: 02/26/19 05:47 02/26/19 05:47 Hospitalist ROS - Medication Medications: Active Medications Generic Name Dose Route Start Last Admin Trade Name Freq PRN Reason Stop Dose Admin Acetaminophen 650 mg 01/19/19 16:46 02/25/19 10:45 Tylenol PO 650 mg Q4H PRN Administration Headache/Fever/Mild Pain (1-3) Acetaminophen 650 mg 01/25/19 15:29 02/26/19 11:55 Tylenol DE 650 mg Q4H PRN Administration Headache/Fever or Pain Acyclovir 400 mg 01/19/19 21:00 02/26/19 08:17 Zovirax PO 400 mg BID CHRISTIANO Administration Alteplase, Recombinant 2 mg 02/09/19 07:45 02/19/19 00:53 Cathflo CATH 2 mg WILLCALL CHRISTIANO Administration Dexamethasone 4 mg 02/09/19 08:00 02/26/19 08:17 Decadron PO 4 mg QAM-WM CHRISTIANO Administration Famotidine 20 mg 01/19/19 21:00 02/26/19 08:17 Pepcid PO 20 mg BID CHRISTIANO Administration Folic Acid 1 mg 01/25/19 09:00 02/26/19 08:17 Folvite PO 1 mg DAILY CHRISTIANO Administration Micafungin Sodium 100 mg/ 100 mls @ 100 mls/hr 02/22/19 08:00 02/26/19 08:16 Sodium Chloride IVPB 100 mls 0800 CHRISTIANO Administration Daptomycin 750 mg/ Sodium 100 mls @ 200 mls/hr 02/25/19 14:00 02/25/19 15:09 Chloride IVPB 100 mls 1400 CHRISTIANO Administration Ceftriaxone Sodium 2 gm/ 100 mls @ 200 mls/hr 02/25/19 13:00 02/26/19 00:30 Sodium Chloride IVPB 100 mls 0100,1300 CHRISTIANO Administration Lisinopril 20 mg 01/19/19 21:00 02/26/19 08:17 Zestril PO 20 mg BID CHRISTIANO Administration Ondansetron HCl 4 mg 01/19/19 16:46 02/19/19 20:14 Zofran Odt PO 4 mg Q6H PRN Administration Nausea/Vomiting Ondansetron HCl 4 mg 01/19/19 16:46 02/09/19 20:12 Zofran IVP 4 mg Q6H PRN Administration Nausea/Vomiting Pantoprazole Sodium 40 mg 02/03/19 09:00 02/26/19 08:17 Protonix PO 40 mg DAILY CHRISTIANO Administration Senna/Docusate Sodium 2 tab 01/19/19 16:46 02/07/19 10:37 Senokot S PO 2 tab BIDPRN PRN Administration Constipation Sodium Chloride 10 ml 02/17/19 07:42 02/26/19 08:18 Flush - Normal Saline IVF 10 ml PRN PRN Administration Saline Flush Trimethoprim/Sulfamethoxazole 1.5 tab 02/25/19 14:00 02/26/19 05:43 Bactrim Ds PO 1.5 tab Q8HR CHRISTIANO Administration - Exam Eye: PERRL Heart: RRR, no murmur, no gallops, no rubs, normal peripheral pulses Respiratory: CTAB, no wheezes, no rales, no ronchi, normal chest expansion, no tachypnea, normal percussion Gastrointestinal: soft, non-tender, non-distended, normal bowel sounds, no palpable masses, no hepatomegaly Extremities: no cyanosis Hosp A/P (1) Neutropenic fever Code(s): D70.9 - NEUTROPENIA, UNSPECIFIED; R50.81 - FEVER PRESENTING WITH CONDITIONS CLASSIFIED ELSEWHERE Status: Acute (2) AML (acute myeloblastic leukemia) Code(s): C92.00 - ACUTE MYELOBLASTIC LEUKEMIA, NOT HAVING ACHIEVED REMISSION Status: Chronic (3) Diastolic dysfunction Code(s): I51.89 - OTHER ILL-DEFINED HEART DISEASES Status: Chronic (4) HTN (hypertension) Code(s): I10 - ESSENTIAL (PRIMARY) HYPERTENSION Status: Chronic (5) Muscular deconditioning Code(s): R29.898 - OTH SYMPTOMS AND SIGNS INVOLVING THE MUSCULOSKELETAL SYSTEM Status: Chronic (6) Pancytopenia Code(s): D61.818 - OTHER PANCYTOPENIA Status: Acute - Plan * Neutropenic fever- he has been afebrile. Blood cultures grew VRE- and he is receiving Daptomycin IV for this * Abdominal pain- ? etiology- KUB was negative- his symptoms appear mild- will add * Pancytopenia- persists- likely from AML * HTN- blood pressure is stable overall * Chronic diastolic heart failure- compensated * Awaiting placement
--- NOTE | 2019-02-26 12:55 | PDOC.MOPN ---
Interval History: no bleeding, no f /c - Vital Signs Vital Signs: Vital Signs (12 hours) Temp Pulse Resp BP BP Pulse Ox 02/26/19 12:06 98.3 F 103 H 128/77 02/26/19 09:00 98.5 F 119 H 16 153/84 H 92 L 02/26/19 08:17 144/76 H Weight Admit Weight 151 lb 9.6 oz Weight 166 lb 6.4 oz Most Recent Monitor Data Heart Rate from ECG 93 NIBP 167/103 NIBP BP-Mean 124 Respiration from ECG 29 SpO2 100 - Physical Exam General: Alert, No acute distress, Other (chronically ill appearing) Lungs: Clear to auscultation Cardiovascular: Regular rate Abdomen: Normal bowel sounds Extremities: No clubbing Neurological: Normal speech - Labs Result Diagrams: 02/26/19 05:47 02/26/19 05:47 Lab results: Laboratory Results - last 24 hr 02/26/19 05:47: Sodium 131 L, Potassium 4.2, Chloride 101, Carbon Dioxide 20 L, Anion Gap 14, BUN 17, Creatinine 0.65 L, Estimated GFR (MDRD) Greater than 90, Glucose 98, Calcium 8.9, Total Bilirubin 0.7, AST 21, ALT 51, Alkaline Phosphatase 141 H, Serum Total Protein 7.9, Albumin 3.2 L, Globulin 4.7 H, Albumin/Globulin Ratio 0.7 L 02/26/19 05:47: WBC 0.2 L*, RBC 3.70 L, Hgb 11.4 L, Hct 32.9 L, MCV 88.9, MCH 30.8, MCHC 34.7, RDW 12.2, Plt Count 10 L*, MPV 10.8 H, Neutrophils % (Manual) Not Reportable, Neutrophils # Not Reportable, Lymphocytes # Not Reportable, Hypochromia SLIGHT = 6-15 cells, Plt Morphology Comment Appears Decreased L, Elliptocytes SLIGHT = 2-5 cells A/P - Problem (1) Muscular deconditioning Current Visit: Yes Code(s): R29.898 - OTH SYMPTOMS AND SIGNS INVOLVING THE MUSCULOSKELETAL SYSTEM Status: Chronic (2) AML (acute myeloblastic leukemia) Current Visit: Yes Code(s): C92.00 - ACUTE MYELOBLASTIC LEUKEMIA, NOT HAVING ACHIEVED REMISSION Status: Chronic (3) Neutropenic sepsis Current Visit: Yes Code(s): A41.9 - SEPSIS, UNSPECIFIED ORGANISM; D70.9 - NEUTROPENIA, UNSPECIFIED Status: Acute (4) Pancytopenia Current Visit: Yes Code(s): D61.818 - OTHER PANCYTOPENIA Status: Acute - Plan Plan: 1. transfuse plts 2. cont neutropenic precautions
[2019-02-26] MEDS: Donnatal Elixir 16.2 MG/5 ML UDCUP PO SCH ×3 (13:50→20:31)
--- NOTE | 2019-02-26 15:11 | PRG ---
DATE OF SERVICE: 02/26/2019 SUBJECTIVE: The patient is sitting up by the bedside for the first time. He is wide awake, appears to be comfortable at rest. He denies any headaches. No shortness of breath. No cough. No abdominal pain. OBJECTIVE: VITAL SIGNS: T-max 99.4, blood pressure 128/77, pulse 103, respirations 16, and O2 saturation 92 to 95. GENERAL: Appears in no distress. HEENT: Pale conjunctivae. Ocular movements conjugate. Pupils are equal. Oral cavity is moist. LUNGS: With fairly clear breath sounds. HEART: S1 and S2, regular rate. ABDOMEN: Soft, not distended or tender. No ascites. No bladder distention. He is voiding in the briefs. Cachexia is noted, which is quite intense. LABORATORY DATA: White cell count is at 0.2, hemoglobin 11.4 platelets 10,000. Sodium 131, creatinine 0.65. Transaminases normal. Alkaline phosphatase 141. ASSESSMENT AND DISCUSSION: Acute myelogenous leukemia, treated with venetoclax and persistent neutropenia, frontal lobe mass, possible meningioma, fever with initial response to broad-spectrum coverage, then recrudescence, diffuse pulmonary infiltrates and positive PJP next-generation sequencing test, which improved on Bactrim, subsequently then with Enterococcus faecium bacteremia of unknown primary site, possibility of colonization of the port. The patient has been switched from Zyvox to daptomycin and Rocephin because of concerns with thrombocytopenia and anemia. At this moment, we will discontinue micafungin and continue Bactrim, daptomycin, and Rocephin. Job ID: [id number] MTDD
[2019-02-27] MEDS: cefTRIAXone\\ROCEPHIN 2 GM in Sodium Chloride 0.9% 100 ML IVPB SCH ×2 (00:11→12:03)
[2019-02-27] MEDS: Donnatal Elixir 16.2 MG/5 ML UDCUP PO SCH ×6 (00:12→20:36)
[2019-02-27] MEDS: Sulfameth/Trimethoprim DS 800-160mg TAB PO SCH ×3 (05:54→20:35)
[2019-02-27 06:14] LABS: Hemoglobin 10.8 g/dL (14.0-18.0); Mean Corpuscular HGB CONC 34.3 g/dL (32.0-36.0); Mean Corpuscular Hemoglobin 30.5 pg (27.0-31.0); Mean Corpuscular Volume 89.1 fL (78.0-98.0); Mean Platelet Volume 7.3 fL (7.4-10.4); Platelet Count 34 thou/uL (130-400); RBC Distribution Width 12.2 % (11.5-14.5); Red Blood Cell (RBC) Count 3.53 mill/uL (4.70-6.10); White Blood Cell (WBC) Count 0.2 thou/uL (4.8-10.8)
[2019-02-27 06:27] LABS: Platelet Morphology Comment Appears Decreased; RBC Morphology Normal
[2019-02-27] MEDS: Acyclovir 400 mg Tablet PO SCH ×2 (08:02→20:36)
[2019-02-27] MEDS: Famotidine 20 MG TAB PO SCH ×2 (08:02→20:43)
[2019-02-27] MEDS: Folic Acid 1 MG TAB PO SCH (08:02)
[2019-02-27] MEDS: Dexamethasone 4 MG TAB PO SCH (08:02)
[2019-02-27] MEDS: Lisinopril 20 MG TAB PO SCH ×2 (08:03→20:35)
[2019-02-27] MEDS: Acetaminophen 325 MG TAB PO PRN (08:03)
--- NOTE | 2019-02-27 13:53 | PDOC.HOSPP ---
- Subjective Encounter Date: 02/27/19 Encounter Time: 13:49 Subjective: Mr. Crooks was seen today in follow-up of pancytopenia and fever. He is sitting up at the side of the bed. He does not have any new complaints. - Objective Vital Signs & Weight: Vital Signs (12 hours) Temp Pulse Resp BP BP Pulse Ox 02/27/19 11:52 99.2 F 100 16 103/65 93 L 02/27/19 09:30 99.3 F 114 H 18 94 L 02/27/19 08:19 116 H 20 94 L 02/27/19 08:03 133/70 02/27/19 08:00 94 L 02/27/19 07:39 101.1 F H 114 H 16 133/70 90 L 02/27/19 03:49 98.6 F Weight Admit Weight 151 lb 9.6 oz Weight 166 lb 6.4 oz Most Recent Monitor Data Heart Rate from ECG 96 NIBP 139/79 NIBP BP-Mean 99 Respiration from ECG 29 SpO2 100 I&O: 02/26/19 02/27/19 02/28/19 06:59 06:59 06:59 Intake Total 1040 0 Balance 1040 0 Result Diagrams: 02/27/19 06:00 02/26/19 05:47 Hospitalist ROS - Medication Medications: Active Medications Generic Name Dose Route Start Last Admin Trade Name Freq PRN Reason Stop Dose Admin Acetaminophen 650 mg 01/19/19 16:46 02/27/19 08:03 Tylenol PO 650 mg Q4H PRN Administration Headache/Fever/Mild Pain (1-3) Acetaminophen 650 mg 01/25/19 15:29 02/26/19 11:55 Tylenol NE 650 mg Q4H PRN Administration Headache/Fever or Pain Acyclovir 400 mg 01/19/19 21:00 02/27/19 08:02 Zovirax PO 400 mg BID CHRISTIANO Administration Alteplase, Recombinant 2 mg 02/09/19 07:45 02/19/19 00:53 Cathflo CATH 2 mg WILLCALL CHRISTIANO Administration Atropine/Hyoscyam/Phenobarb/Scopol 3.24 mg 02/26/19 13:00 02/27/19 12:03 Elixir PO 3.24 mg Q4HR CHRISTIANO Administration Dexamethasone 4 mg 02/09/19 08:00 02/27/19 08:02 Decadron PO 4 mg QAM-WM CHRISTIANO Administration Famotidine 20 mg 01/19/19 21:00 02/27/19 08:02 Pepcid PO 20 mg BID CHRISTIANO Administration Folic Acid 1 mg 01/25/19 09:00 02/27/19 08:02 Folvite PO 1 mg DAILY CHRISTIANO Administration Daptomycin 750 mg/ Sodium 100 mls @ 200 mls/hr 02/25/19 14:00 02/26/19 18:40 Chloride IVPB 100 mls 1400 CHRISTIANO Administration Ceftriaxone Sodium 2 gm/ 100 mls @ 200 mls/hr 02/25/19 13:00 02/27/19 12:03 Sodium Chloride IVPB 100 mls 0100,1300 CHRISTIANO Administration Lisinopril 20 mg 01/19/19 21:00 02/27/19 08:03 Zestril PO 20 mg BID CHRISTIANO Administration Ondansetron HCl 4 mg 01/19/19 16:46 02/19/19 20:14 Zofran Odt PO 4 mg Q6H PRN Administration Nausea/Vomiting Ondansetron HCl 4 mg 01/19/19 16:46 02/09/19 20:12 Zofran IVP 4 mg Q6H PRN Administration Nausea/Vomiting Pantoprazole Sodium 40 mg 02/03/19 09:00 02/27/19 08:03 Protonix PO 40 mg DAILY CHRISTIANO Administration Senna/Docusate Sodium 2 tab 01/19/19 16:46 02/07/19 10:37 Senokot S PO 2 tab BIDPRN PRN Administration Constipation Sodium Chloride 10 ml 02/17/19 07:42 02/26/19 08:18 Flush - Normal Saline IVF 10 ml PRN PRN Administration Saline Flush Trimethoprim/Sulfamethoxazole 1.5 tab 02/25/19 14:00 02/27/19 05:54 Bactrim Ds PO 1.5 tab Q8HR CHRISTIANO Administration - Exam Eye: PERRL Heart: RRR, no murmur, no gallops, no rubs, normal peripheral pulses Respiratory: CTAB, no wheezes, no rales, no ronchi, normal chest expansion, no tachypnea, normal percussion Gastrointestinal: soft, non-tender, non-distended, normal bowel sounds, no palpable masses Extremities: no cyanosis, no clubbing, no edema Hosp A/P (1) Neutropenic fever Code(s): D70.9 - NEUTROPENIA, UNSPECIFIED; R50.81 - FEVER PRESENTING WITH CONDITIONS CLASSIFIED ELSEWHERE Status: Acute (2) AML (acute myeloblastic leukemia) Code(s): C92.00 - ACUTE MYELOBLASTIC LEUKEMIA, NOT HAVING ACHIEVED REMISSION Status: Chronic (3) Diastolic dysfunction Code(s): I51.89 - OTHER ILL-DEFINED HEART DISEASES Status: Chronic (4) HTN (hypertension) Code(s): I10 - ESSENTIAL (PRIMARY) HYPERTENSION Status: Chronic (5) Muscular deconditioning Code(s): R29.898 - OTH SYMPTOMS AND SIGNS INVOLVING THE MUSCULOSKELETAL SYSTEM Status: Chronic (6) Pancytopenia Code(s): D61.818 - OTHER PANCYTOPENIA Status: Acute - Plan * Neutropenic fever- he has been afebrile. Blood cultures grew VRE- and he is receiving Daptomycin and Rocephin IV for this * He has developed fever again today- discussed with Dr. Colón- will re-culture - he may have an infected port * Abdominal pain- improved * Pancytopenia- persists- likely from AML * HTN- blood pressure is stable overall * Chronic diastolic heart failure- compensated * Awaiting placement
[2019-02-27] MEDS ORDERED: hydrOXYzine 10 MG TAB PO PRN (16:25)
[2019-02-28] MEDS: cefTRIAXone\\ROCEPHIN 2 GM in Sodium Chloride 0.9% 100 ML IVPB SCH ×2 (00:29→13:50)
[2019-02-28] MEDS: Donnatal Elixir 16.2 MG/5 ML UDCUP PO SCH ×6 (00:40→21:07)
[2019-02-28] MEDS: Sulfameth/Trimethoprim DS 800-160mg TAB PO SCH ×2 (05:32→21:08)
[2019-02-28 06:16] LABS: Hemoglobin 10.5 g/dL (14.0-18.0); Mean Corpuscular HGB CONC 33.4 g/dL (32.0-36.0); Mean Corpuscular Volume 89.8 fL (78.0-98.0); Mean Platelet Volume 9.9 fL (7.4-10.4); Platelet Count 13 thou/uL (130-400); RBC Distribution Width 12.2 % (11.5-14.5); Red Blood Cell (RBC) Count 3.51 mill/uL (4.70-6.10); White Blood Cell (WBC) Count 0.2 thou/uL (4.8-10.8)
[2019-02-28 06:33] LABS: Hypochromia SLIGHT = 6-15 cells (100X) (0-5/hpf); MDiff Complete? YES; Platelet Morphology Comment Appears Decreased
[2019-02-28] MEDS: Folic Acid 1 MG TAB PO SCH (08:29)
[2019-02-28] MEDS: Dexamethasone 4 MG TAB PO SCH (08:29)
[2019-02-28] MEDS: Lisinopril 20 MG TAB PO SCH ×2 (08:30→21:07)
[2019-02-28] MEDS: Acyclovir 400 mg Tablet PO SCH ×2 (08:43→21:07)
[2019-02-28] MEDS: Acetaminophen 325 MG TAB PO PRN (11:58)
[2019-02-28] MEDS: Famotidine 20 MG TAB PO SCH ×2 (11:58→21:41)
--- NOTE | 2019-02-28 13:59 | PDOC.MOPN ---
Interval History: awake, alert. Febrile today - Vital Signs Vital Signs: Vital Signs (12 hours) Temp Pulse Resp BP BP Pulse Ox 02/28/19 12:50 99.8 F H 110 H 19 94 L 02/28/19 12:02 93 L 02/28/19 12:00 101.4 F H 114 H 16 116/66 91 L 02/28/19 09:59 93 L 02/28/19 08:30 133/70 02/28/19 08:24 94 L 02/28/19 08:10 98.9 F 113 H 16 131/77 93 L 02/28/19 04:18 98.3 F Weight Admit Weight 151 lb 9.6 oz Weight 166 lb 6.4 oz Most Recent Monitor Data Heart Rate from ECG 96 NIBP 139/79 NIBP BP-Mean 99 Respiration from ECG 29 SpO2 100 - Physical Exam General: Alert HEENT: Atraumatic Lungs: Clear to auscultation Cardiovascular: Other (tachy) Abdomen: Normal bowel sounds, Soft, No tenderness, No hepatospenomegaly, No masses Extremities: No clubbing, No cyanosis, No edema, Normal pulses, No tenderness/ swelling Skin: No rashes, No breakdown, No significant lesion Neurological: Other - Labs Result Diagrams: 02/28/19 05:50 02/26/19 05:47 Lab results: Laboratory Results - last 24 hr 02/28/19 05:50: WBC 0.2 L*, RBC 3.51 L, Hgb 10.5 L, Hct 31.5 L, MCV 89.8, MCH 30.0, MCHC 33.4, RDW 12.2, Plt Count 13 L*, MPV 9.9, Neutrophils % (Manual) Not Reportable, Neutrophils # Not Reportable, Lymphocytes # Not Reportable, Hypochromia SLIGHT = 6-15 cells, Plt Morphology Comment Appears Decreased L 02/28/19 05:50: Creatine Kinase 16 L Status: lab reviewed by me A/P - Problem (1) AML (acute myeloblastic leukemia) Current Visit: Yes Code(s): C92.00 - ACUTE MYELOBLASTIC LEUKEMIA, NOT HAVING ACHIEVED REMISSION Status: Chronic (2) Neutropenic sepsis Current Visit: Yes Code(s): A41.9 - SEPSIS, UNSPECIFIED ORGANISM; D70.9 - NEUTROPENIA, UNSPECIFIED Status: Acute (3) Pancytopenia Current Visit: Yes Code(s): D61.818 - OTHER PANCYTOPENIA Status: Acute - Plan Plan: discussed at length with Dr. Mckee and Keagan repeat bone marrow if leukemia present, would need hospice if no leukemia present, add neupogen. spoke with daughter Delia on phone and she consented to bone marrow biopsy.
--- NOTE | 2019-02-28 15:30 | PDOC.HOSPP ---
- Subjective Encounter Date: 02/28/19 Encounter Time: 15:27 Subjective: Mr. Crooks was seen today in follow-up of AML with pancytopenia, and sepsis. He does not have any new complaints. He appears very weak. - Objective Vital Signs & Weight: Vital Signs (12 hours) Temp Pulse Resp BP BP Pulse Ox 02/28/19 14:30 98.9 F 02/28/19 12:50 99.8 F H 110 H 19 94 L 02/28/19 12:02 93 L 02/28/19 12:00 101.4 F H 114 H 16 116/66 91 L 02/28/19 09:59 93 L 02/28/19 08:30 133/70 02/28/19 08:24 94 L 02/28/19 08:10 98.9 F 113 H 16 131/77 93 L 02/28/19 04:18 98.3 F Weight Admit Weight 151 lb 9.6 oz Weight 166 lb 6.4 oz Most Recent Monitor Data Heart Rate from ECG 96 NIBP 139/79 NIBP BP-Mean 99 Respiration from ECG 29 SpO2 100 I&O: 02/27/19 02/28/19 03/01/19 06:59 06:59 06:59 Intake Total 0 960 Balance 0 960 Result Diagrams: 02/28/19 05:50 02/26/19 05:47 Hospitalist ROS - Medication Medications: Active Medications Generic Name Dose Route Start Last Admin Trade Name Freq PRN Reason Stop Dose Admin Acetaminophen 650 mg 01/19/19 16:46 02/28/19 11:58 Tylenol PO 650 mg Q4H PRN Administration Headache/Fever/Mild Pain (1-3) Acetaminophen 650 mg 01/25/19 15:29 02/26/19 11:55 Tylenol NE 650 mg Q4H PRN Administration Headache/Fever or Pain Acyclovir 400 mg 01/19/19 21:00 02/28/19 08:43 Zovirax PO 400 mg BID CHRISTIANO Administration Alteplase, Recombinant 2 mg 02/09/19 07:45 02/19/19 00:53 Cathflo CATH 2 mg WILLCALL CHRISTIANO Administration Atropine/Hyoscyam/Phenobarb/Scopol 3.24 mg 02/26/19 13:00 02/28/19 13:20 Elixir PO 3.24 mg Q4HR CHRISTIANO Administration Dexamethasone 4 mg 02/09/19 08:00 02/28/19 08:29 Decadron PO 4 mg QAM-WM CHRISTIANO Administration Famotidine 20 mg 01/19/19 21:00 02/28/19 11:58 Pepcid PO Not Given BID CHRISTIANO Folic Acid 1 mg 01/25/19 09:00 02/28/19 08:29 Folvite PO 1 mg DAILY CHRISTIANO Administration Hydroxyzine HCl 10 mg 02/27/19 16:25 02/27/19 17:16 Atarax PO 10 mg Q6H PRN Administration Itching Daptomycin 750 mg/ Sodium 100 mls @ 200 mls/hr 02/25/19 14:00 02/28/19 14:30 Chloride IVPB 100 mls 1400 CHRISTIANO Administration Ceftriaxone Sodium 2 gm/ 100 mls @ 200 mls/hr 02/25/19 13:00 02/28/19 13:50 Sodium Chloride IVPB 100 mls 0100,1300 CHRISTIANO Administration Lisinopril 20 mg 01/19/19 21:00 02/28/19 08:30 Zestril PO 20 mg BID [facility] Administration Ondansetron HCl 4 mg 01/19/19 16:46 02/19/19 20:14 Zofran Odt PO 4 mg Q6H PRN Administration Nausea/Vomiting Ondansetron HCl 4 mg 01/19/19 16:46 02/09/19 20:12 Zofran IVP 4 mg Q6H PRN Administration Nausea/Vomiting Pantoprazole Sodium 40 mg 02/03/19 09:00 02/28/19 08:29 Protonix PO 40 mg DAILY CHRISTIANO Administration Senna/Docusate Sodium 2 tab 01/19/19 16:46 02/07/19 10:37 Senokot S PO 2 tab BIDPRN PRN Administration Constipation Sodium Chloride 10 ml 02/17/19 07:42 02/26/19 08:18 Flush - Normal Saline IVF 10 ml PRN PRN Administration Saline Flush Trimethoprim/Sulfamethoxazole 1.5 tab 02/25/19 14:00 02/28/19 05:32 Bactrim Ds PO 1.5 tab Q8HR CHRISTIANO Administration - Exam Eye: PERRL, anicteric sclera Heart: RRR, no murmur, no gallops, no rubs, normal peripheral pulses Respiratory: CTAB, no wheezes, no rales, no ronchi, normal chest expansion, no tachypnea, normal percussion Gastrointestinal: soft, non-tender, non-distended, normal bowel sounds, no palpable masses, no hepatomegaly Extremities: no cyanosis, no clubbing, no edema Hosp A/P (1) Neutropenic fever Code(s): D70.9 - NEUTROPENIA, UNSPECIFIED; R50.81 - FEVER PRESENTING WITH CONDITIONS CLASSIFIED ELSEWHERE Status: Acute (2) AML (acute myeloblastic leukemia) Code(s): C92.00 - ACUTE MYELOBLASTIC LEUKEMIA, NOT HAVING ACHIEVED REMISSION Status: Chronic (3) Diastolic dysfunction Code(s): I51.89 - OTHER ILL-DEFINED HEART DISEASES Status: Chronic (4) HTN (hypertension) Code(s): I10 - ESSENTIAL (PRIMARY) HYPERTENSION Status: Chronic (5) Muscular deconditioning Code(s): R29.898 - OTH SYMPTOMS AND SIGNS INVOLVING THE MUSCULOSKELETAL SYSTEM Status: Chronic (6) Pancytopenia Code(s): D61.818 - OTHER PANCYTOPENIA Status: Acute - Plan * Neutropenic fever- continue Daptomycin and Rocephin, with Acyclovir * Bactrim DS for PCP * Pancytopenia- persists- discussed with Hematology- plan for bone marrow biopsy * HTN- blood pressure is stable overall * Chronic diastolic heart failure- compensated * Prognosis is guarded
[2019-03-01] MEDS: Donnatal Elixir 16.2 MG/5 ML UDCUP PO SCH ×6 (01:04→20:46)
[2019-03-01] MEDS: cefTRIAXone\\ROCEPHIN 2 GM in Sodium Chloride 0.9% 100 ML IVPB SCH ×2 (01:04→14:50)
[2019-03-01] MEDS: Sulfameth/Trimethoprim DS 800-160mg TAB PO SCH ×3 (05:14→20:45)
[2019-03-01 05:46] LABS: Hemoglobin 4.3 g/dL (14.0-18.0); Mean Corpuscular HGB CONC 34.9 g/dL (32.0-36.0); Mean Corpuscular Hemoglobin 32.1 pg (27.0-31.0); Mean Corpuscular Volume 91.9 fL (78.0-98.0); Platelet Count 5 thou/uL (130-400); RBC Distribution Width 11.9 % (11.5-14.5); Red Blood Cell (RBC) Count 1.34 mill/uL (4.70-6.10); White Blood Cell (WBC) Count 0.3 thou/uL (4.8-10.8)
[2019-03-01 06:00] LABS: Hypochromia MODERATE=16-30 cells (100X) (0-5/hpf); MDiff Complete? YES; Microcytosis MODERATE=15-30 cells (100X) (0-5/hpf); Platelet Morphology Comment Appears Decreased; Reflex for Review?? NO
[2019-03-01 07:31] LABS: Hemoglobin 9.5 g/dL (14.0-18.0)
[2019-03-01] MEDS: Acyclovir 400 mg Tablet PO SCH ×2 (09:00→20:45)
[2019-03-01] MEDS: Lisinopril 20 MG TAB PO SCH ×2 (09:08→20:45)
[2019-03-01] MEDS: Famotidine 20 MG TAB PO SCH ×2 (09:09→20:45)
[2019-03-01] MEDS: Dexamethasone 4 MG TAB PO SCH (09:09)
[2019-03-01] MEDS: Folic Acid 1 MG TAB PO SCH (09:09)
[2019-03-01] MEDS ORDERED: Fentanyl 100 MCG/2 ML VIAL ONE (12:51)
[2019-03-01] MEDS ORDERED: Midazolam HCl 2 mg/2 ml Vial ONE (12:51)
[2019-03-01] MEDS ORDERED: Sodium Bicarbonate 2.5 MEQ/5 ML VIAL ONE (12:51)
--- NOTE | 2019-03-01 14:02 | PDOC.MOPN ---
Interval History: spoke with daughter at bedside, tolerated bone marrow. - Vital Signs Vital Signs: Vital Signs (12 hours) Temp Pulse Pulse Resp BP BP BP 03/01/19 13:30 98.8 F 100 14 116/69 03/01/19 11:58 99.1 F 99 18 112/65 03/01/19 11:43 03/01/19 09:08 117/68 03/01/19 08:00 99.0 F 106 H 18 117/68 03/01/19 07:30 98.9 F 105 H 18 116/65 03/01/19 06:18 98.9 F Pulse Ox 03/01/19 13:30 03/01/19 11:58 92 L 03/01/19 11:43 92 L 03/01/19 09:08 03/01/19 08:00 92 L 03/01/19 07:30 93 L 03/01/19 06:18 Weight Admit Weight 151 lb 9.6 oz Weight 166 lb 6.4 oz Most Recent Monitor Data Heart Rate from ECG 96 NIBP 139/79 NIBP BP-Mean 99 Respiration from ECG 29 SpO2 100 - Physical Exam General: Alert HEENT: Atraumatic Extremities: No clubbing, No cyanosis, No edema, Normal pulses, No tenderness/ swelling Skin: No rashes, No breakdown, No significant lesion Neurological: Other - Labs Result Diagrams: 03/01/19 07:10 02/26/19 05:47 Lab results: Laboratory Results - last 24 hr 03/01/19 07:10: Hgb 9.5 L, Hct 28.5 L 03/01/19 05:20: WBC 0.3 L*, RBC 1.34 L, Hgb 4.3 L*, Hct 12.3 L*, MCV 91.9, MCH 32.1 H, MCHC 34.9, RDW 11.9, Plt Count 5 L*, MPV 9.0, Neutrophils % (Manual) Not Reportable, Neutrophils # Not Reportable, Lymphocytes # Not Reportable, Hypochromia MODERATE=16-30 cells H, Plt Morphology Comment Appears Decreased L, Microcytosis MODERATE=15-30 cells H 03/01/19 05:20: Creatine Kinase 20 L 02/28/19 14:54: Blood Type O POSITIVE, Antibody Screen NEGATIVE Status: lab reviewed by me A/P - Problem (1) AML (acute myeloblastic leukemia) Current Visit: Yes Code(s): C92.00 - ACUTE MYELOBLASTIC LEUKEMIA, NOT HAVING ACHIEVED REMISSION Status: Chronic (2) Neutropenic sepsis Current Visit: Yes Code(s): A41.9 - SEPSIS, UNSPECIFIED ORGANISM; D70.9 - NEUTROPENIA, UNSPECIFIED Status: Acute (3) Pancytopenia Current Visit: Yes Code(s): D61.818 - OTHER PANCYTOPENIA Status: Acute - Plan Plan: Platelets given today prior to bone marrow biopsy. Await BMB results Daily CBC and transfuse prn.
--- NOTE | 2019-03-01 14:07 | PDOC.HOSPP ---
- Subjective Encounter Date: 03/01/19 Encounter Time: 14:05 Subjective: Mr. Crooks was seen today in follow-up of pancytopenia, and fever. He does not have any new complaints. - Objective Vital Signs & Weight: Vital Signs (12 hours) Temp Pulse Pulse Resp BP BP BP 03/01/19 13:30 98.8 F 100 14 116/69 03/01/19 11:58 99.1 F 99 18 112/65 03/01/19 11:43 03/01/19 09:08 117/68 03/01/19 08:00 99.0 F 106 H 18 117/68 03/01/19 07:30 98.9 F 105 H 18 116/65 03/01/19 06:18 98.9 F Pulse Ox 03/01/19 13:30 03/01/19 11:58 92 L 03/01/19 11:43 92 L 03/01/19 09:08 03/01/19 08:00 92 L 03/01/19 07:30 93 L 03/01/19 06:18 Weight Admit Weight 151 lb 9.6 oz Weight 166 lb 6.4 oz Most Recent Monitor Data Heart Rate from ECG 96 NIBP 139/79 NIBP BP-Mean 99 Respiration from ECG 29 SpO2 100 I&O: 02/28/19 03/01/19 03/02/19 06:59 06:59 06:59 Intake Total 960 700 0 Balance 960 700 0 Result Diagrams: 03/01/19 07:10 02/26/19 05:47 Hospitalist ROS - Medication Medications: Active Medications Generic Name Dose Route Start Last Admin Trade Name Angelq PRN Reason Stop Dose Admin Acetaminophen 650 mg 01/19/19 16:46 02/28/19 11:58 Tylenol PO 650 mg Q4H PRN Administration Headache/Fever/Mild Pain (1-3) Acetaminophen 650 mg 01/25/19 15:29 02/26/19 11:55 Tylenol [place] 650 mg Q4H PRN Administration Headache/Fever or Pain Acyclovir 400 mg 01/19/19 21:00 03/01/19 09:00 Zovirax PO Not Given BID CHRISTIANO Alteplase, Recombinant 2 mg 02/09/19 07:45 02/19/19 00:53 Cathflo CATH 2 mg WILLCALL CHRISTIANO Administration Atropine/Hyoscyam/Phenobarb/Scopol 3.24 mg 02/26/19 13:00 03/01/19 09:08 Elixir PO 3.24 mg Q4HR CHRISTIANO Administration Dexamethasone 4 mg 02/09/19 08:00 03/01/19 09:09 Decadron PO 4 mg QAM-WM CHRISTIANO Administration Famotidine 20 mg 01/19/19 21:00 03/01/19 09:09 Pepcid PO Not Given BID CHRISTIANO Folic Acid 1 mg 01/25/19 09:00 03/01/19 09:09 Folvite PO 1 mg DAILY CHRISTIANO Administration Hydroxyzine HCl 10 mg 02/27/19 16:25 02/27/19 17:16 Atarax PO 10 mg Q6H PRN Administration Itching Daptomycin 750 mg/ Sodium 100 mls @ 200 mls/hr 02/25/19 14:00 03/01/19 13:56 Chloride IVPB 100 mls 1400 CHRISTIANO Administration Ceftriaxone Sodium 2 gm/ 100 mls @ 200 mls/hr 02/25/19 13:00 03/01/19 01:04 Sodium Chloride IVPB 100 mls 0100,1300 CHRISTIANO Administration Lisinopril 20 mg 01/19/19 21:00 03/01/19 09:08 Zestril PO 20 mg BID CHRISTIANO Administration Ondansetron HCl 4 mg 01/19/19 16:46 02/19/19 20:14 Zofran Odt PO 4 mg Q6H PRN Administration Nausea/Vomiting Ondansetron HCl 4 mg 01/19/19 16:46 02/09/19 20:12 Zofran IVP 4 mg Q6H PRN Administration Nausea/Vomiting Pantoprazole Sodium 40 mg 02/03/19 09:00 03/01/19 09:08 Protonix PO 40 mg DAILY CHRISTIANO Administration Senna/Docusate Sodium 2 tab 01/19/19 16:46 02/07/19 10:37 Senokot S PO 2 tab BIDPRN PRN Administration Constipation Sodium Chloride 10 ml 02/17/19 07:42 02/26/19 08:18 Flush - Normal Saline IVF 10 ml PRN PRN Administration Saline Flush Trimethoprim/Sulfamethoxazole 1.5 tab 02/25/19 14:00 03/01/19 05:14 Bactrim Ds PO 1.5 tab Q8HR CHRISTIANO Administration - Exam Eye: PERRL Heart: RRR, no murmur, no gallops, no rubs, normal peripheral pulses Respiratory: CTAB, no wheezes, no rales, no ronchi, normal chest expansion Gastrointestinal: soft, non-tender, non-distended, normal bowel sounds, no palpable masses Extremities: no cyanosis, no clubbing, no edema Hosp A/P (1) Neutropenic fever Code(s): D70.9 - NEUTROPENIA, UNSPECIFIED; R50.81 - FEVER PRESENTING WITH CONDITIONS CLASSIFIED ELSEWHERE Status: Acute (2) AML (acute myeloblastic leukemia) Code(s): C92.00 - ACUTE MYELOBLASTIC LEUKEMIA, NOT HAVING ACHIEVED REMISSION Status: Chronic (3) Diastolic dysfunction Code(s): I51.89 - OTHER ILL-DEFINED HEART DISEASES Status: Chronic (4) HTN (hypertension) Code(s): I10 - ESSENTIAL (PRIMARY) HYPERTENSION Status: Chronic (5) Muscular deconditioning Code(s): R29.898 - OTH SYMPTOMS AND SIGNS INVOLVING THE MUSCULOSKELETAL SYSTEM Status: Chronic (6) Pancytopenia Code(s): D61.818 - OTHER PANCYTOPENIA Status: Acute - Plan * Neutropenic fever- continue Daptomycin and Rocephin, with Acyclovir * Bactrim DS for PCP * Pancytopenia-Patient had the bone marrow biopsy today * HTN- blood pressure is stable overall * Chronic diastolic heart failure- compensated
--- NOTE | 2019-03-01 15:23 | CT ---
CT-guided bone marrow biopsy HISTORY: Pancytopenia. FINDINGS: After explaining the procedure and answering all questions, limited CT imaging of the pelvi s was performed. Sterile technique, buffered local anesthesia, CT guidance, and a left posterior approach were used to carefully advance an 11-gauge bone biopsy needle through the cortex of the posterior aspect of the left iliac bone. Position was confirmed with CT. Blood aspirate and core specimens were obtained and submitted to pathology for evaluation. Postprocedure imaging shows no evidence of complication. Patient tolerated the procedure well and was returned in unchanged condition. IMPRESSION: Technically successful CT-guided bone marrow biopsy. Pathology is pending.
--- NOTE | 2019-03-01 18:03 | PRG ---
DATE OF SERVICE: 03/01/2019 SUBJECTIVE: He appears comfortable. He denies any pain. Maybe a little bit in the right upper quadrant, but not much. Voiding by himself in the diaper. He is able to eat. No vomiting. OBJECTIVE: VITAL SIGNS: Last T-max 101.4 was yesterday at noon time, he has been afebrile since, BP 116/69, pulse 99, respirations 14, and O2 saturation 100. GENERAL: A port is accessed in the left subclavian location. HEENT: Ocular movements conjugate. Somewhat pale conjunctivae. LUNGS: With clear breath sounds. CARDIAC: S1 and S2, regular rate. ABDOMEN: Soft, not distended or tender. No ascites. No bladder distention. LABORATORY DATA: White cell count is finally up to 0.3, which is not much, but at least something, he was transfused and his hemoglobin is up to 9.5, and platelets 5000. Creatinine 0.65. Last imaging includes a bone biopsy for bone marrow, I can believe, bone marrow study. ASSESSMENT AND DISCUSSION: Acute myelogenous leukemia with venetoclax and persistent neutropenia, now bone marrow has been completed and is pending at this time. 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 Fever with various recurrences, has been treated with broad-spectrum coverage. Pneumocystis was identified, was treated, and then the bacteremia due to Enterococcus faecium, which has been continues to be treated at this point in time with daptomycin and Rocephin. He continues on oral Bactrim for a total of 21 days and then transition to suppressive therapy with 3 times a week administration. We will see what the bone marrow shows. Job ID: [id number]
[2019-03-01] MEDS: Acetaminophen 325 MG TAB PO PRN (20:48)
[2019-03-02] MEDS: cefTRIAXone\\ROCEPHIN 2 GM in Sodium Chloride 0.9% 100 ML IVPB SCH ×3 (01:32→23:58)
[2019-03-02] MEDS: Donnatal Elixir 16.2 MG/5 ML UDCUP PO SCH ×6 (01:36→20:27)
[2019-03-02] MEDS: Sulfameth/Trimethoprim DS 800-160mg TAB PO SCH ×3 (05:10→20:26)
[2019-03-02 05:42] LABS: Hemoglobin 9.5 g/dL (14.0-18.0); Mean Corpuscular HGB CONC 33.8 g/dL (32.0-36.0); Mean Corpuscular Hemoglobin 30.5 pg (27.0-31.0); Mean Corpuscular Volume 90.3 fL (78.0-98.0); Mean Platelet Volume 9.6 fL (7.4-10.4); Platelet Count 45 thou/uL (130-400); RBC Distribution Width 12.1 % (11.5-14.5); Red Blood Cell (RBC) Count 3.12 mill/uL (4.70-6.10); White Blood Cell (WBC) Count 0.2 thou/uL (4.8-10.8)
[2019-03-02 06:02] LABS: Hypochromia SLIGHT = 6-15 cells (100X) (0-5/hpf); MDiff Complete? YES; Platelet Morphology Comment Appears Decreased
[2019-03-02] MEDS: Folic Acid 1 MG TAB PO SCH (08:15)
[2019-03-02] MEDS: Dexamethasone 4 MG TAB PO SCH (08:15)
[2019-03-02] MEDS: Acyclovir 400 mg Tablet PO SCH ×2 (08:15→20:25)
[2019-03-02] MEDS: Famotidine 20 MG TAB PO SCH ×2 (08:15→20:27)
[2019-03-02] MEDS: Lisinopril 20 MG TAB PO SCH ×2 (08:16→20:25)
--- NOTE | 2019-03-02 10:42 | PDOC.MOPN ---
Interval History: alert and responding today - Vital Signs Vital Signs: Vital Signs (12 hours) Temp Pulse Resp BP BP Pulse Ox 03/02/19 08:16 111/64 03/02/19 08:00 92 L 03/02/19 07:34 98.3 F 101 H 16 116/63 92 L 03/02/19 04:40 98.5 F 03/02/19 00:09 99.0 F Weight Admit Weight 151 lb 9.6 oz Weight 166 lb 6.4 oz Most Recent Monitor Data Heart Rate from ECG 96 NIBP 139/79 NIBP BP-Mean 99 Respiration from ECG 29 SpO2 100 - Physical Exam General: Alert, No acute distress HEENT: Atraumatic, PERRLA, EOMI, Mucous membr. moist/pink Lungs: Clear to auscultation, Normal air movement Cardiovascular: Regular rate, Normal S1, Normal S2, No murmurs, Gallops, Rubs Abdomen: Normal bowel sounds, Soft, No tenderness, No hepatospenomegaly, No masses Extremities: No clubbing, No cyanosis, No edema, Normal pulses, No tenderness/ swelling Skin: No rashes, No breakdown, No significant lesion Neurological: Other - Labs Result Diagrams: 03/02/19 05:23 02/26/19 05:47 Lab results: Laboratory Results - last 24 hr 03/02/19 05:23: WBC 0.2 L*, RBC 3.12 L, Hgb 9.5 L, Hct 28.2 L, MCV 90.3, MCH 30.5, MCHC 33.8, RDW 12.1, Plt Count 45 L, MPV 9.6, Neutrophils % (Manual) Not Reportable, Neutrophils # Not Reportable, Lymphocytes # Not Reportable, Hypochromia SLIGHT = 6-15 cells, Plt Morphology Comment Appears Decreased L 02/28/19 14:54: Blood Type O POSITIVE, Antibody Screen NEGATIVE Status: lab reviewed by me A/P - Problem (1) AML (acute myeloblastic leukemia) Current Visit: Yes Code(s): C92.00 - ACUTE MYELOBLASTIC LEUKEMIA, NOT HAVING ACHIEVED REMISSION Status: Chronic (2) Neutropenic sepsis Current Visit: Yes Code(s): A41.9 - SEPSIS, UNSPECIFIED ORGANISM; D70.9 - NEUTROPENIA, UNSPECIFIED Status: Acute (3) Pancytopenia Current Visit: Yes Code(s): D61.818 - OTHER PANCYTOPENIA Status: Acute - Plan Plan: Await path results. monitor CBC daily transfuse prn.
--- NOTE | 2019-03-02 14:02 | PDOC.HOSPP ---
- Subjective Encounter Date: 03/02/19 Encounter Time: 14:00 Subjective: Mr. Crooks was seen today in follow-up of neutropenic fever and AML. He does not have any new complaints. He was up with PT when I saw him. - Objective Vital Signs & Weight: Vital Signs (12 hours) Temp Pulse Resp BP BP Pulse Ox 03/02/19 12:54 92 L 03/02/19 08:16 111/64 03/02/19 08:00 92 L 03/02/19 07:34 98.3 F 101 H 16 116/63 92 L 03/02/19 04:40 98.5 F Weight Admit Weight 151 lb 9.6 oz Weight 166 lb 6.4 oz Most Recent Monitor Data Heart Rate from ECG 96 NIBP 139/79 NIBP BP-Mean 99 Respiration from ECG 29 SpO2 100 I&O: 03/01/19 03/02/19 03/03/19 06:59 06:59 06:59 Intake Total 700 250 Balance 700 250 Result Diagrams: 03/02/19 05:23 02/26/19 05:47 Hospitalist ROS - Medication Medications: Active Medications Generic Name Dose Route Start Last Admin Trade Name Freq PRN Reason Stop Dose Admin Acetaminophen 650 mg 01/19/19 16:46 03/01/19 20:48 Tylenol PO 650 mg Q4H PRN Administration Headache/Fever/Mild Pain (1-3) Acetaminophen 650 mg 01/25/19 15:29 02/26/19 11:55 Tylenol [place] 650 mg Q4H PRN Administration Headache/Fever or Pain Acyclovir 400 mg 01/19/19 21:00 03/02/19 08:15 Zovirax PO 400 mg BID CHRISTIANO Administration Alteplase, Recombinant 2 mg 02/09/19 07:45 02/19/19 00:53 Cathflo CATH 2 mg WILLCALL CHRISTIANO Administration Atropine/Hyoscyam/Phenobarb/Scopol 3.24 mg 02/26/19 13:00 03/02/19 08:16 Elixir PO 3.24 mg Q4HR CHRISTIANO Administration Dexamethasone 4 mg 02/09/19 08:00 03/02/19 08:15 Decadron PO 4 mg QAM-WM CHRISTIANO Administration Famotidine 20 mg 01/19/19 21:00 03/02/19 08:15 Pepcid PO 20 mg BID CHRISTIANO Administration Folic Acid 1 mg 01/25/19 09:00 03/02/19 08:15 Folvite PO 1 mg DAILY CHRISTIANO Administration Hydroxyzine HCl 10 mg 02/27/19 16:25 02/27/19 17:16 Atarax PO 10 mg Q6H PRN Administration Itching Daptomycin 750 mg/ Sodium 100 mls @ 200 mls/hr 02/25/19 14:00 03/02/19 13:09 Chloride IVPB 100 mls 1400 CHRISTIANO Administration Ceftriaxone Sodium 2 gm/ 100 mls @ 200 mls/hr 02/25/19 13:00 03/02/19 13:08 Sodium Chloride IVPB 100 mls 0100,1300 CHRISTIANO Administration Lisinopril 20 mg 01/19/19 21:00 03/02/19 08:16 Zestril PO 20 mg BID CHRISTIANO Administration Ondansetron HCl 4 mg 01/19/19 16:46 02/19/19 20:14 Zofran Odt PO 4 mg Q6H PRN Administration Nausea/Vomiting Ondansetron HCl 4 mg 01/19/19 16:46 02/09/19 20:12 Zofran IVP 4 mg Q6H PRN Administration Nausea/Vomiting Pantoprazole Sodium 40 mg 02/03/19 09:00 03/02/19 08:15 Protonix PO 40 mg DAILY CHRISTIANO Administration Senna/Docusate Sodium 2 tab 01/19/19 16:46 02/07/19 10:37 Senokot S PO 2 tab BIDPRN PRN Administration Constipation Sodium Chloride 10 ml 02/17/19 07:42 02/26/19 08:18 Flush - Normal Saline IVF 10 ml PRN PRN Administration Saline Flush Trimethoprim/Sulfamethoxazole 1.5 tab 02/25/19 14:00 03/02/19 13:09 Bactrim Ds PO 1.5 tab Q8HR CHRISTIANO Administration - Exam Eye: PERRL Heart: RRR, no murmur, no gallops, no rubs, normal peripheral pulses Respiratory: CTAB (+ occasional coarse breath sounds, no wheezing or rhonchi) Gastrointestinal: soft, non-tender, non-distended, normal bowel sounds, no palpable masses, no hepatomegaly Extremities: no cyanosis, no edema Hosp A/P (1) Neutropenic fever Code(s): D70.9 - NEUTROPENIA, UNSPECIFIED; R50.81 - FEVER PRESENTING WITH CONDITIONS CLASSIFIED ELSEWHERE Status: Acute (2) AML (acute myeloblastic leukemia) Code(s): C92.00 - ACUTE MYELOBLASTIC LEUKEMIA, NOT HAVING ACHIEVED REMISSION Status: Chronic (3) Diastolic dysfunction Code(s): I51.89 - OTHER ILL-DEFINED HEART DISEASES Status: Chronic (4) HTN (hypertension) Code(s): I10 - ESSENTIAL (PRIMARY) HYPERTENSION Status: Chronic (5) Muscular deconditioning Code(s): R29.898 - [facility] SYMPTOMS AND SIGNS INVOLVING THE MUSCULOSKELETAL SYSTEM Status: Chronic (6) Pancytopenia Code(s): D61.818 - OTHER PANCYTOPENIA Status: Acute - Plan * Neutropenic fever- patient has been afebrile the past 24 hrs. * Pancytopenia-await bone marrow biopsy results * HTN- blood pressure is stable overall * Chronic diastolic heart failure- compensated * Continue PT/OT
[2019-03-03] MEDS: Donnatal Elixir 16.2 MG/5 ML UDCUP PO SCH ×6 (00:02→21:35)
[2019-03-03] MEDS: Sulfameth/Trimethoprim DS 800-160mg TAB PO SCH ×3 (05:49→21:34)
[2019-03-03 06:17] LABS: Hemoglobin 8.8 g/dL (14.0-18.0); Mean Corpuscular HGB CONC 34.1 g/dL (32.0-36.0); Mean Corpuscular Hemoglobin 30.7 pg (27.0-31.0); Mean Corpuscular Volume 90.2 fL (78.0-98.0); Mean Platelet Volume 10.3 fL (7.4-10.4); Platelet Count 18 thou/uL (130-400); Platelet Morphology Comment Appears Decreased; Red Blood Cell (RBC) Count 2.86 mill/uL (4.70-6.10); White Blood Cell (WBC) Count 0.2 thou/uL (4.8-10.8)
--- NOTE | 2019-03-03 08:40 | PDOC.MOPN ---
Interval History: Pt feeling ok. Verbalizing slightly better. Spoke with patient and family member regarding BMBx results. - Vital Signs Vital Signs: Vital Signs (12 hours) Temp 03/03/19 03:48 99.8 F H 03/02/19 23:55 97.3 F L Weight Admit Weight 151 lb 9.6 oz Weight 166 lb 6.4 oz Most Recent Monitor Data Heart Rate from ECG 96 NIBP 139/79 NIBP BP-Mean 99 Respiration from ECG 29 SpO2 100 - Physical Exam General: Alert, Cooperative, No acute distress Lungs: Normal air movement Cardiovascular: Regular rate Neurological: Cranial nerves 3-12 NL Psych/Mental Status: Other (flat affect) - Labs Result Diagrams: 03/03/19 06:00 02/26/19 05:47 Lab results: Laboratory Results - last 24 hr 03/03/19 06:00: WBC 0.2 L*, RBC 2.86 L, Hgb 8.8 L, Hct 25.8 L, MCV 90.2, MCH 30.7, MCHC 34.1, RDW 12.0, Plt Count 18 L*, MPV 10.3, Neutrophils % (Manual) Not Reportable, Plt Morphology Comment Appears Decreased L - Pathology Pathology: BMBx shows markedly hypocellular marrow, no leukemia A/P - Problem (1) AML (acute myeloblastic leukemia) Current Visit: Yes Code(s): C92.00 - ACUTE MYELOBLASTIC LEUKEMIA, NOT HAVING ACHIEVED REMISSION Status: Chronic (2) Pancytopenia Current Visit: Yes Code(s): D61.818 - OTHER PANCYTOPENIA Status: Acute (3) UTI (urinary tract infection) Current Visit: Yes Status: Acute - Plan Plan: Cont antibiotics as per Dr. Colón Transfuse prn Hb < 7 or Plts < 10 If pt remains afebrile today plan discharge to swing bed
[2019-03-03] MEDS: Lisinopril 20 MG TAB PO SCH ×2 (09:00→22:23)
[2019-03-03] MEDS: Acyclovir 400 mg Tablet PO SCH ×2 (10:56→21:34)
[2019-03-03] MEDS: Folic Acid 1 MG TAB PO SCH (10:56)
[2019-03-03] MEDS: Dexamethasone 4 MG TAB PO SCH (10:57)
[2019-03-03] MEDS: Famotidine 20 MG TAB PO SCH ×2 (10:57→21:34)
[2019-03-03] MEDS: Acetaminophen 650 MG Suppository PR PRN (12:41)
[2019-03-03] MEDS: cefTRIAXone\\ROCEPHIN 2 GM in Sodium Chloride 0.9% 100 ML IVPB SCH (12:46)
[2019-03-04] MEDS: cefTRIAXone\\ROCEPHIN 2 GM in Sodium Chloride 0.9% 100 ML IVPB SCH ×2 (00:29→13:39)
[2019-03-04] MEDS: Donnatal Elixir 16.2 MG/5 ML UDCUP PO SCH ×6 (00:35→21:55)
[2019-03-04 04:57] LABS: Platelet Count 8 thou/uL (130-400); White Blood Cell (WBC) Count 0.2 thou/uL (4.8-10.8)
[2019-03-04 04:59] LABS: Hemoglobin 8.5 g/dL (14.0-18.0); Mean Corpuscular Hemoglobin 30.6 pg (27.0-31.0); Mean Corpuscular Volume 90.1 fL (78.0-98.0); Mean Platelet Volume 11.3 fL (7.4-10.4); Platelet Morphology Comment Appears Decreased; Red Blood Cell (RBC) Count 2.77 mill/uL (4.70-6.10)
[2019-03-04] MEDS: Sulfameth/Trimethoprim DS 800-160mg TAB PO SCH ×3 (05:44→22:48)
[2019-03-04] MEDS: Acyclovir 400 mg Tablet PO SCH ×2 (08:31→20:12)
[2019-03-04] MEDS: Dexamethasone 4 MG TAB PO SCH (08:31)
[2019-03-04] MEDS: Acetaminophen 650 MG Suppository PR PRN (08:31)
[2019-03-04] MEDS: Folic Acid 1 MG TAB PO SCH (08:31)
[2019-03-04] MEDS: Famotidine 20 MG TAB PO SCH ×2 (09:43→19:38)
--- NOTE | 2019-03-04 12:50 | PDOC.HOSPP ---
- Subjective Encounter Date: 03/04/19 Encounter Time: 12:47 Subjective: Mr. Crooks was seen today in follow-up of neutropenic fever. He does not have any new complaints. Unfortunately he had fever again. - Objective Vital Signs & Weight: Vital Signs (12 hours) Temp Pulse Resp BP Pulse Ox 03/04/19 11:51 99.8 F H 84 18 139/86 92 L 03/04/19 11:04 100.2 F H 03/04/19 11:00 99.8 F H 03/04/19 08:00 101.2 F H 100 16 122/65 82 L 03/04/19 04:13 99.4 F Weight Admit Weight 151 lb 9.6 oz Weight 166 lb 6.4 oz Most Recent Monitor Data Heart Rate from ECG 96 NIBP 139/79 NIBP BP-Mean 99 Respiration from ECG 29 SpO2 100 I&O: 03/03/19 03/04/19 03/05/19 06:59 06:59 06:59 Intake Total 1080 Balance 1080 Result Diagrams: 03/04/19 04:11 02/26/19 05:47 Hospitalist ROS - Medication Medications: Active Medications Generic Name Dose Route Start Last Admin Trade Name Freq PRN Reason Stop Dose Admin Acetaminophen 650 mg 01/19/19 16:46 03/01/19 20:48 Tylenol PO 650 mg Q4H PRN Administration Headache/Fever/Mild Pain (1-3) Acetaminophen 650 mg 01/25/19 15:29 03/04/19 08:31 Tylenol [place] 650 mg Q4H PRN Administration Headache/Fever or Pain Acyclovir 400 mg 01/19/19 21:00 03/04/19 08:31 Zovirax PO 400 mg BID CHRISTIANO Administration Alteplase, Recombinant 2 mg 02/09/19 07:45 02/19/19 00:53 Cathflo CATH 2 mg WILLCALL CHRISTIANO Administration Atropine/Hyoscyam/Phenobarb/Scopol 3.24 mg 02/26/19 13:00 03/04/19 08:31 Elixir PO 3.24 mg Q4HR CHRISTIANO Administration Dexamethasone 4 mg 02/09/19 08:00 03/04/19 08:31 Decadron PO 4 mg QAM-WM CHRISTIANO Administration Famotidine 20 mg 01/19/19 21:00 03/04/19 09:43 Pepcid PO Not Given BID [facility] Folic Acid 1 mg 01/25/19 09:00 03/04/19 08:31 Folvite PO 1 mg DAILY CHRISTIANO Administration Hydroxyzine HCl 10 mg 02/27/19 16:25 02/27/19 17:16 Atarax PO 10 mg Q6H PRN Administration Itching Daptomycin 750 mg/ Sodium 100 mls @ 200 mls/hr 02/25/19 14:00 03/03/19 14:45 Chloride IVPB 100 mls 1400 CHRISTIANO Administration Ceftriaxone Sodium 2 gm/ 100 mls @ 200 mls/hr 02/25/19 13:00 03/04/19 00:29 Sodium Chloride IVPB 100 mls 0100,1300 CHRISTIANO Administration Lisinopril 20 mg 01/19/19 21:00 03/03/19 22:23 Zestril PO 20 mg BID CHRISTIANO Administration Ondansetron HCl 4 mg 01/19/19 16:46 02/19/19 20:14 Zofran Odt PO 4 mg Q6H PRN Administration Nausea/Vomiting Ondansetron HCl 4 mg 01/19/19 16:46 02/09/19 20:12 Zofran IVP 4 mg Q6H PRN Administration Nausea/Vomiting Pantoprazole Sodium 40 mg 02/03/19 09:00 03/04/19 08:31 Protonix PO 40 mg DAILY CHRISTIANO Administration Senna/Docusate Sodium 2 tab 01/19/19 16:46 02/07/19 10:37 Senokot S PO 2 tab BIDPRN PRN Administration Constipation Sodium Chloride 10 ml 02/17/19 07:42 02/26/19 08:18 Flush - Normal Saline IVF 10 ml PRN PRN Administration Saline Flush Trimethoprim/Sulfamethoxazole 1.5 tab 02/25/19 14:00 03/04/19 05:44 Bactrim Ds PO 1.5 tab Q8HR CHRISTIANO Administration - Exam Eye: PERRL Heart: RRR, no murmur, no gallops, no rubs, normal peripheral pulses Respiratory: CTAB, no wheezes, no rales, no ronchi, normal chest expansion, no tachypnea Gastrointestinal: soft, non-tender, non-distended, normal bowel sounds, no palpable masses, no hepatomegaly Extremities: no cyanosis, no clubbing, no edema Hosp A/P (1) Neutropenic fever Code(s): D70.9 - NEUTROPENIA, UNSPECIFIED; R50.81 - FEVER PRESENTING WITH CONDITIONS CLASSIFIED ELSEWHERE Status: Acute (2) AML (acute myeloblastic leukemia) Code(s): C92.00 - ACUTE MYELOBLASTIC LEUKEMIA, NOT HAVING ACHIEVED REMISSION Status: Chronic (3) Diastolic dysfunction Code(s): I51.89 - OTHER ILL-DEFINED HEART DISEASES Status: Chronic (4) HTN (hypertension) Code(s): I10 - ESSENTIAL (PRIMARY) HYPERTENSION Status: Chronic (5) Muscular deconditioning Code(s): R29.898 - OTH SYMPTOMS AND SIGNS INVOLVING THE MUSCULOSKELETAL SYSTEM Status: Chronic (6) Pancytopenia Code(s): D61.818 - OTHER PANCYTOPENIA Status: Acute - Plan * Neutropenic fever- unfortunately he developed fever again * Will hold on transfer to nursing home at this time * discussed bone marrow results with Dr. Mckee * HTN- blood pressure is stable overall * Chronic diastolic heart failure- compensated * Continue PT/OT * May need to consider transfer to [facility] in [place] where he received he chemotherapy for AML if he continues to be pancytopenic
[2019-03-04] MEDS: Lisinopril 20 MG TAB PO SCH ×2 (13:41→20:11)
--- NOTE | 2019-03-04 13:43 | PDOC.MOPN ---
Interval History: alert and answers questions today. - Vital Signs Vital Signs: Vital Signs (12 hours) Temp Pulse Resp BP Pulse Ox 03/04/19 11:51 99.8 F H 84 18 139/86 92 L 03/04/19 11:04 100.2 F H 03/04/19 11:00 99.8 F H 03/04/19 08:00 101.2 F H 100 16 122/65 82 L 03/04/19 04:13 99.4 F Weight Admit Weight 151 lb 9.6 oz Weight 166 lb 6.4 oz Most Recent Monitor Data Heart Rate from ECG 96 NIBP 139/79 NIBP BP-Mean 99 Respiration from ECG 29 SpO2 100 - Physical Exam General: Alert HEENT: Atraumatic Lungs: Clear to auscultation Cardiovascular: Regular rate Abdomen: Normal bowel sounds Extremities: No clubbing Skin: No rashes Neurological: Other (weak) - Labs Result Diagrams: 03/04/19 04:11 02/26/19 05:47 Lab results: Laboratory Results - last 24 hr 03/04/19 04:11: WBC 0.2 L*, RBC 2.77 L, Hgb 8.5 L, Hct 25.0 L, MCV 90.1, MCH 30.6, MCHC 34.0, RDW 12.0, Plt Count 8 L*, MPV 11.3 H, Neutrophils % (Manual) Not Reportable, Neutrophils # Not Reportable, Lymphocytes # Not Reportable, Plt Morphology Comment Appears Decreased L Status: lab reviewed by me A/P - Problem (1) AML (acute myeloblastic leukemia) Current Visit: Yes Code(s): C92.00 - ACUTE MYELOBLASTIC LEUKEMIA, NOT HAVING ACHIEVED REMISSION Status: Chronic (2) Neutropenic sepsis Current Visit: Yes Code(s): A41.9 - SEPSIS, UNSPECIFIED ORGANISM; D70.9 - NEUTROPENIA, UNSPECIFIED Status: Acute (3) Pancytopenia Current Visit: Yes Code(s): D61.818 - OTHER PANCYTOPENIA Status: Acute - Plan Plan: Continue abx for fever transfer to [place] when accepted transfuse today
[2019-03-05] MEDS: cefTRIAXone\\ROCEPHIN 2 GM in Sodium Chloride 0.9% 100 ML IVPB SCH ×2 (01:30→13:05)
[2019-03-05] MEDS: Donnatal Elixir 16.2 MG/5 ML UDCUP PO SCH ×6 (01:30→20:24)
[2019-03-05] MEDS: Sulfameth/Trimethoprim DS 800-160mg TAB PO SCH ×3 (05:26→21:51)
[2019-03-05 07:13] LABS: Hemoglobin 8.2 g/dL (14.0-18.0); Mean Corpuscular HGB CONC 34.4 g/dL (32.0-36.0); Mean Corpuscular Hemoglobin 30.7 pg (27.0-31.0); Mean Corpuscular Volume 89.3 fL (78.0-98.0); Mean Platelet Volume 8.3 fL (7.4-10.4); Platelet Count 27 thou/uL (130-400); RBC Distribution Width 11.9 % (11.5-14.5); Red Blood Cell (RBC) Count 2.68 mill/uL (4.70-6.10); White Blood Cell (WBC) Count 0.2 thou/uL (4.8-10.8)
[2019-03-05] MEDS: Dexamethasone 4 MG TAB PO SCH (08:58)
[2019-03-05] MEDS: Folic Acid 1 MG TAB PO SCH (08:59)
[2019-03-05] MEDS: Acyclovir 400 mg Tablet PO SCH ×2 (08:59→20:24)
[2019-03-05] MEDS: Famotidine 20 MG TAB PO SCH ×2 (08:59→20:24)
[2019-03-05] MEDS: Lisinopril 20 MG TAB PO SCH ×2 (09:01→20:24)
--- NOTE | 2019-03-05 15:13 | PDOC.HOSPP ---
- Subjective Encounter Date: 03/05/19 Encounter Time: 08:09 Subjective: 73 y/o male with HTN, diastolic HF and AML on treatment admitted with worsening weakness associated with fever. Patient with pancytopenia later developed severe neutropenia and thrombocytopenia. Hospital course was complicated by intermittent fever for which patient has received several antimicrobials for pneumonia, Pneumocystits, UTI and enterococcus bacteremia. He however continue to have intermittent fever. recieved platelets yesterday for severe thrombocyytopenia. Complains of weakness. - Objective Vital Signs & Weight: Vital Signs (12 hours) Temp Pulse Resp BP BP Pulse Ox 03/05/19 10:00 98.5 F 03/05/19 09:01 107/59 L 03/05/19 08:40 99.8 F H 03/05/19 08:15 100.4 F H 03/05/19 08:00 100.7 F H 110 H 20 107/59 L 90 L 03/05/19 04:15 99.2 F Weight Admit Weight 151 lb 9.6 oz Weight 166 lb 6.4 oz Most Recent Monitor Data Heart Rate from ECG 96 NIBP 139/79 NIBP BP-Mean 99 Respiration from ECG 29 SpO2 100 I&O: 03/04/19 03/05/19 03/06/19 06:59 06:59 06:59 Intake Total 27 240 Balance 27 240 Result Diagrams: 03/05/19 06:47 02/26/19 05:47 Hospitalist ROS - Medication Medications: Active Medications Generic Name Dose Route Start Last Admin Trade Name Freq PRN Reason Stop Dose Admin Acetaminophen 650 mg 01/19/19 16:46 03/01/19 20:48 Tylenol PO 650 mg Q4H PRN Administration Headache/Fever/Mild Pain (1-3) Acetaminophen 650 mg 01/25/19 15:29 03/04/19 08:31 Tylenol [place] 650 mg Q4H PRN Administration Headache/Fever or Pain Acyclovir 400 mg 01/19/19 21:00 03/05/19 08:59 Zovirax PO 400 mg BID CHRISTIANO Administration Alteplase, Recombinant 2 mg 02/09/19 07:45 02/19/19 00:53 Cathflo CATH 2 mg WILLCALL CHRISTIANO Administration Atropine/Hyoscyam/Phenobarb/Scopol 3.24 mg 02/26/19 13:00 03/05/19 08:59 Elixir PO 3.24 mg Q4HR CHRISTIANO Administration Dexamethasone 4 mg 02/09/19 08:00 03/05/19 08:58 Decadron PO 4 mg QAM-WM CHRISTIANO Administration Famotidine 20 mg 01/19/19 21:00 03/05/19 08:59 Pepcid PO 20 mg BID CHRISTIANO Administration Folic Acid 1 mg 01/25/19 09:00 03/05/19 08:59 Folvite PO 1 mg DAILY CHRISTIANO Administration Hydroxyzine HCl 10 mg 02/27/19 16:25 02/27/19 17:16 Atarax PO 10 mg Q6H PRN Administration Itching Daptomycin 750 mg/ Sodium 100 mls @ 200 mls/hr 02/25/19 14:00 03/04/19 19:21 Chloride IVPB 100 mls 1400 CHRISTIANO Administration Ceftriaxone Sodium 2 gm/ 100 mls @ 200 mls/hr 02/25/19 13:00 03/05/19 01:30 Sodium Chloride IVPB 100 mls 0100,1300 [facility]ES [facility] Administration Lisinopril 20 mg 01/19/19 21:00 03/05/19 09:01 Zestril PO Not Given BID [facility] Ondansetron HCl 4 mg 01/19/19 16:46 02/19/19 20:14 Zofran Odt PO 4 mg Q6H PRN Administration Nausea/Vomiting Ondansetron HCl 4 mg 01/19/19 16:46 02/09/19 20:12 Zofran IVP 4 mg Q6H PRN Administration Nausea/Vomiting Pantoprazole Sodium 40 mg 02/03/19 09:00 03/05/19 09:01 Protonix PO 40 mg DAILY CHRISTIANO Administration Senna/Docusate Sodium 2 tab 01/19/19 16:46 02/07/19 10:37 Senokot S PO 2 tab BIDPRN PRN Administration Constipation Sodium Chloride 10 ml 02/17/19 07:42 02/26/19 08:18 Flush - Normal Saline IVF 10 ml PRN PRN Administration Saline Flush Trimethoprim/Sulfamethoxazole 1.5 tab 02/25/19 14:00 03/05/19 05:26 Bactrim Ds PO 1.5 tab Q8HR CHRISTIANO Administration - Exam General Appearance: awake alert General - other findings: chronically ill looking and fatigued ENT: normocephalic atraumatic Neck: symmetric Heart: RRR Respiratory: no wheezes, no ronchi, normal chest expansion, no tachypnea Gastrointestinal: soft, non-tender, non-distended, normal bowel sounds Extremities: no edema Neurological: cranial nerve grossly intact, no focal deficits Musculoskeletal: generalized weakness, diffuse muscle atrophy Psychiatric: A&O x 3 Hosp A/P (1) Pancytopenia Code(s): D61.818 - OTHER PANCYTOPENIA Status: Acute (2) Intermittent fever Code(s): R50.9 - FEVER, UNSPECIFIED Status: Acute (3) Pneumonia, pneumocystis Code(s): B59 - PNEUMOCYSTOSIS Status: Acute (4) Bacteremia due to Enterococcus Code(s): R78.81 - BACTEREMIA; B95.2 - ENTEROCOCCUS THE CAUSE OF DISEASES CLASSIFIED ELSEWHERE Status: Acute (5) Cough Code(s): R05 - COUGH Status: Acute (6) Neutropenic sepsis Code(s): A41.9 - SEPSIS, UNSPECIFIED ORGANISM; D70.9 - NEUTROPENIA, UNSPECIFIED Status: Acute (7) Pneumonitis Code(s): J18.9 - PNEUMONIA, UNSPECIFIED ORGANISM Status: Acute (8) UTI (urinary tract infection) Status: Acute (9) AML (acute myeloblastic leukemia) Code(s): C92.00 - ACUTE MYELOBLASTIC LEUKEMIA, NOT HAVING ACHIEVED REMISSION Status: Chronic (10) Diastolic dysfunction Code(s): I51.89 - OTHER ILL-DEFINED HEART DISEASES Status: Chronic (11) HTN (hypertension) Code(s): I10 - ESSENTIAL (PRIMARY) HYPERTENSION Status: Chronic (12) Muscular deconditioning Code(s): R29.898 - OTH SYMPTOMS AND SIGNS INVOLVING THE MUSCULOSKELETAL SYSTEM Status: Chronic - Plan Continue supportive care. Antimicrobials as per ID Treatment of pancytopenia and AML as well as transfusions as per oncology liberal oral intake advised Follow CBC
[2019-03-06] MEDS: Donnatal Elixir 16.2 MG/5 ML UDCUP PO SCH ×6 (01:17→20:47)
[2019-03-06] MEDS: cefTRIAXone\\ROCEPHIN 2 GM in Sodium Chloride 0.9% 100 ML IVPB SCH ×2 (01:30→12:05)
[2019-03-06] MEDS: Sulfameth/Trimethoprim DS 800-160mg TAB PO SCH ×3 (05:55→21:06)
[2019-03-06 06:50] LABS: Hemoglobin 7.8 g/dL (14.0-18.0); Mean Corpuscular HGB CONC 34.8 g/dL (32.0-36.0); Mean Corpuscular Hemoglobin 31.1 pg (27.0-31.0); Mean Corpuscular Volume 89.4 fL (78.0-98.0); Mean Platelet Volume 10.3 fL (7.4-10.4); Platelet Count 12 thou/uL (130-400); Platelet Morphology Comment Appears Decreased; RBC Distribution Width 11.8 % (11.5-14.5); Red Blood Cell (RBC) Count 2.52 mill/uL (4.70-6.10); White Blood Cell (WBC) Count 0.2 thou/uL (4.8-10.8)
--- NOTE | 2019-03-06 07:32 | PDOC.HOSPP ---
- Subjective Encounter Date: 03/06/19 Encounter Time: 07:30 Subjective: 73 y/o male with HTN, diastolic HF and AML on treatment admitted with worsening weakness associated with fever. Patient with pancytopenia later developed severe neutropenia and thrombocytopenia. Hospital course was complicated by intermittent fever for which patient has received several antimicrobials for pneumonia, Pneumocystits, UTI and enterococcus bacteremia. Continues to have intermittent fever with T max of 100.7 in the last 24 hours.No new complain. - Objective Vital Signs & Weight: Vital Signs (12 hours) Temp Pulse Resp BP BP Pulse Ox 03/06/19 04:30 99.3 F 03/06/19 00:10 98.9 F 03/05/19 20:24 123/64 03/05/19 20:00 99.1 F 100 16 123/64 94 L Weight Admit Weight 151 lb 9.6 oz Weight 166 lb 6.4 oz Most Recent Monitor Data Heart Rate from ECG 96 NIBP 139/79 NIBP BP-Mean 99 Respiration from ECG 29 SpO2 100 I&O: 03/05/19 03/06/19 03/07/19 06:59 06:59 06:59 Intake Total 27 600 Balance 27 600 Result Diagrams: 03/06/19 06:15 02/26/19 05:47 Hospitalist ROS - Medication Medications: Active Medications Generic Name Dose Route Start Last Admin Trade Name Freq PRN Reason Stop Dose Admin Acetaminophen 650 mg 01/19/19 16:46 03/01/19 20:48 Tylenol PO 650 mg Q4H PRN Administration Headache/Fever/Mild Pain (1-3) Acetaminophen 650 mg 01/25/19 15:29 03/04/19 08:31 Tylenol [place] 650 mg Q4H PRN Administration Headache/Fever or Pain Acyclovir 400 mg 01/19/19 21:00 03/05/19 20:24 Zovirax PO 400 mg BID CHRISTIANO Administration Alteplase, Recombinant 2 mg 02/09/19 07:45 02/19/19 00:53 Cathflo CATH 2 mg WILLCALL CHRISTIANO Administration Atropine/Hyoscyam/Phenobarb/Scopol 3.24 mg 02/26/19 13:00 03/06/19 05:55 Elixir PO 3.24 mg Q4HR CHRISTIANO Administration Dexamethasone 4 mg 02/09/19 08:00 03/05/19 08:58 Decadron PO 4 mg QAM-WM CHRISTIANO Administration Famotidine 20 mg 01/19/19 21:00 03/05/19 20:24 Pepcid PO Not Given BID CHRISTIANO Folic Acid 1 mg 01/25/19 09:00 03/05/19 08:59 Folvite PO 1 mg DAILY CHRISTIANO Administration Hydroxyzine HCl 10 mg 02/27/19 16:25 02/27/19 17:16 Atarax PO 10 mg Q6H PRN Administration Itching Daptomycin 750 mg/ Sodium 100 mls @ 200 mls/hr 02/25/19 14:00 03/05/19 14:45 Chloride IVPB 100 mls 1400 CHRISTIANO Administration Ceftriaxone Sodium 2 gm/ 100 mls @ 200 mls/hr 02/25/19 13:00 03/06/19 01:30 Sodium Chloride IVPB 100 mls 0100,1300 CHRISTIANO Administration Lisinopril 20 mg 01/19/19 21:00 03/05/19 20:24 Zestril PO 20 mg BID CHRISTIANO Administration Ondansetron HCl 4 mg 01/19/19 16:46 02/19/19 20:14 Zofran Odt PO 4 mg Q6H PRN Administration Nausea/Vomiting Ondansetron HCl 4 mg 01/19/19 16:46 02/09/19 20:12 Zofran IVP 4 mg Q6H PRN Administration Nausea/Vomiting Pantoprazole Sodium 40 mg 02/03/19 09:00 03/05/19 09:01 Protonix PO 40 mg DAILY CHRISTIANO Administration Senna/Docusate Sodium 2 tab 01/19/19 16:46 02/07/19 10:37 Senokot S PO 2 tab BIDPRN PRN Administration Constipation Sodium Chloride 10 ml 02/17/19 07:42 02/26/19 08:18 Flush - Normal Saline IVF 10 ml PRN PRN Administration Saline Flush Trimethoprim/Sulfamethoxazole 1.5 tab 02/25/19 14:00 03/06/19 05:55 Bactrim Ds PO 1.5 tab Q8HR CHRISTIANO Administration - Exam General Appearance: awake alert General - other findings: chronically ill looking Eye: anicteric sclera ENT: normocephalic atraumatic Neck: symmetric, no JVD Heart: RRR Respiratory: no wheezes, no rales, no ronchi, normal chest expansion Gastrointestinal: soft, non-tender, non-distended, normal bowel sounds Extremities: no cyanosis, no edema Neurological: cranial nerve grossly intact, no focal deficits Musculoskeletal: generalized weakness, diffuse muscle atrophy Psychiatric: A&O x 3 Hosp A/P (1) Intermittent fever Code(s): R50.9 - FEVER, UNSPECIFIED Status: Acute (2) Pancytopenia Code(s): D61.818 - OTHER PANCYTOPENIA Status: Acute (3) Pneumonia, pneumocystis Code(s): B59 - PNEUMOCYSTOSIS Status: Acute (4) Bacteremia due to Enterococcus Code(s): R78.81 - BACTEREMIA; B95.2 - ENTEROCOCCUS THE CAUSE OF DISEASES CLASSIFIED ELSEWHERE Status: Acute (5) Cough Code(s): R05 - COUGH Status: Acute (6) Neutropenic sepsis Code(s): A41.9 - SEPSIS, UNSPECIFIED ORGANISM; D70.9 - NEUTROPENIA, UNSPECIFIED Status: Acute (7) Pneumonitis Code(s): J18.9 - PNEUMONIA, UNSPECIFIED ORGANISM Status: Acute (8) UTI (urinary tract infection) Status: Acute (9) AML (acute myeloblastic leukemia) Code(s): C92.00 - ACUTE MYELOBLASTIC LEUKEMIA, NOT HAVING ACHIEVED REMISSION Status: Chronic (10) Diastolic dysfunction Code(s): I51.89 - OTHER ILL-DEFINED HEART DISEASES Status: Chronic (11) HTN (hypertension) Code(s): I10 - ESSENTIAL (PRIMARY) HYPERTENSION Status: Chronic (12) Muscular deconditioning Code(s): R29.898 - OTH SYMPTOMS AND SIGNS INVOLVING THE MUSCULOSKELETAL SYSTEM Status: Chronic - Plan Continue antibiotic and supportive care. Treatment of pancytopenia and AML as well as transfusions as per oncology liberal oral intake advised Get CMP and CBC in the am.
[2019-03-06] MEDS: Folic Acid 1 MG TAB PO SCH (09:41)
[2019-03-06] MEDS: Lisinopril 20 MG TAB PO SCH ×2 (09:41→20:46)
[2019-03-06] MEDS: Famotidine 20 MG TAB PO SCH ×2 (09:41→19:59)
[2019-03-06] MEDS: Dexamethasone 4 MG TAB PO SCH (09:41)
[2019-03-06] MEDS: Acyclovir 400 mg Tablet PO SCH ×2 (09:44→20:47)
[2019-03-06] MEDS: Acetaminophen 650 MG Suppository PR PRN (11:57)
[2019-03-07] MEDS: Donnatal Elixir 16.2 MG/5 ML UDCUP PO SCH ×6 (01:22→20:48)
[2019-03-07] MEDS: cefTRIAXone\\ROCEPHIN 2 GM in Sodium Chloride 0.9% 100 ML IVPB SCH (01:24)
[2019-03-07] MEDS: Acetaminophen 325 MG TAB PO PRN (04:28)
[2019-03-07] MEDS: Sulfameth/Trimethoprim DS 800-160mg TAB PO SCH ×3 (05:48→21:15)
[2019-03-07 06:29] LABS: Mean Corpuscular HGB CONC 34.8 g/dL (32.0-36.0); Mean Corpuscular Volume 89.1 fL (78.0-98.0); RBC Distribution Width 11.7 % (11.5-14.5); Red Blood Cell (RBC) Count 2.58 mill/uL (4.70-6.10); White Blood Cell (WBC) Count 0.2 thou/uL (4.8-10.8)
[2019-03-07 06:36] LABS: Mean Platelet Volume 6.4 fL (7.4-10.4); Platelet Count 42 thou/uL (130-400); Platelet Morphology Comment Appears Decreased
[2019-03-07 06:41] LABS: ALT (SGPT) 131 U/L (8-55); AST (SGOT) 41 U/L (5-34); Albumin 2.8 g/dL (3.4-4.8); Alkaline Phosphatase 187 U/L (40-110); Anion Gap 15 mmol/L (10-20); BUN (Urea Nitrogen) 11 mg/dL (8.4-25.7); Bilirubin, Total 0.3 mg/dL (0.2-1.2); Calc. Creatinine Clearance 108 mL/min (70-130); Calcium 8.5 mg/dL (7.8-10.44); Carbon Dioxide 18 mmol/L (23-31); Chloride 103 mmol/L (98-107); Estimated GFR-MDRD Greater than 90; Globulin 4.6 g/dL (2.4-3.5); Glucose 107 mg/dL (83-110); Potassium 3.8 mmol/L (3.5-5.1); Protein, Total 7.4 g/dL (5.8-8.1); Sodium 132 mmol/L (136-145)
--- NOTE | 2019-03-07 08:59 | PDOC.HOSPP ---
- Subjective Encounter Date: 03/07/19 Encounter Time: 12:30 Subjective: Patient with recurrent fever this AM, sleepy right now - Objective Vital Signs & Weight: Vital Signs (12 hours) Temp Pulse Resp BP Pulse Ox 03/07/19 07:42 98.0 F 105 H 20 110/67 91 L 03/07/19 05:56 101.1 F H 03/07/19 04:00 102.9 F H Weight Admit Weight 151 lb 9.6 oz Weight 166 lb 6.4 oz Most Recent Monitor Data Heart Rate from ECG 96 NIBP 139/79 NIBP BP-Mean 99 Respiration from ECG 29 SpO2 100 I&O: 03/06/19 03/07/19 03/08/19 06:59 06:59 06:59 Intake Total 600 1050 Balance 600 1050 Result Diagrams: 03/07/19 05:51 03/07/19 05:51 Hospitalist ROS - Review of Systems Constitutional: reports: fever, chills Respiratory: denies: cough, shortness of breath Cardiovascular: denies: chest pain, palpitations, orthopnea Gastrointestinal: denies: nausea, vomiting, abdominal pain Skin: denies: rash - Medication Medications: Active Medications Generic Name Dose Route Start Last Admin Trade Name Freq PRN Reason Stop Dose Admin Acetaminophen 650 mg 01/19/19 16:46 03/07/19 04:28 Tylenol PO 650 mg Q4H PRN Administration Headache/Fever/Mild Pain (1-3) Acetaminophen 650 mg 01/25/19 15:29 03/06/19 11:57 Tylenol [place] 650 mg Q4H PRN Administration Headache/Fever or Pain Acyclovir 400 mg 01/19/19 21:00 03/06/19 20:47 Zovirax PO 400 mg BID CH[facility]STIANO Administration Alteplase, Recombinant 2 mg 02/09/19 07:45 02/19/19 00:53 Cathflo CATH 2 mg WILLCALL CHRISTIANO Administration Atropine/Hyoscyam/Phenobarb/Scopol 3.24 mg 02/26/19 13:00 03/07/19 04:39 Elixir PO 3.24 mg Q4HR CHRISTIANO Administration Dexamethasone 4 mg 02/09/19 08:00 03/06/19 09:41 Decadron PO 4 mg QAM-WM CHRISTIANO Administration Famotidine 20 mg 01/19/19 21:00 03/06/19 19:59 Pepcid PO Not Given BID CHIRSTIANO Folic Acid 1 mg 01/25/19 09:00 03/06/19 09:41 Folvite PO 1 mg DAILY CHRISTIANO Administration Hydroxyzine HCl 10 mg 02/27/19 16:25 02/27/19 17:16 Atarax PO 10 mg Q6H PRN Administration Itching Daptomycin 750 mg/ Sodium 100 mls @ 200 mls/hr 02/25/19 14:00 03/06/19 14:07 Chloride IVPB 100 mls 1400 CHRISTIANO Administration Ceftriaxone Sodium 2 gm/ 100 mls @ 200 mls/hr 02/25/19 13:00 03/07/19 01:24 Sodium Chloride IVPB 100 mls 0100,1300 CHRISTIANO Administration Lisinopril 20 mg 01/19/19 21:00 03/06/19 20:46 Zestril PO 20 mg BID CHRISTIANO Administration Ondansetron HCl 4 mg 01/19/19 16:46 02/19/19 20:14 Zofran Odt PO 4 mg Q6H PRN Administration Nausea/Vomiting Ondansetron HCl 4 mg 01/19/19 16:46 02/09/19 20:12 Zofran IVP 4 mg Q6H PRN Administration Nausea/Vomiting Pantoprazole Sodium 40 mg 02/03/19 09:00 03/06/19 09:41 Protonix PO 40 mg DAILY CHRISTIANO Administration Senna/Docusate Sodium 2 tab 01/19/19 16:46 02/07/19 10:37 Senokot S PO 2 tab BIDPRN PRN Administration Constipation Sodium Chloride 10 ml 02/17/19 07:42 03/06/19 09:41 Flush - Normal Saline IVF 10 ml PRN PRN Administration Saline Flush Trimethoprim/Sulfamethoxazole 1.5 tab 02/25/19 14:00 03/07/19 05:48 Bactrim Ds PO 1.5 tab Q8HR CHRISTIANO Administration - Exam General Appearance: NAD Heart: RRR, no murmur, no gallops Respiratory: CTAB, no wheezes Gastrointestinal: soft, non-tender, non-distended, normal bowel sounds Psychiatric: lethargic Hosp A/P (1) Neutropenic fever Code(s): D70.9 - NEUTROPENIA, UNSPECIFIED; R50.81 - FEVER PRESENTING WITH CONDITIONS CLASSIFIED ELSEWHERE Status: Acute Plan: Fever spiking to 102 again today (2) Bacteremia due to Enterococcus Code(s): R78.81 - BACTEREMIA; B95.2 - ENTEROCOCCUS THE CAUSE OF DISEASES CLASSIFIED ELSEWHERE Status: Acute Plan: 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 Colón with Daptomycin and Rocephin (3) Pancytopenia Code(s): D61.818 - OTHER PANCYTOPENIA Status: Acute Plan: transfusing RBC and Platelets as needed, Heme Onc following - Plan continue antibiotics, PT/OT, speech therapy
[2019-03-07] MEDS: Famotidine 20 MG TAB PO SCH ×2 (09:35→20:48)
[2019-03-07] MEDS: Lisinopril 20 MG TAB PO SCH ×2 (09:35→21:15)
[2019-03-07] MEDS: Acyclovir 400 mg Tablet PO SCH ×2 (09:35→21:15)
[2019-03-07] MEDS: Folic Acid 1 MG TAB PO SCH (09:36)
[2019-03-07] MEDS: Dexamethasone 4 MG TAB PO SCH (09:36)
--- NOTE | 2019-03-07 11:48 | PRG ---
DATE OF SERVICE: 03/07/2019 SUBJECTIVE: Mr. Crooks is awake and denies any chest pain. No cough. No back pain. No abdominal pain or diarrhea. OBJECTIVE: VITAL SIGNS: Still having temperature elevation intermittently the last one was up to 102.9 earlier today and he is now 98, BP 110/67, respiratory rate 20, and heart rate 105. GENERAL: He does not have oxygen supplementation, appears chronically ill, but in no acute distress. Oriented. HEENT: Ocular movements conjugate. LUNGS: Clear to auscultation and percussion. HEART: S1 and S2. Regular rate. ABDOMEN: Soft and not distended. EXTREMITIES: Moves extremities equally. LABORATORY DATA: White cell count of 0.2, hemoglobin 8, and platelets 42,000. Chemistry with a creatinine 0.64, AST 41, ALT 131, and alkaline phosphatase 187. His last imaging study was a chest x-ray from 02/21. His bone marrow showed hypocellular marrow. No leukemia was seen. Microbiology last cultures are from 02/27. ASSESSMENT AND PLAN: Acute myeloid leukemia with refractory pancytopenia, but no evidence of malignancy remaining yet in the sample that was obtained. This could be a sampling issue or maybe just in remission, but without recovery of his on cellularity. Persistence of fever, most likely indicates opportunistic infectious process. We will switch him to meropenem and continue Bactrim suppressive therapy with the completion phase of his treatment for Pneumocystis. Add micafungin again. Discontinue daptomycin since he has completed treatment for his vancomycin-resistant enterococcal infection. Repeat imaging of chest, abdomen, and pelvis with contrast. Does have some abnormalities in liver functions and those will have to be evaluated and the CT of abdomen will help with that. Job ID: [id number]
[2019-03-07] MEDS: Micafungin 100 MG in Sodium Chloride 0.9% 100 ML IVPB SCH (13:37)
[2019-03-07] MEDS: MEROPENEM 1 GM/50 ML 1 GM in Premix Bag 1 BAG IVPB SCH ×2 (13:38→21:16)
--- NOTE | 2019-03-07 13:51 | CT ---
CT CHEST AND ABDOMEN AND PELVIS WITH IV CONTRAST: INDICATIONS: AML. Neutropenia. Fever. Pneumonia. Abnormal liver tests. FINDINGS: CHEST: Cardiomegaly with vascular congestion. Confluent bilateral perihilar infiltrates. This may rep resent bilateral perihilar edema, although inflammatory infiltrates cannot be excluded. Within these confluent infiltrates are scattered pulmonary nodular densities. There is a 1.5 cm nodule in the left upper lobe. There is a 1.0 cm nodule in the right lower lobe. There may be other smaller nodules whi ch are obscured within these dense confluent perihilar infiltrates. Nonspecific mediastinal and hilar adenopathy, similar in appearance to the prior exam of 02/13/2019. No osseous abnormality identified. IMPRESSION: 1. Confluent bilateral perihilar infiltrates with air bronchograms. 2. Scattered bilateral pulmonary nodules. 3. Nonspecific mediastinal and hilar adenopathy, which appears stable. CT ABDOMEN AND PELVIS: There is a new area of low attenuation seen in the spleen. This has a wedge-sh aped configuration extending from the superior margin of the spleen, measuring approximately 2 cm in AP dimension. This is a new finding when compared to the prior CT of 02/13/2019. Splenic infarct shou ld be considered. The liver and pancreas are unremarkable. The adrenal glands are normal. Review of the kidneys reveals a nonspecific low density lesion in the inferior right renal cortex, me asuring 1.5 cm. There is also an abnormal area of low attenuation in the left renal cortex involving the mid inferolateral cortex. This has a wedge shaped configuration and measures up to 2 cm. There re nal lesions are indeterminate but could represent focal areas of pyelonephritis or renal infarcts. Small bowel loops show nonspecific distention. A large amount of stool is seen throughout a dilated colon. A large amount of stool in a dilated rect um is seen. Constipation/obstipation with possible fecal impaction should be considered. Rectal diame ter measures up to 8 cm. Aorta of normal caliber. No adenopathy. Osseous structures unremarkable. IMPRESSION: 1. New low density lesion in the spleen when compared to 02/13/2019. This may represent leukemic infi ltrate. Splenic infarct is a consideration. 2. There are indeterminate areas of low attenuation involving both kidneys, as described above. Consi derations include focal pyelonephritis, leukemic infiltrate and renal infarcts. 3. Large amount of stool throughout a dilated colon with significant dilatation of the rectum, consis tent with constipation/obstipation and possible fecal impaction at the rectum. POS: BELINDA
[2019-03-07] MEDS ORDERED: Meropenem 1 GM in Sodium Chloride 0.9% 100 ML IVPB SCH (14:00)
--- NOTE | 2019-03-07 16:48 | EKG ---
Test Reason : Blood Pressure : / mmHG Vent. Rate : 120 BPM Atrial Rate : 120 BPM P-R Int : 128 ms QRS Dur : 082 ms QT Int : 320 ms P-R-T Axes : 056 020 025 degrees QTc Int : 452 ms Sinus tachycardia with PAC's Right atrial enlargement Nonspecific ST and T wave abnormality Abnormal ECG When compared with ECG of 26-JAN-2019 23:15, Nonspecific T wave abnormality now evident in Lateral leads Confirmed by YEIMI ROSADO M.D. ([id number]) on 03/07/2019 4:47:57 PM Referred By: ESTELA Confirmed By:YEIMI ROSADO M.D.
[2019-03-08] MEDS: Donnatal Elixir 16.2 MG/5 ML UDCUP PO SCH ×6 (00:11→20:16)
[2019-03-08] MEDS: MEROPENEM 1 GM/50 ML 1 GM in Premix Bag 1 BAG IVPB SCH ×3 (05:48→21:25)
[2019-03-08 07:17] LABS: Hemoglobin 7.6 g/dL (14.0-18.0); Mean Corpuscular HGB CONC 33.1 g/dL (32.0-36.0); Mean Corpuscular Hemoglobin 29.7 pg (27.0-31.0); Mean Corpuscular Volume 89.7 fL (78.0-98.0); Mean Platelet Volume 7.2 fL (7.4-10.4); Platelet Count 22 thou/uL (130-400); RBC Distribution Width 11.7 % (11.5-14.5); Red Blood Cell (RBC) Count 2.54 mill/uL (4.70-6.10); White Blood Cell (WBC) Count 0.2 thou/uL (4.8-10.8)
--- NOTE | 2019-03-08 08:54 | PDOC.HOSPP ---
- Subjective Encounter Date: 03/08/19 Encounter Time: 11:00 Subjective: Patient with some small liquid BM, [address] showing fecal impaction so likely overflow incontinence. Still spiking fevers. Patient reports some abdominal pain. - Objective Vital Signs & Weight: Vital Signs (12 hours) Temp Pulse Resp BP BP Pulse Ox 03/08/19 08:00 98.4 F 106 H 18 117/67 92 L 03/08/19 00:00 99.9 F H 03/07/19 21:15 110/67 Weight Admit Weight 151 lb 9.6 oz Weight 166 lb 6.4 oz Most Recent Monitor Data Heart Rate from ECG 96 NIBP 139/79 NIBP BP-Mean 99 Respiration from ECG 29 SpO2 100 I&O: 03/07/19 03/08/19 03/09/19 06:59 06:59 06:59 Intake Total 1050 Balance 1050 Result Diagrams: 03/08/19 06:00 03/07/19 05:51 Hospitalist ROS - Review of Systems Constitutional: reports: fever Respiratory: denies: cough, shortness of breath Cardiovascular: denies: chest pain, palpitations Gastrointestinal: reports: abdominal pain. denies: nausea, vomiting - Medication Medications: Active Medications Generic Name Dose Route Start Last Admin Trade Name Freq PRN Reason Stop Dose Admin Acetaminophen 650 mg 01/19/19 16:46 03/07/19 04:28 Tylenol PO 650 mg Q4H PRN Administration Headache/Fever/Mild Pain (1-3) Acetaminophen 650 mg 01/25/19 15:29 03/06/19 11:57 Tylenol [place] 650 mg Q4H PRN Administration Headache/Fever or Pain Acyclovir 400 mg 01/19/19 21:00 03/07/19 21:15 Zovirax PO 400 mg BID CHRISTIANO Administration Alteplase, Recombinant 2 mg 02/09/19 07:45 02/19/19 00:53 Cathflo CATH 2 mg WILLCALL CHRISTIANO Administration Atropine/Hyoscyam/Phenobarb/Scopol 3.24 mg 02/26/19 13:00 03/08/19 04:59 Elixir PO Not Given Q4HR CHRISTIANO Dexamethasone 4 mg 02/09/19 08:00 03/07/19 09:36 Decadron PO 4 mg QAM- CHRISTIANO Administration Famotidine 20 mg 01/19/19 21:00 03/07/19 20:48 Pepcid PO Not Given BID [facility] Folic Acid 1 mg 01/25/19 09:00 03/07/19 09:36 Folvite PO 1 mg DAILY CHRISTIANO Administration Hydroxyzine HCl 10 mg 02/27/19 16:25 02/27/19 17:16 Atarax PO 10 mg Q6H PRN Administration Itching Micafungin Sodium 100 mg/ 100 mls @ 100 mls/hr 03/07/19 13:00 03/07/19 13:37 Sodium Chloride IVPB 100 mls 1300 CHRISTIANO Administration Meropenem 1 gm/ Device 50 mls @ 100 mls/hr 03/07/19 14:00 03/08/19 05:48 IVPB 50 mls Q8HR CHRISTIANO Administration Lisinopril 20 mg 01/19/19 21:00 03/07/19 21:15 Zestril PO 20 mg BID CHRISTIANO Administration Ondansetron HCl 4 mg 01/19/19 16:46 02/19/19 20:14 Zofran Odt PO 4 mg Q6H PRN Administration Nausea/Vomiting Ondansetron HCl 4 mg 01/19/19 16:46 02/09/19 20:12 Zofran IVP 4 mg Q6H PRN Administration Nausea/Vomiting Pantoprazole Sodium 40 mg 02/03/19 09:00 03/07/19 09:36 Protonix PO 40 mg DAILY CHRISTIANO Administration Senna/Docusate Sodium 2 tab 01/19/19 16:46 02/07/19 10:37 Senokot S PO 2 tab BIDPRN PRN Administration Constipation Sodium Chloride 10 ml 02/17/19 07:42 03/07/19 09:36 Flush - Normal Saline IVF 10 ml PRN PRN Administration Saline Flush - Exam General Appearance: NAD Eye: anicteric sclera ENT: moist mucosa Heart: RRR, no murmur Respiratory: CTAB, no wheezes, no rales, no ronchi Gastrointestinal: soft, non-tender, non-distended, normal bowel sounds Psychiatric: normal affect Hosp A/P (1) Neutropenic fever Code(s): D70.9 - NEUTROPENIA, UNSPECIFIED; R50.81 - FEVER PRESENTING WITH CONDITIONS CLASSIFIED ELSEWHERE Status: Acute (2) Bacteremia due to Enterococcus Code(s): R78.81 - BACTEREMIA; B95.2 - ENTEROCOCCUS THE CAUSE OF DISEASES CLASSIFIED ELSEWHERE Status: Acute (3) Pancytopenia Code(s): D61.818 - OTHER PANCYTOPENIA Status: Acute (4) AML (acute myeloblastic leukemia) Code(s): C92.00 - ACUTE MYELOBLASTIC LEUKEMIA, NOT HAVING ACHIEVED REMISSION Status: Chronic (5) Fecal impaction Code(s): K56.41 - FECAL IMPACTION Status: Acute Plan: CT with significant fecal retention and full distended rectum, will give Miralax , Fleets enema - Plan continue antibiotics, PT/OT, speech therapy
[2019-03-08] MEDS ORDERED: Mineral Oil ENEMA PR SCH (09:00)
[2019-03-08] MEDS: Dexamethasone 4 MG TAB PO SCH (09:50)
[2019-03-08] MEDS: Folic Acid 1 MG TAB PO SCH (09:50)
[2019-03-08] MEDS: Famotidine 20 MG TAB PO SCH ×2 (09:50→19:53)
[2019-03-08] MEDS: Lisinopril 20 MG TAB PO SCH ×2 (09:51→20:11)
[2019-03-08] MEDS: Acyclovir 400 mg Tablet PO SCH ×2 (09:51→20:07)
[2019-03-08] MEDS: Polyethylene Glycol 3350 17 GM Packet PO SCH (12:38)
[2019-03-08] MEDS: Acetaminophen 650 MG Suppository PR PRN (12:42)
[2019-03-08] MEDS: Micafungin 100 MG in Sodium Chloride 0.9% 100 ML IVPB SCH (13:03)
--- NOTE | 2019-03-08 18:06 | PRG ---
DATE OF SERVICE: 03/08/2019 SUBJECTIVE: Mr. Crooks does not appear in acute distress. Some fecal impaction noted on CT scan. No respiratory symptoms. OBJECTIVE: VITAL SIGNS: T-max 102.9 yesterday at 4:00 a.m. and just recently 101.4 at noontime today. LUNGS: Clear to auscultation and percussion. HEART: S1 and S2. Regular rate. ABDOMEN: Not tender, not distended. EXTREMITIES: Moves extremities equally. Marked wasting syndrome. Follows commands. Still has a hard time with speech. LABORATORY DATA: White cell count is 0.2, hemoglobin 7.6, and platelets 22,000. Creatinine 0.64. AST 41, ALT 131, alkaline phosphatase 187, and albumin 2.8. Latest blood cultures are still negative. 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 ASSESSMENT AND DISCUSSION: Acute myelogenous leukemia with various infectious complications noted above. He will complete treatment for Pneumocystis in about 2 days and then he can be transitioned to suppressive Bactrim dose which is 3 times a week one double-strength tablet. Persistence of fever is probably related either to an opportunistic infectious process or another complication. In view of splenic infarcts, we will repeat echocardiogram to see if he has a vegetation. The other cause of splenic infarcts in patients with acute myeloid leukemia is hypercoagulable state for example associated with antiphospholipid syndrome, which can develop in those patients. We will check anticardiolipin antibody. Infarcts can naturally be associated with fever and in this case, he seems to have them both in the spleen as well as the kidneys. Job ID: [id number]
[2019-03-09] MEDS: Donnatal Elixir 16.2 MG/5 ML UDCUP PO SCH ×6 (00:45→20:36)
[2019-03-09] MEDS: MEROPENEM 1 GM/50 ML 1 GM in Premix Bag 1 BAG IVPB SCH ×3 (06:28→21:40)
[2019-03-09 06:56] LABS: Hemoglobin 7.1 g/dL (14.0-18.0); Mean Corpuscular HGB CONC 34.7 g/dL (32.0-36.0); Mean Corpuscular Hemoglobin 30.8 pg (27.0-31.0); Mean Corpuscular Volume 88.8 fL (78.0-98.0); RBC Distribution Width 11.5 % (11.5-14.5); White Blood Cell (WBC) Count 0.2 thou/uL (4.8-10.8)
[2019-03-09 07:21] LABS: Platelet Count 8 thou/uL (130-400); Platelet Morphology Comment Appears Decreased
[2019-03-09 07:25] LABS: MDiff Complete? YES
[2019-03-09] MEDS: Lisinopril 20 MG TAB PO SCH ×2 (09:13→20:36)
[2019-03-09] MEDS: Dexamethasone 4 MG TAB PO SCH (09:14)
[2019-03-09] MEDS: Acyclovir 400 mg Tablet PO SCH ×2 (09:15→20:36)
[2019-03-09] MEDS: Folic Acid 1 MG TAB PO SCH (09:15)
[2019-03-09] MEDS: Polyethylene Glycol 3350 17 GM Packet PO SCH (09:15)
[2019-03-09] MEDS: Famotidine 20 MG TAB PO SCH ×2 (09:16→20:36)
[2019-03-09] MEDS: Micafungin 100 MG in Sodium Chloride 0.9% 100 ML IVPB SCH (13:18)
[2019-03-09] MEDS: Acetaminophen 650 MG Suppository PR PRN (13:29)
--- NOTE | 2019-03-09 16:28 | PDOC.HOSPP ---
- Subjective Encounter Date: 03/09/19 Encounter Time: 16:28 Subjective: cc: f/u for AML, febrile neutropenia, pancytopenia. subjective: patient is new to me. seen and personally examined. chart, labs, imaging results reviewed. feels okay. fatigued. no new complaints. nurse notes patient received Single donor platelet transfusion today and patient still febril.e - Objective Vital Signs & Weight: Vital Signs (12 hours) Temp Pulse Pulse Resp BP BP BP 03/09/19 13:35 100.9 F H 03/09/19 12:00 99.4 F 92 18 120/62 03/09/19 10:40 99.2 F 107 H 18 116/78 03/09/19 10:14 99.0 F 16 126/76 03/09/19 09:59 98.8 F 107 H 16 113/64 03/09/19 09:13 115/58 L 03/09/19 08:00 98.5 F 90 16 115/58 L Pulse Ox 03/09/19 13:35 03/09/19 12:00 95 03/09/19 10:40 03/09/19 10:14 92 L 03/09/19 09:59 03/09/19 09:13 03/09/19 08:00 93 L Weight Admit Weight 151 lb 9.6 oz Weight 166 lb 6.4 oz Most Recent Monitor Data Heart Rate from ECG 96 NIBP 139/79 NIBP BP-Mean 99 Respiration from ECG 29 SpO2 100 I&O: 03/08/19 03/09/19 03/10/19 06:59 06:59 06:59 Intake Total 340 250 Balance 340 250 Result Diagrams: 03/09/19 06:30 03/07/19 05:51 Hospitalist ROS - Review of Systems Other: pertinent positive per SUBJECTIVE; remainder ROS negative. - Medication Medications: Active Medications Generic Name Dose Route Start Last Admin Trade Name Freq PRN Reason Stop Dose Admin Acetaminophen 650 mg 01/19/19 16:46 03/07/19 04:28 Tylenol PO 650 mg Q4H PRN Administration Headache/Fever/Mild Pain (1-3) Acetaminophen 650 mg 01/25/19 15:29 03/09/19 13:29 Tylenol [place] 650 mg Q4H PRN Administration Headache/Fever or Pain Acyclovir 400 mg 01/19/19 21:00 03/09/19 09:15 Zovirax PO 400 mg BID CHRISTIANO Administration Alteplase, Recombinant 2 mg 02/09/19 07:45 02/19/19 00:53 Cathflo CATH 2 mg WILLCALL CHRISTIANO Administration Atropine/Hyoscyam/Phenobarb/Scopol 3.24 mg 02/26/19 13:00 03/09/19 13:31 Elixir PO 3.24 mg Q4HR CHRISTIANO Administration Dexamethasone 4 mg 02/09/19 08:00 03/09/19 09:14 Decadron PO 4 mg QAM-WM CHRISTIANO Administration Famotidine 20 mg 01/19/19 21:00 03/09/19 09:16 Pepcid PO Not Given BID CHRISTIANO Folic Acid 1 mg 01/25/19 09:00 03/09/19 09:15 Folvite PO 1 mg DAILY CHRISTIANO Administration Hydroxyzine HCl 10 mg 02/27/19 16:25 02/27/19 17:16 Atarax PO 10 mg Q6H PRN Administration Itching Micafungin Sodium 100 mg/ 100 mls @ 100 mls/hr 03/07/19 13:00 03/09/19 13:18 Sodium Chloride IVPB 100 mls 1300 CHRISTIANO Administration Meropenem 1 gm/ Device 50 mls @ 100 mls/hr 03/07/19 14:00 03/09/19 13:19 IVPB 50 mls Q8HR CHRISTIANO Administration Lisinopril 20 mg 01/19/19 21:00 03/09/19 09:13 Zestril PO 20 mg BID CHRISTIANO Administration Ondansetron HCl 4 mg 01/19/19 16:46 02/19/19 20:14 Zofran Odt PO 4 mg Q6H PRN Administration Nausea/Vomiting Ondansetron HCl 4 mg 01/19/19 16:46 02/09/19 20:12 Zofran IVP 4 mg Q6H PRN Administration Nausea/Vomiting Pantoprazole Sodium 40 mg 02/03/19 09:00 03/09/19 09:15 Protonix PO 40 mg DAILY CHRISTIANO Administration Polyethylene Glycol 17 gm 03/08/19 09:00 03/09/19 09:15 Miralax PO 17 gm DAILY CHRISTIANO Administration Senna/Docusate Sodium 2 tab 01/19/19 16:46 02/07/19 10:37 Senokot S PO 2 tab BIDPRN PRN Administration Constipation Sodium Chloride 10 ml 02/17/19 07:42 03/07/19 09:36 Flush - Normal Saline IVF 10 ml PRN PRN Administration Saline Flush - Exam General Appearance: awake alert, ill appearing General - other findings: elderly chronically ill appearing malnourished male who is awake Eye: PERRL, anicteric sclera ENT: normocephalic atraumatic ENT - other findings: Frontotemporal wasting Neck: supple Heart: RRR, no murmur Respiratory: CTAB, no rales, no ronchi, normal chest expansion Respiratory - other findings: chest wall chemoport Gastrointestinal: soft, non-tender, non-distended, normal bowel sounds Extremities - other findings: muscular atrophy, no cyanosis or edema. Musculoskeletal: generalized weakness Hosp A/P - Plan Febrile neutropenia. Continue isolation precaution, broad spectrum treatment with IV merem, IV micafungin, po acyclovir. monitor ANC. treat bacteremia. sepsis due to Enterococcal bacteremia. continue IV antibiotics per ID. isolation precaution. AML. oncology following. recent 03/07/19 CT chest, abdomen, pelvis noted. s/p CT guided biopsy 03/01/19 Pancytopenia. likely from AML, sepsis/bacteremia. continue supportive transfusions. Functional quadriplegia. continue supportive therapies, PT and OT with notably maximal assistance. Fecal impaction. monitor bowel movements with bowel regimen. DVT px: SCD Code status: DNR check AM labs Dispo: guarded prognosis. will await input from oncology. Day 49 of hospitalization.
[2019-03-10] MEDS: Donnatal Elixir 16.2 MG/5 ML UDCUP PO SCH ×6 (00:25→20:18)
[2019-03-10] MEDS: MEROPENEM 1 GM/50 ML 1 GM in Premix Bag 1 BAG IVPB SCH ×3 (05:46→22:38)
[2019-03-10 06:30] LABS: Hemoglobin 6.8 g/dL (14.0-18.0); Mean Corpuscular HGB CONC 34.4 g/dL (32.0-36.0); Mean Corpuscular Hemoglobin 30.5 pg (27.0-31.0); Mean Corpuscular Volume 88.5 fL (78.0-98.0); Mean Platelet Volume 6.3 fL (7.4-10.4); Platelet Count 31 thou/uL (130-400); RBC Distribution Width 11.6 % (11.5-14.5); Red Blood Cell (RBC) Count 2.24 mill/uL (4.70-6.10); White Blood Cell (WBC) Count 0.2 thou/uL (4.8-10.8)
[2019-03-10 08:41] LABS: Platelet Morphology Comment Appears Decreased
[2019-03-10] MEDS: Lisinopril 20 MG TAB PO SCH ×2 (08:41→20:18)
[2019-03-10] MEDS: Polyethylene Glycol 3350 17 GM Packet PO SCH (08:41)
[2019-03-10] MEDS: Acyclovir 400 mg Tablet PO SCH ×2 (08:41→20:18)
[2019-03-10] MEDS: Folic Acid 1 MG TAB PO SCH (08:41)
[2019-03-10] MEDS: Dexamethasone 4 MG TAB PO SCH (08:41)
[2019-03-10] MEDS: Famotidine 20 MG TAB PO SCH ×2 (08:41→20:18)
--- NOTE | 2019-03-10 09:25 | PDOC.HOSPP ---
- Subjective Encounter Date: 03/10/19 Encounter Time: 09:22 Subjective: cc: f/u for AML, pancytopenia, sepsis/bacteremia, deconditioning subjective: patient seen at bedside this morning. daughter Delia at bedside. patient offers no other acute complaints. daughter notes patient was diagnosed with AML in 11/2018 after routine labwork and has undergone 2 rounds of chemotherapy last 02/10/19. reports last BM biopsy here 03/01/19 reported to her as cancer-free. noted s/p platelet transfusion yesterday noted fever 100.9 temperature yesterday afternoon and 101.4 two days ago. nursing staff notes no other acute events. - Objective Vital Signs & Weight: Vital Signs (12 hours) Temp Pulse Resp BP BP Pulse Ox 03/10/19 08:41 126/75 03/10/19 08:00 98.5 F 88 18 124/76 94 L 03/10/19 04:02 98.9 F 03/10/19 00:12 99.1 F Weight Admit Weight 151 lb 9.6 oz Weight 166 lb 6.4 oz Most Recent Monitor Data Heart Rate from ECG 96 NIBP 139/79 NIBP BP-Mean 99 Respiration from ECG 29 SpO2 100 I&O: 03/09/19 03/10/19 03/11/19 06:59 06:59 06:59 Intake Total 340 590 Balance 340 590 Result Diagrams: 03/10/19 05:55 03/07/19 05:51 Hospitalist ROS - Review of Systems Other: pertinent positive per SUBJECTIVE; remainder ROS negative - Medication Medications: Active Medications Generic Name Dose Route Start Last Admin Trade Name Freq PRN Reason Stop Dose Admin Acetaminophen 650 mg 01/19/19 16:46 03/07/19 04:28 Tylenol PO 650 mg Q4H PRN Administration Headache/Fever/Mild Pain (1-3) Acetaminophen 650 mg 01/25/19 15:29 03/09/19 13:29 Tylenol [place] 650 mg Q4H PRN Administration Headache/Fever or Pain Acyclovir 400 mg 01/19/19 21:00 03/10/19 08:41 Zovirax PO 400 mg BID CHRISTIANO Administration Alteplase, Recombinant 2 mg 02/09/19 07:45 02/19/19 00:53 Cathflo CATH 2 mg WILLCALL CHRISTIANO Administration Atropine/Hyoscyam/Phenobarb/Scopol 3.24 mg 02/26/19 13:00 03/10/19 05:46 Elixir PO 3.24 mg Q4HR CHRISTIANO Administration Dexamethasone 4 mg 02/09/19 08:00 03/10/19 08:41 Decadron PO 4 mg QAM-WM CHRISTIANO Administration Famotidine 20 mg 01/19/19 21:00 03/10/19 08:41 Pepcid PO 20 mg BID CHRISTIANO Administration Folic Acid 1 mg 01/25/19 09:00 03/10/19 08:41 Folvite PO 1 mg DAILY CHRISTIANO Administration Hydroxyzine HCl 10 mg 02/27/19 16:25 02/27/19 17:16 Atarax PO 10 mg Q6H PRN Administration Itching Micafungin Sodium 100 mg/ 100 mls @ 100 mls/hr 03/07/19 13:00 03/09/19 13:18 Sodium Chloride IVPB 100 mls 1300 CHRISTIANO Administration Meropenem 1 gm/ Device 50 mls @ 100 mls/hr 03/07/19 14:00 03/10/19 05:46 IVPB 50 mls Q8HR CHRISTIANO Administration Lisinopril 20 mg 01/19/19 21:00 03/10/19 08:41 Zestril PO 20 mg BID CHRISTIANO Administration Ondansetron HCl 4 mg 01/19/19 16:46 02/19/19 20:14 Zofran Odt PO 4 mg Q6H PRN Administration Nausea/Vomiting Ondansetron HCl 4 mg 01/19/19 16:46 02/09/19 20:12 Zofran IVP 4 mg Q6H PRN Administration Nausea/Vomiting Pantoprazole Sodium 40 mg 02/03/19 09:00 03/10/19 08:41 Protonix PO 40 mg DAILY CHRISTIANO Administration Polyethylene Glycol 17 gm 03/08/19 09:00 03/10/19 08:41 Miralax PO 17 gm DAILY CHRISTIANO Administration Senna/Docusate Sodium 2 tab 01/19/19 16:46 02/07/19 10:37 Senokot S PO 2 tab BIDPRN PRN Administration Constipation Sodium Chloride 10 ml 02/17/19 07:42 03/07/19 09:36 Flush - Normal Saline IVF 10 ml PRN PRN Administration Saline Flush - Exam General Appearance: awake alert Eye: PERRL, anicteric sclera Eye - other findings: conjunctival pallor. ENT: normocephalic atraumatic ENT - other findings: frontotemporal wasting Neck: supple Heart: RRR, no murmur Respiratory: CTAB, no wheezes, no rales, normal chest expansion Gastrointestinal: soft, non-tender, non-distended Extremities: no cyanosis, no edema Extremities - other findings: muscular atrophy. chest wall chemoport clean and intact. Skin: normal turgor Neurological: cranial nerve grossly intact Musculoskeletal: generalized weakness, diffuse muscle atrophy Psychiatric: A&O x 3 Hosp A/P - Plan Febrile neutropenia: ID and oncology following. Continue neutropenic isolation, supportive transfusions, broad spectrum treatment with IV merrem, IV micafungin, po acyclovir. monitor ANC. last chemotherapy was 02/10/19 and Bone marrow biopsy shows hypocellular bone marrow without leukemia. last blood cultures NGTD. Fever on 03/08 and 03/09 noted. monitor fever curve. sepsis due to VRE bacteremia (03/03/19). continue IV antibiotics per ID. isolation precaution. repeat blood cultures NGTD 03/07/19. monitor recurrent fevers. TTE 03/07/19 without valvular vegetations. AML: oncology following. diagnosed 11/2018 with 2 rounds of chemotherapy last on week of 01/10/19. recent 03/07/19 CT chest, abdomen, pelvis noted with low density lesion in spleen and hypoattenuation lesions in bilateral kidneys with differential consideration for leukemic infiltrate. s/p CT guided biopsy 03/01/19 with hypocellular bone marrow without leukemia. monitor pancytopenia. Pancytopenia. likely from AML, sepsis/bacteremia. continue supportive transfusions. ?G-CSF Functional quadriplegia. continue supportive therapies, PT and OT with notably maximal assistance but patient is able to perform some aspects of self-care Protein-calorie malnutrition of unclear severity. probably moderate. continue oral dietary supplements with meals. Fecal impaction. monitor bowel movements with bowel regimen. start oral lactulose. DVT px: SCD Code status: DNR. discussed with surrogate decision maker daughter Delia. check AM labs Dispo: guarded prognosis. awaiting transition to a "swing bed" once afebrile although unsure how realistic this may be.
[2019-03-10] MEDS: Micafungin 100 MG in Sodium Chloride 0.9% 100 ML IVPB SCH (12:06)
--- NOTE | 2019-03-10 16:39 | PRG ---
DATE OF SERVICE: 03/10/2019 SUBJECTIVE: The patient is sitting by the bedside. He appears quite alert. I am able to have a conversation with him better than previously. He denies any headaches. No respiratory symptoms or abdominal pain. He had some constipation, had to have an enema. OBJECTIVE: VITAL SIGNS: He had a T-max was 100.9 at 1:00 p.m. yesterday, blood pressure 126/75, and O2 saturation 96%. GENERAL: Chronically ill appearing, but in no acute distress. HEENT: Ocular movements conjugate. Oral cavity normal. NECK: Supple. LUNGS: Symmetric air entry without crackles or wheezing. ABDOMEN: Soft. Not distended or tender. No bladder distention. Cachexia noted. LABORATORY DATA: White cell count 0.2, hemoglobin 6.8, platelets 31,000. Sodium 132, creatinine 0.64. AST 41, ALT 131, alkaline phosphatase 187, and albumin 2.8. Anticardiolipin antibody pending. Echocardiogram did not show vegetations. 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 The patient has completed his infectious treatment for Pneumocystis pneumonia and go ahead and switch him to suppressive therapy with Bactrim 3 times a week. Continue broad-spectrum coverage otherwise including antifungal as he is currently receiving. 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 A ROHITH might be needed, but this could be noninfectious and related to hypercoagulable syndrome. Job ID: [id number]
[2019-03-11] MEDS: Donnatal Elixir 16.2 MG/5 ML UDCUP PO SCH ×6 (01:00→21:05)
[2019-03-11] MEDS: MEROPENEM 1 GM/50 ML 1 GM in Premix Bag 1 BAG IVPB SCH ×3 (05:13→21:09)
[2019-03-11 05:15] LABS: Hemoglobin 7.3 g/dL (14.0-18.0); Mean Corpuscular HGB CONC 34.1 g/dL (32.0-36.0); Mean Corpuscular Hemoglobin 30.3 pg (27.0-31.0); Mean Corpuscular Volume 88.6 fL (78.0-98.0); Mean Platelet Volume 7.6 fL (7.4-10.4); Platelet Count 12 thou/uL (130-400); RBC Distribution Width 11.5 % (11.5-14.5); Red Blood Cell (RBC) Count 2.41 mill/uL (4.70-6.10); White Blood Cell (WBC) Count 0.3 thou/uL (4.8-10.8)
[2019-03-11 05:30] LABS: Hypochromia SLIGHT = 6-15 cells (100X) (0-5/hpf); MDiff Complete? YES; Platelet Morphology Comment Appears Decreased
[2019-03-11] MEDS: Polyethylene Glycol 3350 17 GM Packet PO SCH (08:56)
[2019-03-11] MEDS: Acyclovir 400 mg Tablet PO SCH ×2 (08:56→21:05)
[2019-03-11] MEDS: Famotidine 20 MG TAB PO SCH ×2 (08:57→21:05)
[2019-03-11] MEDS: Sulfameth/Trimethoprim DS 800-160mg TAB PO SCH (08:57)
[2019-03-11] MEDS: Folic Acid 1 MG TAB PO SCH (08:57)
[2019-03-11] MEDS: Lisinopril 20 MG TAB PO SCH ×2 (08:58→21:05)
[2019-03-11] MEDS: Dexamethasone 4 MG TAB PO SCH (08:58)
--- NOTE | 2019-03-11 09:31 | PDOC.HOSPP ---
- Subjective Encounter Date: 03/11/19 Encounter Time: 09:29 Subjective: cc: f/u for sepsis, pancytopenia, bacteremia, pneumonia, UTI, AML subjective: patient seen at bedside. daughter present. minimally verbal. nurse notes no acute overnight events but does note low-grade temperatures. patient noted to have some twitching activity of left arm which daughter notes is not new. - Objective Vital Signs & Weight: Vital Signs (12 hours) Temp Pulse Resp BP BP Pulse Ox 03/11/19 08:58 126/75 03/11/19 07:35 99.5 F 103 H 18 120/59 L 94 L 03/11/19 04:44 98.5 F 03/10/19 23:59 98.6 F Weight Admit Weight 151 lb 9.6 oz Weight 166 lb 6.4 oz Most Recent Monitor Data Heart Rate from ECG 96 NIBP 139/79 NIBP BP-Mean 99 Respiration from ECG 29 SpO2 100 I&O: 03/10/19 03/11/19 03/12/19 06:59 06:59 06:59 Intake Total 590 1400 Balance 590 1400 Result Diagrams: 03/11/19 04:58 03/07/19 05:51 Hospitalist ROS - Review of Systems Other: ROS: pertinent positive per SUBJECTIVE; remainder ROS negative - Medication Medications: Active Medications Generic Name Dose Route Start Last Admin Trade Name Freq PRN Reason Stop Dose Admin Acetaminophen 650 mg 01/19/19 16:46 03/07/19 04:28 Tylenol PO 650 mg Q4H PRN Administration Headache/Fever/Mild Pain (1-3) Acetaminophen 650 mg 01/25/19 15:29 03/09/19 13:29 Tylenol [place] 650 mg Q4H PRN Administration Headache/Fever or Pain Acyclovir 400 mg 01/19/19 21:00 03/11/19 08:56 Zovirax PO 400 mg BID CHRISTIANO Administration Alteplase, Recombinant 2 mg 02/09/19 07:45 02/19/19 00:53 Cathflo CATH 2 mg WILLCALL CHRISTIANO Administration Atropine/Hyoscyam/Phenobarb/Scopol 3.24 mg 02/26/19 13:00 03/11/19 08:57 Elixir PO 3.24 mg Q4HR CHRISTIANO Administration Dexamethasone 4 mg 02/09/19 08:00 03/11/19 08:58 Decadron PO 4 mg QAM-WM CHRISTIANO Administration Famotidine 20 mg 01/19/19 21:00 03/11/19 08:57 Pepcid PO 20 mg BID CHRISTIANO Administration Folic Acid 1 mg 01/25/19 09:00 03/11/19 08:57 Folvite PO 1 mg DAILY CHRISTIANO Administration Hydroxyzine HCl 10 mg 02/27/19 16:25 02/27/19 17:16 Atarax PO 10 mg Q6H PRN Administration Itching Micafungin Sodium 100 mg/ 100 mls @ 100 mls/hr 03/07/19 13:00 03/10/19 12:06 Sodium Chloride IVPB 100 mls 1300 CHRISTIANO Administration Meropenem 1 gm/ Device 50 mls @ 100 mls/hr 03/07/19 14:00 03/11/19 05:13 IVPB 50 mls Q8HR CHRISTIANO Administration Lisinopril 20 mg 01/19/19 21:00 03/11/19 08:58 Zestril PO 20 mg BID CHRISTIANO Administration Ondansetron HCl 4 mg 01/19/19 16:46 02/19/19 20:14 Zofran Odt PO 4 mg Q6H PRN Administration Nausea/Vomiting Ondansetron HCl 4 mg 01/19/19 16:46 02/09/19 20:12 Zofran IVP 4 mg Q6H PRN Administration Nausea/Vomiting Pantoprazole Sodium 40 mg 02/03/19 09:00 03/11/19 08:57 Protonix PO 40 mg DAILY CHRISTIANO Administration Polyethylene Glycol 17 gm 03/08/19 09:00 03/11/19 08:56 Miralax PO 17 gm DAILY CHRISTIANO Administration Senna/Docusate Sodium 2 tab 01/19/19 16:46 02/07/19 10:37 Senokot S PO 2 tab BIDPRN PRN Administration Constipation Sodium Chloride 10 ml 02/17/19 07:42 03/07/19 09:36 Flush - Normal Saline IVF 10 ml PRN PRN Administration Saline Flush Trimethoprim/Sulfamethoxazole 1 tab 03/11/19 09:00 03/11/19 08:57 Bactrim Ds PO 1 tab MWF CHRISTIANO Administration Hosp A/P - Plan Physical Exam General Appearance: awake alert Eye: PERRL, anicteric sclera Eye - other findings: conjunctival pallor. ENT: normocephalic atraumatic ENT - other findings: frontotemporal wasting Neck: supple Heart: RRR, no murmur Respiratory: CTAB, no wheezes, no rales, normal chest expansion Gastrointestinal: soft, non-tender, non-distended Extremities: no cyanosis, no edema Extremities - other findings: muscular atrophy. chest wall chemoport clean and intact. Skin: normal turgor Neurological: limited evaluation. no facial asymmetry. left arm twitching. Musculoskeletal: generalized weakness, diffuse muscle atrophy Psychiatric: A&O x 3 ASSESSMENT AND PLAN: Febrile neutropenia: ID and oncology following. Continue neutropenic isolation, supportive transfusions, broad spectrum treatment with IV merrem, IV micafungin, po acyclovir, and po Bactrim. monitor ANC. last chemotherapy was 02/10/19 and Bone marrow biopsy 03/01/19 shows hypocellular bone marrow without leukemia. last blood cultures 03/07/19 NGTD. Fever on 03/08 and 03/09 noted. monitor fever curve. sepsis due to VRE bacteremia (03/03/19), Pneumocystis pneumonia, UTI. Patient has completed treatment for all. continue IV antibiotics per ID with Merrem and Micafungin and oral acyclovir. now started on oral Bactrim. isolation precaution. repeat blood cultures NGTD 03/07/19. monitor recurrent fevers. TTE 03/07/19 without valvular vegetations. AML: oncology following. diagnosed 11/2018 with 2 rounds of chemotherapy last on week of 01/10/19. recent 03/07/19 CT chest, abdomen, pelvis noted with low density lesion in spleen and hypoattenuation lesions in bilateral kidneys with differential consideration for leukemic infiltrate. s/p CT guided biopsy 03/01/19 with hypocellular bone marrow without leukemia. monitor pancytopenia. Pancytopenia. likely from AML, sepsis from bacteremia. continue supportive transfusions. Bone marrow biopsy suggests hypocellular bone marrow. Functional quadriplegia. continue supportive therapies, PT and OT with notably maximal assistance but patient is able to perform some aspects of self-care Protein-calorie malnutrition of unclear severity. probably moderate. continue oral dietary supplements with meals. 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 continue Decadron 4 mg oral daily. Fecal impaction. s/p multiple bowel movements. DVT px: SCD Code status: DNR. discussed with surrogate decision maker daughter Delia. poor prognosis. patient has been hospitalized for over 50 days. Will need input from oncology regarding futility of care noting multiple comorbid medical conditions. check AM labs Dispo: await SNF
[2019-03-11] MEDS: Micafungin 100 MG in Sodium Chloride 0.9% 100 ML IVPB SCH (13:30)
--- NOTE | 2019-03-11 14:12 | PDOC.MOPN ---
Interval History: fatigued but responds well. - Vital Signs Vital Signs: Vital Signs (12 hours) Temp Pulse Pulse Pulse Resp BP BP 03/11/19 12:29 99.2 F 03/11/19 10:20 144 H 88 109/65 03/11/19 08:58 126/75 03/11/19 07:35 99.5 F 103 H 18 03/11/19 04:44 98.5 F BP BP Pulse Ox 03/11/19 12:29 03/11/19 10:20 136/59 L 03/11/19 08:58 03/11/19 07:35 120/59 L 94 L 03/11/19 04:44 Weight Admit Weight 151 lb 9.6 oz Weight 166 lb 6.4 oz Most Recent Monitor Data Heart Rate from ECG 96 NIBP 139/79 NIBP BP-Mean 99 Respiration from ECG 29 SpO2 100 - Physical Exam General: Cooperative HEENT: Atraumatic Lungs: Clear to auscultation Cardiovascular: Regular rate Abdomen: Normal bowel sounds Extremities: No clubbing, No cyanosis, No edema, Normal pulses, No tenderness/ swelling Skin: No rashes, No breakdown, No significant lesion Neurological: Other - Labs Result Diagrams: 03/11/19 04:58 03/07/19 05:51 Lab results: Laboratory Results - last 24 hr 03/11/19 04:58: WBC 0.3 L*, RBC 2.41 L, Hgb 7.3 L, Hct 21.4 L, MCV 88.6, MCH 30.3, MCHC 34.1, RDW 11.5, Plt Count 12 L*, MPV 7.6, Neutrophils % (Manual) Not Reportable, Neutrophils # Not Reportable, Lymphocytes # Not Reportable, Hypochromia SLIGHT = 6-15 cells, Plt Morphology Comment Appears Decreased L Status: lab reviewed by me A/P - Problem (1) AML (acute myeloblastic leukemia) Current Visit: Yes Code(s): C92.00 - ACUTE MYELOBLASTIC LEUKEMIA, NOT HAVING ACHIEVED REMISSION Status: Chronic (2) Neutropenic sepsis Current Visit: Yes Code(s): A41.9 - SEPSIS, UNSPECIFIED ORGANISM; D70.9 - NEUTROPENIA, UNSPECIFIED Status: Acute (3) Pancytopenia Current Visit: Yes Code(s): D61.818 - OTHER PANCYTOPENIA Status: Acute - Plan Plan: platelets today daily CBC abx per ID swing bed next week if afebrile.
[2019-03-11 15:40] LABS: Cardiolipin IgG Ab 1.9 GPL-U/mL (<10 Negative); Cardiolipin IgM Ab Less than 0.8 MPL-U/mL (<10 Negative); EliA APS New Method **** NEW METHOD ****
[2019-03-11 16:09] LABS: CMV DNA-PCR Test Negative (Negative)
[2019-03-12] MEDS: Donnatal Elixir 16.2 MG/5 ML UDCUP PO SCH ×3 (01:00→08:59)
[2019-03-12] MEDS: MEROPENEM 1 GM/50 ML 1 GM in Premix Bag 1 BAG IVPB SCH (05:31)
[2019-03-12] MEDS: Lisinopril 20 MG TAB PO SCH ×2 (08:58→20:32)
[2019-03-12] MEDS: Famotidine 20 MG TAB PO SCH ×2 (08:58→20:32)
[2019-03-12] MEDS: Dexamethasone 4 MG TAB PO SCH (08:58)
[2019-03-12] MEDS: Acyclovir 400 mg Tablet PO SCH ×2 (08:58→20:32)
[2019-03-12] MEDS: Polyethylene Glycol 3350 17 GM Packet PO SCH (08:59)
[2019-03-12] MEDS: Folic Acid 1 MG TAB PO SCH (08:59)
--- NOTE | 2019-03-12 09:37 | PDOC.HOSPP ---
- Subjective Encounter Date: 03/12/19 Encounter Time: 09:34 Subjective: cc: f/u for sepsis, pancytopenia, bacteremia, pneumonia, UTI, AML subjective: patient seen at bedside. daughter present and feeding him. limited historian and states he feels all right. daughter notes patient ate well yesterday and worked with therapy yesterday. daughter notes she has had multiple discussions regarding patient's prognosis and her plan after speaking with oncology team yesterday is to get him to swing bed and leave it up from there. nurse notes patient had fast and irregular heart rhythm and has been afebrile. Day 52 of hospitalization. - Objective Vital Signs & Weight: Vital Signs (12 hours) Temp Pulse Resp BP BP Pulse Ox 03/12/19 08:58 126/75 03/12/19 08:08 98.5 F 132 H 20 113/72 92 L 03/12/19 04:08 98.2 F 03/12/19 00:05 98.3 F Weight Admit Weight 151 lb 9.6 oz Weight 166 lb 6.4 oz Most Recent Monitor Data Heart Rate from ECG 96 NIBP 139/79 NIBP BP-Mean 99 Respiration from ECG 29 SpO2 100 I&O: 03/11/19 03/12/19 03/13/19 06:59 06:59 06:59 Intake Total 1400 1200 Balance 1400 1200 Result Diagrams: 03/11/19 04:58 03/07/19 05:51 Hospitalist ROS - Review of Systems Other: ROS: pertinent positive per SUBJECTIVE; remainder ROS negative. - Medication Medications: Active Medications Generic Name Dose Route Start Last Admin Trade Name Freq PRN Reason Stop Dose Admin Acetaminophen 650 mg 01/19/19 16:46 03/07/19 04:28 Tylenol PO 650 mg Q4H PRN Administration Headache/Fever/Mild Pain (1-3) Acetaminophen 650 mg 01/25/19 15:29 03/09/19 13:29 Tylenol [place] 650 mg Q4H PRN Administration Headache/Fever or Pain Acyclovir 400 mg 01/19/19 21:00 03/12/19 08:58 Zovirax PO 400 mg BID CHRISTIANO Administration Alteplase, Recombinant 2 mg 02/09/19 07:45 02/19/19 00:53 Cathflo CATH 2 mg WILLCALL CHRISTIANO Administration Atropine/Hyoscyam/Phenobarb/Scopol 3.24 mg 02/26/19 13:00 03/12/19 08:59 Elixir PO 3.24 mg Q4HR CHRISTIANO Administration Dexamethasone 4 mg 02/09/19 08:00 03/12/19 08:58 Decadron PO 4 mg QAM-WM CHRISTIANO Administration Famotidine 20 mg 01/19/19 21:00 03/12/19 08:58 Pepcid PO 20 mg BID CHRISTIANO Administration Folic Acid 1 mg 01/25/19 09:00 03/12/19 08:59 Folvite PO 1 mg DAILY CHRISTIANO Administration Hydroxyzine HCl 10 mg 02/27/19 16:25 02/27/19 17:16 Atarax PO 10 mg Q6H PRN Administration Itching Micafungin Sodium 100 mg/ 100 mls @ 100 mls/hr 03/07/19 13:00 03/11/19 13:30 Sodium Chloride IVPB 100 mls 1300 CHRISTIANO Administration Meropenem 1 gm/ Device 50 mls @ 100 mls/hr 03/07/19 14:00 03/12/19 05:31 IVPB 50 mls Q8HR CHRISTIANO Administration Lisinopril 20 mg 01/19/19 21:00 03/12/19 08:58 Zestril PO 20 mg BID CHRISTIANO Administration Ondansetron HCl 4 mg 01/19/19 16:46 02/19/19 20:14 Zofran Odt PO 4 mg Q6H PRN Administration Nausea/Vomiting Ondansetron HCl 4 mg 01/19/19 16:46 02/09/19 20:12 Zofran IVP 4 mg Q6H PRN Administration Nausea/Vomiting Pantoprazole Sodium 40 mg 02/03/19 09:00 03/12/19 08:58 Protonix PO 40 mg DAILY CHRISTIANO Administration Polyethylene Glycol 17 gm 03/08/19 09:00 03/12/19 08:59 Miralax PO 17 gm DAILY CHRISTIANO Administration Senna/Docusate Sodium 2 tab 01/19/19 16:46 02/07/19 10:37 Senokot S PO 2 tab BIDPRN PRN Administration Constipation Sodium Chloride 10 ml 02/17/19 07:42 03/11/19 21:05 Flush - Normal Saline IVF 10 ml PRN PRN Administration Saline Flush Trimethoprim/Sulfamethoxazole 1 tab 03/11/19 09:00 03/11/19 08:57 Bactrim Ds PO 1 tab MWF CHRISTIANO Administration Hosp A/P - Plan Physical Exam General Appearance: awake alert and malnourished in appearance Eye: PERRL, anicteric sclera ENT: normocephalic atraumatic ENT - other findings: frontotemporal wasting Neck: supple Heart: s1 and s2 irregular irregular, no murmur Respiratory: CTAB, no wheezes, no rales, normal chest expansion Gastrointestinal: soft, non-tender, non-distended Extremities: no cyanosis, no edema Extremities - other findings: muscular atrophy. chest wall chemoport clean and intact. Skin: normal turgor Neurological: limited evaluation. no facial asymmetry. reported left side weaker Musculoskeletal: generalized weakness, diffuse muscle atrophy Psychiatric: ASSESSMENT AND PLAN: Febrile neutropenia: ID and oncology following. Continue neutropenic isolation, supportive transfusions, broad spectrum treatment with IV merrem, IV micafungin, po acyclovir, and po Bactrim. monitor ANC. last chemotherapy was 02/10/19 and Bone marrow biopsy 03/01/19 shows hypocellular bone marrow without leukemia. last blood cultures 03/07/19 NGTD. Fever on 03/08 and 03/09 noted. afebrile since then. sepsis due to VRE bacteremia (03/03/19), Pneumocystis pneumonia, UTI. Patient has completed treatment for all. continue IV antibiotics per ID with Merrem and Micafungin and oral acyclovir. now started on oral Bactrim MWF. isolation precaution. repeat blood cultures NGTD 03/07/19. monitor recurrent fevers. TTE 03/07/19 without valvular vegetations. AML: oncology following. diagnosed 11/2018 with 2 rounds of chemotherapy last on week of 01/10/19. recent 03/07/19 CT chest, abdomen, pelvis noted with low density lesion in spleen and hypoattenuation lesions in bilateral kidneys with differential consideration for leukemic infiltrate. s/p CT guided biopsy 03/01/19 with hypocellular bone marrow without leukemia. monitor pancytopenia which has now improved. Pancytopenia. likely from AML or resultant chemotherapy, sepsis from bacteremia. continue supportive transfusions. Bone marrow biopsy suggests hypocellular bone marrow. atrial fibrillation: known diagnosis per review of electronic records. monitor for ventricular rate control. Functional quadriplegia. continue supportive therapies, PT and OT with notably maximal assistance but patient is able to perform some aspects of self-care Protein-calorie malnutrition of unclear severity. probably moderate. continue oral dietary supplements with meals. 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 continue Decadron 4 mg oral daily. Fecal impaction. s/p multiple bowel movements. DVT px: SCD Code status: DNR. discussed with surrogate decision maker daughter Delia. poor prognosis. patient has been hospitalized for over 50 days. encouraged daughter to consider palliative measures and hospice; she has spoken with oncology team who recommends ongoing continued care in post acute care facility. Will need further input from oncology regarding futility of care noting multiple comorbid medical conditions and recommendations to have patient transition to SNF. check AM labs Dispo: await SNF once okay by consultants
[2019-03-12 11:59] LABS: Hemoglobin 7.4 g/dL (14.0-18.0); Mean Corpuscular HGB CONC 34.8 g/dL (32.0-36.0); Mean Corpuscular Hemoglobin 30.8 pg (27.0-31.0); Mean Corpuscular Volume 88.4 fL (78.0-98.0); Mean Platelet Volume 10.9 fL (7.4-10.4); Platelet Count 4 thou/uL (130-400); RBC Distribution Width 11.4 % (11.5-14.5); Red Blood Cell (RBC) Count 2.39 mill/uL (4.70-6.10); White Blood Cell (WBC) Count 0.2 thou/uL (4.8-10.8)
[2019-03-13 06:40] LABS: Hemoglobin 6.4 g/dL (14.0-18.0); Mean Corpuscular HGB CONC 34.6 g/dL (32.0-36.0); Mean Corpuscular Hemoglobin 30.6 pg (27.0-31.0); Mean Corpuscular Volume 88.5 fL (78.0-98.0); Mean Platelet Volume 8.8 fL (7.4-10.4); Platelet Count 55 thou/uL (130-400); RBC Distribution Width 11.5 % (11.5-14.5); Red Blood Cell (RBC) Count 2.08 mill/uL (4.70-6.10); White Blood Cell (WBC) Count 0.3 thou/uL (4.8-10.8)
[2019-03-13 06:56] LABS: Hypochromia SLIGHT = 6-15 cells (100X) (0-5/hpf); MDiff Complete? YES; Platelet Morphology Comment Appears Decreased
--- NOTE | 2019-03-13 09:17 | PDOC.HOSPP ---
- Subjective Encounter Date: 03/13/19 Encounter Time: 09:10 Subjective: cc: f/u for sepsis, pancytopenia, bacteremia, pneumonia, UTI, AML subjective: patient seen at bedside. daughter present. patient nonverbal and does not interact with me. nods head YES to feeling okay. daughter notes no acute events. RN notes no acute overnight events. noted 1 unit platelet transfusion yesterday. - Objective Vital Signs & Weight: Vital Signs (12 hours) Temp Pulse Pulse Resp BP BP Pulse Ox 03/13/19 08:00 97.5 F L 88 16 112/62 16 L 03/13/19 05:30 93 L 03/13/19 00:24 98.9 F 03/12/19 21:35 99.0 F 97 18 120/76 Weight Admit Weight 151 lb 9.6 oz Weight 166 lb 6.4 oz Most Recent Monitor Data Heart Rate from ECG 96 NIBP 139/79 NIBP BP-Mean 99 Respiration from ECG 29 SpO2 100 I&O: 03/12/19 03/13/19 03/14/19 06:59 06:59 06:59 Intake Total 1200 1300 Balance 1200 1300 Result Diagrams: 03/13/19 06:20 03/07/19 05:51 Hospitalist ROS - Review of Systems Other: ROS: pertinent positive per subjective. limited due to patient not communicating. remainder ROS negative. - Medication Medications: Active Medications Generic Name Dose Route Start Last Admin Trade Name Freq PRN Reason Stop Dose Admin Acetaminophen 650 mg 01/19/19 16:46 03/07/19 04:28 Tylenol PO 650 mg Q4H PRN Administration Headache/Fever/Mild Pain (1-3) Acetaminophen 650 mg 01/25/19 15:29 03/09/19 13:[address] 650 mg Q4H PRN Administration Headache/Fever or Pain Acyclovir 400 mg 01/19/19 21:00 03/12/19 20:32 Zovirax PO 400 mg BID CHRISTIANO Administration Alteplase, Recombinant 2 mg 02/09/19 07:45 02/19/19 00:53 Cathflo CATH 2 mg WILLCALL CHRISTIANO Administration Dexamethasone 4 mg 02/09/19 08:00 03/12/19 08:58 Decadron PO 4 mg QAM-WM CHRISTIANO Administration Famotidine 20 mg 01/19/19 21:00 03/12/19 20:32 Pepcid PO Not Given BID [facility] Folic Acid 1 mg 01/25/19 09:00 03/12/19 08:59 Folvite PO 1 mg DAILY CHRISTIANO Administration Hydroxyzine HCl 10 mg 02/27/19 16:25 02/27/19 17:16 Atarax PO 10 mg Q6H PRN Administration Itching Levofloxacin 750 mg 03/13/19 06:00 03/13/19 06:26 Levaquin PO 750 mg 0600 [facility] Administration Lisinopril 20 mg 01/19/19 21:00 03/12/19 20:32 Zestril PO 20 mg BID [facility] Administration Ondansetron HCl 4 mg 01/19/19 16:46 02/19/19 20:14 Zofran Odt PO 4 mg Q6H PRN Administration Nausea/Vomiting Ondansetron HCl 4 mg 01/19/19 16:46 02/09/19 20:12 Zofran IVP 4 mg Q6H PRN Administration Nausea/Vomiting Pantoprazole Sodium 40 mg 02/03/19 09:00 03/12/19 08:58 Protonix PO 40 mg DAILY CHRISTIANO Administration Polyethylene Glycol 17 gm 03/08/19 09:00 03/12/19 08:59 Miralax PO 17 gm DAILY CHRISTIANO Administration Senna/Docusate Sodium 2 tab 01/19/19 16:46 02/07/19 10:37 Senokot S PO 2 tab BIDPRN PRN Administration Constipation Sodium Chloride 10 ml 02/17/19 07:42 03/11/19 21:05 Flush - Normal Saline IVF 10 ml PRN PRN Administration Saline Flush Trimethoprim/Sulfamethoxazole 1 tab 03/11/19 09:00 03/11/19 08:57 Bactrim Ds PO 1 tab MWF CHRISTIANO Administration Hosp A/P - Plan Physical Exam General Appearance: awake alert and malnourished in appearance Eye: PERR, anicteric sclera ENT: normocephalic atraumatic ENT - other findings: frontotemporal wasting Neck: supple Heart: s1 and s2 irregular irregular, no murmur Respiratory: CTAB, no wheezes, no rales, normal chest expansion Gastrointestinal: soft, non-tender, non-distended Extremities: no cyanosis, no edema Extremities - other findings: muscular atrophy. chest wall chemoport clean and intact. Skin: normal turgor Neurological: limited evaluation. no facial asymmetry. reported left side weaker Musculoskeletal: generalized weakness, diffuse muscle atrophy Psychiatric: ASSESSMENT AND PLAN: Febrile neutropenia: ID and oncology following. Continue neutropenic isolation, supportive transfusions and received platelets yesterday IV antibiotics discontinued 03/12/19 and now on oral Levaquin 750 mg and oral Bactrim 1 DS TIW monitor ANC. last chemotherapy was 02/10/19 and Bone marrow biopsy 03/01/19 shows hypocellular bone marrow without leukemia. last blood cultures 03/07/19 NGTD. Fever on 03/08 and 03/09 noted. afebrile since then. sepsis due to VRE bacteremia (03/03/19), Pneumocystis pneumonia, UTI. Patient has completed treatment for all. IV antibiotics discontinued by ID 03/12/19 and now on oral Levaquin 750 mg and oral Bactrim 1 tablet TIW on MWF isolation precaution. repeat blood cultures NGTD 03/07/19. TTE 03/07/19 without valvular vegetations. AML: oncology following. diagnosed 11/2018 with 2 rounds of chemotherapy last on week of 01/10/19. recent 03/07/19 CT chest, abdomen, pelvis noted with low density lesion in spleen and hypoattenuation lesions in bilateral kidneys with differential consideration for leukemic infiltrate. s/p CT guided biopsy 03/01/19 with hypocellular bone marrow without leukemia. monitor pancytopenia which has now improved. Pancytopenia: likely from AML or resultant chemotherapy, sepsis from bacteremia. continue supportive transfusions. Bone marrow biopsy suggests hypocellular bone marrow. atrial fibrillation: known diagnosis per review of electronic records. monitor for ventricular rate control. Functional quadriplegia. continue supportive therapies, PT and OT with notably maximal assistance but patient is able to perform some aspects of self-care Protein-calorie malnutrition of unclear severity. probably moderate. continue oral dietary supplements with meals. 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 continue Decadron 4 mg oral daily. Fecal impaction. s/p multiple bowel movements. DVT px: SCD Code status: DNR. discussed with surrogate decision maker daughter Delia. poor prognosis. patient has been hospitalized for over 50 days. encouraged daughter to consider palliative measures and hospice; she has spoken with oncology team who recommends ongoing continued care in post acute care facility. Will need further input from oncology regarding futility of care noting multiple comorbid medical conditions and recommendations to have patient transition to SNF. Dispo: discharge planning to SNF once okay by consultants
[2019-03-13] MEDS: Folic Acid 1 MG TAB PO SCH (09:29)
[2019-03-13] MEDS: Lisinopril 20 MG TAB PO SCH ×2 (09:29→20:28)
[2019-03-13] MEDS: Acyclovir 400 mg Tablet PO SCH ×2 (09:29→20:28)
[2019-03-13] MEDS: Famotidine 20 MG TAB PO SCH ×2 (09:29→20:28)
[2019-03-13] MEDS: Dexamethasone 4 MG TAB PO SCH (09:29)
[2019-03-13] MEDS: Polyethylene Glycol 3350 17 GM Packet PO SCH (09:30)
[2019-03-13] MEDS: Acetaminophen 650 MG Suppository PR PRN (19:19)
[2019-03-14 06:29] LABS: Hemoglobin 6.9 g/dL (14.0-18.0); Mean Corpuscular HGB CONC 33.9 g/dL (32.0-36.0); Mean Corpuscular Hemoglobin 30.3 pg (27.0-31.0); Mean Corpuscular Volume 89.3 fL (78.0-98.0); Mean Platelet Volume 8.9 fL (7.4-10.4); Platelet Count 27 thou/uL (130-400); RBC Distribution Width 11.3 % (11.5-14.5); Red Blood Cell (RBC) Count 2.28 mill/uL (4.70-6.10); White Blood Cell (WBC) Count 0.2 thou/uL (4.8-10.8)
[2019-03-14 06:47] LABS: Platelet Morphology Comment Appears Decreased; RBC Morphology Normal
--- NOTE | 2019-03-14 08:41 | PDOC.HOSPP ---
- Subjective Encounter Date: 03/14/19 Encounter Time: 08:41 Subjective: cc: f/u for sepsis, pancytopenia, bacteremia, pneumonia, UTI, AML subjective: patient seen at bedside. minimally arousable with audible gurgline and breathing fast. daughter at bedside and notes patient has declined as of yesterday and been more difficult to arouse. she is contemplating comfort measures now. she wants to speak with her cousin and fiance. she wants to make sure her dad is not suffering. noted tmax 101.5 - Objective Vital Signs & Weight: Vital Signs (12 hours) Temp 03/14/19 04:00 97.4 F L 03/14/19 00:01 100.1 F H 03/13/19 22:00 101.5 F H Weight Admit Weight 151 lb 9.6 oz Weight 166 lb 6.4 oz Most Recent Monitor Data Heart Rate from ECG 96 NIBP 139/79 NIBP BP-Mean 99 Respiration from ECG 29 SpO2 100 I&O: 03/13/19 03/14/19 03/15/19 06:59 06:59 06:59 Intake Total 1300 0 Balance 1300 0 Result Diagrams: 03/14/19 06:15 03/07/19 05:51 Hospitalist ROS - Review of Systems Other: ROS: unable to obtain due to patient's mentation. - Medication Medications: Active Medications Generic Name Dose Route Start Last Admin Trade Name Freq PRN Reason Stop Dose Admin Acetaminophen 650 mg 01/19/19 16:46 03/07/19 04:28 Tylenol PO 650 mg Q4H PRN Administration Headache/Fever/Mild Pain (1-3) Acetaminophen 650 mg 01/25/19 15:29 03/13/19 19:19 Tylenol MS 650 mg Q4H PRN Administration Headache/Fever or Pain Acyclovir 400 mg 01/19/19 21:00 03/13/19 20:28 Zovirax PO Not Given BID CHRISTIANO Albuterol/Ipratropium 3 ml 01/25/19 10:26 03/13/19 15:03 Duoneb NEB 3 ml Q2H PRN Administration SOB &/or Wheezing Alteplase, Recombinant 2 mg 02/09/19 07:45 02/19/19 00:53 Cathflo CATH 2 mg WILLCALL CHRISTIANO Administration Dexamethasone 4 mg 02/09/19 08:00 03/13/19 09:29 Decadron PO 4 mg QAM-WM CHRISTIANO Administration Famotidine 20 mg 01/19/19 21:00 03/13/19 20:28 Pepcid PO Not Given BID [facility] Folic Acid 1 mg 01/25/19 09:00 03/13/19 09:29 Folvite PO 1 mg DAILY CHRISTIANO Administration Hydroxyzine HCl 10 mg 02/27/19 16:25 02/27/19 17:16 Atarax PO 10 mg Q6H PRN Administration Itching Ibuprofen 400 mg/ Sodium 104 mls @ 208 mls/hr 03/13/19 21:40 03/13/19 22:08 Chloride IVPB 104 mls Q6H PRN Administration Fever Levofloxacin 750 mg 03/13/19 06:00 03/14/19 05:57 Levaquin PO Not Given 0600 [facility] Lisinopril 20 mg 01/19/19 21:00 03/13/19 20:28 Zestril PO Not Given BID [facility] Ondansetron HCl 4 mg 01/19/19 16:46 02/19/19 20:14 Zofran Odt PO 4 mg Q6H PRN Administration Nausea/Vomiting Ondansetron HCl 4 mg 01/19/19 16:46 02/09/19 20:12 Zofran IVP 4 mg Q6H PRN Administration Nausea/Vomiting Pantoprazole Sodium 40 mg 02/03/19 09:00 03/13/19 09:29 Protonix PO 40 mg DAILY CHRISTIANO Administration Polyethylene Glycol 17 gm 03/08/19 09:00 03/13/19 09:30 Miralax PO 17 gm DAILY CHRISTIANO Administration Senna/Docusate Sodium 2 tab 01/19/19 16:46 02/07/19 10:37 Senokot S PO 2 tab BIDPRN PRN Administration Constipation Sodium Chloride 10 ml 02/17/19 07:42 03/11/19 21:05 Flush - Normal Saline IVF 10 ml PRN PRN Administration Saline Flush Trimethoprim/Sulfamethoxazole 1 tab 03/11/19 09:00 03/11/19 08:57 Bactrim Ds PO 1 tab MWF CHRISTIANO Administration Hosp A/P - Plan Physical Exam General Appearance: awake alert and malnourished in appearance Eye: PERR, anicteric sclera ENT: normocephalic atraumatic ENT - other findings: frontotemporal wasting Neck: supple Heart: s1 and s2 irregular irregular, no murmur Respiratory: CTAB, no wheezes, no rales, normal chest expansion Gastrointestinal: soft, non-tender, non-distended Extremities: no cyanosis, no edema Extremities - other findings: muscular atrophy. chest wall chemoport clean and intact. Skin: normal turgor Neurological: limited evaluation. no facial asymmetry. reported left side weaker Musculoskeletal: generalized weakness, diffuse muscle atrophy Psychiatric: ASSESSMENT AND PLAN: acute encephalopathy. likely due to multifactorial etiology including sepsis, frontal lobe mass, and complications from pancytopenia. patient actively dying. poor prognosis. discussed with daughter to pursue comfort measures and hospice and she is highly considering this and wants her dad to focus on comfort. she will speak with her family members about hospice. patient appropriate for inpatient hospice. keep NPO. Febrile neutropenia: recurrent fevers overnight. patient is immunocompromised and high risk of recurrent OI. keep NPO today due to decline. ID and oncology following. patient is on neutropenic isolation and has received multiple supportive transfusions and received platelets IV antibiotics discontinued 03/12/19 and now on oral Levaquin 750 mg and oral Bactrim 1 DS TIW monitor ANC. last chemotherapy was 02/10/19 and Bone marrow biopsy 03/01/19 shows hypocellular bone marrow without leukemia. last blood cultures 03/07/19 NGTD. sepsis due to VRE bacteremia (03/03/19), Pneumocystis pneumonia, UTI. fevers recurred yesterday Tmax 101.5, still neutropenic since hospitalization Patient has completed treatment for all. IV antibiotics discontinued by ID 03/12 and now on oral Levaquin 750 mg and oral Bactrim 1 tablet TIW on MWF isolation precaution. repeat blood cultures NGTD 03/07/19. TTE 03/07/19 without valvular vegetations. AML: oncology following. diagnosed 11/2018 with 2 rounds of chemotherapy last on week of 01/10/19. recent 03/07/19 CT chest, abdomen, pelvis noted with low density lesion in spleen and hypoattenuation lesions in bilateral kidneys with differential consideration for leukemic infiltrate. s/p CT guided biopsy 03/01/19 with hypocellular bone marrow without leukemia. monitor pancytopenia which has now improved. Pancytopenia: likely from AML or resultant chemotherapy, sepsis from bacteremia. continue supportive transfusions. Bone marrow biopsy suggests hypocellular bone marrow. atrial fibrillation: known diagnosis per review of electronic records. monitor for ventricular rate control. Functional quadriplegia. continue supportive therapies, PT and OT with notably maximal assistance but patient is able to perform some aspects of self-care Protein-calorie malnutrition of unclear severity. probably moderate. continue oral dietary supplements with meals. 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 continue Decadron 4 mg oral daily. Fecal impaction. s/p multiple bowel movements. DVT px: SCD Code status: DNR. discussed with surrogate decision maker daughter Delia. poor prognosis. patient has been hospitalized for over 50 days. daughter now contemplating comofort measures/hospice after bedside discussion. Dispo: unclear, possibly hospice. poor prognosis.
[2019-03-14] MEDS: Acyclovir 400 mg Tablet PO SCH (09:00)
[2019-03-14] MEDS: Famotidine 20 MG TAB PO SCH (09:00)
[2019-03-14] MEDS: Dexamethasone 4 MG TAB PO SCH (09:00)
[2019-03-14] MEDS: Polyethylene Glycol 3350 17 GM Packet PO SCH (09:01)
[2019-03-14] MEDS: Sulfameth/Trimethoprim DS 800-160mg TAB PO SCH (09:01)
[2019-03-14] MEDS: Lisinopril 20 MG TAB PO SCH (09:01)
[2019-03-14] MEDS: Folic Acid 1 MG TAB PO SCH (09:01)
[2019-03-14 09:47] VITALS: BP 119/69; TEMP 99.9
--- NOTE | 2019-03-14 13:45 | PDOC.MOPN ---
Interval History: unresponsive to verbal, responds to painful stimuli - Vital Signs Vital Signs: Vital Signs (12 hours) Temp Pulse Resp BP BP Pulse Ox 03/14/19 09:01 122/70 03/14/19 08:00 99.9 F H 108 H 20 119/69 91 L 03/14/19 04:00 97.4 F L Weight Admit Weight 151 lb 9.6 oz Weight 166 lb 6.4 oz Most Recent Monitor Data Heart Rate from ECG 96 NIBP 139/79 NIBP BP-Mean 99 Respiration from ECG 29 SpO2 100 - Physical Exam General: Other (obtunded) Lungs: Clear to auscultation Cardiovascular: Regular rate Abdomen: Normal bowel sounds Neurological: Other - Labs Result Diagrams: 03/14/19 06:15 03/07/19 05:51 Lab results: Laboratory Results - last 24 hr 03/14/19 06:15: WBC 0.2 L*, RBC 2.28 L, Hgb 6.9 L, Hct 20.4 L, MCV 89.3, MCH 30.3, MCHC 33.9, RDW 11.3 L, Plt Count 27 L*, MPV 8.9, Neutrophils % (Manual) Not Reportable, Neutrophils # Not Reportable, Lymphocytes # Not Reportable, Plt Morphology Comment Appears Decreased L, RBC Morph Comment Normal Status: lab reviewed by me A/P - Problem (1) AML (acute myeloblastic leukemia) Current Visit: Yes Code(s): C92.00 - ACUTE MYELOBLASTIC LEUKEMIA, NOT HAVING ACHIEVED REMISSION Status: Chronic (2) Neutropenic sepsis Current Visit: Yes Code(s): A41.9 - SEPSIS, UNSPECIFIED ORGANISM; D70.9 - NEUTROPENIA, UNSPECIFIED Status: Acute (3) Pancytopenia Current Visit: Yes Code(s): D61.818 - OTHER PANCYTOPENIA Status: Acute - Plan Plan: Discussed condition and prognosis with daughter She requests hospice, agree with decision. Discussed with Dr. Mckee No further labs, transfusion.
== END 2019-03-14 14:48 | disposition hospice, inpatient (51) | DRG 871 ==
LOC: ERS 14:12 → ERHOLD 16:20 → T4-A 18:19 → CCU 01-25 13:41 → ONC 01-25 19:32
PROVIDERS: ADMIT Internal Medicine; ATTEND Internal Medicine
PROC: 30233R1 Transfusion of Nonautologous Platelets into Peripheral Vein, Percutaneous Approach (ICD-10-PCS; 2019-01-21)
PROC: 30233N1 Transfusion of Nonautologous Red Blood Cells into Peripheral Vein, Percutaneous Approach (ICD-10-PCS; 2019-01-21)
PROC: 07DR3ZX Extraction of Iliac Bone Marrow, Percutaneous Approach, Diagnostic (ICD-10-PCS; principal; 2019-03-01)
DX: A41.81 Sepsis due to Enterococcus (principal); B59 Pneumocystosis; D61.810 Antineoplastic chemotherapy induced pancytopenia; G93.6 Cerebral edema; R53.2 Functional quadriplegia; G93.41 Metabolic encephalopathy; C92.00 Acute myeloblastic leukemia, not having achieved remission; N39.0 Urinary tract infection, site not specified; E87.2 Acidosis; I50.32 Chronic diastolic (congestive) heart failure; E44.0 Moderate protein-calorie malnutrition; R65.20 Severe sepsis without septic shock; Z51.5 Encounter for palliative care; Z66 Do not resuscitate; R53.81 Other malaise; E87.6 Hypokalemia; D69.6 Thrombocytopenia, unspecified; D49.6 Neoplasm of unspecified behavior of brain; D63.8 Anemia in other chronic diseases classified elsewhere; T45.1X5A Adverse effect of antineoplastic and immunosuppressive drugs, initial encounter; B96.1 Klebsiella pneumoniae [K. pneumoniae] as the cause of diseases classified elsewhere; I11.0 Hypertensive heart disease with heart failure; I48.91 Unspecified atrial fibrillation; K56.41 Fecal impaction; Z99.3 Dependence on wheelchair; Z98.41 Cataract extraction status, right eye; Z79.01 Long term (current) use of anticoagulants
CPT/HCPCS: 20225; 36415; 36416; 36430; 51701; 70450; 70553; 71045; 71260; 74019; 74177; 77012; 80048; 80053; 80202; 81003; 81015; 82550; 82607; 82728; 82746; 83540; 83550; 83605; 83735; 83880; 84100; 85007; 85025; 85027; 85097; 86147; 86606; 86612; 86635; 86698; 86850; 86900; 86901; 87040; 87077; 87086; 87149; 87186; 87449; 87497; 87804; 88184; 88237; 88264; 88280; 88305; 88311; 93005; 93010; 93306; 94640; 96361; 96365; J0692; J0696; J0878; J1100; J1940; J2020; J2185; J2248; J2250; J2405; J2543; J2997; J3010; J3370; J3480; J3490; J7050; J7070; J7512; J7620; J8540; P9016; P9035; Q0162; Q9967

== ENCOUNTER 2019-03-14 15:14 | Inpatient (IN) | payer OTHER ==
[2019-03-14] MEDS ORDERED: Scopolamine 1.5 mg/72 hour Patch TOP PRN (16:15)
[2019-03-14] MEDS ORDERED: Lorazepam 2 MG/ML VIAL SLOW IVP PRN (16:15)
[2019-03-14] MEDS ORDERED: Ondansetron PF 4 MG/2 ML Vial IVP PRN (16:15)
[2019-03-14] MEDS ORDERED: Morphine 2 MG/ML SYRINGE SLOW IVP PRN (16:25)
[2019-03-14] MEDS: Lorazepam 2 MG/ML VIAL SLOW IVP SCH ×2 (16:32→23:17)
[2019-03-14] MEDS: Morphine 2 MG/ML SYRINGE SLOW IVP SCH ×3 (16:33→23:17)
[2019-03-15] MEDS: Morphine 2 MG/ML SYRINGE SLOW IVP SCH ×8 (01:26→22:32)
[2019-03-15 04:48] VITALS: BMI 22.9
[2019-03-15] MEDS: Lorazepam 2 MG/ML VIAL SLOW IVP SCH ×4 (05:09→22:32)
--- NOTE | 2019-03-15 09:57 | HP ---
CHIEF COMPLAINT: Hospice consult. The patient is nonverbal. HISTORY OF PRESENT ILLNESS: A 73-year-old male, who has been hospitalized since 01/19/2019, presented with fever. Diagnosis of AML in November of this year. Two rounds of chemotherapy. Presents with fever and weakness. Diagnosis of neutropenic sepsis. Blood cultures grew out vancomycin-resistant Enterococcus. Consults were done including Hospital Service, Infectious Disease, Oncology, and Pulmonology. He was treated with IV antibiotics and transition to oral antibiotics on 03/12/2019. Oral antibiotics included Levaquin and Bactrim. Antiviral included acyclovir. He received transfusions due to his pancytopenia. Neutropenic sepsis was thought to be multifactorial due to chemotherapy and UTI/pneumonia/bacteremia. Condition did not improve. Bone marrow biopsy was performed. It showed marked hypercellularity. There was rapid decline starting 03/13/2019. Decreased alertness. Obtund. Respiratory difficulty. Family opted for hospice care and hospice was initiated on 03/14/2019. Family is in the room during my visit. The patient is not awake, not arousable. He is in no discomfort. Oxygen is in place. Family have no concerns. PAST MEDICAL HISTORY: 1. Cataract. 2. Hypertension. 3. Atrial fibrillation. 4. AML diagnosed in 2018. 5. Frontal lobe mass, diagnosis of meningioma. PAST SURGICAL HISTORY: 1. Cataract. 2. Left subclavian MediPort placement. FAMILY HISTORY: Noncontributory. SOCIAL HISTORY: No history of tobacco, alcohol, or recreational drug use. MEDICATIONS: On chart review. ALLERGIES: NO KNOWN DRUG ALLERGIES. REVIEW OF SYSTEMS: Not obtainable due to cognitive impairment and not responding. PHYSICAL EXAMINATION: VITAL SIGNS: Temperature 101.3 degrees Fahrenheit, pulse 127 beats per minute, respiratory rate 32, oxygenation 99% on 3 L nasal cannula. HEENT: Normocephalic, atraumatic. Nasal cannula is in place. LUNGS: Diminished breath sounds bilaterally with crackles. HEART: Tachycardic. ABDOMEN: Soft, nondistended. Positive bowel sounds. EXTREMITIES: No edema. LABORATORY DATA: Most recent labs and imaging. 03/09/2019, transthoracic echocardiogram with an ejection fraction of 50% to 55%, mild aortic regurgitation, [id number] mitral regurgitation, [id number] tricuspid regurgitation, no vegetations. 03/14/2019, WBCs 0.2, hemoglobin 6.9, platelets 27,000. 03/07/2019, CT of the chest, abdomen, and pelvis: Bilateral perihilar infiltrates. Bilateral pulmonary nodules. Mediastinal and hilar adenopathy. Low density lesion in the spleen. Low attenuation areas of bilateral kidneys. Stool throughout dilated colon. Blood culture negative. Sodium 132, potassium 3.8, creatinine 0.64. 03/01/2019, bone marrow biopsy, marked hypercellularity. 02/25/2019, CT of the brain with large extra-axial and right frontal mass with midline shift and adjacent edema. 03/03/2019, blood cultures with vancomycin-resistant Enterococcus 2 of 2, followup blood cultures were negative. 02/22/2019, urine culture without growth. 01/23/2019, fungal studies negative. 01/19/2019, urine cultures, Klebsiella. ASSESSMENT: 1. Acute myeloblastic leukemia, not having achieved remission. 2. Neutropenic sepsis with initial urine culture positive for Klebsiella and blood cultures positive for vancomycin-resistant Enterococcus treated with antimicrobials. Followup blood cultures and urine cultures were negative. 3. Pancytopenia. 4. Right frontal lobe brain mass, diagnosis of meningioma in the past. PLAN: A 73-year-old male with rapid decline, failed medical treatment for AML and neutropenic sepsis. Right frontal brain mass, diagnosis of meningioma. Hospitalized since 01/19/2019. IV antibiotics transitioned to oral antibiotics on 03/12/2019. Pancytopenia remains. Now unresponsive. Family opted to discontinue supportive care and opted for conservative care. Hospice was consulted on 03/14/2019 and initiated. He needs inpatient hospice due to poor oral intake and need for aggressive symptom management for respiratory distress and pain. He is comfortable. Goals per hospice comfort care have been achieved. However, continued to follow daily. Family was in the room and I discussed care. Job ID: [id number]
[2019-03-16] MEDS: Morphine 2 MG/ML SYRINGE SLOW IVP SCH ×8 (01:55→22:51)
[2019-03-16] MEDS: Lorazepam 2 MG/ML VIAL SLOW IVP SCH ×4 (04:57→22:51)
[2019-03-16] MEDS: Acetaminophen 650 MG Suppository PR PRN (10:43)
[2019-03-17] MEDS: Morphine 2 MG/ML SYRINGE SLOW IVP SCH ×7 (01:53→19:30)
[2019-03-17] MEDS: Lorazepam 2 MG/ML VIAL SLOW IVP SCH ×3 (05:11→16:58)
[2019-03-17] MEDS: Acetaminophen 650 MG Suppository PR PRN (08:15)
[2019-03-17 19:32] VITALS: BP 75/57; TEMP 101.2
--- NOTE | 2019-03-18 15:03 | DIS ---
DATE OF ADMISSION: 03/14/2019 DATE OF DISCHARGE: 03/17/2019 Date of admission to hospice care, 03/14/2019. DATE OF : 03/17/2019. TIME OF : 2205 hours. ADMITTING DIAGNOSES: 1. Acute myeloid leukemia. 2. Neutropenic sepsis. 3. Pancytopenia. BRIEF SUMMARY: Mr. Crooks is a 73-year-old male, who was hospitalized for a prolonged period at [facility] for acute myeloblastic leukemia with neutropenic sepsis and pancytopenia. Treatment options were exhausted. He was transitioned to hospice. He passed on 03/17/2019 at 2205 hours. He was in no discomfort. Body was released to home. Job ID: [id number]
== END 2019-03-17 22:05 | disposition expired | DRG 951 ==
LOC: ONC 15:14
PROVIDERS: ADMIT Internal Medicine; ATTEND Internal Medicine
DX: Z51.5 Encounter for palliative care (principal); A41.89 Other specified sepsis; J18.9 Pneumonia, unspecified organism; D61.818 Other pancytopenia; C92.00 Acute myeloblastic leukemia, not having achieved remission; N39.0 Urinary tract infection, site not specified; Z16.21 Resistance to vancomycin; D32.0 Benign neoplasm of cerebral meninges; I10 Essential (primary) hypertension; I48.91 Unspecified atrial fibrillation; Z98.49 Cataract extraction status, unspecified eye; Z66 Do not resuscitate; Z92.21 Personal history of antineoplastic chemotherapy; B95.61 Methicillin susceptible Staphylococcus aureus infection as the cause of diseases classified elsewhere
CPT/HCPCS: J2060; J2270